=== PATIENT | male | born 1950 | race Two or more races ===

== ENCOUNTER 2020-01-24 13:11 | Emergency (ER) | payer MEDICARE, MEDICAID, SELFPAY ==
[2020-01-24 14:15] VITALS: BP 178/86; PULSE 58; RESP 16; TEMP 37.1; O2SAT 100; BMI 24.4
--- NOTE | 2020-01-24 15:21 | ED.GENADULT ---
HPI - General Adult General Chief complaint: General Medical Stated complaint: congestion Time Seen by Provider: 01/24/20 15:15 Source: patient Mode of arrival: ambulatory Limitations: no limitations History of Present Illness HPI narrative: 69 y/o male presenting with sinus congestion for the last 2 days. He denies all other symptoms and is requesting COVID-19 testing. He states his nasal discharge is thin and watery. He has a mild headache. He has been taking medications for it but does not recall what they are. He denies sick contacts. Denies hx seasonal allergies. MD complaint: sinus pain Onset (ago): day(s) (2) Location: head Radiation: non-radiation Severity: mild Quality: aching Pain Consistency: constant Relieving factors: none Exacerbating factors: movement Associated symptoms: denies other symptoms Treatments prior to arrival: none Related Data Home Medications Medication Instructions Recorded Confirmed artificial tears(hypromellose) 0.3 1 drp OPHTHALMIC (EYE) Q4H PRN 12/17/19 % eye gel atorvastatin 10 mg tablet 10 mg PO DAILY 12/17/19 duloxetine 30 mg capsule,delayed 30 mg PO DAILY 12/17/19 release flecainide 50 mg tablet 50 mg PO BID tab 12/17/19 Previous Rx's Medication Instructions Recorded metoprolol succinate 25 mg 25 mg PO DAILY 90 Days #90 tab 12/17/19 tablet,extended release 24 hr omeprazole 20 mg capsule,delayed 20 mg PO DAILY #30 cap 12/17/19 release tizanidine 4 mg tablet 4 mg PO BID PRN #60 tab 12/18/19 tamsulosin 0.4 mg capsule 0.4 mg PO BEDTIME #30 cap 12/25/19 lorazepam 0.5 mg tablet 0.5 mg PO DAILY PRN #30 tab 01/14/20 rivaroxaban 20 mg tablet 20 mg PO DAILY #90 cap 01/15/20 fluticasone propionate 1 spray INTRANASAL BID #9.9 ml 01/24/20 Allergies Allergy/AdvReac Type Severity Reaction Status Date / Time almond [ALMOND] Allergy Unknown SWELLING Unverified 11/13/19 15:32 flecainide Allergy Unknown Verified 08/20/17 00:00 Review of Systems Review of Systems: Constitutional: No Fever, No Chills ENT/Mouth: No sore throat, + Rhinorrhea Eyes: No Eye Pain, No Swelling, No Redness Cardiovascular: No Chest Pain, No SOB Respiratory: No Cough, No Sputum, No Wheezing, No dyspnea Gastrointestinal: No Nausea, No Vomiting, No Diarrhea, No abdominal Pain Genitourinary: No Dysuria, No Urinary Frequency, No Hematuria Musculoskeletal: No joint pain, No Myalgias Skin: No Skin Lesions, No rash Neuro: No Weakness, No Dizziness, + Headache Heme/Lymph: No Lymphadenopathy [facility] Past Medical History Attestation statement: The following information was validated with the patient. Medical History Alcohol abuse Anxiety and depression Atrial fibrillation Blind right eye BPH (benign prostatic hyperplasia) Degenerative disc disease, cervical GERD (gastroesophageal reflux disease) Hypercholesterolemia Hypertension Left renal stone Lesion of bladder Pulmonary nodule Sensorineural hearing loss Thoracic spondylosis Tubular adenoma of colon Surgical History (Updated 12/16/19 @ 13:35 by Yvonne Carter MD) History of inguinal hernia repair Hx of cataract surgery Family History Family History (Updated 12/17/19 @ 07:36 by Lily Melo [facility]) Father Medical history unknown Mother Medical history unknown Social History Social History Advance Directives: No Advance Directives Information Provided: No Physical Exam Vital Signs: Vital Signs: Last Vital Signs Temp 98.7 F 01/24/20 14:15 Pulse 58 01/24/20 14:15 Resp 16 01/24/20 14:15 BP 178/86 H 01/24/20 14:15 Pulse Ox 100 01/24/20 14:15 Body Mass Index 24.4 Appearance: Alert. Oriented X3. No acute distress. HEENT: normal inspection, nasal discharge clear, normal nasal turbinates, normal TM's bilaterally. CVS: Normal heart rate and rhythm. Pulses normal. Respiratory: No respiratory distress. Lung sounds clear bilaterally. Skin: Skin warm and dry. Normal skin color. Normal skin turgor. No rashes. Extremities: no LE edema. Neuro: Oriented X 3. Non-focal Course Course Course Narrative: 69 y/o male presenting with nasal congestion. He is concerned about COVID-19. Resp panel was sent. Low suspicion. Exam is unremarkable and vitals are stable. Stable for d/c, will call with results. Nasal steroids prescribed. Critical Care Time Critical Care Time Critical Care Time: No Discharge Plan Discharge Clinical Impression: Upper respiratory infection, viral Patient Disposition: Home, Self-Care Instructions: Upper Respiratory Infection (ED) Additional Instructions: You were tested for COVID-19, Influenza and RSV today. We will call you with the results this evening. Take over the counter cold/flu medications as needed. Use nasal saline spray and nasal decongestant medications. Use prescribed nasal spray to help with congestion. Follow up with your doctor next week. If you develop shortness of breath, chest pain, or difficulty breathing call 911 or come back to the ER for further evaluation. Prescriptions: New fluticasone propionate 50 mcg/actuation spray,suspension 1 spray intranasal BID Qty: 9.9 RF: 0 No Action tizanidine 4 mg tablet 4 mg PO BID PRN (Reason: muscle spasticity) Qty: 60 RF: 0 tamsulosin [Flomax] 0.4 mg capsule 0.4 mg PO BEDTIME Qty: 30 RF: 6 lorazepam 0.5 mg tablet 0.5 mg PO DAILY PRN (Reason: agitation) Qty: 30 RF: 0 rivaroxaban [Xarelto] 20 mg tablet 20 mg PO DAILY Qty: 90 RF: 1 Systane Gel 0.3 % gel 1 drp ophthalmic (eye) Q4H PRNRF: 0 atorvastatin 10 mg tablet 10 mg PO DAILY RF: 0 flecainide 50 mg tablet 50 mg PO BID RF: 0 duloxetine [Cymbalta] 30 mg capsule,delayed release(DR/EC) 30 mg PO DAILY RF: 0 metoprolol succinate 25 mg tablet extended release 24 hr 25 mg PO DAILY 90 Days Qty: 90 RF: 3 omeprazole 20 mg capsule,delayed release(DR/EC) 20 mg PO DAILY Qty: 30 RF: 2 Print Language: Kyrgyz
[2020-01-24 19:39] LABS: Influenza A PCR NEGATIVE (Negative); Influenza B PCR NEGATIVE (Negative); Resp Syncy Virus RNA Qual PCR NEGATIVE (Negative); SARS COV2 PCR INHOUSE NEGATIVE (Negative)
== END 2020-01-24 16:25 | disposition home or self-care (01) ==
PROVIDERS: Physician Assistant; Emergency Provider Internal Medicine; PCP Internal Medicine
DX: J06.9 Acute upper respiratory infection, unspecified (principal); R09.81 Nasal congestion; Z79.899 Other long term (current) drug therapy; Z20.828 Contact with and (suspected) exposure to other viral communicable diseases
CPT/HCPCS: 0241U; 99283

== ENCOUNTER 2020-03-04 09:55 | Outpatient (REF) | payer MEDICARE, MEDICAID, SELFPAY ==
--- NOTE | 2020-03-04 09:58 | US_ITS ---
EXAMINATION: US RETROPERITONEAL LIMITED (RENAL ONLY) CLINICAL INFORMATION: Cyst of kidney, acquired. COMPARISON: Renal ultrasound 07/25/2018. Ultrasound kidneys and bladder 06/18/2018. CT abdomen and pelvis 02/15/2015. X-ray abdomen KUB 09/10/2014. TECHNIQUE: Real-time imaging of the kidneys. FINDINGS: RIGHT KIDNEY: 10.8 x 5.3 x 5.8 cm (SAG x AP x TRV). The kidney is normal in size, contour, and echogenicity. Renal cortical thickness is normal. No calculi or focal parenchymal lesions. No hydronephrosis. LEFT KIDNEY: 11.0 x 5.5 x 4.7 cm (SAG x AP x TRV). The kidney is normal in size, contour, and echogenicity. Renal cortical thickness is normal. No renal calculi or hydronephrosis. There are peripelvic lower pole cysts measuring 0.9 x 1.3 x 0.8 cm and 1.0 x 0.6 x 0.7 cm. There are prominent pyramids visualized. US/US renal BI IMPRESSION: Unremarkable right kidney. At least 2 peripelvic lower pole left renal cysts. Prominent pyramids.
== END 2020-03-04 09:56 | disposition home or self-care (01) ==
LOC: HO.US 09:55
PROVIDERS: PCP Internal Medicine; Visit Provider Internal Medicine
DX: N28.1 Cyst of kidney, acquired (principal)
CPT/HCPCS: 76775

== ENCOUNTER → 2020-05-24 09:22 | Outpatient (BNVA) | payer MEDICARE, MEDICAID, SELFPAY | PROVIDERS: PCP Internal Medicine; Visit Provider Internal Medicine Cardiovascular Disease | DX: I48.0 Paroxysmal atrial fibrillation (principal); I10 Essential (primary) hypertension | CPT/HCPCS: 93005; 99212 ==

== ENCOUNTER 2020-06-10 08:06 | Outpatient (REF) | payer MEDICARE, MEDICAID, SELFPAY ==
--- NOTE | ~2020-06-10 | XR_ITS ---
EXAMINATION: XR LUMBOSACRAL SPINE CLINICAL INFORMATION: Low back pain COMPARISON: None TECHNIQUE: Three views of the lumbosacral spine. FINDINGS: Bone alignment is normal. No fracture or dislocation is seen. Disc spaces are normal. There is mild atherosclerotic disease. XR/XR lumbar spine 2-3V IMPRESSION: Unremarkable exam.
[2020-06-10 08:49] LABS: MANUAL DIFF FLAG NO
[2020-06-10 08:52] LABS: Basophils Absolute Auto 0.1 X10*3/uL (0.0-0.2); Basophils Percent Auto 0.9 % (0-2); Eosinophils Absolute Auto 0.3 X10*3/uL (0.0-0.4); Eosinophils Percent Auto 4.6 % (0-4); Hematocrit 39.7 % (42-52); Hemoglobin 12.8 g/dl (14.0-18.0); Imm Gran Abs Auto 0.01 X10*3/uL (0.00-0.03); Imm Gran Pct Auto 0.2 % (0.0-0.4); Lymphocytes Absolute Auto 1.9 X10*3/uL (1.2-4.9); Lymphocytes Percent Auto 34.6 % (20-40); Mean Corpuscular HGB Conc 32.2 g/dl (31.0-36.0); Mean Corpuscular Hemoglobin 30.3 pg (27.0-33.0); Mean Corpuscular Volume 93.9 fL (80-98); Mean Platelet Volume 10.8 fL (9.4-12.4); Monocytes Absolute Auto 0.4 X10*3/uL (0.1-1.2); Monocytes Percent Auto 7.2 % (2-11); Neutrophils Absolute Auto 2.9 X10*3/uL (2.0-8.3); Neutrophils Percent Auto 52.5 % (45-73); Platelet Count 201 X10*3/uL (160-400); Red Blood Count 4.23 X10*6/uL (4.60-5.80); Red Cell Distribution Width 13.4 % (11.0-16.0); White Blood Count 5.4 X10*3/uL (4.8-10.8)
[2020-06-10 09:16] LABS: Alanine Aminotransferase 13 U/L (0-40); Albumin Level 4.2 g/dL (3.5-5.0); Alkaline Phosphatase 61 U/L (39-117); Anion Gap 10 (12-20); Aspartate Amino Transferase 16 U/L (5-37); Blood Urea Nitrogen 11 mg/dL (9-16); Calcium 9.3 mg/dL (8.4-10.2); Carbon Dioxide 29 mmol/L (22-29); Chloride 107 mmol/L (96-108); Cholesterol 181 mg/dL; Estimated Glomerular Filt Rate > 60; Glucose Random 96 mg/dL (60-115); HDL Cholesterol 50 mg/dL; LDL Cholesterol Calculated 105 mg/dl; Potassium 4.2 mmol/L (3.3-5.1); Sodium 142 mmol/L (135-145); Total Protein 6.5 g/dL (6.5-8.0); Triglycerides 133 mg/dL
[2020-06-10 09:38] LABS: Prostate Specific Antigen Scr 1.64 ng/mL (<0.05-4.0); Thyroid Stimulating Hormone 0.78 uIU/mL (0.32-4.0)
[2020-06-10 09:56] LABS: Folate 18.6 ng/mL (> or = 4.0); Vitamin B12 380 pg/mL (200-900)
== END 2020-06-10 08:07 | disposition home or self-care (01) ==
LOC: HO.LAB 08:06
PROVIDERS: PCP Internal Medicine; Visit Provider Internal Medicine
DX: Z12.5 Encounter for screening for malignant neoplasm of prostate (principal); M54.5 Low back pain; E78.00 Pure hypercholesterolemia, unspecified; I48.0 Paroxysmal atrial fibrillation; I10 Essential (primary) hypertension; R35.0 Frequency of micturition; N40.1 Benign prostatic hyperplasia with lower urinary tract symptoms
CPT/HCPCS: 36415; 72100; 80053; 80061; 82607; 82746; 84153; 84443; 85025

== ENCOUNTER 2020-06-15 23:30 | Emergency (ER) | payer MEDICARE, MEDICAID, SELFPAY ==
--- NOTE | 2020-06-15 | ECG_ITS ---
Test Reason : CHEST PRESSURE Blood Pressure : / mmHG Vent. Rate : 059 BPM Atrial Rate : 059 BPM P-R Int : 172 ms QRS Dur : 100 ms QT Int : 418 ms P-R-T Axes : 047 061 061 degrees QTc Int : 413 ms Sinus bradycardia Otherwise normal ECG When compared to the previous EKG of No significant changes seen Referred By: Generic ED Physician Electronically Signed By:Efe Mcrae
--- NOTE | ~2020-06-15 | XR_ITS ---
EXAMINATION: XR CHEST CLINICAL INFORMATION: Pain COMPARISON: 10/21/2019 TECHNIQUE: Frontal view of the chest was obtained. FINDINGS: Cardiac leads overlie the chest. Hyperexpanded lungs. No consolidation, edema, or effusion. No pneumothorax. The cardiomediastinal silhouette is within normal limits. No acute osseous abnormality. XR/XR chest 1V IMPRESSION: No acute pulmonary finding.
--- NOTE | ~2020-06-15 | CT_ITS ---
EXAMINATION: CT HEAD WITHOUT CONTRAST CLINICAL INFORMATION: Dizziness on Xarelto. COMPARISON: 02/06/2019 TECHNIQUE: Contiguous axial imaging was performed from the skull base to vertex without intravenous contrast. This CT examination was performed using dose optimization techniques as appropriate, variously including the following: * Automated exposure control * Adjustment of mA and/or kV according to patient size (this includes techniques or standardized protocols for targeted exams where dose is matched to indication/reason for exam; i.e. extremities or head) Use of iterative reconstruction technique DLP: 774 mGy-cm. FINDINGS: There is no evidence of acute intracranial hemorrhage or territorial infarction. No abnormal mass effect or midline shift is seen. Ramirez to white matter differentiation is well preserved. No extra-axial fluid collections are identified. No hydrocephalus. Proportional prominence of the ventricles and sulcal spaces is consistent with mild volume loss. Patchy periventricular and deep white matter hypoattenuation is consistent with mild small vessel ischemic changes. The osseous structures and soft tissues are normal. The mastoid air cells and visualized portions of the paranasal sinuses are well aerated. CT/CT head/brain wo con IMPRESSION: No acute intracranial pathology.
[2020-06-15 23:46] VITALS: BP 116/58; PULSE 59; RESP 16; TEMP 36.9; O2SAT 98; BMI 25.0
--- NOTE | 2020-06-15 23:49 | ED_ITS ---
HPI - Chest Pain General Chief Complaint: General Medical Stated Complaint: CHEST PAIN Time Seen by Provider: 06/15/20 23:49 Source: patient, old records reviewed and manager implementation Mode of arrival: ambulatory Limitations: no limitations History of Present Illness HPI narrative: 69 yo male with afib on xarelto, anxiety and depression, HPL, BPH, lower back pain, HTN - here with very vague symptoms c/o brief episode of chest pressure after eating food but that resolved and he stated he's fine now this happened at 11am, then stated he felt dizzy and his L eye was blurry this has now resolved, he has a normal neuro exam, he is very vague and his story has changed 5 to 6 times. MD complaint: chest pain and other (blurry vision in eye) Pertinent past history: other Timing of current episode: now resolved Prior episodes: Yes Onset: during rest Pain location: left chest Pain radiation: none Severity: mild Quality: heaviness Relieving factors: nothing (was given nitro but it did nothing and he had no chest pain) Exacerbating factors: nothing Associated symptoms: other (blurry vision left eye) Treatment prior to arrival: nitroglycerin Related Data Home Medications Medication Instructions Recorded Confirmed artificial tears(hypromellose) 0.3 1 drp OPHTHALMIC (EYE) Q4H PRN 12/17/19 06/09/20 % eye gel Previous Rx's Medication Instructions Recorded tizanidine 4 mg tablet 4 mg PO BID PRN #60 tab 12/18/19 tamsulosin 0.4 mg capsule 0.4 mg PO BEDTIME #30 cap 12/25/19 fluticasone propionate 1 spray INTRANASAL BID #9.9 ml 01/24/20 atorvastatin 10 mg tablet 10 mg PO DAILY #90 tab 03/10/20 duloxetine 30 mg capsule,delayed 30 mg PO DAILY #90 cap 03/10/20 release metoprolol succinate 25 mg 25 mg PO DAILY 90 Days #90 tab 03/10/20 tablet,extended release 24 hr omeprazole 20 mg capsule,delayed 20 mg PO DAILY #90 cap 03/10/20 release rivaroxaban 20 mg tablet 20 mg PO DAILY #90 cap 03/10/20 lorazepam 0.5 mg tablet 0.5 mg PO DAILY 90 Days #90 tab 04/28/20 flecainide 50 mg tablet 50 mg PO BID #180 cap 06/07/20 Allergies Allergy/AdvReac Type Severity Reaction Status Date / Time almond [ALMOND] Allergy Unknown SWELLING Verified 04/23/20 12:45 Review of Systems Review of Systems: Constitutional : No Weight loss, No Fever, No Chills, No Fatigue, No Malaise ENT/Mouth : No sore throat, No Rhinorrhea Eyes: No Eye Pain, No Swelling, No Redness Cardiovascular : No Chest Pain, No SOB, No Dyspnea on Exertion, No Orthopnea, No Edema, No Palpitations Respiratory : No Cough, No Sputum, No Wheezing Gastrointestinal : No Nausea, No Vomiting, No Diarrhea, No Constipation, No abdominal Pain, No Hematochezia, No Melena Genitourinary : No Dysuria, No Urinary Frequency, No Hematuria, Musculoskeletal : No joint pain, No Myalgias, No Joint Swelling Skin : No Skin Lesions, No rash Neuro : No Weakness, No Numbness, pos Dizziness, No Headache Psych : No Anxiety/Panic, No Depression Heme/Lymph: No Bruising, No Bleeding,No Lymphadenopathy Endocrine : No Polyuria, No Polydipsia All other systems reviewed and are negative [facility] Past Medical History Attestation statement: The following information was validated with the patient. Medical History Alcohol abuse Anxiety and depression Blind right eye BPH (benign prostatic hyperplasia) Degenerative disc disease, cervical GERD (gastroesophageal reflux disease) Hypercholesterolemia Hypertension Left renal stone Lesion of bladder Lower back pain Paroxysmal atrial fibrillation Pulmonary nodule Renal cyst Sensorineural hearing loss Thoracic spondylosis Tubular adenoma of colon Surgical History History of inguinal hernia repair Hx of cataract surgery Family History Family History (Updated 04/23/20 @ 12:46 by Lily Melo Celeste) Father Medical history unknown Mother Medical history unknown Brother No problems noted. Son No problems noted. Son No problems noted. Social History Social History Alcohol intake: never Smoking Status: Never smoker Advance Directives: No Physical Exam Vital Signs: Vital Signs: Last Vital Signs Temp 98.4 F 06/15/20 23:46 Pulse 59 06/15/20 23:46 Resp 16 06/15/20 23:46 BP 116/58 L 06/15/20 23:46 Pulse Ox 98 06/15/20 23:46 Body Mass Index 25.0 Appearance: Alert. Oriented X3. No acute distress. Eyes: Pupils equal, round and reactive to light. no visual field deficits ENT: Pharynx normal. Neck: Normal inspection. Neck supple. CVS: Normal heart rate and rhythm. Pulses normal. Respiratory: No respiratory distress. Breath sounds normal. Abdomen: Soft and nontender. Skin: Skin warm and dry. Normal skin color. Normal skin turgor. Extremities: No lower extremity edema. No calf ttp Neuro: Oriented X 3. No motor deficit. No sensory deficit. NIH Stroke Scale Internal: Initial- Upon Arrival Level of Consciousness: Alert Level of Consciousness Questions: Answers both questions correctly Level of Consciousness Commands: Performs both tasks correctly Best Gaze: Normal Visual: No visual loss Facial Palsy: Normal Motor Arm (Right): No drift Motor Arm (Left): No drift Motor Leg (Right): No drift Motor Leg (Left): No drift Limb Ataxia: Absent Sensory: Normal Best Language: No aphasia Dysarthia: Normal Extinction and Inattention: No abnormality Score: 0 Course Course Course Narrative: no acute findings, patient wants to leave at this time, refuses repeat troponin, unsure what happened, instructed him to return if he it occurs again but patient states he feels fine now and wants to go home MDM - Chest Pain MDM Narrative Medical decision making narrative: 69 yo male with afib on xarelto, anxiety and depression, HPL, BPH, lower back pain, HTN - here with very vague symptoms c/o brief episode of chest pressure after eating food but that resolved and he stated he's fine now this happened at 11am, then stated he felt dizzy and his L eye was blurry this has now resolved, his story has changed 4 to 5 times but given his history though he has a negative NIH score will obtain CT scan due to AC therapy, troponin, not toxic now looks well. Lab Data Result diagrams: 06/16/20 00:31 06/16/20 00:31 Labs: Lab Results 06/16/20 06/16/20 06/16/20 Range/Units 00:31 00:31 00:31 WBC 6.8 (4.8-10.8) X10*3/uL RBC 3.99 L (4.60-5.80) X10*6/uL Hgb 11.9 L (14.0-18.0) g/dl Hct 36.9 L (42-52) % MCV 92.5 (80-98) fL MCH 29.8 (27.0-33.0) pg MCHC 32.2 (31.0-36.0) g/dl RDW 13.3 (11.0-16.0) % Plt Count 197 (160-400) X10*3/uL MPV 10.4 (9.4-12.4) fL Immature Gran % (Auto) 0.1 (0.0-0.4) % Neut % (Auto) 58.9 (45-73) % Lymph % (Auto) 29.1 (20-40) % [place] % (Auto) 7.3 (2-11) % Eos % (Auto) 3.9 (0-4) % Baso % (Auto) 0.7 (0-2) % Lymph # (Auto) 2.0 (1.2-4.9) X10*3/uL [place] # (Auto) 0.5 (0.1-1.2) X10*3/uL Eos # (Auto) 0.3 (0.0-0.4) X10*3/uL Baso # (Auto) 0.1 (0.0-0.2) X10*3/uL Abs Immat Gran (auto) 0.01 (0.00-0.03) X10*3/uL Absolute Neuts (auto) 4.0 (2.0-8.3) X10*3/uL Absolute Nucleated RBC 0.000 (0.0-0.012) X10*3/uL Nucleated RBC % (auto) 0.0 (0.0-0.2) /100WBC PT 25.1 H (10.8-13.0) SEC INR 2.1 H (0.9-1.1) APTT 48.1 H (24.1-38.0) SEC Sodium 140 (135-145) mmol/L Potassium 3.5 (3.3-5.1) mmol/L Chloride 108 (96-108) mmol/L Carbon Dioxide 22 (22-29) mmol/L Anion Gap 14 (12-20) BUN 12 (9-16) mg/dL Creatinine 0.84 (0.5-1.4) mg/dL Estim Creat Clear Calc 89.8 Estimated GFR > 60 Random Glucose 127 H (60-115) mg/dL Calcium 8.9 (8.4-10.2) mg/dL Magnesium (1.6-2.6) mg/dL Troponin I High Sens (<3.5-35.0) ng/L 06/16/20 06/16/20 Range/Units 00:31 00:31 WBC (4.8-10.8) X10*3/uL RBC (4.60-5.80) X10*6/uL Hgb (14.0-18.0) g/dl Hct (42-52) % MCV (80-98) fL MCH (27.0-33.0) pg MCHC (31.0-36.0) g/dl RDW (11.0-16.0) % Plt Count (160-400) X10*3/uL MPV (9.4-12.4) fL Immature Gran % (Auto) (0.0-0.4) % Neut % (Auto) (45-73) % Lymph % (Auto) (20-40) % [place] % (Auto) (2-11) % Eos % (Auto) (0-4) % Baso % (Auto) (0-2) % Lymph # (Auto) (1.2-4.9) X10*3/uL [place] # (Auto) (0.1-1.2) X10*3/uL Eos # (Auto) (0.0-0.4) X10*3/uL Baso # (Auto) (0.0-0.2) X10*3/uL Abs Immat Gran (auto) (0.00-0.03) X10*3/uL Absolute Neuts (auto) (2.0-8.3) X10*3/uL Absolute Nucleated RBC (0.0-0.012) X10*3/uL Nucleated RBC % (auto) (0.0-0.2) /100WBC PT (10.8-13.0) SEC INR (0.9-1.1) APTT (24.1-38.0) SEC Sodium (135-145) mmol/L Potassium (3.3-5.1) mmol/L Chloride (96-108) mmol/L Carbon Dioxide (22-29) mmol/L Anion Gap (12-20) BUN (9-16) mg/dL Creatinine (0.5-1.4) mg/dL Estim Creat Clear Calc Estimated GFR Random Glucose (60-115) mg/dL Calcium (8.4-10.2) mg/dL Magnesium 2.4 (1.6-2.6) mg/dL Troponin I High Sens < 3.5 (<3.5-35.0) ng/L ECG Data ECG #1: Attestation: I personally reviewed and interpreted this ECG as follows: ECG interpretation date: 06/16/20 ECG interpretation time: 00:02 Interpretation: Rate: 59 Rhythm: sinus bradycardia [place]: normal , LVH Normal P waves. Normal CESIA. Normal QRS complex. ST T wave : normal no MARIELA qTC: normal prior studies: no acute ischemia The study has been interpreted contemporaneously by me. . Discharge Plan Discharge Clinical Impression: Dizziness, Atypical chest pain Patient Disposition: Home, Self-Care Instructions: Dizziness (ED), Chest Pain (ED) Additional Instructions: return to ED for any worsening symptoms or concerns Prescriptions: No Action tizanidine 4 mg tablet 4 mg PO BID PRN (Reason: muscle spasticity) Qty: 60 RF: 0 tamsulosin [Flomax] 0.4 mg capsule 0.4 mg PO BEDTIME Qty: 30 RF: 6 lorazepam 0.5 mg tablet 0.5 mg PO DAILY 90 Days Qty: 90 RF: 0 flecainide 50 mg tablet 50 mg PO BID Qty: 180 RF: 2 fluticasone propionate 50 mcg/actuation spray,suspension 1 spray intranasal BID Qty: 9.9 RF: 0 Systane Gel 0.3 % gel 1 drp ophthalmic (eye) Q4H PRNRF: 0 atorvastatin 10 mg tablet 10 mg PO DAILY Qty: 90 RF: 1 duloxetine [Cymbalta] 30 mg capsule,delayed release(DR/EC) 30 mg PO DAILY Qty: 90 RF: 1 metoprolol succinate 25 mg tablet extended release 24 hr 25 mg PO DAILY 90 Days Qty: 90 RF: 3 Xarelto 20 mg tablet 20 mg PO DAILY Qty: 90 RF: 1 omeprazole 20 mg capsule,delayed release(DR/EC) 20 mg PO DAILY Qty: 90 RF: 1 Referrals: Po,Yvonne Gold MD [Primary Care Provider] - 2 days (if not better) Print Language: [place]ican
[2020-06-16 00:35] LABS: MANUAL DIFF FLAG NO
[2020-06-16 00:39] LABS: Basophils Absolute Auto 0.1 X10*3/uL (0.0-0.2); Basophils Percent Auto 0.7 % (0-2); Eosinophils Absolute Auto 0.3 X10*3/uL (0.0-0.4); Eosinophils Percent Auto 3.9 % (0-4); Hematocrit 36.9 % (42-52); Hemoglobin 11.9 g/dl (14.0-18.0); Imm Gran Abs Auto 0.01 X10*3/uL (0.00-0.03); Imm Gran Pct Auto 0.1 % (0.0-0.4); Lymphocytes Percent Auto 29.1 % (20-40); Mean Corpuscular HGB Conc 32.2 g/dl (31.0-36.0); Mean Corpuscular Hemoglobin 29.8 pg (27.0-33.0); Mean Corpuscular Volume 92.5 fL (80-98); Mean Platelet Volume 10.4 fL (9.4-12.4); Monocytes Absolute Auto 0.5 X10*3/uL (0.1-1.2); Monocytes Percent Auto 7.3 % (2-11); Neutrophils Percent Auto 58.9 % (45-73); Platelet Count 197 X10*3/uL (160-400); Red Blood Count 3.99 X10*6/uL (4.60-5.80); Red Cell Distribution Width 13.3 % (11.0-16.0); White Blood Count 6.8 X10*3/uL (4.8-10.8)
[2020-06-16 01:00] LABS: Anion Gap 14 (12-20); Blood Urea Nitrogen 12 mg/dL (9-16); Calcium 8.9 mg/dL (8.4-10.2); Carbon Dioxide 22 mmol/L (22-29); Chloride 108 mmol/L (96-108); Creatinine Clr Calc Pharmacy 89.8; Estimated Glomerular Filt Rate > 60; Glucose Random 127 mg/dL (60-115); INTERNATIONAL NORM RATIO 2.1 (0.9-1.1); Potassium 3.5 mmol/L (3.3-5.1); Prothrombin Time 25.1 SEC (10.8-13.0); Sodium 140 mmol/L (135-145)
[2020-06-16 01:03] LABS: Partial Thromboplastin Time 48.1 SEC (24.1-38.0)
[2020-06-16 01:08] LABS: Troponin-I High Sensitivity < 3.5 ng/L (<3.5-35.0)
[2020-06-16 01:10] LABS: Magnesium 2.4 mg/dL (1.6-2.6)
== END 2020-06-16 01:58 | disposition home or self-care (01) ==
PROVIDERS: Emergency Provider Emergency Medicine; PCP Internal Medicine
DX: R07.89 Other chest pain (principal); H53.8 Other visual disturbances; R42 Dizziness and giddiness; I48.91 Unspecified atrial fibrillation; Z79.01 Long term (current) use of anticoagulants; Z79.899 Other long term (current) drug therapy
CPT/HCPCS: 36415; 70450; 71045; 80048; 83735; 84484; 85025; 85610; 85730; 93005; 99283; 99284

== ENCOUNTER 2020-07-05 08:58 | Inpatient (IN) | payer MEDICARE, MEDICAID, SELFPAY ==
[2020-07-05] VITALS (7 sets, daily range): BP systolic 127–162; BP diastolic 65–83; PULSE 55–61; RESP 14–18; TEMP 36.2–36.7; O2SAT 97–99; BMI 25.7; BMI 24.9
--- NOTE | ~2020-07-05 | MR_ITS ---
MRI OF THE BRAIN WITHOUT IV CONTRAST INDICATION: Left eye visual loss. COMPARISON: CT head performed earlier the same day. TECHNIQUE: Multiplanar multisequence MR imaging of the brain was obtained without IV contrast. FINDINGS: There are T2 signal changes within the supratentorial white matter, likely mild chronic microangiopathy. There are a few punctate acute infarcts within the left frontal lobe. Previous left occipital lobe finding on CT is artifactual. There is no hydrocephalus, extra-axial surface collection, or herniation. The major flow voids at the skull base are preserved. There is no intracranial hemorrhage on the gradient recalled echo acquisition. The midline structures are normal. The cerebellar tonsils are normally positioned. The cerebellum and brainstem are normal. The craniocervical junction is normal. Osseous marrow signal intensity is homogenous. The visualized soft tissues are unremarkable. MR/MR head/brain wo con IMPRESSION: - There are a few small punctate acute infarcts within the left frontal lobe. No mass effect and no hemorrhagic transformation. - There are T2 signal changes within the supratentorial white matter, likely mild chronic microangiopathy. - Previous left occipital lobe finding on CT was artifactual. There is a small chronic cortical/subcortical infarct within the left occipital lobe.
--- NOTE | ~2020-07-05 | CT_ITS ---
EXAMINATION: CT ANGIOGRAM BRAIN, HEAD CLINICAL INFORMATION: Left eye central loss of vision. COMPARISON: Head CT 06/16/2020. TECHNIQUE: Test bolus sequences followed by intravenous administration 100 mL of Omnipaque 350 intravenous contrast. Helical imaging was performed in the axial plane from the skull base to the vertex. Delayed postcontrast imaging of the head was also performed. The data was processed at the ultrasound technologist sonographer workstation for generation of MIP sequences. Three-dimensional volume rendered reformatted images were also generated at an offline 3-D workstation. This CT examination was performed using dose optimization techniques as appropriate, variously including the following: *Automated exposure control *Adjustment of mA and/or kV according to patient size (this includes techniques or standardized protocols for targeted exams where dose is matched to indication/reason for exam; i.e. extremities or head) *Use of iterative reconstruction technique FINDINGS: There is correia white matter differentiation loss versus artifact in the left occipital lobe that can be more definitively assessed with an MRI of the brain to exclude an acute infarct. There is no intracranial hemorrhage, hydrocephalus, extra-axial surface collection, midline shift, or other herniation pattern. The basilar cisterns are preserved. No significant soft tissue abnormality. No acute osseous abnormality. The paranasal sinuses and the mastoid air cells are well aerated. The anterior and posterior intracranial arterial circulations are normal in caliber. No significant arterial stenoses in no acute arterial occlusions intracranially. No aneurysms and no high flow vascular malformations. CT/CT angio head IMPRESSION: - There is correia white matter differentiation loss versus artifact in the left occipital lobe that can be more definitively assessed with an MRI of the brain to exclude an acute infarct. - Unremarkable CTA of the head.
--- NOTE | 2020-07-05 09:01 | ED.GENADULT ---
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 complaint: L eye central loss of vision Onset (ago): day(s) (Sunday) Location: head Radiation: non-radiation Severity: moderate Relieving factors: none Exacerbating factors: none Associated symptoms: other (denies, central blue loss of vision since Sunday no trauma, hx of lens in that eye, patient is already blind in R eye) Treatments prior to arrival: none Related Data Home Medications Medication Instructions Recorded Confirmed ascorbic acid (vitamin C) [Vitamin 500 mg PO DAILY 07/05/20 07/05/20 C] multivitamin 1 tab PO DAILY 07/05/20 07/05/20 tamsulosin [Flomax] 0.4 mg PO DAILY 07/05/20 07/05/20 Previous Rx's Medication Instructions Recorded tizanidine 4 mg tablet 4 mg PO BID PRN #60 tab 12/18/19 fluticasone propionate 1 spray INTRANASAL BID #9.9 ml 01/24/20 atorvastatin 10 mg tablet 10 mg PO DAILY #90 tab 03/10/20 duloxetine 30 mg capsule,delayed 30 mg PO DAILY #90 cap 03/10/20 release metoprolol succinate 25 mg 25 mg PO DAILY 90 Days #90 tab 03/10/20 tablet,extended release 24 hr omeprazole 20 mg capsule,delayed 20 mg PO DAILY #90 cap 03/10/20 release rivaroxaban 20 mg tablet 20 mg PO DAILY #90 cap 03/10/20 lorazepam 0.5 mg tablet 0.5 mg PO DAILY 90 Days #90 tab 04/28/20 flecainide 50 mg tablet 50 mg PO BID #180 cap 06/07/20 Allergies Allergy/AdvReac Type Severity Reaction Status Date / Time almond [ALMOND] Allergy Unknown SWELLING Verified 04/23/20 12:45 Review of Systems Review of Systems: Constitutional : No Weight loss, No Fever, No Chills, No Fatigue, No Malaise ENT/Mouth : No sore throat, No Rhinorrhea Eyes: No Eye Pain, No Swelling, No Redness, pos vision loss Cardiovascular : No Chest Pain, No SOB, No Dyspnea on Exertion, No Orthopnea, No Edema, No Palpitations Respiratory : No Cough, No Sputum, No Wheezing Gastrointestinal : No Nausea, No Vomiting, No Diarrhea, No Constipation, No abdominal Pain, No Hematochezia, No Melena Genitourinary : No Dysuria, No Urinary Frequency, No Hematuria, Musculoskeletal : No joint pain, No Myalgias, No Joint Swelling Skin : No Skin Lesions, No rash Neuro : No Weakness, No Numbness, No Dizziness, No Headache Psych : No Anxiety/Panic, No Depression Heme/Lymph: No Bruising, No Bleeding,No Lymphadenopathy Endocrine : No Polyuria, No Polydipsia All other systems reviewed and are negative [facility] Past Medical History Attestation statement: The following information was validated with the patient. Medical History Alcohol abuse Anxiety and depression Blind right eye BPH (benign prostatic hyperplasia) Degenerative disc disease, cervical GERD (gastroesophageal reflux disease) Hypercholesterolemia Hypertension Left renal stone Lesion of bladder Lower back pain Paroxysmal atrial fibrillation Pulmonary nodule Renal cyst Sensorineural hearing loss Thoracic spondylosis Tubular adenoma of colon Surgical History History of inguinal hernia repair Hx of cataract surgery Family History Family History (Updated 04/23/20 @ 12:46 by Lily Melo [facility]) Father Medical history unknown Mother Medical history unknown Brother No problems noted. Son No problems noted. Son No problems noted. Social History Social History Alcohol intake: never Smoking Status: Never smoker Use of substances other than those prescribed or required for medical reasons: No Advance Directives: Yes Advance Directives Information Provided: Yes Advance Directives on File: No Physical Exam Vital Signs: Vital Signs: Last Vital Signs Temp 98.0 F 07/05/20 09:03 Pulse 58 07/05/20 15:14 Resp 14 07/05/20 15:14 BP 162/82 H 07/05/20 15:14 Pulse Ox 99 07/05/20 15:14 Body Mass Index 25.7 Appearance: Alert. Oriented X3. No acute distress. Eyes: R pupil opacified, L pupil ERRL 3mm, pressures 9/12mmgh on recheck - can see my light and can see my fingers, initially stated he could see the numbers on the remote but that it would disappear and look different ENT: Pharynx normal. Neck: Normal inspection. Neck supple. CVS: Normal heart rate and rhythm. Pulses normal. Respiratory: No respiratory distress. Breath sounds normal. Abdomen: Soft and nontender. Skin: Skin warm and dry. Normal skin color. Normal skin turgor. Extremities: No lower extremity edema. No calf ttp Neuro: Oriented X 3. No motor deficit. No sensory deficit. Course Course Course Narrative: MRI ordered to r/o stroke given CTA report MRI positive already on xarelto aspirin held for bleeding risks, will admit for further workup call to neurology 303pm - add ESR to evaluate vasculitis, if positive start on IV steroids, admit for further workup on recheck the patient notes maybe he has a little pressure behind his eyes - pending ESR will add steroids if elevated pending call back from ophthamology at this time 345pm Procedures Procedure Narrative Procedure Narrative: US of L eye 925am - no vitreous hemorrhage, lens appear normal, retina appears normal Medical Decision Making [facility] Narrative Medical decision making narrative: 69 yo male with hx of R eye blindness, L eye lens implant, lower back pain, PAF on xarelto - at this time will need labs, eye pressures, CTA for possible clot, US to evaluate for vitreous hemorrhage/retinal detachment, possible lens issue, since Sunday will need close ophtho follow up Lab Data Result diagrams: 07/05/20 09:42 07/05/20 09:42 Labs: Lab Results 07/05/20 07/05/20 07/05/20 Range/Units 09:42 09:42 15:10 WBC 5.2 (4.8-10.8) X10*3/uL RBC 4.01 L (4.60-5.80) X10*6/uL Hgb 12.2 L (14.0-18.0) g/dl Hct 37.4 L (42-52) % MCV 93.3 (80-98) fL MCH 30.4 (27.0-33.0) pg MCHC 32.6 (31.0-36.0) g/dl RDW 13.0 (11.0-16.0) % Plt Count 178 (160-400) X10*3/uL MPV 10.5 (9.4-12.4) fL Immature Gran % (Auto) 0.2 (0.0-0.4) % Neut % (Auto) 58.5 (45-73) % Lymph % (Auto) 28.0 (20-40) % [place] % (Auto) 6.9 (2-11) % Eos % (Auto) 5.6 H (0-4) % Baso % (Auto) 0.8 (0-2) % Lymph # (Auto) 1.5 (1.2-4.9) X10*3/uL [place] # (Auto) 0.4 (0.1-1.2) X10*3/uL Eos # (Auto) 0.3 (0.0-0.4) X10*3/uL Baso # (Auto) 0.0 (0.0-0.2) X10*3/uL Abs Immat Gran (auto) 0.01 (0.00-0.03) X10*3/uL Absolute Neuts (auto) 3.1 (2.0-8.3) X10*3/uL Absolute Nucleated RBC 0.000 (0.0-0.012) X10*3/uL Nucleated RBC % (auto) 0.0 (0.0-0.2) /100WBC PT (10.8-13.0) SEC INR (0.9-1.1) APTT (24.1-38.0) SEC Sodium 141 (135-145) mmol/L Potassium 4.0 (3.3-5.1) mmol/L Chloride 108 (96-108) mmol/L Carbon Dioxide 27 (22-29) mmol/L Anion Gap 10 L (12-20) BUN 14 (9-16) mg/dL Creatinine 0.79 (0.5-1.4) mg/dL Estim Creat Clear Calc 95.4 Estimated GFR > 60 Random Glucose 101 (60-115) mg/dL Calcium 9.1 (8.4-10.2) mg/dL COVID-19 (TYRONE) Negative (Negative) COVID-19 Clin Com See Note 07/05/20 Range/Units 15:10 WBC (4.8-10.8) X10*3/uL RBC (4.60-5.80) X10*6/uL Hgb (14.0-18.0) g/dl Hct (42-52) % MCV (80-98) fL MCH (27.0-33.0) pg MCHC (31.0-36.0) g/dl RDW (11.0-16.0) % Plt Count (160-400) X10*3/uL MPV (9.4-12.4) fL Immature Gran % (Auto) (0.0-0.4) % Neut % (Auto) (45-73) % Lymph % (Auto) (20-40) % [place] % (Auto) (2-11) % Eos % (Auto) (0-4) % Baso % (Auto) (0-2) % Lymph # (Auto) (1.2-4.9) X10*3/uL [place] # (Auto) (0.1-1.2) X10*3/uL Eos # (Auto) (0.0-0.4) X10*3/uL Baso # (Auto) (0.0-0.2) X10*3/uL Abs Immat Gran (auto) (0.00-0.03) X10*3/uL Absolute Neuts (auto) (2.0-8.3) X10*3/uL Absolute Nucleated RBC (0.0-0.012) X10*3/uL Nucleated RBC % (auto) (0.0-0.2) /100WBC PT 15.0 H D (10.8-13.0) SEC INR 1.3 H (0.9-1.1) APTT 40.0 H (24.1-38.0) SEC Sodium (135-145) mmol/L Potassium (3.3-5.1) mmol/L Chloride (96-108) mmol/L Carbon Dioxide (22-29) mmol/L Anion Gap (12-20) BUN (9-16) mg/dL Creatinine (0.5-1.4) mg/dL Estim Creat Clear Calc Estimated GFR Random Glucose (60-115) mg/dL Calcium (8.4-10.2) mg/dL COVID-19 (TYRONE) (Negative) COVID-19 Clin Com ECG Data Attestation: I personally reviewed and interpreted this ECG as follows: Interpretation: Rate: 50 Rhythm: sinus bradycardia [place]: normal , LVH Normal P waves. Normal CESIA. Normal QRS complex. ST T wave : normal no MARIELA, nonspecific qTC: normal prior studies: no acute ischemia The study has been interpreted contemporaneously by me. . Discharge Plan Discharge Clinical Impression: Loss of vision, Acute CVA (cerebrovascular accident) Patient Disposition: Admitted As Inpatient
[2020-07-05] MEDS: Tetracaine HCl/PF 0.5% Oph Sol 4 ML DROPS 3 DROP EYE-LEFT (09:15)
[2020-07-05 09:45] LABS: MANUAL DIFF FLAG NO
[2020-07-05 09:50] LABS: Basophils Percent Auto 0.8 % (0-2); Eosinophils Absolute Auto 0.3 X10*3/uL (0.0-0.4); Eosinophils Percent Auto 5.6 % (0-4); Hematocrit 37.4 % (42-52); Hemoglobin 12.2 g/dl (14.0-18.0); Imm Gran Abs Auto 0.01 X10*3/uL (0.00-0.03); Imm Gran Pct Auto 0.2 % (0.0-0.4); Lymphocytes Absolute Auto 1.5 X10*3/uL (1.2-4.9); Mean Corpuscular HGB Conc 32.6 g/dl (31.0-36.0); Mean Corpuscular Hemoglobin 30.4 pg (27.0-33.0); Mean Corpuscular Volume 93.3 fL (80-98); Mean Platelet Volume 10.5 fL (9.4-12.4); Monocytes Absolute Auto 0.4 X10*3/uL (0.1-1.2); Monocytes Percent Auto 6.9 % (2-11); Neutrophils Absolute Auto 3.1 X10*3/uL (2.0-8.3); Neutrophils Percent Auto 58.5 % (45-73); Platelet Count 178 X10*3/uL (160-400); Red Blood Count 4.01 X10*6/uL (4.60-5.80); White Blood Count 5.2 X10*3/uL (4.8-10.8)
[2020-07-05 10:19] LABS: Anion Gap 10 (12-20); Blood Urea Nitrogen 14 mg/dL (9-16); Calcium 9.1 mg/dL (8.4-10.2); Carbon Dioxide 27 mmol/L (22-29); Chloride 108 mmol/L (96-108); Creatinine Clr Calc Pharmacy 95.4; Estimated Glomerular Filt Rate > 60; Glucose Random 101 mg/dL (60-115); Sodium 141 mmol/L (135-145)
[2020-07-05] MEDS: iohexoL 350 MG/ML 100 ML INFUS..BTL IV (11:29)
--- NOTE | 2020-07-05 11:58 | PC.NURSE ---
mri form completed
--- NOTE | 2020-07-05 14:45 | ECG_ITS ---
Test Reason : POSSIBLE STROKE Blood Pressure : / mmHG Vent. Rate : 050 BPM Atrial Rate : 050 BPM P-R Int : 148 ms QRS Dur : 108 ms QT Int : 430 ms P-R-T Axes : -14 066 065 degrees QTc Int : 392 ms Sinus bradycardia Minimal voltage criteria for LVH, may be normal variant Borderline ECG When compared with ECG of 15-JUN-2020 23:42, No significant change was found Referred By: Amanda Bowman Electronically Signed By:Efe Mcrae
[2020-07-05 15:30] LABS: INTERNATIONAL NORM RATIO 1.3 (0.9-1.1)
[2020-07-05 15:40] LABS: COVID-19 Test Negative (Negative)
[2020-07-05 16:14] LABS: Erythrocyte Sedimentation Rate 5 MM/HR (0-15)
[2020-07-05 16:47] LABS: C Reactive Protein 0.15 mg/dL (< or = 0.50)
[2020-07-05] MEDS: Flecainide Acetate 50 MG TABLET PO (22:00)
[2020-07-05] MEDS: 0.9 % Sodium Chloride Flush 3 ML SYRINGE IVFLUSH (22:01)
[2020-07-05] MEDS: LORazepam 0.5 MG TABLET PO (23:27)
[2020-07-05] MEDS: Rivaroxaban 20 MG TABLET PO (23:27)
--- NOTE | 2020-07-05 23:43 | PC.NURSE ---
Patient let this RN know that he did not take his xarelto today. aware and ordered a dose for irvin.
--- NOTE | 2020-07-05 23:46 | PC.NURSE ---
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 Pt also notes that at home he takes ativan if he feels this way. Hospitalist notified and ordered a one time dose for tonight. Ativan administered and this RN will reassess.
[2020-07-06] VITALS (7 sets, daily range): BP systolic 109–139; BP diastolic 61–79; PULSE 54–62; RESP 16–20; TEMP 36.4–36.7; O2SAT 97–98
[2020-07-06 04:52] LABS: MANUAL DIFF FLAG NO
[2020-07-06 04:57] LABS: Basophils Percent Auto 0.6 % (0-2); Eosinophils Absolute Auto 0.3 X10*3/uL (0.0-0.4); Eosinophils Percent Auto 5.1 % (0-4); Hematocrit 37.3 % (42-52); Hemoglobin 12.1 g/dl (14.0-18.0); Imm Gran Abs Auto 0.01 X10*3/uL (0.00-0.03); Imm Gran Pct Auto 0.2 % (0.0-0.4); Lymphocytes Absolute Auto 2.1 X10*3/uL (1.2-4.9); Lymphocytes Percent Auto 32.7 % (20-40); Mean Corpuscular HGB Conc 32.4 g/dl (31.0-36.0); Mean Corpuscular Volume 92.6 fL (80-98); Mean Platelet Volume 10.9 fL (9.4-12.4); Monocytes Absolute Auto 0.4 X10*3/uL (0.1-1.2); Monocytes Percent Auto 6.4 % (2-11); Neutrophils Absolute Auto 3.6 X10*3/uL (2.0-8.3); Platelet Count 185 X10*3/uL (160-400); Red Blood Count 4.03 X10*6/uL (4.60-5.80); White Blood Count 6.5 X10*3/uL (4.8-10.8)
[2020-07-06 05:26] LABS: Anion Gap 12 (12-20); Blood Urea Nitrogen 12 mg/dL (9-16); Calcium 9.2 mg/dL (8.4-10.2); Carbon Dioxide 27 mmol/L (22-29); Chloride 108 mmol/L (96-108); Cholesterol 159 mg/dL; Creatinine Clr Calc Pharmacy 96.7; Estimated Glomerular Filt Rate > 60; Glucose Random 94 mg/dL (60-115); HDL Cholesterol 46 mg/dL; LDL Cholesterol Calculated 99 mg/dl; Potassium 4.2 mmol/L (3.3-5.1); Sodium 143 mmol/L (135-145); Triglycerides 72 mg/dL
[2020-07-06] MEDS: Omeprazole 20 MG CAPSULE.DR PO (05:54)
[2020-07-06] MEDS: DULoxetine HCl 30 MG CAPSULE.DR PO (08:55)
[2020-07-06] MEDS: Flecainide Acetate 50 MG TABLET PO (08:55)
[2020-07-06] MEDS: Metoprolol Succinate ER 25 MG TAB.ER.24H PO (08:55)
[2020-07-06] MEDS: Multivitamin TABLET 1 TAB PO (08:55)
[2020-07-06] MEDS: Ascorbic Acid 500 MG TABLET PO (08:56)
[2020-07-06] MEDS: LORazepam 0.5 MG TABLET PO (08:56)
[2020-07-06] MEDS: Atorvastatin Calcium 10 MG TABLET PO (08:56)
[2020-07-06] MEDS: Fluticasone Propionate Nasal 16 GM SPRAY 1 SPRAY NOSTRIL-B (08:58)
[2020-07-06] MEDS: 0.9 % Sodium Chloride Flush 3 ML SYRINGE IVFLUSH (09:22)
--- NOTE | 2020-07-06 11:30 | MHC.CM.PN ---
with manager gyn met with pt who reports he had no services prior which to admission n pt lives with his and will be self arranging transportation home which may be later today
--- NOTE | 2020-07-06 11:47 | HP_ITS ---
DATE OF SERVICE: 07/05/2020 PRIMARY CARE PROVIDER: Yvonne Carter MD CHIEF COMPLAINT: Visual changes. HISTORY OF PRESENT ILLNESS: A 69-year-old [place]an-speaking man presenting to the ER with complaints of worsening vision loss that he reports started approximately 2 weeks ago. He describes it as a blue hue that comes and goes very briefly in the left eye. He is blind in the right eye and has been for more than 40 years from an accident. He reported that he presented to the emergency department on 06/15 and at that time had reported some left eye blurriness that had resolved. The patient reports some pressure just between his eyebrows. He reports that sometimes his vision gets better, sometimes it gets worse, sometimes it goes black but does come back. MRI was ordered, which did show a few small punctate acute infarcts within the left frontal lobe with no mass effect and no hemorrhagic transformation. He also appears that he has had a left occipital lobe, small chronic cortical infarct. ESR was also obtained to rule out vasculitis and this was within normal limits at 5. All of his other labs were within acceptable limits. COVID-19 was negative, vital signs were stable. Blood pressure with highest reading of 162/82. The patient is able to verbalize. Denies any slurred speech, weakness to upper or lower extremities, chest pain, shortness of breath, nausea, vomiting, diarrhea. Apparently, the manager of case was contacted in the ER and he was unable to follow up with the patient today, but would attempt to see the patient tomorrow. Therefore, call to Ophthalmology should be made for tomorrow for followup. The patient was given tetracaine eye drops. He will be admitted for further management and treatment of visual disturbance and small stroke. PAST MEDICAL HISTORY: 1. Right eye blindness. 2. Paroxysmal atrial fibrillation. 3. Lower back pain. 4. History of renal cyst. 5. Thoracic spondylosis. 6. Tubular adenoma. 7. Anxiety. 8. Depression. 9. Hyperlipidemia. 10. BPH. 11. GERD. 12. Hypertension. LABORATORY DATA: Coronavirus negative. Hemoglobin 12.2, hematocrit 37.4, platelets 178. Sodium is 141, potassium is 4.4, chloride is 108, BUN is 14, creatinine is 0.79. REVIEW OF SYSTEMS: CONSTITUTIONAL: Denies recent fever, chills, decrease in appetite. RESPIRATORY: Denies any shortness of breath, cough, or sputum production. CARDIOVASCULAR: Denies any chest pain, orthopnea, PND, or edema. GASTROINTESTINAL: Denies any dysphagia, abdominal pain, nausea, vomiting, or diarrhea. GENITOURINARY: Denies any dysuria, frequency, hematuria. MUSCULOSKELETAL: Denies any joint pain or swelling. NEUROPSYCH: Denies any seizures. See HPI. PHYSICAL EXAMINATION: CONSTITUTIONAL: The patient is resting in bed, appearing in no acute distress. VITAL SIGNS: 98.0, 58, 14, 162/82, 99% on room air. SKIN: Intact without rash or open sores. HEENT: Head is normocephalic, atraumatic. Eyes, pupils are PERRLA. Sclerae anicteric. Mouth and Throat: Mucous membranes are intact and moist. NECK: Supple. No lymphadenopathy. No JVD noted. CHEST: Clear to auscultation without wheezes, rhonchi, or rales. HEART: Regular rate and rhythm. Clear S1, S2. No murmurs, rubs, or gallops. ABDOMEN: Positive bowel sounds. Soft, nontender. No hepatomegaly or splenomegaly noted. NEURO: The patient is alert and oriented x3. Cranial nerves II through XII grossly intact without focal deficits. ALLERGIES: ALMONDS. MEDICATIONS: 1. Ascorbic acid 500 mg p.o. daily. 2. Atorvastatin calcium 10 mg p.o. daily. 3. Duloxetine 30 mg p.o. daily. 4. Flecainide 50 mg p.o. b.i.d. 5. Fluticasone propionate 1 spray intranasally b.i.d. 6. Lorazepam 0.5 mg p.o. daily. 7. Metoprolol succinate 25 mg p.o. daily. 8. Multivitamin 1 tablet p.o. daily. 9. Omeprazole 20 mg p.o. daily. 10. Rivaroxaban 20 mg p.o. daily. 11. Tamsulosin 0.4 mg p.o. daily. 12. Tizanidine 4 mg p.o. b.i.d. ASSESSMENT AND PLAN: A 69-year-old [place]an-speaking male who is being admitted with acute frontal stroke and left eye visual changes that have been ongoing over the last several weeks. Does not seem to be related to stroke as the location of the stroke does not correspond to the type of stroke to the patient's symptoms. This may be more of an ophthalmologic issue, and Dr. Esteves was contacted in the ER and would need to be contacted again tomorrow to see if he will come and see the patient. 1. Stroke. Looks like frontal lobe stroke likely not causing symptoms. a. -Neurology consultation. b. -Echocardiogram, MRI, and carotid Doppler were already obtained. c. -Aspirin, statin. d. -PT/OT consult. 2. Left eye visual changes. Unknown etiology at this time. We will need ophthalmology consultation. It is not likely related to stroke. ESR is 5. Does not appear to be vasculitis. a. -Ophthalmology consultation at this point. b. -Follow symptoms. 3. Paroxysmal atrial fibrillation. No exacerbation. a. -Continue metoprolol, rivaroxaban, flecainide. 4. Anxiety. a. -Continue lorazepam. 5. Gastroesophageal reflux disease. a. -continue proton pump inhibitor. 6. Benign prostatic hypertrophy. a. -Continue tamsulosin. 7. Normocytic anemia. No signs of bleeding. a. -Monitor CBC. 8. Deep vein thrombosis prophylaxis with Xarelto. a. Discussed with Dr. Turk. 9. Full code. MARIA DOLORES Mo MD JR/GILSON / [id number]
--- NOTE | 2020-07-06 11:59 | PM.NEUROCN ---
History of Present Illness Data of Consult Service Date: 07/06/20 Primary Care Provider: Yvonne Carter MD 69 years old man with underlying history of atrial fibrillation on Xarelto, blind right eye, who developed problem with his left eye vision couple of weeks ago, which improved after few days. Yesterday it came back and he came to emergency room. In emergency room he reported that he could not see well in the center of his visual field. There was no other associated symptom including no headache dizziness nausea vomiting speech or language difficulty or numbness or weakness. FORMERLY [facility], [facility] Past Medical History Medical History Alcohol abuse Anxiety and depression Blind right eye BPH (benign prostatic hyperplasia) Degenerative disc disease, cervical GERD (gastroesophageal reflux disease) Hypercholesterolemia Hypertension Left renal stone Lesion of bladder Lower back pain Paroxysmal atrial fibrillation Pulmonary nodule Renal cyst Sensorineural hearing loss Thoracic spondylosis Tubular adenoma of colon Family History Family History (Updated 04/23/20 @ 12:46 by Lily Melo [facility]) Father Medical history unknown Mother Medical history unknown Brother No problems noted. Son No problems noted. Son No problems noted. Surgical History Surgical History History of inguinal hernia repair Hx of cataract surgery Social History Social History Household Members: Significant Other Household Members Other:: Housing: Apartment Do you presently have visiting nurse or other home services: No Alcohol intake: never Smoking Status: Never smoker Use of substances other than those prescribed or required for medical reasons: No Currently Displaying Signs/Symptoms of Drug Intoxication Withdrawal: No Have you been hit, kicked, punched, or otherwise hurt by someone within the past year? If so, by whom?: No Do you feel safe in your current relationship?: Yes Is there a partner from a previous relationship who is making you feel unsafe now?: No Are you made to feel afraid or neglected: No Advance Directives: Yes Advance Directives Information Provided: Yes Advance Directives on File: No (not on file) Advance Directives Date on File: 07/05/20 Do you have thoughts of harming others: None Do you have a plan to hurt others: No Plan Recently lost weight without trying: Unsure Nutrition Risks: On aspiration precautions service: No Meds Allergies Allergy/AdvReac Type Severity Reaction Status Date / Time almond [ALMOND] Allergy Unknown SWELLING Verified 04/23/20 12:45 Active Medications: Current Medications Generic Name Dose Route Start Last Admin Trade Name Freq PRN Reason Stop Dose Admin Acetaminophen 650 mg 07/05/20 17:59 Acetaminophen 325 Mg Tablet PO Q6H PRN Pain, Mild (Pain Scale 1-3) Ascorbic Acid 500 mg 07/06/20 09:00 07/06/20 08:56 Ascorbic Acid 500 Mg Tablet PO 500 mg DAILY JOSEFA Administration Atorvastatin Calcium 10 mg 07/06/20 09:00 07/06/20 08:56 Atorvastatin Calcium 10 Mg Tablet PO 10 mg DAILY JOSEFA Administration Duloxetine HCl 30 mg 07/06/20 09:00 07/06/20 08:55 Duloxetine Hcl 30 Mg Capsule. PO 30 mg DAILY JOSEFA Administration Flecainide Acetate 50 mg 07/05/20 21:00 07/06/20 08:55 Flecainide Acetate 50 Mg Tablet PO 50 mg BID JOSEFA Administration Fluticasone Propionate 1 spray 07/05/20 21:00 07/06/20 08:58 Fluticasone Propionate Nasal 16 Gm [place] NOSTRIL-B 1 spray BID JOSEFA Administration Lorazepam 0.5 mg 07/05/20 23:15 07/06/20 08:56 Lorazepam 0.5 Mg Tablet PO 0.5 mg DAILY JOSEFA Administration Metoprolol Succinate 25 mg 07/06/20 09:00 07/06/20 08:55 Metoprolol Succinate Er 25 Mg Tab.Er.24h PO 25 mg DAILY JOSEFA Administration Protocol Multivitamins/Vitamin C 1 tab 07/06/20 09:00 07/06/20 08:55 Multivitamin Tablet PO 1 tab DAILY JOSEFA Administration Omeprazole 20 mg 07/06/20 06:30 07/06/20 05:54 Omeprazole 20 Mg Capsule. PO 20 mg DAILY@0630 JOSEFA Administration Ondansetron HCl 4 mg 07/05/20 17:59 Ondansetron Hcl 4 Mg/2 Ml Vial IVPUSH Q8H PRN Nausea and Vomiting Pharmacy Consult 1 each 07/05/20 14:44 Consult Rx Perform Med Rec MISCELLANE ONCE PRN Consult order Rivaroxaban 20 mg 07/05/20 23:15 07/05/20 23:27 Rivaroxaban 20 Mg Tablet PO 20 mg DAILY@1700 [facility] Administration Sodium Chloride 3 ml 07/06/20 00:00 07/06/20 09:22 0.9 % Sodium Chloride Flush 3 Ml Syringe IVFLUSH 3 ml QSHIFT [facility] Administration Tamsulosin HCl 0.4 mg 07/06/20 17:30 Tamsulosin Hcl 0.4 Mg Capsule PO DAILY@1730 [facility] Tizanidine HCl 4 mg 07/05/20 17:59 Tizanidine Hcl 4 Mg Tablet PO BID PRN muscle spasticity Home Medications Medication Instructions Recorded Confirmed Last Taken Type ascorbic acid (vitamin C) [Vitamin 500 mg PO DAILY 07/05/20 07/05/20 07/05/20 History C] multivitamin 1 tab PO DAILY 07/05/20 07/05/20 07/05/20 History tamsulosin [Flomax] 0.4 mg PO DAILY 07/05/20 07/05/20 07/05/20 History Physical Exam Vital Signs: Vital Signs: Last Vital Signs Temp 98.0 F 07/06/20 05:57 Pulse 62 07/06/20 08:55 Resp 20 07/06/20 08:00 BP 135/64 07/06/20 08:55 Pulse Ox 98 07/06/20 08:00 Body Mass Index 24.9 He was alert and awake with normal spontaneity of speech fluency comprehension and affect. Her right cornea was opaque. Left eye vision was limited but he was able to count fingers. Face was symmetrical. There was no obvious focal weakness. Speech was normal. Results Labs CBC & Chem 7: 07/06/20 03:59 07/06/20 03:59 Labs: Short CBC 07/06/20 Range/Units 03:59 WBC 6.5 (4.8-10.8) X10*3/uL Hgb 12.1 L (14.0-18.0) g/dl Hct 37.3 L (42-52) % Plt Count 185 (160-400) X10*3/uL BMP 07/06/20 03:59 Sodium 143 Potassium 4.2 Chloride 108 Carbon Dioxide 27 BUN 12 Creatinine 0.78 Calcium 9.2 Assessment and Plan (1) Loss of vision: Problem details: This is probably from ophthalmological cause. There was no indication of vasculitis. I would recommend an outpatient ophthalmology evaluation for further evaluation and management. Status: Acute (2) Acute CVA (cerebrovascular accident): Problem details: Few punctate acute ischemic lesions and few similar chronic ischemic lesion but none of them were significant enough to explain his symptoms including the 1 and occipital lobe. This was all incidental and suggested that his anticoagulation was not appropriate. Maybe she would be switched to a different anticoagulant as are also has not worked for him. Also with this kind of anticoagulation, if patient does the could be at risk. He should be educated about not missing a dose. Status: Acute
--- NOTE | 2020-07-06 15:03 | MHC.STROKE ---
[id number] I MET WITH THE PATIENT AND HIS TODAY, SHE WANTED TO INTERPRET AND DECLINED THE USE OF THE CHIP MIXER. WE REVIEWED HIS DIAGNOSIS, CURRENT MEDICATIONS, LABS, MRI RESULTS, AND THE STROKE EDUCATION BOOKLET. HE DID MENTION THAT HE MIGHT HAVE MISSED A FEW DOSES OF THE XARELTO, THE HOSPITALIST AND I DISCUSSED THIS AND I NOTIFIED DR GIRON. HE SAID IN THAT CASE TO CONTINUE CURRENT TREATMENT. I EMPHASIZED HOW IMPORTANT IT IS TO TAKE THIS MEDICATION EVERY NIGHT AT THE SAME TIME, DO NOT MISS ANY DOSES. I GAVE HIM A SEPARATE PILL BOX LABELED XARELTO. WE ALSO DISCUSSED HIS ATORVASTATIN 10MG AND HIS LDL OF 99, THE GOAL IS CLOSER TO 70 WHEN STROKE RISK FACTORS ARE IDENTIFIED. THE HAS BEEN INSTRUCTED AND THEY WILL THINK ABOUT THIS AND DISCUSS WITH THEIR PCP. THEY WOULD ALSO LIKE AN APPOINTMENT WITH DR. BIGGS. I RELAYED THIS INFORMATION TO THE HOSPITALIST AND SHE WILL CONTACT CASE MANAGEMENT AND FOLLOW UP ON THIS.
--- NOTE | 2020-07-06 15:56 | PM.DS ---
DS: Providers Provider Date of Service: 07/06/20 Date of admission: 07/05/20 17:59 Date of discharge: 07/06/20 Primary care physician: Yvonne Carter MD Admitting clinician: Vivi Stinson Attending physician on admission: Emeterio Turk Consults: 07/05/20 17:59 Consult to Neurology Routine Consulting Provider: [facility] Reason for consultation: stroke Attending physician on discharge: Emeterio Turk Discharging clinician: Vivi Stinson DS: Diagnosis Discharge Diagnosis (1) Acute CVA (cerebrovascular accident): Status: Acute (2) Loss of vision: Status: Acute Problem details: This is probably from ophthalmological cause. There was no indication of vasculitis. I would recommend an outpatient ophthalmology evaluation for further evaluation and management. DS: Medications Discharge Medications Home Medications: Home Medications Medication Instructions Recorded Confirmed ascorbic acid (vitamin C) [Vitamin 500 mg PO DAILY 07/05/20 07/05/20 C] multivitamin 1 tab PO DAILY 07/05/20 07/05/20 tamsulosin [Flomax] 0.4 mg PO DAILY 07/05/20 07/05/20 Previous Rx's Medication Instructions Recorded tizanidine 4 mg tablet 4 mg PO BID PRN #60 tab 12/18/19 fluticasone propionate 1 spray INTRANASAL BID #9.9 ml 01/24/20 atorvastatin 10 mg tablet 10 mg PO DAILY #90 tab 03/10/20 duloxetine 30 mg capsule,delayed 30 mg PO DAILY #90 cap 03/10/20 release metoprolol succinate 25 mg 25 mg PO DAILY 90 Days #90 tab 03/10/20 tablet,extended release 24 hr omeprazole 20 mg capsule,delayed 20 mg PO DAILY #90 cap 03/10/20 release rivaroxaban 20 mg tablet 20 mg PO DAILY #90 cap 03/10/20 lorazepam 0.5 mg tablet 0.5 mg PO DAILY 90 Days #90 tab 04/28/20 flecainide 50 mg tablet 50 mg PO BID #180 cap 06/07/20 DS: Summary Hospital Course Hospital Course: 69-year-old Polish-speaking man presenting to the ER with complaints of worsening vision loss that he reports started approximately 2 weeks ago. He describes it as a blue hue that comes and goes very briefly in the left eye. He is blind in the right eye and has been for more than 40 years from an accident. He reported that he presented to the emergency department on 06/15 and at that time had reported some left eye blurriness that had resolved. The patient reports some pressure just between his eyebrows. He reports that sometimes his vision gets better, sometimes it gets worse, sometimes it goes black but does come back. MRI was ordered, which did show a few small punctate acute infarcts within the left frontal lobe with no mass effect and no hemorrhagic transformation. He also appears that he has had a left occipital lobe, small chronic cortical infarct. ESR was also obtained to rule out vasculitis and this was within normal limits at 5. All of his other labs were within acceptable limits. COVID-19 was negative, vital signs were stable. Blood pressure with highest reading of 162/82. The patient is able to verbalize. Denies any slurred speech, weakness to upper or lower extremities, chest pain, shortness of breath, nausea, vomiting, diarrhea. Apparently, the house calls nurse was contacted in the ER and he was unable to follow up with the patient today, but would attempt to see the patient tomorrow. Therefore, call to Ophthalmology should be made for tomorrow for followup. The patient was given tetracaine eye drops. He will be admitted for further management and treatment of visual disturbance and small stroke. Stroke. Patient came in with visual difficulties over the last 2 weeks. In the ER MRI showed few small punctate acute infarcts within the left frontal lobe with no mass effect or hemorrhagic transformation. He has a history of small chronic cortical infarctions as well. head CT a was negative, did not show any arterial occlusions. Patient did report that he had missed some of his Xarelto doses. He had no other neuro deficits. He was seen and examined by Neurology and ok to continue his xarelto. Visual deficits. Patient reports that he has been having visual problems in last 2 weeks. He is blind in his right eye from an accident proximally 40 years ago. He came in with a frontal stroke however symptoms of his eye deficits do not explain this. He is to follow-up with house calls nurse as an outpatient he was given the name and telephone number so he can schedule an appointment. Attending: Dr. Turk Time Spent with Patient Time attestation: Total time spent providing and/or coordinating discharge services: Discharge coordination time: Greater than 30 minutes Physical Exam Vital Signs: Vital Signs: Last Vital Signs Temp 97.8 F 07/06/20 15:45 Pulse 59 07/06/20 15:45 Resp 18 07/06/20 15:45 BP 130/69 07/06/20 15:45 Pulse Ox 98 07/06/20 15:45 Body Mass Index 24.9 Appearing in no acute distress head is normocephalic atraumatic Left eye blindness, right eye with some blurriness and blue spots mouth throat mucous membranes are intact and moist neck is supple no lymphadenopathy, no JVD noted lung sounds are clear to auscultation heart regular rate rhythm, clear S1, S2 positive bowel sounds, abdomen is soft, nontender neuro patient is alert x3, no focal deficits DS: Data Data Completed and Pending Labs on day of discharge: Laboratory Results - last 24 hr 07/05/20 07/05/20 07/06/20 09:42 09:42 03:59 WBC 6.5 RBC 4.03 L Hgb 12.1 L Hct 37.3 L MCV 92.6 MCH 30.0 MCHC 32.4 RDW 13.0 Plt Count 185 MPV 10.9 Immature Gran % (Auto) 0.2 Neut % (Auto) 55.0 Lymph % (Auto) 32.7 [place] % (Auto) 6.4 Eos % (Auto) 5.1 H Baso % (Auto) 0.6 Lymph # (Auto) 2.1 [place] # (Auto) 0.4 Eos # (Auto) 0.3 Baso # (Auto) 0.0 Abs Immat Gran (auto) 0.01 Absolute Neuts (auto) 3.6 Absolute Nucleated RBC 0.000 Nucleated RBC % (auto) 0.0 ESR 5 Sodium Potassium Chloride Carbon Dioxide Anion Gap BUN Creatinine Estim Creat Clear Calc Estimated GFR Random Glucose Calcium C-Reactive Protein 0.15 Triglycerides Cholesterol LDL Cholesterol, Calc HDL Cholesterol 07/06/20 03:59 WBC RBC Hgb Hct MCV MCH MCHC RDW Plt Count MPV Immature Gran % (Auto) Neut % (Auto) Lymph % (Auto) [place] % (Auto) Eos % (Auto) Baso % (Auto) Lymph # (Auto) [place] # (Auto) Eos # (Auto) Baso # (Auto) Abs Immat Gran (auto) Absolute Neuts (auto) Absolute Nucleated RBC Nucleated RBC % (auto) ESR Sodium 143 Potassium 4.2 Chloride 108 Carbon Dioxide 27 Anion Gap 12 BUN 12 Creatinine 0.78 Estim Creat Clear Calc 96.7 Estimated GFR > 60 Random Glucose 94 Calcium 9.2 C-Reactive Protein Triglycerides 72 Cholesterol 159 LDL Cholesterol, Calc 99 HDL Cholesterol 46 Discharge Plan Discharge Anticipated Discharge Date/Time: 07/06/20 15:44 Patient Disposition: Home, Self-Care Discharge Diagnosis: Stroke Visual defect Referrals: Po,Yvonne Gold MD [Primary Care Provider] - 1 Week Discharge Medications: Continued tizanidine 4 mg tablet 4 mg PO BID PRN (Reason: muscle spasticity) Qty: 60 RF: 0 lorazepam 0.5 mg tablet 0.5 mg PO DAILY 90 Days Qty: 90 RF: 0 flecainide 50 mg tablet 50 mg PO BID Qty: 180 RF: 2 fluticasone propionate 50 mcg/actuation spray,suspension 1 spray intranasal BID Qty: 9.9 RF: 0 multivitamin Tablet 1 tab PO DAILY RF: 0 ascorbic acid (vitamin C) [Vitamin C] 500 mg Tablet 500 mg PO DAILY RF: 0 tamsulosin [Flomax] 0.4 mg capsule 0.4 mg PO DAILY RF: 0 atorvastatin 10 mg tablet 10 mg PO DAILY Qty: 90 RF: 1 duloxetine [Cymbalta] 30 mg capsule,delayed release(DR/EC) 30 mg PO DAILY Qty: 90 RF: 1 metoprolol succinate 25 mg tablet extended release 24 hr 25 mg PO DAILY 90 Days Qty: 90 RF: 3 Xarelto 20 mg tablet 20 mg PO DAILY Qty: 90 RF: 1 omeprazole 20 mg capsule,delayed release(DR/EC) 20 mg PO DAILY Qty: 90 RF: 1 Discharge Orders: Discharge Order (Routine); Ordered 07/06/20 Ordered By: Vivi Stinson Diet: advance to usual diet Activity on Discharge: As tolerated Stand Alone Forms: Patient Portal Discharge page Care Plan Goals: Resolution of visual deficits Health Concerns: Stroke Visual deficits Plan of Treatment: Follow up with the ophthomologist Dr. Patrice Esteves at [phone] to further evaluate the problems your having with your left eye. Follow up with your primary care provider Assessment: See discharge summary Discharge Date/Time: 07/06/20 17:22
--- NOTE | 2020-07-06 17:59 | CA_ITS ---
Transthoracic Echocardiogram Patient (Last, First, Middle): Janusz Hartman A Gender: Male Date of : 1950 Age: 69 Procedure Date: 07/06/2020 Procedure Type: Transthoracic Echocardiogram [place] [facility] [place]: 182.88 cm Weight: 83.01 kg BSA: 2.05 m2 Heart Rate: bpm BP: 118 / 60 mmHg Tools Programmer: Referring MD: Vivi Stinson NP Symptoms: stroke Study Quality: Good ECG Rhythm: Sinus Conclusions: - Normal left ventricular size and systolic function. - Normal right ventricular cavity size and systolic function - The left atrium is moderately dilated. There is no evidence of interatrial shunt by color Doppler. - There is mild dilatation of the ascending aorta. Findings Left Ventricle Normal left ventricular size and systolic function. There is moderately increased left ventricular wall thickness. The visually estimated ejection fraction is between 60-65%. There is no evidence of regional wall motion abnormalities. Diastolic function is indeterminate on the basis of available data. Spectral Doppler is indicative of an impaired relaxation filling pattern. E/E prime ratio is <8, consistent with normal filling pressures. Right Ventricle Normal right ventricular cavity size and systolic function. Atria The left atrium is moderately dilated. There is no evidence of interatrial shunt by color Doppler. Aortic Valve There is a normal trileaflet aortic valve. There is no aortic valve stenosis. There is trace (trivial) aortic valve regurgitation. Mitral Valve Normal mitral valve structure and function. There is trace mitral valve regurgitation. There is no mitral valve stenosis. Pulmonic Valve Normal pulmonic valve structure and function. There is trace pulmonic valve regurgitation. Tricuspid Valve Normal tricuspid valve structure and function. There is trace tricuspid valve regurgitation. Normal right atrial pressure. There is no evidence of pulmonary hypertension. Great Vessels There is mild dilatation of the ascending aorta. The visualized portions of the pulmonary artery and branches are normal. Venous The inferior vena cava is normal in size and collapses greater than 50% with inspiration. Pericardium/Pleural There is no evidence of pericardial effusion. Prior Study Comparison Changes noted compared to prior study dated: 05/15/2019. Mild dilation of ascending aorta noted. Measurements 2D Linear Measurements IVSd: 1.35 0.6-0.9/0.6-1.0 cm LVIDd: 4.29 3.9-5.3/4.2-5.9 cm LVIDd Index: 2.09 2.4-3.2/2.2-3.1 cm/m2 LVIDs: 2.79 2.0-3.6 cm LVPWd: 1.38 0.7-1.1 cm Ao Root: 3.80 2.1-3.5 cm LA Diam: 4.40 2.7-3.8/3.0-4.0 cm LAIDs Index: 2.15 1.5-2.3 cm/m2 LV Mass: 277.67 67-162/88-224 g LV Mass Index: 135.45 43-95/49-115 g/m2 LVOT Diam: 2.00 3.0+(-)1.3 cm Mitral Valve MV Pk E: 0.48 MV PK A: 0.53 MV Decel Time: 243.00 E/A: 0.90 E'Lateral: 8.22 E'Medial: 6.19 E/E' Med: 7.70 E/E' Lat: 5.80 PHT: 71.00 MVA PHT: 3.10 Decel [place]: 1.96 Aortic Valve AoV Pk [place]: 1.38 AoV Mn [place]: 0.91 AoV VTI: 0.32 AoV Pk Grad: 8.00 Aov Mn Grad: 4.00 ELZBIETA Cont.VTI: 2.15 LVOT LVOT Pk [place]: 0.95 LVOT Mn [place]: 0.65 LVOT VTI: 0.22 LVOT Pk Grad: 4.00 LVOT Mn Grad: 2.00 LVOT Diam: 2.00 LVOT Area: 3.14 Diastolic Function MV Pk E: 0.48 MV Pk A: 0.53 E/A: 0.90 E'Medial: 6.19 E/E' Med: 7.70 E' Laterial: 8.22 E/E' Lat: 5.80 Tricuspid Valve TR Pk [place]: 2.08 TR Pk Grad: 17.00 RA Press: 3.00 RVSP: 20.00 Great Vessels Aorta Ao Root-2D: 3.80 2.0-3.7 cm Ao Asc: 3.80 2.1-3.4 cm Pulmonary Valve PV Pk [place]: 0.97 Peak PV Grad: 4.00 Updated in Other Vendor System with Status of Final Efe Mcrae MD electronically signed on 07/06/2020 12:30:15 PM with status of Final
== END 2020-07-06 17:22 | disposition home or self-care (01) | DRG 66 ==
LOC: HO.ED 14:46 → HO.EDOVER 18:18 → HO.IMC 19:40
PROVIDERS: Admitting Provider Nurse Practitioner Acute Care; Emergency Provider Emergency Medicine; PCP Internal Medicine; Visit Provider Nurse Practitioner Acute Care
DX: I63.89 Other cerebral infarction (principal); H54.7 Unspecified visual loss; I48.0 Paroxysmal atrial fibrillation; F32.9 Major depressive disorder, single episode, unspecified; F41.9 Anxiety disorder, unspecified; Z91.14 Patient's other noncompliance with medication regimen; Z20.822 Contact with and (suspected) exposure to COVID-19; Z79.01 Long term (current) use of anticoagulants; Z79.51 Long term (current) use of inhaled steroids; Z79.899 Other long term (current) drug therapy
CPT/HCPCS: 36415; 70496; 70551; 80048; 80061; 85025; 85610; 85652; 85730; 86140; 87635; 93005; 93306; 97161; 97167; 99285; Q9967

== ENCOUNTER 2020-07-08 10:16 | Emergency (ER) | payer MEDICARE, MEDICAID, SELFPAY ==
--- NOTE | ~2020-07-08 | CT_ITS ---
EXAMINATION: CT HEAD WITHOUT CONTRAST CLINICAL INFORMATION: Headache on Xarelto with recent frontal infarct COMPARISON: July 05, 2020 TECHNIQUE: Contiguous axial imaging was performed from the skull base to vertex without intravenous administration of contrast. This CT examination was performed using dose optimization techniques as appropriate, variously including the following: *Automated exposure control *Adjustment of mA and/or kV according to patient size (this includes techniques or standardized protocols for targeted exams where dose is matched to indication/reason for exam; i.e. extremities or head) *Use of iterative reconstruction technique DLP: 752 mGy-cm FINDINGS: There is no evidence of acute intracranial hemorrhage or territorial infarction. No abnormal mass effect or midline shift is seen. Ramirez to white matter differentiation is well preserved. No extra-axial fluid collections are identified. The ventricles are normal in size. There is no abnormal attenuation within the brain parenchyma. The recently noted small frontal lacunar infarcts on MRI are not evident on CT. The osseous structures and soft tissues are normal. The mastoid air cells and visualized portions of the paranasal sinuses are well aerated. CT/CT head/brain wo con IMPRESSION: No acute intracranial pathology. Small frontal lacunar infarcts seen on MRI are not identified on this study.
--- NOTE | ~2020-07-08 | XR_ITS ---
EXAMINATION: XR CHEST CLINICAL INFORMATION: Chest pain COMPARISON: Chest radiographs 06/16/2020, 10/21/2019 TECHNIQUE: Upright AP view of the chest is performed. FINDINGS: The lungs are clear. There is no pneumothorax, pleural reaction, infiltrate, or effusion. The heart is normal in size. The hilar and mediastinal contours and visualized bony structures are unremarkable. XR/XR chest 1V IMPRESSION: Unremarkable examination.
--- NOTE | 2020-07-08 10:19 | ECG_ITS ---
Test Reason : CHEST PAIN Blood Pressure : / mmHG Vent. Rate : 060 BPM Atrial Rate : 060 BPM P-R Int : 170 ms QRS Dur : 118 ms QT Int : 422 ms P-R-T Axes : 042 066 071 degrees QTc Int : 422 ms Normal sinus rhythm Minimal criteria for Left ventricular hypertrophy Borderline ECG When compared with ECG of 05-JUL-2020 14:55, No significant change was found Referred By: Amanda Bowman Electronically Signed By:LAYTON NAQVI MD
--- NOTE | 2020-07-08 10:20 | ED.CHESTPAIN ---
HPI - Chest Pain General Chief Complaint: Chest Pain Stated Complaint: chest pain, multiple complaints Time Seen by Provider: 07/08/20 10:18 Source: patient, family and old records reviewed Mode of arrival: ambulatory Limitations: no limitations History of Present Illness HPI narrative: 69 yo male hx of afib on xarelto, HLD, HTN, anxiety, CVA, BPH here with pressure in eyes - has appointment in a week or so with retinal specialist for ?venous occlusion in the eye, c/o headaches, unable to sleep, palpitations, just admitted for eye issues and incidental frontal stroke on Sunday MD complaint: other (headaches, insomnia, palpitations) Onset (ago): day(s) (last night before bed) Timing of current episode: constant Onset: during rest Pain radiation: none Severity: mild Relieving factors: nothing Exacerbating factors: nothing Context: recent illness Associated symptoms: palpitations Treatment prior to arrival: none Related Data Home Medications Medication Instructions Recorded Confirmed ascorbic acid (vitamin C) [Vitamin 500 mg PO DAILY 07/05/20 07/05/20 C] multivitamin 1 tab PO DAILY 07/05/20 07/05/20 tamsulosin [Flomax] 0.4 mg PO DAILY 07/05/20 07/05/20 Previous Rx's Medication Instructions Recorded tizanidine 4 mg tablet 4 mg PO BID PRN #60 tab 12/18/19 fluticasone propionate 1 spray INTRANASAL BID #9.9 ml 01/24/20 atorvastatin 10 mg tablet 10 mg PO DAILY #90 tab 03/10/20 duloxetine 30 mg capsule,delayed 30 mg PO DAILY #90 cap 03/10/20 release metoprolol succinate 25 mg 25 mg PO DAILY 90 Days #90 tab 03/10/20 tablet,extended release 24 hr omeprazole 20 mg capsule,delayed 20 mg PO DAILY #90 cap 03/10/20 release rivaroxaban 20 mg tablet 20 mg PO DAILY #90 cap 03/10/20 lorazepam 0.5 mg tablet 0.5 mg PO DAILY 90 Days #90 tab 04/28/20 flecainide 50 mg tablet 50 mg PO BID #180 cap 06/07/20 Allergies Allergy/AdvReac Type Severity Reaction Status Date / Time almond [ALMOND] Allergy Unknown SWELLING Verified 04/23/20 12:45 Review of Systems Review of Systems: Constitutional : No Fever, No Chills ENT/Mouth : No sore throat, No Rhinorrhea, No Swallowing Difficulty Eyes: No Eye Pain, No Swelling, No Redness Cardiovascular : No Chest Pain, no SOB, No Orthopnea, no Edema, pos palpitations Respiratory : No Cough, No Sputum, No Wheezing, no dyspnea Gastrointestinal : No Nausea, No Vomiting, No Diarrhea, No abdominal Pain, No Hematochezia, No Melena Genitourinary : No Dysuria, No Urinary Frequency, No Hematuria Musculoskeletal : No joint pain, No Myalgias Skin : No Skin Lesions, No rash Neuro : No Weakness, No Numbness, No Dizziness, pos Headache Psych : pos Anxiety/Panic, No Depression Heme/Lymph: No Bruising, No Lymphadenopathy Endocrine : No Polyuria, No Polydipsia All other systems reviewed and are negative [facility] Past Medical History Attestation statement: The following information was validated with the patient. Medical History Alcohol abuse Anxiety and depression Blind right eye BPH (benign prostatic hyperplasia) Degenerative disc disease, cervical GERD (gastroesophageal reflux disease) Hypercholesterolemia Hypertension Left renal stone Lesion of bladder Lower back pain Paroxysmal atrial fibrillation Pulmonary nodule Renal cyst Sensorineural hearing loss Thoracic spondylosis Tubular adenoma of colon Surgical History History of inguinal hernia repair Hx of cataract surgery Family History Family History (Updated 04/23/20 @ 12:46 by Lily Melo [facility]) Father Medical history unknown Mother Medical history unknown Brother No problems noted. Son No problems noted. Son No problems noted. Social History Social History Household Members: Significant Other Household Members Other:: Housing: Apartment Do you presently have visiting nurse or other home services: No Alcohol intake: never Smoking Status: Never smoker Advance Directives: No Advance Directives Information Provided: No Advance Directives Date on File: 07/05/20 service: No Physical Exam Vital Signs: Vital Signs: Last Vital Signs Temp 98.2 F 07/08/20 10:27 Pulse 60 07/08/20 10:27 Resp 18 07/08/20 10:27 BP 147/77 H 07/08/20 10:27 Pulse Ox 100 07/08/20 10:27 Body Mass Index 24.5 Appearance: Alert. Oriented X3. No acute distress. Flat affect Eyes: L eye PERRL, R eye opacified ENT: Pharynx normal. Neck: Normal inspection. Neck supple. CVS: Normal heart rate and rhythm. Pulses normal. Respiratory: No respiratory distress. Breath sounds normal. Abdomen: Soft and nontender. Skin: Skin warm and dry. Normal skin color. Normal skin turgor. Extremities: No lower extremity edema. No calf ttp Neuro: Oriented X 3. No motor deficit. No sensory deficit. Course Course Course Narrative: CT head negative, EKG and troponin wnl - stable for DC no acute findings MDM - Chest Pain MDM Narrative Medical decision making narrative: 69 yo male hx of afib on xarelto, HLD, HTN, anxiety, CVA, BPH here with vague complaints of headache, insomnia, anxiety, palpitations since last night - at this time symptoms are very vague appears at his baseline from recent visit, has outside retinal follow up at this time labs, EKG< PO tylenol/ativan for symptoms, CT head for hemorhagic conversion if negative stable for DC Lab Data Result diagrams: 07/08/20 10:49 07/08/20 10:49 Labs: Lab Results 07/08/20 07/08/20 07/08/20 Range/Units 10:49 10:49 10:49 WBC 4.8 (4.8-10.8) X10*3/uL RBC 4.11 L (4.60-5.80) X10*6/uL Hgb 12.3 L (14.0-18.0) g/dl Hct 38.0 L (42-52) % MCV 92.5 (80-98) fL MCH 29.9 (27.0-33.0) pg MCHC 32.4 (31.0-36.0) g/dl RDW 12.9 (11.0-16.0) % Plt Count 180 (160-400) X10*3/uL MPV 10.2 (9.4-12.4) fL Immature Gran % (Auto) 0.2 (0.0-0.4) % Neut % (Auto) 64.4 (45-73) % Lymph % (Auto) 25.4 (20-40) % [place] % (Auto) 6.9 (2-11) % Eos % (Auto) 2.3 (0-4) % Baso % (Auto) 0.8 (0-2) % Lymph # (Auto) 1.2 (1.2-4.9) X10*3/uL [place] # (Auto) 0.3 (0.1-1.2) X10*3/uL Eos # (Auto) 0.1 (0.0-0.4) X10*3/uL Baso # (Auto) 0.0 (0.0-0.2) X10*3/uL Abs Immat Gran (auto) 0.01 (0.00-0.03) X10*3/uL Absolute Neuts (auto) 3.1 (2.0-8.3) X10*3/uL Absolute Nucleated RBC 0.000 (0.0-0.012) X10*3/uL Nucleated RBC % (auto) 0.0 (0.0-0.2) /100WBC PT 16.5 H (10.8-13.0) SEC INR 1.4 H (0.9-1.1) APTT 42.7 H (24.1-38.0) SEC Sodium 139 (135-145) mmol/L Potassium 3.6 (3.3-5.1) mmol/L Chloride 107 (96-108) mmol/L Carbon Dioxide 26 (22-29) mmol/L Anion Gap 10 L (12-20) BUN 12 (9-16) mg/dL Creatinine 0.78 (0.5-1.4) mg/dL Estim Creat Clear Calc 96.7 Estimated GFR > 60 Random Glucose 119 H (60-115) mg/dL Calcium 9.0 (8.4-10.2) mg/dL Magnesium (1.6-2.6) mg/dL Total Bilirubin (0.0-1.0) mg/dL Direct Bilirubin (0.0-0.5) mg/dL AST (5-37) U/L ALT (0-40) U/L Alkaline Phosphatase (39-117) U/L Total Protein (6.5-8.0) g/dL Albumin (3.5-5.0) g/dL Lipase (8-78) U/L 07/08/20 Range/Units 10:49 WBC (4.8-10.8) X10*3/uL RBC (4.60-5.80) X10*6/uL Hgb (14.0-18.0) g/dl Hct (42-52) % MCV (80-98) fL MCH (27.0-33.0) pg MCHC (31.0-36.0) g/dl RDW (11.0-16.0) % Plt Count (160-400) X10*3/uL MPV (9.4-12.4) fL Immature Gran % (Auto) (0.0-0.4) % Neut % (Auto) (45-73) % Lymph % (Auto) (20-40) % [place] % (Auto) (2-11) % Eos % (Auto) (0-4) % Baso % (Auto) (0-2) % Lymph # (Auto) (1.2-4.9) X10*3/uL [place] # (Auto) (0.1-1.2) X10*3/uL Eos # (Auto) (0.0-0.4) X10*3/uL Baso # (Auto) (0.0-0.2) X10*3/uL Abs Immat Gran (auto) (0.00-0.03) X10*3/uL Absolute Neuts (auto) (2.0-8.3) X10*3/uL Absolute Nucleated RBC (0.0-0.012) X10*3/uL Nucleated RBC % (auto) (0.0-0.2) /100WBC PT (10.8-13.0) SEC INR (0.9-1.1) APTT (24.1-38.0) SEC Sodium (135-145) mmol/L Potassium (3.3-5.1) mmol/L Chloride (96-108) mmol/L Carbon Dioxide (22-29) mmol/L Anion Gap (12-20) BUN (9-16) mg/dL Creatinine (0.5-1.4) mg/dL Estim Creat Clear Calc Estimated GFR Random Glucose (60-115) mg/dL Calcium (8.4-10.2) mg/dL Magnesium 2.3 (1.6-2.6) mg/dL Total Bilirubin 1.0 (0.0-1.0) mg/dL Direct Bilirubin 0.4 (0.0-0.5) mg/dL AST 12 (5-37) U/L ALT 11 (0-40) U/L Alkaline Phosphatase 59 (39-117) U/L Total Protein 6.1 L (6.5-8.0) g/dL Albumin 4.0 (3.5-5.0) g/dL Lipase 20 (8-78) U/L ECG Data ECG #1: Attestation: I personally reviewed and interpreted this ECG as follows: ECG interpretation date: 07/08/20 ECG interpretation time: 10:29 Interpretation: Rate: 60 Rhythm: NSR [place]: normal Normal P waves. Normal CESIA. nonspecific IVCD ST T wave : nonspecific, no MARIELA, qTC: normal prior studies: no acute ischemia The study has been interpreted contemporaneously by me. . Discharge Plan Discharge Clinical Impression: Atypical chest pain, Palpitations, Acute tension headache Patient Disposition: Home, Self-Care Instructions: Acute Headache (ED), Heart Palpitations (ED) Additional Instructions: return to ED for any worsening symptoms or concerns for headache can take 500mg tylenol every 6 hours as needed for pain Prescriptions: No Action tizanidine 4 mg tablet 4 mg PO BID PRN (Reason: muscle spasticity) Qty: 60 RF: 0 lorazepam 0.5 mg tablet 0.5 mg PO DAILY 90 Days Qty: 90 RF: 0 flecainide 50 mg tablet 50 mg PO BID Qty: 180 RF: 2 fluticasone propionate 50 mcg/actuation spray,suspension 1 spray intranasal BID Qty: 9.9 RF: 0 multivitamin Tablet 1 tab PO DAILY RF: 0 ascorbic acid (vitamin C) [Vitamin C] 500 mg Tablet 500 mg PO DAILY RF: 0 tamsulosin [Flomax] 0.4 mg capsule 0.4 mg PO DAILY RF: 0 atorvastatin 10 mg tablet 10 mg PO DAILY Qty: 90 RF: 1 duloxetine [Cymbalta] 30 mg capsule,delayed release(DR/EC) 30 mg PO DAILY Qty: 90 RF: 1 metoprolol succinate 25 mg tablet extended release 24 hr 25 mg PO DAILY 90 Days Qty: 90 RF: 3 Xarelto 20 mg tablet 20 mg PO DAILY Qty: 90 RF: 1 omeprazole 20 mg capsule,delayed release(DR/EC) 20 mg PO DAILY Qty: 90 RF: 1 Referrals: Po,Yvonne Gold MD [Primary Care Provider] - 2 days (if not better)
[2020-07-08 10:27] VITALS: BP 147/77; PULSE 60; RESP 18; TEMP 36.8; O2SAT 100; BMI 24.5
[2020-07-08] MEDS: LORazepam 0.5 MG TABLET PO (10:42)
[2020-07-08] MEDS: Acetaminophen 325 MG TABLET 650 MG PO (10:42)
[2020-07-08 11:02] LABS: MANUAL DIFF FLAG NO
[2020-07-08 11:05] LABS: Basophils Percent Auto 0.8 % (0-2); Eosinophils Absolute Auto 0.1 X10*3/uL (0.0-0.4); Eosinophils Percent Auto 2.3 % (0-4); Hemoglobin 12.3 g/dl (14.0-18.0); Imm Gran Abs Auto 0.01 X10*3/uL (0.00-0.03); Imm Gran Pct Auto 0.2 % (0.0-0.4); Lymphocytes Absolute Auto 1.2 X10*3/uL (1.2-4.9); Lymphocytes Percent Auto 25.4 % (20-40); Mean Corpuscular HGB Conc 32.4 g/dl (31.0-36.0); Mean Corpuscular Hemoglobin 29.9 pg (27.0-33.0); Mean Corpuscular Volume 92.5 fL (80-98); Mean Platelet Volume 10.2 fL (9.4-12.4); Monocytes Absolute Auto 0.3 X10*3/uL (0.1-1.2); Monocytes Percent Auto 6.9 % (2-11); Neutrophils Absolute Auto 3.1 X10*3/uL (2.0-8.3); Neutrophils Percent Auto 64.4 % (45-73); Platelet Count 180 X10*3/uL (160-400); Red Blood Count 4.11 X10*6/uL (4.60-5.80); Red Cell Distribution Width 12.9 % (11.0-16.0); White Blood Count 4.8 X10*3/uL (4.8-10.8)
[2020-07-08 11:13] LABS: INTERNATIONAL NORM RATIO 1.4 (0.9-1.1); Prothrombin Time 16.5 SEC (10.8-13.0)
[2020-07-08 11:16] LABS: Partial Thromboplastin Time 42.7 SEC (24.1-38.0)
[2020-07-08 11:28] LABS: Anion Gap 10 (12-20); Blood Urea Nitrogen 12 mg/dL (9-16); Carbon Dioxide 26 mmol/L (22-29); Chloride 107 mmol/L (96-108); Creatinine Clr Calc Pharmacy 96.7; Estimated Glomerular Filt Rate > 60; Glucose Random 119 mg/dL (60-115); Potassium 3.6 mmol/L (3.3-5.1); Sodium 139 mmol/L (135-145)
[2020-07-08 11:31] LABS: Alanine Aminotransferase 11 U/L (0-40); Alkaline Phosphatase 59 U/L (39-117); Aspartate Amino Transferase 12 U/L (5-37); Bilirubin Direct 0.4 mg/dL (0.0-0.5); Lipase 20 U/L (8-78); Magnesium 2.3 mg/dL (1.6-2.6); Total Protein 6.1 g/dL (6.5-8.0)
[2020-07-08 11:48] LABS: Troponin-I High Sensitivity < 3.5 ng/L (<3.5-35.0)
== END 2020-07-08 12:13 | disposition home or self-care (01) ==
PROVIDERS: Emergency Provider Emergency Medicine; PCP Internal Medicine
DX: R07.89 Other chest pain (principal); R00.2 Palpitations; G44.209 Tension-type headache, unspecified, not intractable; I10 Essential (primary) hypertension; E78.5 Hyperlipidemia, unspecified; I48.0 Paroxysmal atrial fibrillation; Z86.73 Personal history of transient ischemic attack (TIA), and cerebral infarction without residual deficits
CPT/HCPCS: 36415; 70450; 71045; 80048; 80076; 83690; 83735; 84484; 85025; 85610; 85730; 93005; 99283; 99284

== ENCOUNTER 2020-07-19 09:58 | Outpatient (REF) | payer MEDICARE, MEDICAID, SELFPAY ==
--- NOTE | ~2020-07-19 | US_ITS ---
EXAMINATION: US EXTRACRANIAL CAROTID DUPLEX, BILATERAL CLINICAL INFORMATION: CVA. COMPARISON: None TECHNIQUE: Real-time ultrasound and Doppler techniques (integrating B-mode 2-D vascular images, Doppler spectral analysis and color-flow Doppler imaging) were utilized to interrogate the extracranial carotid arteries, the vertebral arteries and proximal subclavian arteries bilaterally. The degree of stenosis is determined by criteria similar to NASCET. FINDINGS: Right Side: 1. There is soft atherosclerotic plaque seen in the bifurcation/proximal ICA region. 2. The common carotid artery PSV proximally is 99.2 cm/s and distally 95 cm/s. 3. The proximal internal carotid artery velocities are 109 cm/s systolic and 29 cm/s diastolic. 4. The proximal external carotid artery PSV is 115 cm/s. 5. The vertebral artery shows 49.1 flow. 6. The subclavian artery waveforms are normal. Left Side: 1. There is hard shadowing atherosclerotic plaque seen in the bifurcation/proximal ICA region. 2. The common carotid artery PSV proximally is 111 cm/s and distally 107 cm/s. 3. The proximal internal carotid artery velocities are 97.2 cm/s systolic and 28.2 cm/s diastolic. 4. The proximal external carotid artery PSV is 108 cm/s. 5. The vertebral artery shows antegrade flow. 6. The subclavian artery waveforms are normal. US/US carotid duplex BI IMPRESSION: 1. RIGHT: No hemodynamically significant stenosis visualized. 0-49% range narrowing. 2. LEFT: No hemodynamically significant stenosis seen. 0-49% range stenosis. 3. There is no change in the category severity of disease when compared to the previous study dated
== END 2020-07-19 09:59 | disposition home or self-care (01) ==
LOC: HO.US 09:58
PROVIDERS: Visit Provider Internal Medicine
DX: I63.9 Cerebral infarction, unspecified (principal)
CPT/HCPCS: 93880

== ENCOUNTER 2020-07-19 13:46 | Emergency (ER) | payer MEDICARE, MEDICAID, SELFPAY ==
--- NOTE | ~2020-07-19 | MR_ITS ---
EXAMINATION: MR BRAIN WITHOUT CONTRAST CLINICAL INFORMATION: Rule out stroke. Left leg numbness. Recent stroke. COMPARISON: Brain MRI July 05, 2020. Head CT July 19, 2020. TECHNIQUE: Multiplanar, multisequence imaging of the brain was performed without intravenous contrast. FINDINGS: There is no acute infarction. The previously seen small acute infarcts within the left frontal lobe are no longer well seen. There is no hemorrhage, mass, or extra-axial fluid collection. Mild scattered foci of T2/FLAIR hyperintensity are seen which may partly reflect chronic border zone type ischemic changes and sequela of chronic microangiopathy. The ventricles are normal in size without hydrocephalus. The major arterial flow voids are preserved at the skull base. There is a right lens replacement. The extraspinal soft tissues are within normal limits. MR/MR head/brain wo con IMPRESSION: No acute infarct, mass lesion, intracranial hemorrhage, or evidence of hydrocephalus. Previously seen punctate acute infarcts are no longer well defined. 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
--- NOTE | ~2020-07-19 | CT_ITS ---
EXAMINATION: CT HEAD WITHOUT CONTRAST CLINICAL INFORMATION: Left leg numbness and tingling COMPARISON: Previous head CT exam most recent 07/08/2020 and brain MRI 07/05/2020 TECHNIQUE: Contiguous axial imaging was performed from the skull base to vertex without intravenous administration of contrast. This CT examination was performed using dose optimization techniques as appropriate, variously including the following: *Automated exposure control *Adjustment of mA and/or kV according to patient size (this includes techniques or standardized protocols for targeted exams where dose is matched to indication/reason for exam; i.e. extremities or head) *Use of iterative reconstruction technique DLP: 78 mGy-cm FINDINGS: There is no evidence of acute intracranial hemorrhage or territorial infarction. No abnormal mass effect or midline shift is seen. Ramirez to white matter differentiation is well preserved. No extra-axial fluid collections are identified. The ventricles are normal in size. There is no abnormal attenuation within the brain parenchyma. The osseous structures and soft tissues are normal. The mastoid air cells and visualized portions of the paranasal sinuses are well aerated. CT/CT head/brain wo con IMPRESSION: Unremarkable exam.
--- NOTE | ~2020-07-19 | XR_ITS ---
EXAMINATION: XR CHEST CLINICAL INFORMATION: Chest pressure COMPARISON: Chest 07/08/2020 TECHNIQUE: Frontal view of the chest was obtained. FINDINGS: No significant abnormality is noted involving the heart, lungs, mediastinum, bony thorax or soft tissues. XR/XR chest 1V IMPRESSION: Unremarkable chest examination.
--- NOTE | 2020-07-19 07:44 | ECG_ITS ---
Test Reason : NUMBNESS Blood Pressure : / mmHG Vent. Rate : 063 BPM Atrial Rate : 063 BPM P-R Int : 172 ms QRS Dur : 108 ms QT Int : 394 ms P-R-T Axes : 037 056 061 degrees QTc Int : 403 ms Normal sinus rhythm Minimal voltage criteria for LVH, may be normal variant Borderline ECG When compared with ECG of 08-JUL-2020 10:26, No significant change was found Referred By: Bebeto Landeros Electronically Signed By:GIL RAMIREZ
[2020-07-19 14:03] VITALS: BP 178/78; PULSE 61; RESP 20; O2SAT 97; BMI 25.9
[2020-07-19 14:11] LABS: Glucose, Whole Blood 97 mg/dL (60-115)
--- NOTE | 2020-07-19 14:23 | ED.CHESTPAIN ---
HPI - Chest Pain General Chief Complaint: Chest Pain Stated Complaint: CHEST PAIN NUMBNESS Time Seen by Provider: 07/19/20 13:59 Source: patient Mode of arrival: ambulatory Limitations: no limitations History of Present Illness HPI narrative: Patient presents to the ED for chest pressure and left leg numbness/tingling. Patient states symptoms started 30 minutes ago. Patient denies any Any URI symptoms. Patient denies any swelling of lower extremities. Patient states no headache, dizziness, slurred speech, facial droop, or paralysis of extremities. 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 Patient denies any calf pain shortness of breath, chest pain on inspiration, coughing up blood, fever, or chills. MD complaint: chest pain Related Data Home Medications Medication Instructions Recorded Confirmed ascorbic acid (vitamin C) [Vitamin 500 mg PO DAILY 07/05/20 07/15/20 C] multivitamin 1 tab PO DAILY 07/05/20 07/15/20 tamsulosin [Flomax] 0.4 mg PO DAILY 07/05/20 07/15/20 Previous Rx's Medication Instructions Recorded tizanidine 4 mg tablet 4 mg PO BID PRN #60 tab 12/18/19 fluticasone propionate 1 spray INTRANASAL BID #9.9 ml 01/24/20 duloxetine 30 mg capsule,delayed 30 mg PO DAILY #90 cap 03/10/20 release metoprolol succinate 25 mg 25 mg PO DAILY 90 Days #90 tab 03/10/20 tablet,extended release 24 hr omeprazole 20 mg capsule,delayed 20 mg PO DAILY #90 cap 03/10/20 release rivaroxaban 20 mg tablet 20 mg PO DAILY #90 cap 03/10/20 lorazepam 0.5 mg tablet 0.5 mg PO DAILY 90 Days #90 tab 04/28/20 flecainide 50 mg tablet 50 mg PO BID #180 cap 06/07/20 atorvastatin 20 mg tablet 20 mg PO DAILY 90 Days #90 tab 07/15/20 Allergies Allergy/AdvReac Type Severity Reaction Status Date / Time almond [ALMOND] Allergy Unknown SWELLING Verified 04/23/20 12:45 Review of Systems Review of Systems: Yes all other systems are reviewed and are negative Constitutional: Constitutional: Reports as per HPI and Reports no additional constitutional complaints Eyes: Eyes: Reports as per HPI and Reports no additional eye complaints ENT: Reports system reviewed and no additional complaints, except as documented and Reports as per HPI Cardiovascular: Cardiovascular: Reports as per HPI, Reports no additional cardiovascular complaints and Reports chest pain (Pressure) Respiratory: Respiratory: Reports as per HPI and Reports no additional respiratory complaints Gastrointestinal: Gastrointestinal: Reports as per HPI and Reports no additional gastrointestinal complaints Genitourinary: Genitourinary: Reports no additional male genitourinary complaints and Reports as per HPI Musculoskeletal: Musculoskeletal: Reports no additional musculoskeletal complaints, Reports as per HPI, Reports numbness (Left leg) and Reports tingling (Left leg) Neurologic: Reports system reviewed and no additional complaints, except as documented, Reports as per HPI, Reports numbness (Left leg) and Reports tingling (Left leg) Psychiatric: Psychiatric: Reports no additional psychiatric complaints and Reports as per HPI [facility] Past Medical History Medical History Alcohol abuse Anxiety and depression Blind right eye BPH (benign prostatic hyperplasia) Degenerative disc disease, cervical GERD (gastroesophageal reflux disease) Hypercholesterolemia Hypertension Left renal stone Lesion of bladder Lower back pain Paroxysmal atrial fibrillation Pulmonary nodule Renal cyst Sensorineural hearing loss Thoracic spondylosis Tubular adenoma of colon Surgical History History of inguinal hernia repair Hx of cataract surgery Family History Family History (Updated 04/23/20 @ 12:46 by Lily Melo [facility]) Father Medical history unknown Mother Medical history unknown Brother No problems noted. Son No problems noted. Son No problems noted. Social History Social History Household Members: Significant Other Household Members Other:: Housing: Apartment Do you presently have visiting nurse or other home services: No Alcohol intake: unknown Smoking Status: Never smoker Use of substances other than those prescribed or required for medical reasons: Unknown Advance Directives: No Advance Directives Information Provided: Yes Advance Directives Date on File: 07/05/20 service: No Physical Exam Vital Signs: Vital Signs: Last Vital Signs Temp 98.1 F 07/19/20 20:00 Pulse 50 07/19/20 20:00 Resp 11 L 07/19/20 20:00 BP 140/70 H 07/19/20 20:00 Pulse Ox 99 07/19/20 20:00 Body Mass Index 25.9 Const: General: cooperative, healthy appearing, comfortable, no acute distress, well developed, alert, awake and Physically active Orientation/consciousness: patient oriented x3 HENMT: Head: Yes normal to inspection, Yes No palpable skull fracture present, Yes normocephalic and Yes atraumatic Eyes: General: appearance normal, both eyes and all related structures Neck: Neck: Yes normal visual inspection, Yes full ROM, Yes no lymphadenopathy, Yes no meningeal signs, Yes trachea midline, Yes supple and No tender Chest: Chest palpation & inspection: normal inspection of the chest and normal palpation of entire chest wall Resp: Effort & Inspection: normal respiratory effort and able to speak in complete sentences Auscultation: clear to auscultation bilaterally Cardio: Jugular venous distension: no JVD Heart sounds: S1 normal heart sound present and S2 normal heart sound present GI: Inspection: Yes normal to inspection and No abdominal wall ecchymosis Palpation (GI): Soft to palpation, not firm, nontender, no guarding and not rigid : General: No CVA tenderness and Yes no CVA tenderness Back/Spine/Pelvis: Back: no CVA tenderness, No CVA tenderness and No back tenderness Skin: General skin exam: no rashes or lesions noted and elasticity normal Neuro: Other: Negative slurred speech. Negative facial droop. Negative pronator drift. [id number] and rapid hand movement intact. All extremities are equal strength and 5+.. ALlL extremities sensation is intact. Negative for any neuro deficits General: patient oriented x3, no meningeal signs and CN's II-XI intact bilaterally Cranial nerves: Yes CN's II-XII intact bilaterally Extrem: Other: Negative for swelling, redness, calf pain, deformity of right lower extremity. Psych: Appearance: grossly normal, well kempt and not disheveled NIH Stroke Scale Level of Consciousness: Alert Level of Consciousness Questions: Answers both questions correctly Level of Consciousness Commands: Performs both tasks correctly Best Gaze: Normal Visual: No visual loss Facial Palsy: Normal Motor Arm (Right): No drift Motor Arm (Left): No drift Motor Leg (Right): No drift Motor Leg (Left): No drift Limb Ataxia: Absent Sensory: Normal Best Language: No aphasia Dysarthia: Normal Extinction and Inattention: No abnormality Score: 0 Course Course Course Narrative: Patient discussed with Dr. Hidalgo and he states no indication to call CT stroke. Recommends ordering head CT and do MRI stat. He states History physical exam unlikely indicate stroke. Will do labs ordered also. Chest x-ray will be ordered. COVID swab will be ordered. Reevaluation(s) Reevaluation #1: Stroke nurse Leila heller evaluated patient MRI. She is agreeable that most likely nothing to do for patient and also patient is on blood thinner Xarelto an MRI is appropriate. NIH score 0. Awaiting for official read from MRI. Head CT negative for stroke. The meantime cardiac evaluation being done. Reevaluation #2: Patient is sleeping comfortably in bed. Chest x-ray negative for pneumonia. Pain MRI negative for any stroke. Will re-evaluate patient's chest pain Reevaluation #3: Went to bed and patient sleeping comfortably. Patient states presently is asymptomatic. Chest pain resolved on its own without any medical intervention. Patient would like to go home. Second troponin came back negative. EKG normal negative STEMI. COVID saw came back negative. Evaluation of neuro exam states no neuro deficit. All extremities equal strength 5+. Two troponins negative. Not suspecting PE. Patient does not have any PE symptoms MDM - Chest Pain MDM Narrative Medical decision making narrative: Atypical chest pain, paresthesia Lab Data Result diagrams: 07/19/20 14:25 07/19/20 14:25 Labs: Lab Results 07/19/20 07/19/20 07/19/20 Range/Units 14:08 14:25 14:25 WBC 5.5 (4.8-10.8) X10*3/uL RBC 4.29 L (4.60-5.80) X10*6/uL Hgb 13.2 L (14.0-18.0) g/dl Hct 39.9 L (42-52) % MCV 93.0 (80-98) fL MCH 30.8 (27.0-33.0) pg MCHC 33.1 (31.0-36.0) g/dl RDW 13.1 (11.0-16.0) % Plt Count 201 (160-400) X10*3/uL MPV 10.5 (9.4-12.4) fL Immature Gran % (Auto) 0.2 (0.0-0.4) % Neut % (Auto) 51.6 (45-73) % Lymph % (Auto) 35.6 (20-40) % [place] % (Auto) 7.9 (2-11) % Eos % (Auto) 3.8 (0-4) % Baso % (Auto) 0.9 (0-2) % Lymph # (Auto) 2.0 (1.2-4.9) X10*3/uL [place] # (Auto) 0.4 (0.1-1.2) X10*3/uL Eos # (Auto) 0.2 (0.0-0.4) X10*3/uL Baso # (Auto) 0.1 (0.0-0.2) X10*3/uL Abs Immat Gran (auto) 0.01 (0.00-0.03) X10*3/uL Absolute Neuts (auto) 2.8 (2.0-8.3) X10*3/uL Absolute Nucleated RBC 0.000 (0.0-0.012) X10*3/uL Nucleated RBC % (auto) 0.0 (0.0-0.2) /100WBC PT 14.4 H (10.8-13.0) SEC INR 1.2 H (0.9-1.1) APTT 39.0 H (24.1-38.0) SEC Sodium (135-145) mmol/L Potassium (3.3-5.1) mmol/L Chloride (96-108) mmol/L Carbon Dioxide (22-29) mmol/L Anion Gap (12-20) BUN (9-16) mg/dL Creatinine (0.5-1.4) mg/dL Estim Creat Clear Calc Estimated GFR POC Glucose 97 (60-115) mg/dL Random Glucose (60-115) mg/dL Calcium (8.4-10.2) mg/dL Magnesium (1.6-2.6) mg/dL Total Bilirubin (0.0-1.0) mg/dL AST (5-37) U/L ALT (0-40) U/L Alkaline Phosphatase (39-117) U/L Total Creatine Kinase (38-174) U/L Troponin I High Sens (<3.5-35.0) ng/L B-Natriuretic Peptide (<100) pg/mL Total Protein (6.5-8.0) g/dL Albumin (3.5-5.0) g/dL COVID-19 (TYRONE) (Negative) COVID-19 Clin Com 07/19/20 07/19/20 07/19/20 Range/Units 14:25 14:25 14:36 WBC (4.8-10.8) X10*3/uL RBC (4.60-5.80) X10*6/uL Hgb (14.0-18.0) g/dl Hct (42-52) % MCV (80-98) fL MCH (27.0-33.0) pg MCHC (31.0-36.0) g/dl RDW (11.0-16.0) % Plt Count (160-400) X10*3/uL MPV (9.4-12.4) fL Immature Gran % (Auto) (0.0-0.4) % Neut % (Auto) (45-73) % Lymph % (Auto) (20-40) % [place] % (Auto) (2-11) % Eos % (Auto) (0-4) % Baso % (Auto) (0-2) % Lymph # (Auto) (1.2-4.9) X10*3/uL [place] # (Auto) (0.1-1.2) X10*3/uL Eos # (Auto) (0.0-0.4) X10*3/uL Baso # (Auto) (0.0-0.2) X10*3/uL Abs Immat Gran (auto) (0.00-0.03) X10*3/uL Absolute Neuts (auto) (2.0-8.3) X10*3/uL Absolute Nucleated RBC (0.0-0.012) X10*3/uL Nucleated RBC % (auto) (0.0-0.2) /100WBC PT (10.8-13.0) SEC INR (0.9-1.1) APTT (24.1-38.0) SEC Sodium 139 (135-145) mmol/L Potassium 4.1 (3.3-5.1) mmol/L Chloride 106 (96-108) mmol/L Carbon Dioxide 26 (22-29) mmol/L Anion Gap 11 L (12-20) BUN 12 (9-16) mg/dL Creatinine 0.90 (0.5-1.4) mg/dL Estim Creat Clear Calc 86.3 Estimated GFR > 60 POC Glucose (60-115) mg/dL Random Glucose 101 (60-115) mg/dL Calcium 9.9 D (8.4-10.2) mg/dL Magnesium 2.4 (1.6-2.6) mg/dL Total Bilirubin 1.0 (0.0-1.0) mg/dL AST 13 (5-37) U/L ALT 12 (0-40) U/L Alkaline Phosphatase 67 (39-117) U/L Total Creatine Kinase 56 (38-174) U/L Troponin I High Sens < 3.5 (<3.5-35.0) ng/L B-Natriuretic Peptide 36 (<100) pg/mL Total Protein 6.7 (6.5-8.0) g/dL Albumin 4.3 (3.5-5.0) g/dL COVID-19 (TYRONE) Negative (Negative) COVID-19 Clin Com See Note 07/19/20 Range/Units 17:49 WBC (4.8-10.8) X10*3/uL RBC (4.60-5.80) X10*6/uL Hgb (14.0-18.0) g/dl Hct (42-52) % MCV (80-98) fL MCH (27.0-33.0) pg MCHC (31.0-36.0) g/dl RDW (11.0-16.0) % Plt Count (160-400) X10*3/uL MPV (9.4-12.4) fL Immature Gran % (Auto) (0.0-0.4) % Neut % (Auto) (45-73) % Lymph % (Auto) (20-40) % [place] % (Auto) (2-11) % Eos % (Auto) (0-4) % Baso % (Auto) (0-2) % Lymph # (Auto) (1.2-4.9) X10*3/uL [place] # (Auto) (0.1-1.2) X10*3/uL Eos # (Auto) (0.0-0.4) X10*3/uL Baso # (Auto) (0.0-0.2) X10*3/uL Abs Immat Gran (auto) (0.00-0.03) X10*3/uL Absolute Neuts (auto) (2.0-8.3) X10*3/uL Absolute Nucleated RBC (0.0-0.012) X10*3/uL Nucleated RBC % (auto) (0.0-0.2) /100WBC PT (10.8-13.0) SEC INR (0.9-1.1) APTT (24.1-38.0) SEC Sodium (135-145) mmol/L Potassium (3.3-5.1) mmol/L Chloride (96-108) mmol/L Carbon Dioxide (22-29) mmol/L Anion Gap (12-20) BUN (9-16) mg/dL Creatinine (0.5-1.4) mg/dL Estim Creat Clear Calc Estimated GFR POC Glucose (60-115) mg/dL Random Glucose (60-115) mg/dL Calcium (8.4-10.2) mg/dL Magnesium (1.6-2.6) mg/dL Total Bilirubin (0.0-1.0) mg/dL AST (5-37) U/L ALT (0-40) U/L Alkaline Phosphatase (39-117) U/L Total Creatine Kinase (38-174) U/L Troponin I High Sens < 3.5 (<3.5-35.0) ng/L B-Natriuretic Peptide (<100) pg/mL Total Protein (6.5-8.0) g/dL Albumin (3.5-5.0) g/dL COVID-19 (TYRONE) (Negative) COVID-19 Clin Com ECG Data ECG #1: Interpretation: Normal sinus rhythm. Ventricular rate 63. AL interval 172. QRS 108. QTC 403 Negative STEMI Discharge Plan Discharge Clinical Impression: Atypical chest pain, Paresthesia Patient Disposition: Home, Self-Care Instructions: Chest Pain (ED), Paresthesia (ED) Additional Instructions: Regrese al servicio de urgencias si tiene dolor en el pecho, dificultad para respirar, dolor abdominal, hinchaz?n de las extremidades inferiores, tos con maida, dificultad para hablar, p?rdida de la visi?n en el ronald preston, par?lisis de las extremidades inferiores, dolor en la pantorrilla, dolor en el pecho al inspirar o cualquier otro problema. otros s?ntomas preocupantes. Prescriptions: No Action tizanidine 4 mg tablet 4 mg PO BID PRN (Reason: muscle spasticity) Qty: 60 RF: 0 lorazepam 0.5 mg tablet 0.5 mg PO DAILY 90 Days Qty: 90 RF: 0 flecainide 50 mg tablet 50 mg PO BID Qty: 180 RF: 2 fluticasone propionate 50 mcg/actuation spray,suspension 1 spray intranasal BID Qty: 9.9 RF: 0 multivitamin Tablet 1 tab PO DAILY RF: 0 ascorbic acid (vitamin C) [Vitamin C] 500 mg Tablet 500 mg PO DAILY RF: 0 tamsulosin [Flomax] 0.4 mg capsule 0.4 mg PO DAILY RF: 0 duloxetine [Cymbalta] 30 mg capsule,delayed release(DR/EC) 30 mg PO DAILY Qty: 90 RF: 1 metoprolol succinate 25 mg tablet extended release 24 hr 25 mg PO DAILY 90 Days Qty: 90 RF: 3 Xarelto 20 mg tablet 20 mg PO DAILY Qty: 90 RF: 1 omeprazole 20 mg capsule,delayed release(DR/EC) 20 mg PO DAILY Qty: 90 RF: 1 atorvastatin 20 mg tablet 20 mg PO DAILY 90 Days Qty: 90 RF: 1 Referrals: Po,Yvonne Gold MD [Primary Care Provider] - 2 days (Atypical chest pain. Paresthesia. EKG negative for STEMI. Troponins negative. Head CT normal. Chest x-ray normal. COVID swab negative. MRI negative for stroke.) Interventions: ED Discharge Assessment Last Done: 07/19/20 20:26 Discharge Date/Time: 07/19/20 20:35
[2020-07-19 14:29] LABS: MANUAL DIFF FLAG NO
[2020-07-19 14:34] LABS: Basophils Absolute Auto 0.1 X10*3/uL (0.0-0.2); Basophils Percent Auto 0.9 % (0-2); Eosinophils Absolute Auto 0.2 X10*3/uL (0.0-0.4); Eosinophils Percent Auto 3.8 % (0-4); Hematocrit 39.9 % (42-52); Hemoglobin 13.2 g/dl (14.0-18.0); Imm Gran Abs Auto 0.01 X10*3/uL (0.00-0.03); Imm Gran Pct Auto 0.2 % (0.0-0.4); Lymphocytes Percent Auto 35.6 % (20-40); Mean Corpuscular HGB Conc 33.1 g/dl (31.0-36.0); Mean Corpuscular Hemoglobin 30.8 pg (27.0-33.0); Mean Platelet Volume 10.5 fL (9.4-12.4); Monocytes Absolute Auto 0.4 X10*3/uL (0.1-1.2); Monocytes Percent Auto 7.9 % (2-11); Neutrophils Absolute Auto 2.8 X10*3/uL (2.0-8.3); Neutrophils Percent Auto 51.6 % (45-73); Platelet Count 201 X10*3/uL (160-400); Red Blood Count 4.29 X10*6/uL (4.60-5.80); Red Cell Distribution Width 13.1 % (11.0-16.0); White Blood Count 5.5 X10*3/uL (4.8-10.8)
[2020-07-19 14:37] VITALS: BP 172/80; PULSE 63; RESP 17; TEMP 37; O2SAT 96
[2020-07-19 14:37] LABS: INTERNATIONAL NORM RATIO 1.2 (0.9-1.1); Prothrombin Time 14.4 SEC (10.8-13.0)
[2020-07-19 15:01] LABS: Alanine Aminotransferase 12 U/L (0-40); Albumin Level 4.3 g/dL (3.5-5.0); Alkaline Phosphatase 67 U/L (39-117); Anion Gap 11 (12-20); Aspartate Amino Transferase 13 U/L (5-37); Blood Urea Nitrogen 12 mg/dL (9-16); Calcium 9.9 mg/dL (8.4-10.2); Carbon Dioxide 26 mmol/L (22-29); Chloride 106 mmol/L (96-108); Creatinine Clr Calc Pharmacy 86.3; Estimated Glomerular Filt Rate > 60; Glucose Random 101 mg/dL (60-115); Potassium 4.1 mmol/L (3.3-5.1); Sodium 139 mmol/L (135-145); Total Protein 6.7 g/dL (6.5-8.0)
[2020-07-19 15:07] LABS: Troponin-I High Sensitivity < 3.5 ng/L (<3.5-35.0)
[2020-07-19 15:39] LABS: COVID-19 Test Negative (Negative)
[2020-07-19 18:28] LABS: Magnesium 2.4 mg/dL (1.6-2.6)
[2020-07-19 18:31] LABS: Troponin-I High Sensitivity < 3.5 ng/L (<3.5-35.0)
[2020-07-19 18:35] LABS: B Type Natriuretic Peptide 36 pg/mL (<100)
[2020-07-19 19:02] VITALS: PULSE 50
[2020-07-19 19:04] VITALS: BP 140/70; PULSE 50; RESP 11; TEMP 36.7; O2SAT 99
[2020-07-19 20:00] VITALS: BP 140/70; PULSE 50; RESP 11; TEMP 36.7; O2SAT 99
== END 2020-07-19 20:35 | disposition home or self-care (01) ==
PROVIDERS: Physician Assistant; Emergency Provider Emergency Medicine; PCP Internal Medicine
DX: R07.89 Other chest pain (principal); R20.2 Paresthesia of skin; Z20.822 Contact with and (suspected) exposure to COVID-19; I10 Essential (primary) hypertension; E78.00 Pure hypercholesterolemia, unspecified; I48.0 Paroxysmal atrial fibrillation; F10.10 Alcohol abuse, uncomplicated
CPT/HCPCS: 36415; 70450; 70551; 71045; 80053; 82550; 82947; 83735; 83880; 84484; 85025; 85610; 85730; 87635; 93005; 99284; 99285

== ENCOUNTER → 2020-07-22 10:56 | Outpatient (REF) | payer MEDICARE, MEDICAID, SELFPAY ==
--- NOTE | 2020-07-22 11:00 | ECG_ITS ---
Hook-up date: 2020-07-22 11:13:00 Duration: 25:05:00 Test Indications: PAF Medications: 35473 QRS complexes 27 Ventricular ectopics which represent <1 % of total QRS comp. 22 Supraventricular ectopics which represent <1 % of total QRS comp. * Paced QRS complexs which represent % of total QRS comp. VENTRICULAR ECTOPY 27 Isolated 0 Bigeminal Cycles 0 Couplets 0 Runs 0 Beats in Runs * Beats LONGEST at * BPM at :: -- * Beats FASTEST at * BPM at :: -- SUPRAVENTRICULAR ECTOPY 16 Isolated 3 Couplets 0 Runs 0 Beats in Runs * Beats LONGEST at * BPM at :: -- * Beats FASTEST at * BPM at :: -- HEART RATES 43 MIN at 05:27:58 2020-07-23 62 AVG 88 MAX at 11:29:55 2020-07-22 LONGEST RR 1.4640 secs at 05:32:03 2020-07-23 S-T LEVELS Channel 1 - 128 mm at 11:13:00 2020-07-22 - 128 mm at 11:13:00 2020-07-22 Channel 2 - 128 mm at 11:13:00 2020-07-22 - 128 mm at 11:13:00 2020-07-22 Channel 3 - 128 mm at 03:03:21 -- - 128 mm at 03:03:21 Underlying rhythm is sinus; Average ventricular rate 62/min; range 43-88/min; Rare PACs and PVCs; No evidenc eof atrial fibrillation; Palpitations in patient diary associated with sinus rhythm. Referred By: Wilfred Aleman Overread By: GIL RAMIREZ
== END ==
LOC: HO.CARD 10:56
PROVIDERS: Visit Provider Internal Medicine Cardiovascular Disease
DX: I63.9 Cerebral infarction, unspecified (principal); I48.0 Paroxysmal atrial fibrillation; H34.232 Retinal artery branch occlusion, left eye
CPT/HCPCS: 93225; 93226

== ENCOUNTER 2020-08-17 13:12 | Emergency (ER) | payer MEDICARE, MEDICAID, SELFPAY ==
--- NOTE | 2020-08-17 07:16 | ECG_ITS ---
Test Reason : CHEST PAIN Blood Pressure : / mmHG Vent. Rate : 069 BPM Atrial Rate : 069 BPM P-R Int : 168 ms QRS Dur : 102 ms QT Int : 386 ms P-R-T Axes : 054 056 069 degrees QTc Int : 413 ms Normal sinus rhythm Nonspecific T wae changes Borderline ECG When compared with ECG of 19-JUL-2020 14:00, T wave inversion now evident in Anterior leads Referred By: Norman Tao Electronically Signed By:Efe Mcrae
[2020-08-17 13:23] VITALS: BP 191/82; PULSE 65; RESP 18; TEMP 37.1; O2SAT 99; BMI 24.4
== END 2020-08-17 14:59 | disposition left against medical advice (07) ==
PROVIDERS: Emergency Provider Emergency Medicine; PCP Internal Medicine
DX: R07.9 Chest pain, unspecified (principal)
CPT/HCPCS: 93005; 99282; 99283

== ENCOUNTER → 2020-09-21 08:19 | Outpatient (BNVA) | payer MEDICARE, MEDICAID, SELFPAY | PROVIDERS: PCP Internal Medicine; Referring Provider Internal Medicine; Visit Provider Internal Medicine Cardiovascular Disease | DX: R00.2 Palpitations (principal); I48.0 Paroxysmal atrial fibrillation; I10 Essential (primary) hypertension | CPT/HCPCS: 93005; 99212 ==

== ENCOUNTER → 2020-09-29 11:12 | Outpatient (REF) | payer MEDICARE, MEDICAID, SELFPAY ==
--- NOTE | 2020-09-29 11:15 | HM_ITS ---
Total monitoring time 2 days and 20 hours. Underlying rhythm is sinus. Minimum heart rate 41/Min. Maximum 85/Min. Average 59/Min. No atrial fibrillation or flutter. No AV block. No pauses. No episodes of VT. One supraventricular episode. 6 beats. Total PAC burden 0.02%. Total PVC burden 0.06%. No patient events. MTDD
== END ==
LOC: HO.CARD 11:12
PROVIDERS: Visit Provider Internal Medicine Cardiovascular Disease
DX: R00.2 Palpitations (principal)
CPT/HCPCS: 93242

== ENCOUNTER 2020-10-05 23:08 | Emergency (ER) | payer MEDICARE, MEDICAID, SELFPAY ==
--- NOTE | ~2020-10-05 | XR_ITS ---
EXAMINATION: XR CHEST CLINICAL INFORMATION: Chest pain COMPARISON: 07/19/2020 TECHNIQUE: 2 views of the chest were obtained. FINDINGS: Cardiac leads overlie the chest. Radiopaque foreign body is seen over the periphery of the right lower hemithorax. The lungs are well expanded. There is no focal consolidation, edema, or effusion. No pneumothorax. The cardiomediastinal silhouette is within normal limits. No acute osseous abnormality. XR/XR chest 2V IMPRESSION: Clear lungs.
--- NOTE | 2020-10-05 23:13 | ECG_ITS ---
Test Reason : CP Blood Pressure : / mmHG Vent. Rate : 060 BPM Atrial Rate : 060 BPM P-R Int : 160 ms QRS Dur : 104 ms QT Int : 408 ms P-R-T Axes : 004 057 057 degrees QTc Int : 408 ms Normal sinus rhythm Normal ECG When compared with ECG of 17-AUG-2020 13:20, No significant change was found Referred By: Jia Smith Electronically Signed By:LAYTON NAQVI MD
[2020-10-05 23:15] VITALS: BP 158/75; PULSE 60; RESP 18; TEMP 36.8; O2SAT 99; BMI 24.5
--- NOTE | 2020-10-05 23:40 | ED.CHESTPAIN ---
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 Episodes occur at rest. No associated nausea, vomiting, diaphoresis, shortness of breath or cough. Patient has to been taking all his medications as prescribed. He has not missed any doses of his medication. Related Data Home Medications Medication Instructions Recorded Confirmed ascorbic acid (vitamin C) 500 mg 500 mg PO DAILY 07/05/20 09/21/20 tablet (Vitamin C) multivitamin 1 tab PO DAILY 07/05/20 09/21/20 tamsulosin 0.4 mg capsule (Flomax) 0.4 mg PO DAILY 07/05/20 09/21/20 Previous Rx's Medication Instructions Recorded tizanidine 4 mg tablet 4 mg PO BID PRN #60 tab 12/18/19 fluticasone propionate 50 1 spray INTRANASAL BID #9.9 ml 01/24/20 mcg/actuation nasal spray,suspension duloxetine 30 mg capsule,delayed 30 mg PO DAILY #90 cap 03/10/20 release (Cymbalta) metoprolol succinate 25 mg 25 mg PO DAILY 90 Days #90 tab 03/10/20 tablet,extended release 24 hr rivaroxaban 20 mg tablet (Xarelto) 20 mg PO DAILY #90 cap 03/10/20 flecainide 50 mg tablet 50 mg PO BID #180 cap 06/07/20 atorvastatin 20 mg tablet 20 mg PO DAILY 90 Days #90 tab 07/15/20 lorazepam 0.5 mg tablet 0.5 mg PO DAILY 90 Days #90 tab 08/05/20 omeprazole 20 mg capsule,delayed 20 mg PO DAILY #90 cap 09/17/20 release Allergies Allergy/AdvReac Type Severity Reaction Status Date / Time almond [ALMOND] Allergy Unknown SWELLING Verified 10/05/20 23:21 Review of Systems Review of Systems: Yes all other systems are reviewed and are negative Constitutional: Constitutional: Reports no additional constitutional complaints, Denies body ache(s), Denies chills, Denies fever(s), Denies headache(s) and Denies weakness Eyes: Eyes: Reports no additional eye complaints and Denies change in vision ENT: Reports system reviewed and no additional complaints, except as documented, Denies dizziness, Denies headache(s), Denies nasal congestion, Denies nasal discharge and Denies neck pain Cardiovascular: Cardiovascular: Reports no additional cardiovascular complaints, Reports chest pain, Reports rapid heart rate, Denies leg edema and Denies dyspnea Respiratory: Respiratory: Reports no additional respiratory complaints, Denies cough and Denies dyspnea Gastrointestinal: Gastrointestinal: Reports no additional gastrointestinal complaints, Denies abdominal pain, Denies diarrhea, Denies nausea and Denies vomiting Genitourinary: Genitourinary: Denies urinary incontinence Musculoskeletal: Musculoskeletal: Reports no additional musculoskeletal complaints, Denies back pain, Denies arthralgias, Denies joint swelling, Denies neck pain, Denies numbness and Denies tingling Integumentary/Breasts: Skin/Breast: Reports system reviewed and no additional complaints, except as docu and Denies rash Neurologic: Reports system reviewed and no additional complaints, except as documented, Denies Abnormal speech present, Denies dizziness, Denies headache(s), Denies numbness, Denies tingling and Denies weakness [facility] Past Medical History Attestation statement: The following information was validated with the patient. Source: old records reviewed and nursing notes reviewed Medical History Alcohol abuse Anxiety and depression Blind right eye BPH (benign prostatic hyperplasia) Degenerative disc disease, cervical GERD (gastroesophageal reflux disease) Hypercholesterolemia Hypertension Left renal stone Lesion of bladder Lower back pain Paroxysmal atrial fibrillation Pulmonary nodule Renal cyst Sensorineural hearing loss Thoracic spondylosis Tubular adenoma of colon Surgical History History of inguinal hernia repair Hx of cataract surgery Family History Family History Father Medical history unknown Mother Medical history unknown Brother No problems noted. Son No problems noted. Son No problems noted. Social History Social History Household Members: Significant Other Household Members Other:: Housing: Apartment Do you presently have visiting nurse or other home services: No Alcohol intake: unknown Patient Tobacco Use Status: Former Tobacco user Second Hand Smoke Exposure: No Advance Directives: No Advance Directives Information Provided: No Advance Directives Date on File: 07/05/20 service: No Physical Exam Vital Signs: Vital Signs: Last Vital Signs Temp 98.3 F 10/05/20 23:15 Pulse 60 10/05/20 23:15 Resp 18 10/05/20 23:15 BP 158/75 H 10/05/20 23:15 Pulse Ox 99 10/05/20 23:15 Body Mass Index 24.5 Const: General: cooperative, healthy appearing, comfortable and no acute distress Orientation/consciousness: patient oriented x3 Limitations: no limitations HENMT: Head: Yes normal to inspection Ears: hearing grossly normal bilaterally General nose exam: Normal external nose present Face and sinus: Yes normal facial exam Mouth: Normal oral and palatal mucosa present Throat: Yes posterior oropharynx normal Eyes: General: appearance normal, both eyes and all related structures Pupils: Equal, round and reactive pupils present Neck: Neck: Yes normal visual inspection Chest: Chest palpation & inspection: normal inspection of the chest Resp: Effort & Inspection: normal respiratory effort Auscultation: clear to auscultation bilaterally Cardio: Rate: regular rate Rhythm: regular rhythm Peripheral pulses: Peripheral pulses 2+ throughout GI: Inspection: Yes normal to inspection Palpation (GI): Soft to palpation and nontender Auscultation: normal bowel sounds Back/Spine/Pelvis: Thoracic/Lumbar Spine: thoracic and lumbar spine normal to inspection Skin: General skin exam: no rashes or lesions noted Neuro: General: patient oriented x3, no focal motor deficits and normal sensation to monofilament Cranial nerves: Yes Equal, round and reactive pupils present Cognition (Neuro): normal cognition Speech: No Abnormal speech present Gait exam (Neuro): Normal gait present Motor exam (neuro): 5/5 motor strength present throughout Extrem: General: Yes normal to inspection, Yes no pedal edema and Yes no calf tenderness Course Course Course Narrative: 69-year-old male here with complaints of intermittent chest pressure with associated palpitations since 10:00. Hemodynamically stable. Atypical for ACS. However due to age will check EKG, chest x-ray and labs 0040-EKG SHOWS NO ISCHEMIC CHANGES. PATIENT IS IN A NORMAL SINUS RHYTHM WITH A RATE OF 60. TROPONIN IS NEGATIVE. ACS LESS LIKELY WITH SYMPTOMS GREATER THAN 12 HOURS WITH A NEGATIVE TROPONIN EKG. ALL OTHER LABS ARE UNREMARKABLE. CHEST X-RAY SHOWS NO ACUTE FINDING. ATYPICAL FOR ACS WILL HAVE PATIENT FOLLOW-UP WITH HIS PROJECT MANAGER/DESIGN MANAGER REVIEWED WORRISOME SIGNS AND SYMPTOMS OF WHEN TO RETURN TO THE EMERGENCY DEPARTMENT. COMFORTABLE DISCHARGE HOME. MDM - Chest Pain Medical Records Data Attestation: I reviewed the patient's medical records. Lab Data Attestation: I reviewed the patient's lab results. Result diagrams: 10/05/20 23:43 10/05/20 23:43 Labs: Lab Results 10/05/20 10/05/20 10/05/20 Range/Units 23:43 23:43 23:43 WBC 6.0 (4.8-10.8) X10*3/uL RBC 3.90 L (4.60-5.80) X10*6/uL Hgb 11.9 L (14.0-18.0) g/dl Hct 35.9 L (42-52) % MCV 92.1 (80-98) fL MCH 30.5 (27.0-33.0) pg MCHC 33.1 (31.0-36.0) g/dl RDW 13.2 (11.0-16.0) % Plt Count 166 (160-400) X10*3/uL MPV 10.4 (9.4-12.4) fL Immature Gran % (Auto) 0.2 (0.0-0.4) % Neut % (Auto) 50.7 (45-73) % Lymph % (Auto) 38.0 (20-40) % [place] % (Auto) 7.3 (2-11) % Eos % (Auto) 3.0 (0-4) % Baso % (Auto) 0.8 (0-2) % Lymph # (Auto) 2.3 (1.2-4.9) X10*3/uL [place] # (Auto) 0.4 (0.1-1.2) X10*3/uL Eos # (Auto) 0.2 (0.0-0.4) X10*3/uL Baso # (Auto) 0.1 (0.0-0.2) X10*3/uL Abs Immat Gran (auto) 0.01 (0.00-0.03) X10*3/uL Absolute Neuts (auto) 3.1 (2.0-8.3) X10*3/uL Absolute Nucleated RBC 0.000 (0.0-0.012) X10*3/uL Nucleated RBC % (auto) 0.0 (0.0-0.2) /100WBC PT 19.0 H (9.9-13.0) SEC INR 1.7 H (0.9-1.1) Sodium 142 (135-145) mmol/L Potassium 4.0 (3.3-5.1) mmol/L Chloride 108 (96-108) mmol/L Carbon Dioxide 26 (22-29) mmol/L Anion Gap 12 (12-20) BUN 12 (9-16) mg/dL Creatinine 0.90 (0.5-1.4) mg/dL Estim Creat Clear Calc 83.8 Estimated GFR > 60 Random Glucose 102 (60-115) mg/dL Calcium 9.4 (8.4-10.2) mg/dL Magnesium 2.3 (1.6-2.6) mg/dL Total Bilirubin 1.1 H (0.0-1.0) mg/dL Direct Bilirubin 0.4 (0.0-0.5) mg/dL AST 18 (5-37) U/L ALT 11 (0-40) U/L Alkaline Phosphatase 57 (39-117) U/L Troponin I High Sens (<3.5-35.0) ng/L Total Protein 6.5 (6.5-8.0) g/dL Albumin 4.1 (3.5-5.0) g/dL 10/05/20 Range/Units 23:43 WBC (4.8-10.8) X10*3/uL RBC (4.60-5.80) X10*6/uL Hgb (14.0-18.0) g/dl Hct (42-52) % MCV (80-98) fL MCH (27.0-33.0) pg MCHC (31.0-36.0) g/dl RDW (11.0-16.0) % Plt Count (160-400) X10*3/uL MPV (9.4-12.4) fL Immature Gran % (Auto) (0.0-0.4) % Neut % (Auto) (45-73) % Lymph % (Auto) (20-40) % [place] % (Auto) (2-11) % Eos % (Auto) (0-4) % Baso % (Auto) (0-2) % Lymph # (Auto) (1.2-4.9) X10*3/uL [place] # (Auto) (0.1-1.2) X10*3/uL Eos # (Auto) (0.0-0.4) X10*3/uL Baso # (Auto) (0.0-0.2) X10*3/uL Abs Immat Gran (auto) (0.00-0.03) X10*3/uL Absolute Neuts (auto) (2.0-8.3) X10*3/uL Absolute Nucleated RBC (0.0-0.012) X10*3/uL Nucleated RBC % (auto) (0.0-0.2) /100WBC PT (9.9-13.0) SEC INR (0.9-1.1) Sodium (135-145) mmol/L Potassium (3.3-5.1) mmol/L Chloride (96-108) mmol/L Carbon Dioxide (22-29) mmol/L Anion Gap (12-20) BUN (9-16) mg/dL Creatinine (0.5-1.4) mg/dL Estim Creat Clear Calc Estimated GFR Random Glucose (60-115) mg/dL Calcium (8.4-10.2) mg/dL Magnesium (1.6-2.6) mg/dL Total Bilirubin (0.0-1.0) mg/dL Direct Bilirubin (0.0-0.5) mg/dL AST (5-37) U/L ALT (0-40) U/L Alkaline Phosphatase (39-117) U/L Troponin I High Sens < 3.5 (<3.5-35.0) ng/L Total Protein (6.5-8.0) g/dL Albumin (3.5-5.0) g/dL Imaging Data Chest x-ray: Attestation: I personally reviewed and interpreted this imaging study as follows: Radiologist's impression: EXAMINATION: XR CHEST CLINICAL INFORMATION: Chest pain COMPARISON: 07/19/2020 TECHNIQUE: 2 views of the chest were obtained. FINDINGS: Cardiac leads overlie the chest. Radiopaque foreign body is seen over the periphery of the right lower hemithorax. The lungs are well expanded. There is no focal consolidation, edema, or effusion. No pneumothorax. The cardiomediastinal silhouette is within normal limits. No acute osseous abnormality. XR/XR chest 2V IMPRESSION: Clear lungs. ECG Data ECG #1: Attestation: I personally reviewed and interpreted this ECG as follows: ECG interpretation date: 10/05/20 ECG interpretation time: 23:17 Prior ECG tracings: available for review Interpretation: Normal sinus rhythm with a rate of 60, normal MO, normal QRS, normal QT Discharge Plan Discharge Clinical Impression: Atypical chest pain Patient Disposition: Home, Self-Care Instructions: Chest Wall Pain (ED) Additional Instructions: YOUR LAB WORK, EKG AND CHEST X-RAY ALL LOOK NORMAL. YOU SHOULD FOLLOW-UP WITH YOUR OUTPATIENT PROJECT MANAGER/DESIGN MANAGER. Prescriptions: No Action tizanidine 4 mg tablet 4 mg PO BID PRN (Reason: muscle spasticity) Qty: 60 RF: 0 flecainide 50 mg tablet 50 mg PO BID Qty: 180 RF: 2 lorazepam 0.5 mg tablet 0.5 mg PO DAILY 90 Days Qty: 90 RF: 0 omeprazole 20 mg capsule,delayed release(DR/EC) 20 mg PO DAILY Qty: 90 RF: 2 fluticasone propionate 50 mcg/actuation spray,suspension 1 spray intranasal BID Qty: 9.9 RF: 0 multivitamin Tablet 1 tab PO DAILY RF: 0 ascorbic acid (vitamin C) [Vitamin C] 500 mg Tablet 500 mg PO DAILY RF: 0 tamsulosin [Flomax] 0.4 mg capsule 0.4 mg PO DAILY RF: 0 duloxetine [Cymbalta] 30 mg capsule,delayed release(DR/EC) 30 mg PO DAILY Qty: 90 RF: 1 metoprolol succinate 25 mg tablet extended release 24 hr 25 mg PO DAILY 90 Days Qty: 90 RF: 3 Xarelto 20 mg tablet 20 mg PO DAILY Qty: 90 RF: 1 atorvastatin 20 mg tablet 20 mg PO DAILY 90 Days Qty: 90 RF: 1 Referrals: Physician,Unknown [Primary Care Provider] - 2 days Print Language: Mohawk
[2020-10-05 23:49] LABS: MANUAL DIFF FLAG NO
[2020-10-05 23:50] LABS: Basophils Absolute Auto 0.1 X10*3/uL (0.0-0.2); Basophils Percent Auto 0.8 % (0-2); Eosinophils Absolute Auto 0.2 X10*3/uL (0.0-0.4); Hematocrit 35.9 % (42-52); Hemoglobin 11.9 g/dl (14.0-18.0); Imm Gran Abs Auto 0.01 X10*3/uL (0.00-0.03); Imm Gran Pct Auto 0.2 % (0.0-0.4); Lymphocytes Absolute Auto 2.3 X10*3/uL (1.2-4.9); Mean Corpuscular HGB Conc 33.1 g/dl (31.0-36.0); Mean Corpuscular Hemoglobin 30.5 pg (27.0-33.0); Mean Corpuscular Volume 92.1 fL (80-98); Mean Platelet Volume 10.4 fL (9.4-12.4); Monocytes Absolute Auto 0.4 X10*3/uL (0.1-1.2); Monocytes Percent Auto 7.3 % (2-11); Neutrophils Absolute Auto 3.1 X10*3/uL (2.0-8.3); Neutrophils Percent Auto 50.7 % (45-73); Platelet Count 166 X10*3/uL (160-400); Red Cell Distribution Width 13.2 % (11.0-16.0)
[2020-10-06 00:10] LABS: INTERNATIONAL NORM RATIO 1.7 (0.9-1.1)
[2020-10-06 00:23] LABS: Alanine Aminotransferase 11 U/L (0-40); Albumin Level 4.1 g/dL (3.5-5.0); Alkaline Phosphatase 57 U/L (39-117); Anion Gap 12 (12-20); Aspartate Amino Transferase 18 U/L (5-37); Bilirubin Direct 0.4 mg/dL (0.0-0.5); Bilirubin Total 1.1 mg/dL (0.0-1.0); Blood Urea Nitrogen 12 mg/dL (9-16); Calcium 9.4 mg/dL (8.4-10.2); Carbon Dioxide 26 mmol/L (22-29); Chloride 108 mmol/L (96-108); Creatinine Clr Calc Pharmacy 83.8; Estimated Glomerular Filt Rate > 60; Glucose Random 102 mg/dL (60-115); Magnesium 2.3 mg/dL (1.6-2.6); Sodium 142 mmol/L (135-145); Total Protein 6.5 g/dL (6.5-8.0)
[2020-10-06 00:26] LABS: Troponin-I High Sensitivity < 3.5 ng/L (<3.5-35.0)
== END 2020-10-06 01:05 | disposition home or self-care (01) ==
PROVIDERS: Nurse Practitioner Family; Emergency Provider Internal Medicine
DX: R07.89 Other chest pain (principal); I48.0 Paroxysmal atrial fibrillation; I10 Essential (primary) hypertension; Z79.01 Long term (current) use of anticoagulants; Z79.899 Other long term (current) drug therapy
CPT/HCPCS: 36415; 71046; 80048; 80076; 83735; 84484; 85025; 85610; 93005; 99283

== ENCOUNTER 2020-10-08 07:20 | Outpatient (REF) | payer MEDICARE, MEDICAID, SELFPAY ==
--- NOTE | ~2020-10-08 | XR_ITS ---
EXAMINATION: XR CERVICAL SPINE CLINICAL INFORMATION: Cervicalgia. COMPARISON: Cervical spine radiographs dated 07/14/2019. TECHNIQUE: AP, lateral, open-mouth, and bilateral oblique views of the cervical spine. FINDINGS: Normal vertebral body alignment. The cervical lordosis is maintained. No acute fracture or subluxation. No loss of vertebral body height. Loss of intervertebral disc height with anterior endplate osteophytes at C4-C7. Mild multilevel bilateral neural foraminal stenosis at these levels. No lytic or blastic osseous lesion. Normal atlantoaxial alignment. Unremarkable prevertebral soft tissues. XR/XR cervical spine min 6V IMPRESSION: Degenerative disease at C4-C7 with bilateral neural foraminal stenosis, similar when compared to the prior examination.
[2020-10-08 09:22] LABS: Alanine Aminotransferase 13 U/L (0-40); Albumin Level 4.1 g/dL (3.5-5.0); Alkaline Phosphatase 54 U/L (39-117); Anion Gap 11 (12-20); Aspartate Amino Transferase 15 U/L (5-37); Bilirubin Total 0.8 mg/dL (0.0-1.0); Blood Urea Nitrogen 8 mg/dL (9-16); Calcium 9.3 mg/dL (8.4-10.2); Carbon Dioxide 28 mmol/L (22-29); Chloride 109 mmol/L (96-108); Cholesterol 154 mg/dL; Estimated Glomerular Filt Rate > 60; Glucose Random 92 mg/dL (60-115); HDL Cholesterol 46 mg/dL; LDL Cholesterol Calculated 88 mg/dl; Potassium 4.2 mmol/L (3.3-5.1); Sodium 144 mmol/L (135-145); Total Protein 6.2 g/dL (6.5-8.0); Triglycerides 101 mg/dL
[2020-10-08 09:23] LABS: PSA,Total (Free>4and<10) 1.45 ng/mL (0.00-4.00)
== END 2020-10-08 07:21 | disposition home or self-care (01) ==
LOC: HO.LAB 07:20
PROVIDERS: Absent Provider Urology; PCP Internal Medicine; Visit Provider Internal Medicine
DX: N40.1 Benign prostatic hyperplasia with lower urinary tract symptoms (principal); E78.00 Pure hypercholesterolemia, unspecified; R35.0 Frequency of micturition; M54.2 Cervicalgia; Z12.5 Encounter for screening for malignant neoplasm of prostate
CPT/HCPCS: 36415; 72052; 80053; 80061; 84153

== ENCOUNTER 2020-10-22 10:41 | Emergency (ER) | payer MEDICARE, MEDICAID, SELFPAY ==
--- NOTE | ~2020-10-22 | CT_ITS ---
EXAMINATION: CT HEAD WITHOUT CONTRAST CLINICAL INFORMATION: Left-sided weakness COMPARISON: July 19, 2020 and June 16, 2020. TECHNIQUE: Contiguous axial imaging was performed from the skull base to vertex without intravenous administration of contrast. This CT examination was performed using dose optimization techniques as appropriate, variously including the following: *Automated exposure control *Adjustment of mA and/or kV according to patient size (this includes techniques or standardized protocols for targeted exams where dose is matched to indication/reason for exam; i.e. extremities or head) *Use of iterative reconstruction technique DLP: 729 mGy-cm FINDINGS: There is no evidence of acute intracranial hemorrhage or territorial infarction. No abnormal mass effect or midline shift is seen. Ramirez to white matter differentiation is well preserved. No extra-axial fluid collections are identified. The ventricles are normal in size. There is no abnormal attenuation within the brain parenchyma. The osseous structures and soft tissues are normal. The mastoid air cells and visualized portions of the paranasal sinuses are well aerated. Vertebral and carotid artery calcifications present. CT/CT head/brain wo con IMPRESSION: No acute intracranial pathology.
--- NOTE | ~2020-10-22 | XR_ITS ---
EXAMINATION: XR CHEST CLINICAL INFORMATION: Chest pain COMPARISON: Previous chest x-ray most recent October 05, 2020 and chest CTA May 2017 TECHNIQUE: Frontal view of the chest was obtained. FINDINGS: The cardiac and mediastinal contours are normal. The lungs are clear. There is no pleural effusion or pneumothorax. There is a small radiopaque density that projects over the right lateral chest that is unchanged. When compared with previous chest CTA May 2017 and the chest wall. There are degenerative changes of the spine. XR/XR chest 1V IMPRESSION: No evidence for acute disease in chest.
--- NOTE | 2020-10-22 08:10 | ECG_ITS ---
Test Reason : CP Blood Pressure : / mmHG Vent. Rate : 067 BPM Atrial Rate : 067 BPM P-R Int : 168 ms QRS Dur : 110 ms QT Int : 400 ms P-R-T Axes : 061 063 067 degrees QTc Int : 422 ms Normal sinus rhythm Minimal voltage criteria for LVH, may be normal variant Borderline ECG When compared with ECG of 05-OCT-2020 23:17, No significant change was found Referred By: Rowena Kim Electronically Signed By:DEANNE BAILEY
[2020-10-22 10:46] VITALS: BP 172/90; PULSE 65; RESP 16; TEMP 37.1; BMI 25.6
[2020-10-22 11:04] LABS: MANUAL DIFF FLAG NO
[2020-10-22 11:11] LABS: Basophils Percent Auto 0.6 % (0-2); Eosinophils Absolute Auto 0.2 X10*3/uL (0.0-0.4); Eosinophils Percent Auto 4.1 % (0-4); Hematocrit 39.4 % (42-52); Hemoglobin 12.9 g/dl (14.0-18.0); INTERNATIONAL NORM RATIO 1.4 (0.9-1.1); Imm Gran Abs Auto 0.01 X10*3/uL (0.00-0.03); Imm Gran Pct Auto 0.2 % (0.0-0.4); Lymphocytes Absolute Auto 1.4 X10*3/uL (1.2-4.9); Lymphocytes Percent Auto 29.6 % (20-40); Mean Corpuscular HGB Conc 32.7 g/dl (31.0-36.0); Mean Corpuscular Hemoglobin 30.3 pg (27.0-33.0); Mean Corpuscular Volume 92.5 fL (80-98); Mean Platelet Volume 10.1 fL (9.4-12.4); Monocytes Absolute Auto 0.4 X10*3/uL (0.1-1.2); Monocytes Percent Auto 8.5 % (2-11); Neutrophils Absolute Auto 2.7 X10*3/uL (2.0-8.3); Platelet Count 186 X10*3/uL (160-400); Red Blood Count 4.26 X10*6/uL (4.60-5.80); Red Cell Distribution Width 13.2 % (11.0-16.0); White Blood Count 4.7 X10*3/uL (4.8-10.8)
--- NOTE | 2020-10-22 11:13 | ED.CHESTPAIN ---
HPI - Chest Pain General Chief Complaint: Chest Pain Stated Complaint: chest pain Time Seen by Provider: 10/22/20 10:52 Source: patient Mode of arrival: ambulatory History of Present Illness HPI narrative: 69-yo male with Afib on xarelto-controlled on Flecainide and Metoprolol, anxiety and depression, HPL, BPH, lower back pain, HTN, presenting to the ED complaining of intermittent substernal chest pressure and palpitations with associated SOB, left arm and leg weakness/numbness. Also reports generalized fatigue/weakness. Denies fever, chills, cough, fall, headache, LE edema MD complaint: chest discomfort Related Data Home Medications Medication Instructions Recorded Confirmed ascorbic acid (vitamin C) 500 mg 500 mg PO DAILY 07/05/20 09/21/20 tablet (Vitamin C) multivitamin 1 tab PO DAILY 07/05/20 09/21/20 tamsulosin 0.4 mg capsule (Flomax) 0.4 mg PO DAILY 07/05/20 09/21/20 Previous Rx's Medication Instructions Recorded tizanidine 4 mg tablet 4 mg PO BID PRN #60 tab 12/18/19 fluticasone propionate 50 1 spray INTRANASAL BID #9.9 ml 01/24/20 mcg/actuation nasal spray,suspension duloxetine 30 mg capsule,delayed 30 mg PO DAILY #90 cap 03/10/20 release (Cymbalta) metoprolol succinate 25 mg 25 mg PO DAILY 90 Days #90 tab 03/10/20 tablet,extended release 24 hr flecainide 50 mg tablet 50 mg PO BID #180 cap 06/07/20 atorvastatin 20 mg tablet 20 mg PO DAILY 90 Days #90 tab 07/15/20 lorazepam 0.5 mg tablet 0.5 mg PO DAILY 90 Days #90 tab 08/05/20 omeprazole 20 mg capsule,delayed 20 mg PO DAILY #90 cap 09/17/20 release rivaroxaban 20 mg tablet (Xarelto) 20 mg PO DAILY #90 cap 10/13/20 tamsulosin 0.4 mg capsule 0.4 mg PO DAILY 30 Days #30 cap 10/13/20 Allergies Allergy/AdvReac Type Severity Reaction Status Date / Time almond [ALMOND] Allergy Unknown SWELLING Verified 10/05/20 23:21 Review of Systems Review of Systems: Constitutional: No Fever, No Chills, No Fatigue, No Malaise ENT/Mouth: No Ear Pain, No Nasal Congestion, No Sinus Pain, No sore throat Eyes: No Eye Pain, No Vision Changes Cardiovascular: + Chest Pain, + SOB, No Dyspnea on Exertion, No Orthopnea, No Edema, + Palpitations Respiratory: No Cough, No Sputum, No Dyspnea Gastrointestinal: No Nausea, No Vomiting, No Diarrhea, No Constipation, No Abdominal pain Genitourinary: No Dysuria, No Urinary Frequency, No Flank Pain Musculoskeletal: No joint pain, No Myalgias Skin: No Skin Lesions, No rash Neuro: + Weakness, + Numbness, + Paresthesias, No Loss of Consciousness, No Dizziness, No Headache Yes all other systems are reviewed and are negative Neurologic: Denies Abnormal speech present [facility] Past Medical History Attestation statement: The following information was validated with the patient. Medical History Alcohol abuse Anxiety and depression Blind right eye BPH (benign prostatic hyperplasia) Degenerative disc disease, cervical GERD (gastroesophageal reflux disease) Hypercholesterolemia Hypertension Left renal stone Lesion of bladder Lower back pain Paroxysmal atrial fibrillation Pulmonary nodule Renal cyst Sensorineural hearing loss Thoracic spondylosis Tubular adenoma of colon Surgical History History of inguinal hernia repair Hx of cataract surgery Family History Family History Father Medical history unknown Mother Medical history unknown Brother No problems noted. Son No problems noted. Son No problems noted. Social History Social History Household Members: Significant Other Household Members Other:: Housing: Apartment Do you presently have visiting nurse or other home services: No Alcohol intake: unknown Patient Tobacco Use Status: Former Tobacco user Second Hand Smoke Exposure: No Use of substances other than those prescribed or required for medical reasons: No Advance Directives: No Advance Directives Information Provided: Yes Advance Directives Date on File: 07/05/20 service: No Physical Exam Vital Signs: Vital Signs: Last Vital Signs Temp 98.7 F 10/22/20 10:46 Pulse 52 10/22/20 13:38 Resp 16 10/22/20 13:38 BP 143/68 H 10/22/20 13:38 Pulse Ox 100 10/22/20 13:38 Body Mass Index 25.6 Const: General: cooperative, healthy appearing and no acute distress Limitations: no limitations HENMT: Head: Yes normal to inspection Ears: hearing grossly normal bilaterally General nose exam: Normal external nose present Face and sinus: Yes normal facial exam Eyes: General: appearance normal, both eyes and all related structures EOM: EOMs intact bilaterally Neck: Neck: Yes normal visual inspection and Yes no meningeal signs Resp: Effort & Inspection: normal respiratory effort Auscultation: clear to auscultation bilaterally, no crackles and no wheezes Cardio: Rate: regular rate Heart sounds: S1 normal heart sound present and S2 normal heart sound present GI: Inspection: Yes normal to inspection Palpation (GI): Soft to palpation, nontender, no guarding and not rigid Skin: Rashes: no rashes Wounds: no wounds Neuro: General: gait normal, tone normal, moves all extremities, no meningeal signs, no focal motor deficits and CN's II-XI intact bilaterally Cranial nerves: Yes CN's II-XII intact bilaterally Cognition (Neuro): normal cognition Speech: No Abnormal speech present Gait exam (Neuro): Normal gait present Motor exam (neuro): 5/5 motor strength present throughout, Pronator motor function not present and no tremor noted Coordination: [id number] test normal Romberg Test: Negative Extrem: General: Yes normal to inspection and Yes no pedal edema Course Course Course Narrative: -1155--no leukocytosis, H&H at patient's baseline, labs otherwise unremarkable, troponin negative -COVID-19 negative -1300-- XR chest 1V IMPRESSION: No evidence for acute disease in chest. CT head/brain wo con IMPRESSION: No acute intracranial pathology. --orthostatic vital signs negative. Results discussed with patient and at bedside with delivery motorcycle driver including worrisome signs and symptoms and strict return precautions. Patient verbalized understanding feel safe for discharge home. Patient is to follow-up with PCP MDM - Chest Pain MDM Narrative Medical decision making narrative: 69-yo male with Afib on xarelto-controlled on Flecainide and Metoprolol, anxiety and depression, HPL, BPH, lower back pain, HTN, presenting to the ED complaining of intermittent substernal chest pressure and palpitations with associated SOB, left arm and leg weakness/numbness. On exam VSS, in ED, physical exam as above. No focal neuro deficits appreciated. Strength intact throughout. Concern for atypical ACS vs ?Subacute CVA vs metabolic or infectious etiology Plan: EKG, labs, UA, CXR, head CT, orthostatic vital signs, reassess Medical Records Data Attestation: I reviewed the patient's medical records. Lab Data Attestation: I reviewed the patient's lab results. Result diagrams: 10/22/20 11:00 10/22/20 11:00 Labs: Lab Results 10/22/20 10/22/20 10/22/20 Range/Units 11:00 11:00 11:00 WBC 4.7 L (4.8-10.8) X10*3/uL RBC 4.26 L (4.60-5.80) X10*6/uL Hgb 12.9 L (14.0-18.0) g/dl Hct 39.4 L (42-52) % MCV 92.5 (80-98) fL MCH 30.3 (27.0-33.0) pg MCHC 32.7 (31.0-36.0) g/dl RDW 13.2 (11.0-16.0) % Plt Count 186 (160-400) X10*3/uL MPV 10.1 (9.4-12.4) fL Immature Gran % (Auto) 0.2 (0.0-0.4) % Neut % (Auto) 57.0 (45-73) % Lymph % (Auto) 29.6 (20-40) % Stark % (Auto) 8.5 (2-11) % Eos % (Auto) 4.1 H (0-4) % Baso % (Auto) 0.6 (0-2) % Lymph # (Auto) 1.4 (1.2-4.9) X10*3/uL Stark # (Auto) 0.4 (0.1-1.2) X10*3/uL Eos # (Auto) 0.2 (0.0-0.4) X10*3/uL Baso # (Auto) 0.0 (0.0-0.2) X10*3/uL Abs Immat Gran (auto) 0.01 (0.00-0.03) X10*3/uL Absolute Neuts (auto) 2.7 (2.0-8.3) X10*3/uL Absolute Nucleated RBC 0.000 (0.0-0.012) X10*3/uL Nucleated RBC % (auto) 0.0 (0.0-0.2) /100WBC PT 16.0 H (9.9-13.0) SEC INR 1.4 H (0.9-1.1) APTT 40.8 H (24.1-38.0) SEC Sodium 142 (135-145) mmol/L Potassium 3.9 (3.3-5.1) mmol/L Chloride 109 H (96-108) mmol/L Carbon Dioxide 26 (22-29) mmol/L Anion Gap 11 L (12-20) BUN 8 L (9-16) mg/dL Creatinine 0.86 (0.5-1.4) mg/dL Estim Creat Clear Calc 87.7 Estimated GFR > 60 Random Glucose 101 (60-115) mg/dL Calcium 9.5 (8.4-10.2) mg/dL Magnesium 2.5 (1.6-2.6) mg/dL Total Bilirubin 1.1 H (0.0-1.0) mg/dL Direct Bilirubin 0.4 (0.0-0.5) mg/dL AST 16 (5-37) U/L ALT 14 (0-40) U/L Alkaline Phosphatase 60 (39-117) U/L Troponin I High Sens (<3.5-35.0) ng/L Total Protein 6.8 (6.5-8.0) g/dL Albumin 4.4 (3.5-5.0) g/dL Lipase 26 (8-78) U/L Urine Color Urine Appearance Urine pH (5.0-8.0) Ur Specific [place] (1.005-1.025) Urine Protein (NEG-TRACE) MG/DL Urine Glucose (UA) (NEG) MG/DL Urine Ketones (NEG) MG/DL Urine Blood (NEG) Urine Nitrite (NEG) Ur Leukocyte Esterase (NEG) COVID-19 (TYRONE) (Negative) COVID-19 Clin Com 10/22/20 10/22/20 10/22/20 Range/Units 11:00 11:00 11:55 WBC (4.8-10.8) X10*3/uL RBC (4.60-5.80) X10*6/uL Hgb (14.0-18.0) g/dl Hct (42-52) % MCV (80-98) fL MCH (27.0-33.0) pg MCHC (31.0-36.0) g/dl RDW (11.0-16.0) % Plt Count (160-400) X10*3/uL MPV (9.4-12.4) fL Immature Gran % (Auto) (0.0-0.4) % Neut % (Auto) (45-73) % Lymph % (Auto) (20-40) % Stark % (Auto) (2-11) % Eos % (Auto) (0-4) % Baso % (Auto) (0-2) % Lymph # (Auto) (1.2-4.9) X10*3/uL Stark # (Auto) (0.1-1.2) X10*3/uL Eos # (Auto) (0.0-0.4) X10*3/uL Baso # (Auto) (0.0-0.2) X10*3/uL Abs Immat Gran (auto) (0.00-0.03) X10*3/uL Absolute Neuts (auto) (2.0-8.3) X10*3/uL Absolute Nucleated RBC (0.0-0.012) X10*3/uL Nucleated RBC % (auto) (0.0-0.2) /100WBC PT (9.9-13.0) SEC INR (0.9-1.1) APTT (24.1-38.0) SEC Sodium (135-145) mmol/L Potassium (3.3-5.1) mmol/L Chloride (96-108) mmol/L Carbon Dioxide (22-29) mmol/L Anion Gap (12-20) BUN (9-16) mg/dL Creatinine (0.5-1.4) mg/dL Estim Creat Clear Calc Estimated GFR Random Glucose (60-115) mg/dL Calcium (8.4-10.2) mg/dL Magnesium (1.6-2.6) mg/dL Total Bilirubin (0.0-1.0) mg/dL Direct Bilirubin (0.0-0.5) mg/dL AST (5-37) U/L ALT (0-40) U/L Alkaline Phosphatase (39-117) U/L Troponin I High Sens < 3.5 (<3.5-35.0) ng/L Total Protein (6.5-8.0) g/dL Albumin (3.5-5.0) g/dL Lipase (8-78) U/L Urine Color STRAW Urine Appearance CLEAR Urine pH 7.0 (5.0-8.0) Ur Specific [place] <= 1.005 (1.005-1.025) Urine Protein NEG (NEG-TRACE) MG/DL Urine Glucose (UA) NEG (NEG) MG/DL Urine Ketones NEG (NEG) MG/DL Urine Blood NEG (NEG) Urine Nitrite NEG (NEG) Ur Leukocyte Esterase NEG (NEG) COVID-19 (TYRONE) Negative (Negative) COVID-19 Clin Com See Note ECG Data ECG #1: Attestation: I personally reviewed and interpreted this ECG as follows: ECG interpretation date: 10/22/20 ECG interpretation time: 10:48 Prior ECG tracings: available for review Interpretation: EKG normal sinus rhythm with a rate of 67. QTC 422, nonischemic/no STEMI Discharge Plan Discharge Clinical Impression: Atypical chest pain, Palpitations Patient Disposition: Home, Self-Care Instructions: Chest Pain (ED) Additional Instructions: Your blood work was reassuring today in the ED. Her chest x-ray and head CT were unremarkable. He tested negative for COVID-19. It is important for you to follow-up with her primary care doctor. Continue all home prescribed medications. If her symptoms persist or worsen, become unbearable, you have constant worsening chest pain or shortness of breath please return to the ED Brock an?lisis de maida fue reconfortante hoy en el servicio de urgencias. Brock radiograf?a de t?rax y la tomograf?a computarizada de la noel jacklyn normales. Chato negativo para COVID-19. Es importante que realice un seguimiento con brock m?dico de atenci?n primaria. Contin?e con todos los medicamentos recetados en casa. Si bryan s?ntomas persisten o empeoran, se vuelven insoportables, tiene un dolor en el pecho que empeora constantemente o le falta el aire, por favor regrese al servicio de urgencias. Prescriptions: No Action tizanidine 4 mg tablet 4 mg PO BID PRN (Reason: muscle spasticity) Qty: 60 RF: 0 flecainide 50 mg tablet 50 mg PO BID Qty: 180 RF: 2 lorazepam 0.5 mg tablet 0.5 mg PO DAILY 90 Days Qty: 90 RF: 0 omeprazole 20 mg capsule,delayed release(DR/EC) 20 mg PO DAILY Qty: 90 RF: 2 tamsulosin 0.4 mg capsule 0.4 mg PO DAILY 30 Days Qty: 30 RF: 0 Xarelto 20 mg tablet 20 mg PO DAILY Qty: 90 RF: 2 fluticasone propionate 50 mcg/actuation spray,suspension 1 spray intranasal BID Qty: 9.9 RF: 0 multivitamin Tablet 1 tab PO DAILY RF: 0 ascorbic acid (vitamin C) [Vitamin C] 500 mg Tablet 500 mg PO DAILY RF: 0 tamsulosin [Flomax] 0.4 mg capsule 0.4 mg PO DAILY RF: 0 duloxetine [Cymbalta] 30 mg capsule,delayed release(DR/EC) 30 mg PO DAILY Qty: 90 RF: 1 metoprolol succinate 25 mg tablet extended release 24 hr 25 mg PO DAILY 90 Days Qty: 90 RF: 3 atorvastatin 20 mg tablet 20 mg PO DAILY 90 Days Qty: 90 RF: 1 Referrals: Po,Yvonne Gold MD [Primary Care Provider] - 2 days Interventions: ED Discharge Assessment Last Done: 10/22/20 13:39 Discharge Date/Time: 10/22/20 13:40 Print Language: Surinamese
[2020-10-22 11:14] LABS: Partial Thromboplastin Time 40.8 SEC (24.1-38.0)
[2020-10-22 11:26] VITALS: BP 132/67; PULSE 54
[2020-10-22 11:27] VITALS: BP 144/76; PULSE 54
[2020-10-22 11:27] LABS: COVID-19 Test Negative (Negative); IDNOW Serial# 9DD0AD1C
[2020-10-22 11:29] VITALS: BP 143/88; PULSE 62
[2020-10-22 11:34] LABS: Alanine Aminotransferase 14 U/L (0-40); Albumin Level 4.4 g/dL (3.5-5.0); Alkaline Phosphatase 60 U/L (39-117); Anion Gap 11 (12-20); Aspartate Amino Transferase 16 U/L (5-37); Bilirubin Direct 0.4 mg/dL (0.0-0.5); Bilirubin Total 1.1 mg/dL (0.0-1.0); Blood Urea Nitrogen 8 mg/dL (9-16); Calcium 9.5 mg/dL (8.4-10.2); Carbon Dioxide 26 mmol/L (22-29); Chloride 109 mmol/L (96-108); Creatinine Clr Calc Pharmacy 87.7; Estimated Glomerular Filt Rate > 60; Glucose Random 101 mg/dL (60-115); Lipase 26 U/L (8-78); Magnesium 2.5 mg/dL (1.6-2.6); Potassium 3.9 mmol/L (3.3-5.1); Sodium 142 mmol/L (135-145); Total Protein 6.8 g/dL (6.5-8.0)
[2020-10-22 11:40] LABS: Troponin-I High Sensitivity < 3.5 ng/L (<3.5-35.0)
[2020-10-22 12:18] LABS: Appearance Urine CLEAR; Color Urine STRAW; Glucose Urine UA NEG (NEG); Leukocyte Esterase Urine NEG (NEG); Nitrite Urine NEG (NEG); Specific Gravity - Urine <= 1.005 (1.005-1.025); Urine Blood NEG (NEG); Urine Ketones NEG (NEG); Urine Protein NEG (NEG-TRACE)
[2020-10-22 13:38] VITALS: BP 143/68; PULSE 52; RESP 16; O2SAT 100
== END 2020-10-22 13:40 | disposition home or self-care (01) ==
PROVIDERS: Physician Assistant; Emergency Provider Emergency Medicine; PCP Internal Medicine
DX: R07.89 Other chest pain (principal); R00.2 Palpitations; Z20.822 Contact with and (suspected) exposure to COVID-19; R06.02 Shortness of breath; R53.1 Weakness; R20.2 Paresthesia of skin; I10 Essential (primary) hypertension; I48.0 Paroxysmal atrial fibrillation; F10.10 Alcohol abuse, uncomplicated; Z79.01 Long term (current) use of anticoagulants; Z79.899 Other long term (current) drug therapy
CPT/HCPCS: 36415; 70450; 71045; 80048; 80076; 81003; 83690; 83735; 84484; 85025; 85610; 85730; 87635; 93005; 99284

== ENCOUNTER → 2020-10-29 09:47 | Outpatient (BNVA) | payer MEDICARE, MEDICAID, SELFPAY | PROVIDERS: PCP Internal Medicine; Visit Provider Urology | CPT/HCPCS: Q3014 ==

== ENCOUNTER 2020-11-04 10:28 | Outpatient (REF) | payer MEDICARE, MEDICAID, SELFPAY ==
--- NOTE | ~2020-11-04 | US_ITS ---
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 COMPARISON: Comparison is made to a previous study dated 07/19/2020 which demonstrated bilateral 0-49% internal carotid artery stenoses. TECHNIQUE: Real-time ultrasound and Doppler techniques (integrating B-mode 2-D vascular images, Doppler spectral analysis and color-flow Doppler imaging) were utilized to interrogate the extracranial carotid arteries, the vertebral arteries and proximal subclavian arteries bilaterally. The degree of stenosis is determined by criteria similar to NASCET. FINDINGS: Right Side: 1. There is minimal atherosclerotic plaque seen in the bifurcation/proximal ICA region. 2. The common carotid artery PSV proximally is 75 cm/s and distally 82 cm/s. 3. The proximal internal carotid artery velocities are 79 cm/s systolic and 22 cm/s diastolic. 4. The proximal external carotid artery PSV is 92 cm/s. 5. The vertebral artery shows antegrade flow. 6. The subclavian artery waveforms are normal. Left Side: 1. There is minimal atherosclerotic plaque seen in the bifurcation/proximal ICA region. 2. The common carotid artery PSV proximally is 95 cm/s and distally 82 cm/s. 3. The proximal internal carotid artery velocities are 98 cm/s systolic and 99 cm/s diastolic. 4. The proximal external carotid artery PSV is 80 cm/s. 5. The vertebral artery shows antegrade flow. 6. The subclavian artery waveforms are normal. US/US carotid duplex BI IMPRESSION: 1. RIGHT: Minimal, non-hemodynamically significant stenosis of the proximal right internal carotid artery corresponding to a 0-49% stenosis by velocity criteria. 2. LEFT: Minimal, non-hemodynamically significant stenosis of the proximal left internal carotid artery corresponding to a 0-49% stenosis by velocity criteria. 3. There is no change in the category severity of disease when compared to the previous study dated 07/19/2020.
== END 2020-11-04 10:29 | disposition home or self-care (01) ==
LOC: HO.US 10:28
PROVIDERS: PCP Internal Medicine; Visit Provider Internal Medicine
DX: H34.232 Retinal artery branch occlusion, left eye (principal)
CPT/HCPCS: 93880

== ENCOUNTER → 2020-11-25 09:28 | Outpatient (BNVA) | payer MEDICARE, MEDICAID, SELFPAY | PROVIDERS: PCP Internal Medicine; Visit Provider Internal Medicine Cardiovascular Disease | DX: I48.0 Paroxysmal atrial fibrillation (principal); I10 Essential (primary) hypertension | CPT/HCPCS: 99212 ==

== ENCOUNTER 2020-12-27 22:24 | Observation (INO) | payer MEDICARE, MEDICAID, SELFPAY ==
--- NOTE | ~2020-12-27 | XR_ITS ---
EXAMINATION: XR CHEST CLINICAL INFORMATION: Chest pain COMPARISON: 10/22/2020 TECHNIQUE: AP portable upright view of the chest FINDINGS: Lungs are clear. No consolidation, pneumothorax, or pleural effusion. Again seen is a radiodensity overlying the right lateral chest wall inferiorly, unchanged from prior studies and of doubtful clinical significance. Cardiac and mediastinal contours are normal. Pulmonary vasculature is unremarkable. Osseous structures are unremarkable. XR/XR chest 1V IMPRESSION: No acute cardiopulmonary findings
--- NOTE | ~2020-12-27 | CT_ITS ---
EXAMINATION: CT HEAD WITHOUT CONTRAST CLINICAL INFORMATION: Headache, blood thinners, near syncope. COMPARISON: 10/22/2020 TECHNIQUE: Contiguous axial imaging was performed from the skull base to vertex without intravenous administration of contrast. This CT examination was performed using dose optimization techniques as appropriate, variously including the following: *Automated exposure control *Adjustment of mA and/or kV according to patient size (this includes techniques or standardized protocols for targeted exams where dose is matched to indication/reason for exam; i.e. extremities or head) *Use of iterative reconstruction technique DLP: 731 mGy-cm FINDINGS: There is no evidence of acute intracranial hemorrhage or territorial infarction. No abnormal mass effect or midline shift is seen. Ramirez to white matter differentiation is well preserved. No extra-axial fluid collections are identified. The ventricles are normal in size. Dystrophic calcifications within the basal ganglia. No additional abnormal attenuation within the brain parenchyma. The osseous structures and soft tissues are normal. Calcific atherosclerosis is present within the cavernous segments of the internal carotid arteries. Right pseudophakia. The mastoid air cells and visualized portions of the paranasal sinuses are well aerated. CT/CT head/brain wo con IMPRESSION: No acute intracranial pathology.
[2020-12-27 22:33] VITALS: BP 133/69; PULSE 56; RESP 15; TEMP 37.1; O2SAT 98; BMI 26.6
--- NOTE | 2020-12-27 22:38 | ECG_ITS ---
Test Reason : CHEST CURRY Blood Pressure : / mmHG Vent. Rate : 058 BPM Atrial Rate : 058 BPM P-R Int : 158 ms QRS Dur : 104 ms QT Int : 404 ms P-R-T Axes : -03 042 061 degrees QTc Int : 396 ms Sinus bradycardia Possible Left ventricular hypertrophy Borderline ECG When compared with ECG of 22-OCT-2020 10:48, No significant change was found Referred By: Felicita Ruiz Electronically Signed By:EBONI MOODY MD
--- NOTE | 2020-12-27 22:45 | PC.NURSE ---
PT AMBULATES TO ROOM WITH C/O CHEST PAIN AND NAUSEA. PT ARRIVES ALERT, RESPIRATIONS EASY, N/L. SKIN W/D. WILL CONTINUE TO MONITOR PT.
--- NOTE | 2020-12-27 23:42 | ED_ITS ---
HPI - Chest Pain General Chief Complaint: Chest Pain Stated Complaint: chest pain Time Seen by Provider: 12/27/20 23:09 Source: patient Mode of arrival: EMS History of Present Illness HPI narrative: 70-year-old male with history of CVA, paroxysmal atrial fibrillation presents via EMS for sharp chest pains to the left chest that occurred when patient went to lie down and was associated with dizziness, nausea, feeling like he had to have a bowel movement, sweating and patient states that he saw the outline of someone but denies vision loss. Patient states that he became concerned and set up and walked over to the couch and sat down. Patient states that the chest pain is symptoms lasted approximately 15 minutes. He states that his chest pain resolved by the time that EMS arrived and that currently he has ?a little bit of a headache frontal and pain in the neck. Patient received aspirin enroute. Related Data Home Medications Medication Instructions Recorded Confirmed ascorbic acid (vitamin C) 500 mg 500 mg PO DAILY 07/05/20 11/25/20 tablet (Vitamin C) multivitamin 1 tab PO DAILY 07/05/20 11/25/20 Previous Rx's Medication Instructions Recorded duloxetine 30 mg capsule,delayed 30 mg PO DAILY #90 cap 03/10/20 release (Cymbalta) metoprolol succinate 25 mg 25 mg PO DAILY 90 Days #90 tab 03/10/20 tablet,extended release 24 hr flecainide 50 mg tablet 50 mg PO BID #180 cap 06/07/20 omeprazole 20 mg capsule,delayed 20 mg PO DAILY #90 cap 09/17/20 release rivaroxaban 20 mg tablet (Xarelto) 20 mg PO DAILY #90 cap 10/13/20 atorvastatin 40 mg tablet 40 mg PO DAILY 90 Days #90 tab 10/25/20 lorazepam 0.5 mg tablet 0.5 mg PO DAILY 90 Days #90 tab 11/10/20 tamsulosin 0.4 mg capsule 0.4 mg PO DAILY 90 Days #90 cap 11/12/20 Allergies Allergy/AdvReac Type Severity Reaction Status Date / Time almond [ALMOND] Allergy Unknown SWELLING Verified 10/29/20 09:48 Review of Systems Review of Systems: Pertinent positives and negatives as stated in HPI 10 point review of systems is otherwise negative. [facility] Past Medical History Source: nursing notes reviewed Medical History Alcohol abuse Anxiety and depression Blind right eye BPH (benign prostatic hyperplasia) Degenerative disc disease, cervical GERD (gastroesophageal reflux disease) Hypercholesterolemia Hypertension Left renal stone Lesion of bladder Lower back pain Paroxysmal atrial fibrillation Pulmonary nodule Renal cyst Sensorineural hearing loss Thoracic spondylosis Tubular adenoma of colon Surgical History History of inguinal hernia repair Hx of cataract surgery Family History Family History Father Medical history unknown Mother Medical history unknown Brother No problems noted. Son No problems noted. Son No problems noted. Social History Social History Household Members: Significant Other Household Members Other:: Housing: Apartment Do you presently have visiting nurse or other home services: No Alcohol intake: never Patient Tobacco Use Status: Former Tobacco user Years Smoked: 2015 quit Second Hand Smoke Exposure: No Advance Directives: Yes Advance Directives on File: Yes Advance Directives Date on File: 07/05/20 service: No Current occupational status: disabled Physical Exam Vital Signs: Vital Signs: Last Vital Signs Temp 98.7 F 12/27/20 22:33 Pulse 56 12/27/20 22:33 Resp 15 12/27/20 22:33 BP 133/69 12/27/20 22:33 Pulse Ox 98 12/27/20 22:33 Body Mass Index 26.6 VITAL SIGNS: Reviewed. GENERAL: Well developed, well nourished, in no acute distress. HEAD: Normocephalic/atraumatic, EYES: PERRLA, EOMI intact without pain, no nystagmus/pallor/icterus noted EARS: Ext canals without abnormality, TMs non-bulging and non-erythematous NOSE: Nares patent bilateral OROPHARYNX: no oral lesions noted, posterior pharynx clear and non-erythematous without noted tonsillar enlargement/erythema/exudates NECK: Supple, no adenopathy LUNGS: Normal breath sounds. No adventitious sounds or accessory muscle use. SpO2<98> CARDIOVASCULAR: Regular rate and rhythm without noted murmurs, no JVD or lower extremity edema. ABDOMEN: Soft, non-tender, non-distended with bowel sounds. SKIN: Inspection of the skin reveals no rashes NEUROLOGIC: Alert and oriented x 4. Strength and sensation to light touch were grossly intact x 4, no facial asymmetry, no pronator drift, cranial nerves 2-12 grossly intact Course Course Course Narrative: 70-year-old male with history and clinical presentation suggestive of near-syncope with chest pain, patient is nonfocal and feelings of dizziness were strictly associated with the chest pain and near syncopal symptoms. So, will evaluate further and and patient will likely need admission for a near syncopal episode while lying down. Will obtain CT scan given that patient is experiencing headache and is on blood thinners. On review of all investigations there is no evidence to suggest infection and patient's noted anemia appears to be chronic and stable, serial troponins are undetectable without acute EKG changes. CT scan was negative for acute intracranial pathology, but concern remains regarding a near syncopal episode while patient was lying down. I discussed this case with the inpatient hospitalist who accepts admission for observation and further evaluation by Cardiology. MDM - Chest Pain Lab Data Result diagrams: 12/28/20 00:23 12/28/20 00:23 Labs: Lab Results 12/28/20 12/28/20 12/28/20 Range/Units 00:23 00:23 00:23 WBC 6.1 (4.8-10.8) X10*3/uL RBC 3.82 L (4.60-5.80) X10*6/uL Hgb 11.9 L (14.0-18.0) g/dl Hct 35.5 L (42.0-52.0) % MCV 92.9 (80.0-98.0) fL MCH 31.2 (27.0-33.0) pg MCHC 33.5 (31.0-36.0) g/dl RDW 13.2 (11.0-16.0) % Plt Count 177 (160-400) X10*3/uL MPV 10.2 (9.4-12.4) fL Immature Gran % (Auto) 0.0 (0.0-0.4) % Neut % (Auto) 50.6 (45-73) % Lymph % (Auto) 37.1 (20-40) % [place] % (Auto) 7.1 (2-11) % Eos % (Auto) 4.4 H (0-4) % Baso % (Auto) 0.8 (0-2) % Lymph # (Auto) 2.3 (1.2-4.9) X10*3/uL [place] # (Auto) 0.4 (0.1-1.2) X10*3/uL Eos # (Auto) 0.3 (0.0-0.4) X10*3/uL Baso # (Auto) 0.1 (0.0-0.2) X10*3/uL Abs Immat Gran (auto) 0.00 (0.00-0.03) X10*3/uL Absolute Neuts (auto) 3.07 (2.0-8.3) x10*3/uL Absolute Nucleated RBC 0.000 (0.0-0.012) X10*3/uL Nucleated RBC % (auto) 0.0 (0.0-0.2) /100WBC PT 27.5 H (9.9-13.0) SEC INR 2.4 H (0.9-1.1) Sodium 143 (135-145) mmol/L Potassium 4.0 (3.3-5.1) mmol/L Chloride 110 H (96-108) mmol/L Carbon Dioxide 28 (22-29) mmol/L Anion Gap 9 L (12-20) BUN 11 (9-16) mg/dL Creatinine 0.96 (0.5-1.4) mg/dL Estim Creat Clear Calc 61.3 Estimated GFR > 60 Random Glucose 120 H (60-115) mg/dL Calcium 9.2 (8.4-10.2) mg/dL Total Bilirubin 0.7 (0.0-1.0) mg/dL AST 15 (5-37) U/L ALT 14 (0-40) U/L Alkaline Phosphatase 69 (39-117) U/L Troponin I High Sens (<3.5-35.0) ng/L Total Protein 5.9 L (6.5-8.0) g/dL Albumin 3.9 (3.5-5.0) g/dL Lipase 33 (8-78) U/L 12/28/20 12/28/20 Range/Units 00:23 02:38 WBC (4.8-10.8) X10*3/uL RBC (4.60-5.80) X10*6/uL Hgb (14.0-18.0) g/dl Hct (42.0-52.0) % MCV (80.0-98.0) fL MCH (27.0-33.0) pg MCHC (31.0-36.0) g/dl RDW (11.0-16.0) % Plt Count (160-400) X10*3/uL MPV (9.4-12.4) fL Immature Gran % (Auto) (0.0-0.4) % Neut % (Auto) (45-73) % Lymph % (Auto) (20-40) % [place] % (Auto) (2-11) % Eos % (Auto) (0-4) % Baso % (Auto) (0-2) % Lymph # (Auto) (1.2-4.9) X10*3/uL [place] # (Auto) (0.1-1.2) X10*3/uL Eos # (Auto) (0.0-0.4) X10*3/uL Baso # (Auto) (0.0-0.2) X10*3/uL Abs Immat Gran (auto) (0.00-0.03) X10*3/uL Absolute Neuts (auto) (2.0-8.3) x10*3/uL Absolute Nucleated RBC (0.0-0.012) X10*3/uL Nucleated RBC % (auto) (0.0-0.2) /100WBC PT (9.9-13.0) SEC INR (0.9-1.1) Sodium (135-145) mmol/L Potassium (3.3-5.1) mmol/L Chloride (96-108) mmol/L Carbon Dioxide (22-29) mmol/L Anion Gap (12-20) BUN (9-16) mg/dL Creatinine (0.5-1.4) mg/dL Estim Creat Clear Calc Estimated GFR Random Glucose (60-115) mg/dL Calcium (8.4-10.2) mg/dL Total Bilirubin (0.0-1.0) mg/dL AST (5-37) U/L ALT (0-40) U/L Alkaline Phosphatase (39-117) U/L Troponin I High Sens < 3.5 < 3.5 (<3.5-35.0) ng/L Total Protein (6.5-8.0) g/dL Albumin (3.5-5.0) g/dL Lipase (8-78) U/L Discharge Plan Discharge Clinical Impression: Near syncope Patient Disposition: Admitted As Inpatient Prescriptions: No Action flecainide 50 mg tablet 50 mg PO BID Qty: 180 RF: 2 omeprazole 20 mg capsule,delayed release(DR/EC) 20 mg PO DAILY Qty: 90 RF: 2 Xarelto 20 mg tablet 20 mg PO DAILY Qty: 90 RF: 2 lorazepam 0.5 mg tablet 0.5 mg PO DAILY 90 Days Qty: 90 RF: 1 tamsulosin 0.4 mg capsule 0.4 mg PO DAILY 90 Days Qty: 90 RF: 3 multivitamin Tablet 1 tab PO DAILY RF: 0 ascorbic acid (vitamin C) [Vitamin C] 500 mg Tablet 500 mg PO DAILY RF: 0 atorvastatin 40 mg tablet 40 mg PO DAILY 90 Days Qty: 90 RF: 1 duloxetine [Cymbalta] 30 mg capsule,delayed release(DR/EC) 30 mg PO DAILY Qty: 90 RF: 1 metoprolol succinate 25 mg tablet extended release 24 hr 25 mg PO DAILY 90 Days Qty: 90 RF: 3
[2020-12-28] VITALS (9 sets, daily range): BP systolic 101–136; BP diastolic 62–71; PULSE 50–62; RESP 12–17; TEMP 36.6–37.3; O2SAT 97–98
--- NOTE | 2020-12-28 | CA_ITS ---
Acquisition Time: 2020-12-28 10:18:04 Total Exercise Time: 00:06:39 Test Indications: BRADYCARDIA Medications: Protocol: SUYAPA Max HR: 129 BPM 86% of Pred: 149 BPM Max BP: 142/080 mmHG Max Work Load: 7.9 METS Exercise stress test with exercise 6 min 39 sec of Suyapa protocol, achieving 86% MPHR, with request to stop due to shorntess of breath. No chest pains or lightheadedness, with isolated PVCs in recovery, with normotensive response to exercise, with J point depression, upsloping ST segments at peak exercise: not meeting criteria for ischemia, with nonspecific ST abn V4-V6 in recovery. At baseline his EKG shows SB, LVH. EKGs are equivocal for ischemia. Could be repolarization abnormality. Throughout test he did have normal chronotropic response to exercise and recovery. EKG tracings and report reviewed with Dr Aleman Referred By: Wilfred Aleman Overread By: HINA ARANGO
--- NOTE | 2020-12-28 00:10 | ECG_ITS ---
Test Reason : Chest pain Blood Pressure : / mmHG Vent. Rate : 051 BPM Atrial Rate : 051 BPM P-R Int : 168 ms QRS Dur : 102 ms QT Int : 430 ms P-R-T Axes : 000 044 058 degrees QTc Int : 396 ms Sinus bradycardia Possible Left ventricular hypertrophy Borderline ECG When compared with ECG of 27-DEC-2020 22:37, No significant changes seen Referred By: Felicita Ruiz Electronically Signed By:EBONI MOODY MD
[2020-12-28 00:27] LABS: MANUAL DIFF FLAG NO
[2020-12-28 00:29] LABS: Basophils Absolute Auto 0.1 X10*3/uL (0.0-0.2); Basophils Percent Auto 0.8 % (0-2); Eosinophils Absolute Auto 0.3 X10*3/uL (0.0-0.4); Eosinophils Percent Auto 4.4 % (0-4); Hematocrit 35.5 % (42.0-52.0); Hemoglobin 11.9 g/dl (14.0-18.0); Lymphocytes Absolute Auto 2.3 X10*3/uL (1.2-4.9); Lymphocytes Percent Auto 37.1 % (20-40); Mean Corpuscular HGB Conc 33.5 g/dl (31.0-36.0); Mean Corpuscular Hemoglobin 31.2 pg (27.0-33.0); Mean Corpuscular Volume 92.9 fL (80.0-98.0); Mean Platelet Volume 10.2 fL (9.4-12.4); Monocytes Absolute Auto 0.4 X10*3/uL (0.1-1.2); Monocytes Percent Auto 7.1 % (2-11); Neutrophils Absolute Auto 3.07 x10*3/uL (2.0-8.3); Neutrophils Percent Auto 50.6 % (45-73); Platelet Count 177 X10*3/uL (160-400); Red Blood Count 3.82 X10*6/uL (4.60-5.80); Red Cell Distribution Width 13.2 % (11.0-16.0); White Blood Count 6.1 X10*3/uL (4.8-10.8)
[2020-12-28 00:43] LABS: INTERNATIONAL NORM RATIO 2.4 (0.9-1.1); Prothrombin Time 27.5 SEC (9.9-13.0)
[2020-12-28 00:48] LABS: Troponin-I High Sensitivity < 3.5 ng/L (<3.5-35.0)
[2020-12-28 01:07] LABS: Alanine Aminotransferase 14 U/L (0-40); Albumin Level 3.9 g/dL (3.5-5.0); Alkaline Phosphatase 69 U/L (39-117); Anion Gap 9 (12-20); Aspartate Amino Transferase 15 U/L (5-37); Bilirubin Total 0.7 mg/dL (0.0-1.0); Blood Urea Nitrogen 11 mg/dL (9-16); Calcium 9.2 mg/dL (8.4-10.2); Carbon Dioxide 28 mmol/L (22-29); Chloride 110 mmol/L (96-108); Creatinine Clr Calc Pharmacy 61.3; Estimated Glomerular Filt Rate > 60; Glucose Random 120 mg/dL (60-115); Lipase 33 U/L (8-78); Sodium 143 mmol/L (135-145); Total Protein 5.9 g/dL (6.5-8.0)
[2020-12-28] MEDS: Acetaminophen 325 MG TABLET 975 MG PO (02:25)
[2020-12-28 03:04] LABS: Troponin-I High Sensitivity < 3.5 ng/L (<3.5-35.0)
--- NOTE | 2020-12-28 05:23 | PM.IMHP ---
History of Present Illness Date of Service: 12/28/20 Chief Complaint: pre-syncope this is a 70w hx of CVA, PAF, HLD, HTN presents to the hospital with complaints of left-sided chest pain as well as presyncopal symptoms. Patient reports that he was trying to down when all the sudden he started having heavy, squeezing left-sided chest pain a out of 10, nonradiating, associated with palpitations, dizziness, feeling like his about to faint, diaphoresis, lasting about 10-15 minutes and resolving spontaneously. At this time patient is pain-free. Patient denies having any abdominal pain, did experience nausea, no exacerbating or relieving factors. He reports no diarrhea constipation, no urinary symptoms and no lower extremity edema. He reports that he also had headache but no change in vision pain. Patient found to have temp of 98.7?, heart rate of 56 at the time when I some his heart rate was 42, respiratory rate of 15, blood pressure 133/69 satting 98% on room air Labs are significant for less than 3.5, head CT shows no intracranial pathology. Orthostatic vitals negative. Patient will be admitted for evaluation of presyncope and bradycardia Review of Systems Review of Systems: Yes all other systems are reviewed and are negative [facility] Medical History Alcohol abuse Anxiety and depression Blind right eye BPH (benign prostatic hyperplasia) Degenerative disc disease, cervical GERD (gastroesophageal reflux disease) Hypercholesterolemia Hypertension Left renal stone Lesion of bladder Lower back pain Paroxysmal atrial fibrillation Pulmonary nodule Renal cyst Sensorineural hearing loss Thoracic spondylosis Tubular adenoma of colon Family History Father Medical history unknown Mother Medical history unknown Brother No problems noted. Son No problems noted. Son No problems noted. Pertinent family history: Non pertinent Surgical History History of inguinal hernia repair Hx of cataract surgery Social History Household Members: Significant Other Household Members Other:: Housing: Apartment Do you presently have visiting nurse or other home services: No Alcohol intake: never Patient Tobacco Use Status: Former Tobacco user Years Smoked: 2014 quit Second Hand Smoke Exposure: No Advance Directives: Yes Advance Directives on File: Yes Advance Directives Date on File: 07/05/20 service: No Current occupational status: disabled Meds Allergies Allergy/AdvReac Type Severity Reaction Status Date / Time almond [ALMOND] Allergy Unknown SWELLING Verified 10/29/20 09:48 Physical Exam Vital Signs and Narrative: Vital Signs: Last Vital Signs Temp 98.7 F 12/27/20 22:33 Pulse 53 12/28/20 03:39 Resp 15 12/27/20 22:33 BP 101/67 12/28/20 03:39 Pulse Ox 98 12/27/20 22:33 Body Mass Index 26.6 Const: General: cooperative and no acute distress Orientation/consciousness: patient oriented x3 Eyes: General: appearance normal, both eyes and all related structures Pupils: Equal, round and reactive pupils present Resp: Effort & Inspection: normal respiratory effort Auscultation: clear to auscultation bilaterally Cardio: Rate: regular rate Rhythm: regular rhythm GI: Palpation (GI): Soft to palpation Auscultation: normal bowel sounds Skin: General skin exam: no rashes or lesions noted Neuro: General: patient oriented x3 Cranial nerves: Yes Equal, round and reactive pupils present Cognition (Neuro): normal cognition Extrem: General: Yes normal to inspection and Yes no pedal edema Results Labs CBC and Chem 7: 12/28/20 00:23 12/28/20 00:23 Labs: Laboratory Results - last 24 hr 12/28/20 12/28/20 12/28/20 00:23 00:23 00:23 MCV 92.9 MCH 31.2 MCHC 33.5 RDW 13.2 Plt Count 177 MPV 10.2 Immature Gran % (Auto) 0.0 Neut % (Auto) 50.6 Lymph % (Auto) 37.1 [place] % (Auto) 7.1 Eos % (Auto) 4.4 H Baso % (Auto) 0.8 Lymph # (Auto) 2.3 [place] # (Auto) 0.4 Eos # (Auto) 0.3 Baso # (Auto) 0.1 Abs Immat Gran (auto) 0.00 Absolute Neuts (auto) 3.07 Absolute Nucleated RBC 0.000 Nucleated RBC % (auto) 0.0 PT 27.5 H INR 2.4 H Anion Gap 9 L Estim Creat Clear Calc 61.3 Estimated GFR > 60 Random Glucose 120 H Calcium 9.2 Total Bilirubin 0.7 AST 15 ALT 14 Alkaline Phosphatase 69 Troponin I High Sens Total Protein 5.9 L Albumin 3.9 Lipase 33 12/28/20 12/28/20 00:23 02:38 MCV MCH MCHC RDW Plt Count MPV Immature Gran % (Auto) Neut % (Auto) Lymph % (Auto) [place] % (Auto) Eos % (Auto) Baso % (Auto) Lymph # (Auto) [place] # (Auto) Eos # (Auto) Baso # (Auto) Abs Immat Gran (auto) Absolute Neuts (auto) Absolute Nucleated RBC Nucleated RBC % (auto) PT INR Anion Gap Estim Creat Clear Calc Estimated GFR Random Glucose Calcium Total Bilirubin AST ALT Alkaline Phosphatase Troponin I High Sens < 3.5 < 3.5 Total Protein Albumin Lipase ECG Interpretation: EKG shows sinus bradycardia with no EKG changes suggestive of ACS Imaging Radiologist's Impressions: Impressions Chest X-Ray 12/27/20 23:16 IMPRESSION: No acute cardiopulmonary findings Head CT 12/28/20 00:59 IMPRESSION: No acute intracranial pathology. Assessment and Plan (1) Near syncope: Status: Acute (2) Chest pain: Status: Acute (3) Bradycardia: Status: Acute This is a 70-year-old male paroxysmal AFib, CVA, hypertension, among others who presents to the hospital with complaints of chest pain and presyncopal symptoms # pre syncopal episode - possibly secondary to symptomatic bradycardia versus AFib versus vasovagal - patient heart rate in the 40s - no EKG changes or troponin leak suggestive of ACS - will hold metoprolol, admit to telemetry, consult Cardiology # chest pain - troponin negative, no EKG changes suggestive of ACS - patient seen by nanosystems engineer on the , has had extensive workup including cardiac catheterization due to recurrent left-sided chest pain that have all been negative - cardiology consulted # bradycardia - patient on flecainide as well as metoprolol - will hold metoprolol - cardiology consult and # hypertension - stable - hold metoprolol # BPH - continue tamsulosin # paroxysmal AFib - hold metoprolol - not clear if he is on any anticoagulants at this time- will await for pharmacy to evaluate his home meds # hyperlipidemia - continue statin DVT prophylaxis: Lovenox Quality Stroke Does the patient have a stroke diagnosis?: No VTE Prior VTE?: No VTE Risk Level:: Medical - moderate - high VTE Device Contraindication: Treatment Not Indicated VTE Drug Contraindication: N/A - Med Ordered
--- NOTE | 2020-12-28 05:44 | PC.NURSE ---
HOSPITALIST IN ROOM FOR ADMISSION ORDERS. VS OBTAINED - WNL. PT WAKES TO VOICE, RESPIRATIONS EASY, N/L. SKIN W/D. WILL CONTINUE TO MONITOR PT.
--- NOTE | 2020-12-28 06:25 | PC.NURSE ---
PT DENIES COMPLAINTS/PAIN. PT AWAITING FOR ROOM ASSIGNMENT. PT ALERT AND [place] SPEAKING, KNOWS [place]. RESPIRATIONS EASY, N/L. SKIN W/D. WILL CONTINUE TO MONITOR PT.
--- NOTE | 2020-12-28 06:54 | PC.NURSE ---
REPORT TO FRANCISCO NGUYEN
--- NOTE | 2020-12-28 08:40 | PC.NURSE ---
Assumed care of patient. Pt is sleeping at this time and does not appear to be in any distress. pt is on the patient monitor and waiting for a bed assignment.
[2020-12-28] MEDS: Omeprazole 20 MG CAPSULE.DR PO (09:40)
[2020-12-28] MEDS: LORazepam 0.5 MG TABLET PO (09:40)
[2020-12-28] MEDS: Tamsulosin HCL 0.4 MG CAPSULE PO (09:40)
[2020-12-28] MEDS: Atorvastatin Calcium 40 MG TABLET PO (09:40)
--- NOTE | 2020-12-28 10:14 | P.CONCA_ITS ---
History of Present Illness History of Present Illness Date of Service: 12/28/20 Requesting physician: Jose Zhou Chief complaint: Pre-Syncope , chest pain Narrative: I was requested to see Janusz in cardiology consultation today for chest pain and near syncope. He is a 70-year-old with male well known to me with prior history of hypertension, paroxysmal atrial fibrillation, symptomatic maintain rhythm on flecainide and metoprolol therapy and on long-term anti coagulation with Xarelto. Prior history of multiple hospitalization with chest pain syndrome and has undergone cardiac catheterization which had shown normal coronaries in the past. He has had no obvious recurrent atrial fibrillation in the past. His chest pain syndrome in the past has been probably related to symptomatic atrial fibrillation, however he has had recurrent chest pain despite being sinus rhythm in as well. Question coronary vasospasm. He has prior history of cocaine use as well. This time he said he woke up in the facsimile operator hours with retrosternal precordial chest discomfort which he describes as sharp discomfort followed by tightness across his chest that lasted for 5-10 minutes. He had 3 similar episodes. This was associated with diaphoresis, and disequilibrium/dizziness. He had no loss of consciousness. There is no associated nausea vomiting. He did feel warm all over. He present to the emergency room. In the emergency room initially was noted to have sinus bradycardia at 42 beats per minute but this gradually improved. Currently symptom-free. His 2 troponins are less than 3.5. EKG does not show any acute myocardial ischemia. Review of Systems Constitutional: Constitutional: Reports no additional constitutional complaints Eyes: Eyes: Reports no additional eye complaints ENT: Reports system reviewed and no additional complaints, except as documented Cardiovascular: Cardiovascular: Reports chest pain at rest, Denies syncope, Denies irregular heart rhythm, Denies leg edema, Reports lightheadedness, Denies palpitations and Denies dyspnea Respiratory: Respiratory: Reports no additional respiratory complaints and Denies dyspnea Gastrointestinal: Gastrointestinal: Reports no additional gastrointestinal complaints Genitourinary: Genitourinary: Reports no additional male genitourinary complaints Musculoskeletal: Musculoskeletal: Reports no additional musculoskeletal complaints Integumentary/Breasts: Skin/Breast: Reports system reviewed and no additional complaints, except as docu Neurologic: Reports system reviewed and no additional complaints, except as documented and Denies syncope Psychiatric: Psychiatric: Reports no additional psychiatric complaints Endocrine: Endocrine: Reports no additional endocrine complaints and Denies palpitations Hematologic/Lymphatic: Hematologic/Lymphatic: Reports no additional hematologic/lymphatic complaints Allergic/Immunologic: Allergic/Immunologic: Reports no additional allergic/immunologic complaints [facility] [place] Past Medical History Medical History Alcohol abuse Anxiety and depression Blind right eye BPH (benign prostatic hyperplasia) Degenerative disc disease, cervical GERD (gastroesophageal reflux disease) Hypercholesterolemia Hypertension Left renal stone Lesion of bladder Lower back pain Paroxysmal atrial fibrillation Pulmonary nodule Renal cyst Sensorineural hearing loss Thoracic spondylosis Tubular adenoma of colon Family History Family History Father Medical history unknown Mother Medical history unknown Brother No problems noted. Son No problems noted. Son No problems noted. Surgical History Surgical History History of inguinal hernia repair Hx of cataract surgery Social History Social History Household Members: Significant Other Household Members Other:: Housing: Apartment Do you presently have visiting nurse or other home services: No Alcohol intake: never Patient Tobacco Use Status: Former Tobacco user Years Smoked: 2015 quit Second Hand Smoke Exposure: No Use of substances other than those prescribed or required for medical reasons: No Advance Directives: Yes Advance Directives on File: Yes Advance Directives Date on File: 07/05/20 service: No Current occupational status: disabled Meds Allergies Allergy/AdvReac Type Severity Reaction Status Date / Time almond [ALMOND] Allergy Unknown SWELLING Verified 10/29/20 09:48 Active Medications: Current Medications Acetaminophen (Acetaminophen 325 Mg Tablet) 650 mg PO Q6H PRN PRN Reason: Pain, Mild (Pain Scale 1-3) Atorvastatin Calcium (Atorvastatin Calcium 40 Mg Tablet) 40 mg PO DAILY JOSEFA Last Admin: 12/28/20 09:40 Dose: 40 mg Documented by: Docusate Sodium (Docusate Sodium 100 Mg Capsule) 100 mg PO DAILY PRN PRN Reason: Constipation Flecainide Acetate (Flecainide Acetate 50 Mg Tablet) 50 mg PO BID JOSEFA Lorazepam (Lorazepam 0.5 Mg Tablet) 0.5 mg PO DAILY JOSEFA Last Admin: 12/28/20 09:40 Dose: 0.5 mg Documented by: Omeprazole (Omeprazole 20 Mg Capsule.) 20 mg PO DAILY [facility] [place] Last Admin: 12/28/20 09:40 Dose: 20 mg Documented by: Ondansetron HCl (Ondansetron Hcl 4 Mg/2 Ml Vial) 4 mg IVPUSH Q8H PRN PRN Reason: Nausea and Vomiting Rivaroxaban (Rivaroxaban 20 Mg Tablet) 20 mg PO DAILY [facility] [place] Sodium Chloride (0.9 % Sodium Chloride Flush 3 Ml Syringe) 3 ml IVFLUSH QSHIFT [facility] [place] Last Admin: 12/28/20 09:15 Dose: Not Given Documented by: Tamsulosin HCl (Tamsulosin Hcl 0.4 Mg Capsule) 0.4 mg PO DAILY [facility] [place] Last Admin: 12/28/20 09:40 Dose: 0.4 mg Documented by: Home Medications Medication Instructions Recorded Confirmed Last Taken Type rivaroxaban 20 mg tablet (Xarelto) 1 tab PO DAILY 12/28/20 12/28/20 Unknown History Physical Exam Vital Signs: Vital Signs: Last Vital Signs Temp 97.9 F 12/28/20 09:13 Pulse 50 12/28/20 09:13 Resp 12 12/28/20 09:13 BP 136/67 12/28/20 09:13 Pulse Ox 98 12/28/20 09:13 Body Mass Index 26.6 Const: General: cooperative, comfortable, no acute distress, well developed, alert and awake Nutritional Appearance: average body habitus Orientation/consciousness: patient oriented x3 Limitations: no limitations HENMT: Head: Yes normocephalic and Yes atraumatic Neck: Neck: Yes trachea midline, Yes supple and Yes no JVD Resp: Effort & Inspection: normal respiratory effort Auscultation: clear to auscultation bilaterally Cardio: Jugular venous distension: no JVD Palpation: normal PMI Rate: regular rate Rhythm: regular rhythm Heart sounds: S1 normal heart sound present, S2 normal heart sound present, no click, no gallops, no murmurs and no rubs GI: Auscultation: normal bowel sounds Skin: General skin exam: no rashes or lesions noted Neuro: General: patient oriented x3 and no focal motor deficits Extrem: General: Yes no clubbing, cyanosis or edema Psych: Appearance: grossly normal Results Labs and Meds Result diagrams: 12/28/20 00:23 12/28/20 00:23 Lab results: Laboratory Results - last 24 hr 12/28/20 12/28/20 12/28/20 00:23 00:23 00:23 WBC 6.1 RBC 3.82 L Hgb 11.9 L Hct 35.5 L MCV 92.9 MCH 31.2 MCHC 33.5 RDW 13.2 Plt Count 177 MPV 10.2 Immature Gran % (Auto) 0.0 Neut % (Auto) 50.6 Lymph % (Auto) 37.1 Gregg % (Auto) 7.1 Eos % (Auto) 4.4 H Baso % (Auto) 0.8 Lymph # (Auto) 2.3 Gregg # (Auto) 0.4 Eos # (Auto) 0.3 Baso # (Auto) 0.1 Abs Immat Gran (auto) 0.00 Absolute Neuts (auto) 3.07 Absolute Nucleated RBC 0.000 Nucleated RBC % (auto) 0.0 PT 27.5 H INR 2.4 H Sodium 143 Potassium 4.0 Chloride 110 H Carbon Dioxide 28 Anion Gap 9 L BUN 11 Creatinine 0.96 Estim Creat Clear Calc 61.3 Estimated GFR > 60 Random Glucose 120 H Calcium 9.2 Total Bilirubin 0.7 AST 15 ALT 14 Alkaline Phosphatase 69 Troponin I High Sens Total Protein 5.9 L Albumin 3.9 Lipase 33 12/28/20 12/28/20 00:23 02:38 WBC RBC Hgb Hct MCV MCH MCHC RDW Plt Count MPV Immature Gran % (Auto) Neut % (Auto) Lymph % (Auto) Gregg % (Auto) Eos % (Auto) Baso % (Auto) Lymph # (Auto) Gregg # (Auto) Eos # (Auto) Baso # (Auto) Abs Immat Gran (auto) Absolute Neuts (auto) Absolute Nucleated RBC Nucleated RBC % (auto) PT INR Sodium Potassium Chloride Carbon Dioxide Anion Gap BUN Creatinine Estim Creat Clear Calc Estimated GFR Random Glucose Calcium Total Bilirubin AST ALT Alkaline Phosphatase Troponin I High Sens < 3.5 < 3.5 Total Protein Albumin Lipase EKG shows sinus bradycardia without any acute ST wave changes Imaging Radiologist's impression: Impressions Chest X-Ray 12/27/20 23:16 IMPRESSION: No acute cardiopulmonary findings Head CT 12/28/20 00:59 IMPRESSION: No acute intracranial pathology. Assessment and Plan (1) Chest pain: Status: Acute Sudden-onset chest discomfort elderly man with negative troponins x2 are negative EKG. He has had multiple hospitalization and presentation similar to this. He has prior cardiac catheterization which has shown normal coronary arteries. Question coronary vasospasm versus musculoskeletal discomfort. Unclear. Will obtain a stress test to assess for myocardial ischemia although less likely. If this is negative can be discharged home. (2) Near syncope: Status: Acute Symptoms of near syncope which appears to be vasovagal, precipitated by acute chest pain. Etiology of chest pain is not entirely clear. Noted to have sinus bradycardia on presentation. This has improved now. His symptoms have improved. Will obtain a stress test to assess for chronotropic competence. If this is negative patient can be discharged home with outpatient Holter monitor will be requested. Reduce metoprolol to 12.5 mg daily.. (3) Paroxysmal atrial fibrillation: Status: Acute Prior history of paroxysmal atrial fibrillation which has remained suppressed and has done well with rhythm control approach. Will continue rhythm control approach at this point time and has tolerated flecainide therapy well. Does need concomitant metoprolol therapy, however will reduce metoprolol to 12.5 mg daily. Continue full oral anticoagulation Xarelto. If stress test is negative can be discharged home and will set up for outpatient Holter and follow-up. Thank you for allowing us to partake in his care Procedures Date of Service Date of Service: 12/28/20
--- NOTE | 2020-12-28 10:14 | PC.NURSE ---
Pt left with cardiology for a stress test. Pt not medicated with one of his morning medications because pharmacy needs to bring it and pt is now off the floor.
--- NOTE | 2020-12-28 11:50 | PC.NURSE ---
patient was having cardiac stress test, pt was unable to get meds that were ordered at that time, pharmacy called for missing medication, will administer all meds when it arrives.
--- NOTE | 2020-12-28 12:00 | PC.NURSE ---
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
[2020-12-28] MEDS: Flecainide Acetate 50 MG TABLET PO (12:18)
[2020-12-28] MEDS: Rivaroxaban 20 MG TABLET PO (12:18)
[2020-12-28 12:57] LABS: COVID-19 Test Negative (Negative); IDNOW Serial# 08D9AD1C
--- NOTE | 2020-12-28 13:59 | PC.NURSE ---
patient a&ox3, watching tv, teletypesetter monitor sinus Adrian, currently no c/o pain/discomfort, lunch tray given-pt continues to eat, will continue to monitor.
--- NOTE | 2020-12-28 14:07 | PM.DS ---
DS: Providers Provider Date of Service: 12/28/20 Date of admission: 12/28/20 05:23 Primary care physician: Unknown Physician Consults: 12/28/20 09:10 Consult to Cardiology Routine Consulting Provider: Wilfred Aleman Reason for consultation: pre-syncope,bradycardia Has provider been notified: No DS: Diagnosis Discharge Diagnosis (1) Chest pain: Status: Acute (2) Near syncope: Status: Acute (3) Paroxysmal atrial fibrillation: Status: Acute DS: Summary Hospital Course Hospital Course: 70-year-old with male with prior history of hypertension, paroxysmal atrial fibrillation, symptomatic maintain rhythm on flecainide and metoprolol therapy and on long-term anticoagulation with Xarelto.? Prior history of multiple hospitalization with chest pain syndrome and has undergone cardiac catheterization which had shown normal coronaries in the past. No obvious recurrent atrial fibrillation in the past.?States he said he woke up in the early childhood coordinator hours with retrosternal precordial chest discomfort which he describes as sharp discomfort followed by tightness across his chest that lasted for 5-10 minutes.? He had 3 similar episodes.? This was associated with diaphoresis, and disequilibrium/dizziness.? He had no loss of consciousness.? There is no associated nausea vomiting.? He did feel warm all over.? He present to the emergency room.? In the emergency room initially was noted to have sinus bradycardia at 42 beats per minute but this gradually improved.? Currently symptom-free.? His 2 troponins are less than 3.5.? EKG does not show any acute myocardial ischemia. Hospital course Seen in consult by Cardiology took patient to the stress lab. ETT by cardiology essentially unremarkable for new acute changes. Discussed with Dr. Aleman. Patient may be discharged home and he will follow-up in the office. Time Spent with Patient Time attestation: Total time spent providing and/or coordinating discharge services: Discharge coordination time: Greater than 30 minutes Quality: Stroke Does the patient have a stroke diagnosis?: No Physical Exam Vital Signs: Vital Signs: Last Vital Signs Temp 99.1 F 12/28/20 11:58 Pulse 60 12/28/20 12:18 Resp 17 12/28/20 11:58 BP 134/71 12/28/20 12:18 Pulse Ox 98 12/28/20 11:58 Body Mass Index 26.6 Const: Other: No acute issues Resp: Other: Clear to auscultation bilaterally. No rales rhonchi or wheezes Cardio: Other: No S4; positive S1-S2; no S3 murmurs rubs gallops GI: Other: Soft nontender nondistended with normoactive bowel sounds. No appreciable paddle splenomegaly Neuro: Other: Cranial nerves 2-12 grossly intact as tested. Motor is 5 of 5 all extremities sensation intact. Cognition appropriate Extrem: Other: No edema bilaterally DS: Data Data Completed and Pending Labs on day of discharge: Laboratory Results - last 24 hr 12/28/20 12/28/20 12/28/20 00:23 00:23 00:23 WBC 6.1 RBC 3.82 L Hgb 11.9 L Hct 35.5 L MCV 92.9 MCH 31.2 MCHC 33.5 RDW 13.2 Plt Count 177 MPV 10.2 Immature Gran % (Auto) 0.0 Neut % (Auto) 50.6 Lymph % (Auto) 37.1 Roosevelt % (Auto) 7.1 Eos % (Auto) 4.4 H Baso % (Auto) 0.8 Lymph # (Auto) 2.3 Roosevelt # (Auto) 0.4 Eos # (Auto) 0.3 Baso # (Auto) 0.1 Abs Immat Gran (auto) 0.00 Absolute Neuts (auto) 3.07 Absolute Nucleated RBC 0.000 Nucleated RBC % (auto) 0.0 PT 27.5 H INR 2.4 H Sodium 143 Potassium 4.0 Chloride 110 H Carbon Dioxide 28 Anion Gap 9 L BUN 11 Creatinine 0.96 Estim Creat Clear Calc 61.3 Estimated GFR > 60 Random Glucose 120 H Calcium 9.2 Total Bilirubin 0.7 AST 15 ALT 14 Alkaline Phosphatase 69 Troponin I High Sens Total Protein 5.9 L Albumin 3.9 Lipase 33 COVID-19 ([facility]) COVID-19 Clin Com 12/28/20 12/28/20 12/28/20 00:23 02:38 12:36 WBC RBC Hgb Hct MCV MCH MCHC RDW Plt Count MPV Immature Gran % (Auto) Neut % (Auto) Lymph % (Auto) Roosevelt % (Auto) Eos % (Auto) Baso % (Auto) Lymph # (Auto) Roosevelt # (Auto) Eos # (Auto) Baso # (Auto) Abs Immat Gran (auto) Absolute Neuts (auto) Absolute Nucleated RBC Nucleated RBC % (auto) PT INR Sodium Potassium Chloride Carbon Dioxide Anion Gap BUN Creatinine Estim Creat Clear Calc Estimated GFR Random Glucose Calcium Total Bilirubin AST ALT Alkaline Phosphatase Troponin I High Sens < 3.5 < 3.5 Total Protein Albumin Lipase COVID-19 ([facility]) Negative COVID-19 Clin Com See Note Discharge Plan Discharge Patient Disposition: Home Health Service Referrals: Physician,Unknown J [Primary Care Provider] - 1 Week Discharge Medications: Continued flecainide 50 mg tablet 50 mg PO BID Qty: 180 RF: 2 omeprazole 20 mg capsule,delayed release(DR/EC) 20 mg PO DAILY Qty: 90 RF: 2 lorazepam 0.5 mg tablet 0.5 mg PO DAILY 90 Days Qty: 90 RF: 1 tamsulosin 0.4 mg capsule 0.4 mg PO DAILY 90 Days Qty: 90 RF: 3 Xarelto 20 mg tablet 1 tab PO DAILY RF: 0 atorvastatin 40 mg tablet 40 mg PO DAILY 90 Days Qty: 90 RF: 1 metoprolol succinate 25 mg tablet extended release 24 hr 25 mg PO DAILY 90 Days Qty: 90 RF: 3 Discharge Orders: Discharge Order (Routine); Ordered 12/28/20 Ordered By: Patrice Hardy Diet: advance to usual diet Activity on Discharge: As tolerated Stand Alone Forms: Patient Portal Discharge page Care Plan Goals: Follow-up with cardiology Health Concerns: Med compliance Plan of Treatment: No changes and planned therapy Assessment: Improved
== END 2020-12-28 14:51 | disposition home health service (06) ==
LOC: HO.ED 12-28 03:32 → HO.EDOVER 12-28 06:18
PROVIDERS: Admitting Provider Internal Medicine; Emergency Provider Student in an Organized Health Care Education/Training Program; PCP Internal Medicine; Visit Provider Hospitalist
DX: R55 Syncope and collapse (principal); R07.9 Chest pain, unspecified; R00.1 Bradycardia, unspecified; I48.0 Paroxysmal atrial fibrillation; I10 Essential (primary) hypertension; E11.9 Type 2 diabetes mellitus without complications; E78.5 Hyperlipidemia, unspecified; E78.00 Pure hypercholesterolemia, unspecified; F41.8 Other specified anxiety disorders; Z87.891 Personal history of nicotine dependence; Z98.890 Other specified postprocedural states; Z91.018 Allergy to other foods; Z20.822 Contact with and (suspected) exposure to COVID-19; Z79.02 Long term (current) use of antithrombotics/antiplatelets; Z79.899 Other long term (current) drug therapy
CPT/HCPCS: 36415; 70450; 71045; 80053; 83690; 84484; 85025; 85610; 87635; 93005; 93017; 96372; 96374; 99219; 99285

== ENCOUNTER → 2021-01-03 10:41 | Outpatient (BNVA) | payer MEDICARE, MEDICAID, SELFPAY | PROVIDERS: Referring Provider Internal Medicine; Visit Provider Surgery | DX: Z86.010 Personal history of colon polyps (principal) | CPT/HCPCS: 99202 ==

== ENCOUNTER 2021-01-08 02:04 | Emergency (ER) | payer MEDICARE, MEDICAID, SELFPAY ==
--- NOTE | ~2021-01-08 | XR_ITS ---
EXAMINATION: XR CHEST CLINICAL INFORMATION: Cough COMPARISON: 12/27/2020 TECHNIQUE: Frontal view of the chest was obtained. FINDINGS: The lungs are well expanded. There is no focal consolidation, edema, or effusion. No pneumothorax. The cardiomediastinal silhouette is within normal limits. No acute osseous abnormality. XR/XR chest 1V IMPRESSION: Clear lungs.
[2021-01-08 02:14] VITALS: BP 141/74; PULSE 82; RESP 18; TEMP 37.3; O2SAT 97; BMI 25.6
--- NOTE | 2021-01-08 02:16 | ECG_ITS ---
Test Reason : Epigastric pain Blood Pressure : / mmHG Vent. Rate : 074 BPM Atrial Rate : 074 BPM P-R Int : 164 ms QRS Dur : 106 ms QT Int : 372 ms P-R-T Axes : 034 054 057 degrees QTc Int : 412 ms Normal sinus rhythm Nonspecific ST abnormality Intra-ventricular conduction delay Possible Left ventricular hypertrophy Abnormal ECG When compared with ECG of 28-DEC-2020 00:16, Heart rate has increased Referred By: Felicita Ruiz Electronically Signed By:EBONI MOODY MD
[2021-01-08 02:53] LABS: MANUAL DIFF FLAG NO
[2021-01-08 02:54] LABS: Basophils Percent Auto 0.5 % (0-2); Eosinophils Absolute Auto 0.1 X10*3/uL (0.0-0.4); Eosinophils Percent Auto 0.8 % (0-4); Hemoglobin 12.4 g/dl (14.0-18.0); Imm Gran Abs Auto 0.02 X10*3/uL (0.00-0.03); Imm Gran Pct Auto 0.3 % (0.0-0.4); Lymphocytes Absolute Auto 0.6 X10*3/uL (1.2-4.9); Mean Corpuscular HGB Conc 33.5 g/dl (31.0-36.0); Mean Corpuscular Hemoglobin 30.8 pg (27.0-33.0); Mean Platelet Volume 10.2 fL (9.4-12.4); Monocytes Absolute Auto 0.8 X10*3/uL (0.1-1.2); Monocytes Percent Auto 12.5 % (2-11); Neutrophils Absolute Auto 4.7 x10*3/uL (2.0-8.3); Neutrophils Percent Auto 75.9 % (45-73); Platelet Count 171 X10*3/uL (160-400); Red Blood Count 4.02 X10*6/uL (4.60-5.80); Red Cell Distribution Width 13.2 % (11.0-16.0); White Blood Count 6.2 X10*3/uL (4.8-10.8)
[2021-01-08 02:59] LABS: INTERNATIONAL NORM RATIO 2.7 (0.9-1.1); Prothrombin Time 30.9 SEC (9.9-13.0)
[2021-01-08 03:09] LABS: COVID-19 Test Negative (Negative); IDNOW Serial# 9DD0AD1C
[2021-01-08 03:10] LABS: Alanine Aminotransferase 15 U/L (0-40); Alkaline Phosphatase 60 U/L (39-117); Anion Gap 10 (12-20); Aspartate Amino Transferase 17 U/L (5-37); Blood Urea Nitrogen 11 mg/dL (9-16); Calcium 9.1 mg/dL (8.4-10.2); Carbon Dioxide 27 mmol/L (22-29); Chloride 108 mmol/L (96-108); Creatinine Clr Calc Pharmacy 85.4; Estimated Glomerular Filt Rate > 60; Glucose Random 111 mg/dL (60-115); Potassium 3.8 mmol/L (3.3-5.1); Sodium 141 mmol/L (135-145); Total Protein 6.2 g/dL (6.5-8.0)
--- NOTE | 2021-01-08 03:31 | ED.ABDPAIN ---
HPI - Abdominal Pain General Chief Complaint: Abdominal Pain Stated Complaint: Fever/Weakness Time Seen by Provider: 01/08/21 02:35 Source: patient and historical interpreter Mode of arrival: ambulatory History of Present Illness HPI narrative: This is a 70-year-old male who arrives with presentation of subjective fevers, weakness as well as lower abdominal discomfort with difficulty urinating that includes scrotal discomfort. Otherwise, he denies any shortness of breath, chest pain/palpitations, back pain but describes some mild nausea. Related Data Home Medications Medication Instructions Recorded Confirmed rivaroxaban 20 mg tablet (Xarelto) 1 tab PO DAILY 12/28/20 01/03/21 Previous Rx's Medication Instructions Recorded metoprolol succinate 25 mg 25 mg PO DAILY 90 Days #90 tab 03/10/20 tablet,extended release 24 hr flecainide 50 mg tablet 50 mg PO BID #180 cap 06/07/20 omeprazole 20 mg capsule,delayed 20 mg PO DAILY #90 cap 09/17/20 release atorvastatin 40 mg tablet 40 mg PO DAILY 90 Days #90 tab 10/25/20 lorazepam 0.5 mg tablet 0.5 mg PO DAILY 90 Days #90 tab 11/10/20 tamsulosin 0.4 mg capsule 0.4 mg PO DAILY 90 Days #90 cap 11/12/20 sodium,potassium,mag sulfates 17.5 See Rx Instructions PO .COMPLEX 01/03/21 gram-3.13 gram-1.6 gram oral soln #354 ml (Suprep Bowel Prep Kit) amoxicillin 875 mg-potassium 1 tab PO Q12H 10 Days #20 tab 01/08/21 clavulanate 125 mg tablet (Augmentin) Allergies Allergy/AdvReac Type Severity Reaction Status Date / Time almond [ALMOND] Allergy Unknown SWELLING Verified 01/08/21 02:18 Review of Systems Review of Systems Pertinent positives and negatives as stated in HPI 10 point review of systems is otherwise negative. Physical Exam Vital Signs: Vital Signs: Last Vital Signs Temp 99.2 F 01/08/21 02:14 Pulse 82 01/08/21 02:14 Resp 18 01/08/21 02:14 BP 141/74 H 01/08/21 02:14 Pulse Ox 97 01/08/21 02:14 Body Mass Index 25.6 VITAL SIGNS: Reviewed. GENERAL: Well developed, well nourished, in no acute distress. HEAD: Normocephalic/atraumatic EYES: PERRLA, EOMI OROPHARYNX: no oral lesions noted, posterior pharynx clear NECK: Supple, no adenopathy LUNGS: Normal breath sounds. No adventitious sounds or accessory muscle use. SpO2<97> CARDIOVASCULAR: Regular rate and rhythm without noted murmurs, no JVD or lower extremity edema. ABDOMEN: Soft, non-tender, non-distended with bowel sounds. NEUROLOGIC: Alert and oriented x 4. Course Course Course Narrative: 70-year-old male with history and clinical presentation suggestive UTI, renal colic, and less likely pyelonephritis. Review of all investigations there are no acute findings other than a positive urinalysis and taken together with patient's discomfort on urination as well as involvement of scrotal discomfort patient will be empirically treated for epididymitis. MDM - Abdominal Pain Lab Data Result diagrams: 01/08/21 02:48 01/08/21 02:48 Labs: Lab Results 01/08/21 01/08/21 01/08/21 Range/Units 02:48 02:48 02:48 WBC 6.2 (4.8-10.8) X10*3/uL RBC 4.02 L (4.60-5.80) X10*6/uL Hgb 12.4 L (14.0-18.0) g/dl Hct 37.0 L (42.0-52.0) % MCV 92.0 (80.0-98.0) fL MCH 30.8 (27.0-33.0) pg MCHC 33.5 (31.0-36.0) g/dl RDW 13.2 (11.0-16.0) % Plt Count 171 (160-400) X10*3/uL MPV 10.2 (9.4-12.4) fL Immature Gran % (Auto) 0.3 (0.0-0.4) % Neut % (Auto) 75.9 H (45-73) % Lymph % (Auto) 10.0 L (20-40) % [place] % (Auto) 12.5 H (2-11) % Eos % (Auto) 0.8 (0-4) % Baso % (Auto) 0.5 (0-2) % Lymph # (Auto) 0.6 L (1.2-4.9) X10*3/uL [place] # (Auto) 0.8 (0.1-1.2) X10*3/uL Eos # (Auto) 0.1 (0.0-0.4) X10*3/uL Baso # (Auto) 0.0 (0.0-0.2) X10*3/uL Abs Immat Gran (auto) 0.02 (0.00-0.03) X10*3/uL Absolute Neuts (auto) 4.7 (2.0-8.3) x10*3/uL Absolute Nucleated RBC 0.000 (0.0-0.012) X10*3/uL Nucleated RBC % (auto) 0.0 (0.0-0.2) /100WBC PT 30.9 H (9.9-13.0) SEC INR 2.7 H (0.9-1.1) Sodium (135-145) mmol/L Potassium (3.3-5.1) mmol/L Chloride (96-108) mmol/L Carbon Dioxide (22-29) mmol/L Anion Gap (12-20) BUN (9-16) mg/dL Creatinine (0.5-1.4) mg/dL Estim Creat Clear Calc Estimated GFR Random Glucose (60-115) mg/dL Calcium (8.4-10.2) mg/dL Total Bilirubin (0.0-1.0) mg/dL AST (5-37) U/L ALT (0-40) U/L Alkaline Phosphatase (39-117) U/L Troponin I High Sens (<3.5-35.0) ng/L Total Protein (6.5-8.0) g/dL Albumin (3.5-5.0) g/dL Urine Color Urine Appearance Urine pH (5.0-8.0) Ur Specific [place] (1.005-1.025) Urine Protein (NEG-TRACE) MG/DL Urine Glucose (UA) (NEG) MG/DL Urine Ketones (NEG) MG/DL Urine Blood (NEG) Urine Nitrite (NEG) Ur Leukocyte Esterase (NEG) Urine RBC (0) /HPF Urine WBC (0-4) /HPF Ur Squamous Epith Cells /LPF Urine Bacteria /LPF Urine Mucus /LPF COVID-19 (TYRONE) Negative (Negative) COVID-19 Clin Com See Note 01/08/21 01/08/21 01/08/21 Range/Units 02:48 02:48 04:02 WBC (4.8-10.8) X10*3/uL RBC (4.60-5.80) X10*6/uL Hgb (14.0-18.0) g/dl Hct (42.0-52.0) % MCV (80.0-98.0) fL MCH (27.0-33.0) pg MCHC (31.0-36.0) g/dl RDW (11.0-16.0) % Plt Count (160-400) X10*3/uL MPV (9.4-12.4) fL Immature Gran % (Auto) (0.0-0.4) % Neut % (Auto) (45-73) % Lymph % (Auto) (20-40) % [place] % (Auto) (2-11) % Eos % (Auto) (0-4) % Baso % (Auto) (0-2) % Lymph # (Auto) (1.2-4.9) X10*3/uL [place] # (Auto) (0.1-1.2) X10*3/uL Eos # (Auto) (0.0-0.4) X10*3/uL Baso # (Auto) (0.0-0.2) X10*3/uL Abs Immat Gran (auto) (0.00-0.03) X10*3/uL Absolute Neuts (auto) (2.0-8.3) x10*3/uL Absolute Nucleated RBC (0.0-0.012) X10*3/uL Nucleated RBC % (auto) (0.0-0.2) /100WBC PT (9.9-13.0) SEC INR (0.9-1.1) Sodium 141 (135-145) mmol/L Potassium 3.8 (3.3-5.1) mmol/L Chloride 108 (96-108) mmol/L Carbon Dioxide 27 (22-29) mmol/L Anion Gap 10 L (12-20) BUN 11 (9-16) mg/dL Creatinine 0.87 (0.5-1.4) mg/dL Estim Creat Clear Calc 85.4 Estimated GFR > 60 Random Glucose 111 (60-115) mg/dL Calcium 9.1 (8.4-10.2) mg/dL Total Bilirubin 1.0 (0.0-1.0) mg/dL AST 17 (5-37) U/L ALT 15 (0-40) U/L Alkaline Phosphatase 60 (39-117) U/L Troponin I High Sens < 3.5 (<3.5-35.0) ng/L Total Protein 6.2 L (6.5-8.0) g/dL Albumin 4.0 (3.5-5.0) g/dL Urine Color YELLOW Urine Appearance HAZY Urine pH 7.0 (5.0-8.0) Ur Specific [place] 1.015 (1.005-1.025) Urine Protein NEG (NEG-TRACE) MG/DL Urine Glucose (UA) NEG (NEG) MG/DL Urine Ketones 15 (NEG) MG/DL Urine Blood 2+ H (NEG) Urine Nitrite NEG (NEG) Ur Leukocyte Esterase 1+ H (NEG) Urine RBC 1-4 (0) /HPF Urine WBC 15-29 H (0-4) /HPF Ur Squamous Epith Cells TRACE /LPF Urine Bacteria 1+ /LPF Urine Mucus 1+ /LPF COVID-19 (TYRONE) (Negative) COVID-19 Clin Com ECG Data Attestation: I personally reviewed and interpreted this ECG as follows: Prior ECG tracings: available for review (12/28/2020 no acute changes on comparison) Interpretation: Normal sinus rhythm, HR -74, no STEMI, HI/QTC are within normal limits. Discharge Plan Discharge Clinical Impression: Epididymitis, Acute UTI Patient Disposition: Home, Self-Care Instructions: Epididymitis (ED), Urinary Tract Infection in Men (ED) Additional Instructions: 1. Reanude todos los medicamentos caseros seg?n lo prescrito. 2. Complete todo el ciclo de antibi?ticos que le hayan recetado. 3. Recomiende hacer un seguimiento con brock proveedor de atenci?n primaria el lunes por la ma?david. Regrese a la derek de emergencias por un empeoramiento jessica de los s?ntomas. Prescriptions: New amoxicillin-pot clavulanate [Augmentin] 875-125 mg tablet 1 tab PO Q12H 10 Days Qty: 20 RF: 0 No Action flecainide 50 mg tablet 50 mg PO BID Qty: 180 RF: 2 omeprazole 20 mg capsule,delayed release(DR/EC) 20 mg PO DAILY Qty: 90 RF: 2 lorazepam 0.5 mg tablet 0.5 mg PO DAILY 90 Days Qty: 90 RF: 1 tamsulosin 0.4 mg capsule 0.4 mg PO DAILY 90 Days Qty: 90 RF: 3 Xarelto 20 mg tablet 1 tab PO DAILY RF: 0 atorvastatin 40 mg tablet 40 mg PO DAILY 90 Days Qty: 90 RF: 1 metoprolol succinate 25 mg tablet extended release 24 hr 25 mg PO DAILY 90 Days Qty: 90 RF: 3 Suprep Bowel Prep Kit 17.5-3.13-1.6 gram recon soln See Rx Instructions PO .COMPLEX Qty: 354 RF: 0 Referrals: Po,Yvonne Gold MD [Primary Care Provider] - 2 days (Patient treated for epididymitis.) Print Language: [facility] Past Medical History Source: nursing notes reviewed Medical History Alcohol abuse Anxiety and depression Blind right eye BPH (benign prostatic hyperplasia) Degenerative disc disease, cervical GERD (gastroesophageal reflux disease) History of adenomatous polyp of colon Hypercholesterolemia Hypertension Left renal stone Lesion of bladder Lower back pain Paroxysmal atrial fibrillation Pulmonary nodule Renal cyst Sensorineural hearing loss Thoracic spondylosis Tubular adenoma of colon Surgical History History of inguinal hernia repair Hx of cataract surgery Family History Family History Father Medical history unknown Mother Medical history unknown Brother No problems noted. Son No problems noted. Son No problems noted. Social History Social History Household Members: Significant Other Household Members Other:: Housing: Apartment Do you presently have visiting nurse or other home services: No Alcohol intake: never Patient Tobacco Use Status: Former Tobacco user Years Smoked: 2015 quit Second Hand Smoke Exposure: No Advance Directives: Yes Advance Directives on File: Yes Advance Directives Date on File: 07/05/20 service: No Current occupational status: disabled
[2021-01-08 04:07] LABS: Appearance Urine HAZY; Color Urine YELLOW; Glucose Urine UA NEG (NEG); Leukocyte Esterase Urine 1+ (NEG); Nitrite Urine NEG (NEG); Specific Gravity - Urine 1.015 (1.005-1.025); UACC Culture Trigger YES; Urine Blood 2+ (NEG); Urine Ketones 15 MG/DL (NEG); Urine Protein NEG (NEG-TRACE)
[2021-01-08 04:13] LABS: Bacteria Urine 1+ /LPF; Mucus Urine 1+ /LPF; Squamous Epithelial Cell Urine TRACE /LPF
[2021-01-08 04:26] LABS: Troponin-I High Sensitivity < 3.5 ng/L (<3.5-35.0)
[2021-01-08] MEDS: Amoxicillin/Potassium Clav 875 MG TABLET PO (04:48)
== END 2021-01-08 04:55 | disposition home or self-care (01) ==
PROVIDERS: Emergency Provider Student in an Organized Health Care Education/Training Program; PCP Internal Medicine
DX: N39.0 Urinary tract infection, site not specified (principal); N45.1 Epididymitis; R50.9 Fever, unspecified; R10.30 Lower abdominal pain, unspecified; Z20.822 Contact with and (suspected) exposure to COVID-19; Z79.899 Other long term (current) drug therapy; Z87.891 Personal history of nicotine dependence
CPT/HCPCS: 36415; 51798; 71045; 80053; 81001; 84484; 85025; 85610; 87086; 87635; 93005; 99284

== ENCOUNTER → 2021-01-18 10:35 | Outpatient (REF) | payer MEDICARE, MEDICAID, SELFPAY ==
--- NOTE | 2021-01-18 10:38 | CA_ITS ---
Acquisition Time: 2021-01-18 10:42:59 Total Exercise Time: 00:07:31 Test Indications: cp, abn ett, syncope Medications: see chart Protocol: SUYAPA Max HR: 126 BPM 84% of Pred: 149 BPM Max BP: 162/060 mmHG Max Work Load: 9.3 METS Exercise stress test with exercise 7 min 31 sec of Suyapa protocol, achieving 84% MPHR and request to stop due to fatigue, with mild sob, no chest discomfort, with isolated PAC near peak exercise, rare PVC, with normotensive response to exercise, with artifact at peak exercise, with J point depression inferiorly, V3-V6 with brisk upsloping ST segments, not meeting criteria for ischemia at 42 sec of recovery. Echo images obtained by tech at rest and immediately post peak exercise. Definity contrast used. Heart rate noted to correct quickly in recovery. Test reviewed with Dr Aleman Referred By: Wilfred Aleman Overread By: HINA ARANGO
== END ==
LOC: HO.CARD 10:35
PROVIDERS: Visit Provider Internal Medicine Cardiovascular Disease
DX: R07.9 Chest pain, unspecified (principal); I48.0 Paroxysmal atrial fibrillation
CPT/HCPCS: 93350; Q9957

== ENCOUNTER → 2021-01-25 12:16 | Outpatient (BNVA) | payer MEDICARE, MEDICAID, SELFPAY | PROVIDERS: PCP Internal Medicine; Referring Provider Internal Medicine; Visit Provider Internal Medicine Cardiovascular Disease | DX: R94.39 Abnormal result of other cardiovascular function study (principal) | CPT/HCPCS: 99212 ==

== ENCOUNTER 2021-01-29 08:01 | Outpatient (REF) | payer MEDICARE, MEDICAID, SELFPAY ==
[2021-01-29 08:12] LABS: MANUAL DIFF FLAG NO
[2021-01-29 09:39] LABS: Basophils Absolute Auto 0.1 X10*3/uL (0.0-0.2); Basophils Percent Auto 0.8 % (0-2); Eosinophils Absolute Auto 0.2 X10*3/uL (0.0-0.4); Eosinophils Percent Auto 3.1 % (0-4); Hematocrit 38.5 % (42.0-52.0); Hemoglobin 12.2 g/dl (14.0-18.0); Imm Gran Abs Auto 0.01 X10*3/uL (0.00-0.03); Imm Gran Pct Auto 0.2 % (0.0-0.4); Lymphocytes Absolute Auto 1.9 X10*3/uL (1.2-4.9); Lymphocytes Percent Auto 28.7 % (20-40); Mean Corpuscular HGB Conc 31.7 g/dl (31.0-36.0); Mean Corpuscular Hemoglobin 29.9 pg (27.0-33.0); Mean Corpuscular Volume 94.4 fL (80.0-98.0); Mean Platelet Volume 10.9 fL (9.4-12.4); Monocytes Absolute Auto 0.5 X10*3/uL (0.1-1.2); Neutrophils Absolute Auto 3.8 x10*3/uL (2.0-8.3); Neutrophils Percent Auto 59.2 % (45-73); Platelet Count 272 X10*3/uL (160-400); Red Blood Count 4.08 X10*6/uL (4.60-5.80); Red Cell Distribution Width 13.5 % (11.0-16.0); White Blood Count 6.5 X10*3/uL (4.8-10.8)
[2021-01-29 09:51] LABS: Alanine Aminotransferase 12 U/L (0-40); Alkaline Phosphatase 61 U/L (39-117); Anion Gap 10 (12-20); Aspartate Amino Transferase 16 U/L (5-37); Bilirubin Total 1.1 mg/dL (0.0-1.0); Blood Urea Nitrogen 8 mg/dL (9-16); Calcium 9.4 mg/dL (8.4-10.2); Carbon Dioxide 29 mmol/L (22-29); Chloride 108 mmol/L (96-108); Cholesterol 152 mg/dL; Estimated Glomerular Filt Rate > 60; Glucose Random 86 mg/dL (60-115); HDL Cholesterol 49 mg/dL; LDL Cholesterol Calculated 80 mg/dl; Potassium 4.6 mmol/L (3.3-5.1); Sodium 142 mmol/L (135-145); Total Protein 6.3 g/dL (6.5-8.0); Triglycerides 115 mg/dL
[2021-01-29 10:17] LABS: Free T4 (Free Thyroxine) 0.98 ng/dL (0.71-1.85); Thyroid Stimulating Hormone 1.12 uIU/mL (0.32-4.0)
== END 2021-01-29 08:02 | disposition home or self-care (01) ==
LOC: HO.LAB 08:01
PROVIDERS: PCP Internal Medicine; Visit Provider Internal Medicine
DX: E78.00 Pure hypercholesterolemia, unspecified (principal); Z86.73 Personal history of transient ischemic attack (TIA), and cerebral infarction without residual deficits
CPT/HCPCS: 36415; 80053; 80061; 84439; 84443; 85025

== ENCOUNTER 2021-01-31 03:58 | Emergency (ER) | payer MEDICARE, MEDICAID, SELFPAY ==
[2021-01-31 04:09] VITALS: BP 134/64; PULSE 61; RESP 16; TEMP 36.8; O2SAT 96; BMI 29.7
--- NOTE | 2021-01-31 04:18 | ED_ITS ---
HPI - Chest Pain General Chief Complaint: Chest Pain Stated Complaint: cp Time Seen by Provider: 01/31/21 04:07 Source: patient and EMS Mode of arrival: EMS Limitations: no limitations History of Present Illness HPI narrative: Patient comes to the emergency room complaining of substernal chest pain. Patient states that the pain started approximately 20 hours ago and it has been intermittent. Patient states that he has chronic left sided chest pain and shoulder pain. Patient denies shortness of breath. Patient was given per EMS nitroglycerin sublingual and full-dose aspirin. Per previous records, patient was seen by Dr. Aleman 6 days ago. Patient was evaluated for atypical chest pain that occur mostly at night. Seems that the recent stress echocardiogram showed possible inferobasal ischemia since the p atient has a pending CT cardiac coronary angiogram Related Data Home Medications Medication Instructions Recorded Confirmed rivaroxaban 20 mg tablet (Xarelto) 1 tab PO DAILY 12/28/20 01/25/21 Previous Rx's Medication Instructions Recorded metoprolol succinate 25 mg 25 mg PO DAILY 90 Days #90 tab 03/10/20 tablet,extended release 24 hr flecainide 50 mg tablet 50 mg PO BID #180 cap 06/07/20 omeprazole 20 mg capsule,delayed 20 mg PO DAILY #90 cap 09/17/20 release atorvastatin 40 mg tablet 40 mg PO DAILY 90 Days #90 tab 10/25/20 lorazepam 0.5 mg tablet 0.5 mg PO DAILY 90 Days #90 tab 11/10/20 tamsulosin 0.4 mg capsule 0.4 mg PO DAILY 90 Days #90 cap 11/12/20 sodium,potassium,mag sulfates 17.5 See Rx Instructions PO .COMPLEX 01/03/21 gram-3.13 gram-1.6 gram oral soln #354 ml (Suprep Bowel Prep Kit) Allergies Allergy/AdvReac Type Severity Reaction Status Date / Time almond [ALMOND] Allergy Unknown SWELLING Verified 01/28/21 12:08 Review of Systems Review of Systems: Constitutional : No Weight loss, No Fever, No Chills, No Night Sweats, No Fatigue, No Malaise ENT/Mouth : No Hearing loss, No Ear Pain, No Nasal Congestion, No Sinus Pain, No Hoarseness, No sore throat, No Rhinorrhea, No Swallowing Difficulty Eyes: No Eye Pain, No Swelling, No Redness, No Foreign Body, No Discharge, No Vision Changes Cardiovascular : Complaining of chronic chest pain the left side and acute chest pain substernal for last 20 hours. No SOB, No Dyspnea on Exertion, No Orthopnea, No Edema, No Palpitations Respiratory : No Cough, No Sputum, No Wheezing, No Smoke Exposure, No Dyspnea Gastrointestinal : No Nausea, No Vomiting, No Diarrhea, No Constipation, No abdominal Pain, No Hematochezia, No Melena Genitourinary : no irregular bleeding, No Dysuria, No Urinary Frequency, No Hematuria, No Urinary Incontinence, No Urgency, No Flank Pain, No Urinary Flow Changes, No Hesitancy Musculoskeletal : No joint pain, No Myalgias, No Joint Swelling Skin : No Skin Lesions, No rash Neuro : No Weakness, No Numbness, No Paresthesias, No Loss of Consciousness, No Dizziness, No Headache Psych : No Anxiety/Panic, No Depression, No SI/HI/AH/VH, No Social Issues, Heme/Lymph: No Bruising, No Bleeding,No Lymphadenopathy Endocrine : No Polyuria, No Polydipsia, No Temperature Intolerance [facility] Past Medical History Medical History Alcohol abuse Anxiety and depression Blind right eye BPH (benign prostatic hyperplasia) Degenerative disc disease, cervical GERD (gastroesophageal reflux disease) History of adenomatous polyp of colon Hypercholesterolemia Hypertension Left renal stone Lesion of bladder Lower back pain Paroxysmal atrial fibrillation Pulmonary nodule Renal cyst Sensorineural hearing loss Thoracic spondylosis Tubular adenoma of colon Surgical History History of inguinal hernia repair Hx of cataract surgery Family History Family History Father Medical history unknown Mother Medical history unknown Brother No problems noted. Son No problems noted. Son No problems noted. Social History Social History Household Members: Significant Other Household Members Other:: Housing: Apartment Do you presently have visiting nurse or other home services: No Alcohol intake: never Patient Tobacco Use Status: Former Tobacco user Years Smoked: 2014 quit Second Hand Smoke Exposure: No Advance Directives: No Advance Directives Information Provided: Yes Advance Directives Date on File: 07/05/20 service: No Current occupational status: disabled Physical Exam Vital Signs: Vital Signs: Last Vital Signs Temp 98.3 F 01/31/21 04:09 Pulse 61 01/31/21 04:09 Resp 16 01/31/21 04:09 BP 134/64 01/31/21 04:09 Pulse Ox 96 01/31/21 04:09 BMI result Body Mass Index 29.7 Const: Other: Appearance: Alert. Oriented X3. No acute distress. Well- appearing Eyes: Pupils equal, round and reactive to light. ENT: Pharynx normal. Neck: Normal inspection. Neck supple. No lymph nodes noted. No crepitus CVS: Normal heart rate and rhythm. Pulses normal. Normal S1 and S2, repr oducible chest pain on palpation in the sternal area Respiratory: No respiratory distress. Breath sounds normal. No Wheezing. No rales Abdomen: Soft and nontender. No rigidity. No distention. Skin: Skin warm and dry. Normal skin color. Normal skin turgor. Extremities: No lower extremity edema.No Lacerations. No Rash Neuro: Oriented X 3. No motor deficit. No sensory deficit. Moving all exte rmities. No slurred speech. Course Course Course Narrative: Patient is sleeping comfortably in bed. Patient has been having shoulder pain chronically for weeks, substernal chest pain for over 20 hours. Patient's troponin negative, no EKG changes. Patient is records show the patient has history of atypical chest pain especially at night. Patient is being followed by Cardiology. Patient states that he has a CT Cardiac coronary angiogram schedule in [facility]. Patient is well-appearing, patient will be discharged home MDM - Chest Pain Lab Data Result diagrams: 01/31/21 04:31 01/31/21 04:31 Labs: Lab Results 01/31/21 01/31/21 01/31/21 Range/Units 04:26 04:31 04:31 WBC 5.9 (4.8-10.8) X10*3/uL RBC 3.88 L (4.60-5.80) X10*6/uL Hgb 11.7 L (14.0-18.0) g/dl Hct 36.8 L (42.0-52.0) % MCV 94.8 (80.0-98.0) fL MCH 30.2 (27.0-33.0) pg MCHC 31.8 (31.0-36.0) g/dl RDW 13.6 (11.0-16.0) % Plt Count 246 (160-400) X10*3/uL MPV 10.1 (9.4-12.4) fL Immature Gran % (Auto) 0.2 (0.0-0.4) % Neut % (Auto) 52.3 (45-73) % Lymph % (Auto) 34.1 (20-40) % [place] % (Auto) 8.4 (2-11) % Eos % (Auto) 4.2 H (0-4) % Baso % (Auto) 0.8 (0-2) % Lymph # (Auto) 2.0 (1.2-4.9) X10*3/uL [place] # (Auto) 0.5 (0.1-1.2) X10*3/uL Eos # (Auto) 0.3 (0.0-0.4) X10*3/uL Baso # (Auto) 0.1 (0.0-0.2) X10*3/uL Abs Immat Gran (auto) 0.01 (0.00-0.03) X10*3/uL Absolute Neuts (auto) 3.1 (2.0-8.3) x10*3/uL Absolute Nucleated RBC 0.000 (0.0-0.012) X10*3/uL Nucleated RBC % (auto) 0.0 (0.0-0.2) /100WBC Sodium 142 (135-145) mmol/L Potassium 3.8 (3.3-5.1) mmol/L Chloride 109 H (96-108) mmol/L Carbon Dioxide 28 (22-29) mmol/L Anion Gap 9 L (12-20) BUN 12 (9-16) mg/dL Creatinine 0.81 (0.5-1.4) mg/dL Estim Creat Clear Calc 87.6 Estimated GFR > 60 Random Glucose 104 (60-115) mg/dL Calcium 9.4 (8.4-10.2) mg/dL Total Bilirubin 0.8 (0.0-1.0) mg/dL Direct Bilirubin 0.3 (0.0-0.5) mg/dL AST 14 (5-37) U/L ALT 11 (0-40) U/L Alkaline Phosphatase 61 (39-117) U/L Troponin I High Sens (<3.5-35.0) ng/L B-Natriuretic Peptide (<100) pg/mL Total Protein 5.9 L (6.5-8.0) g/dL Albumin 3.7 (3.5-5.0) g/dL Lipase 29 (8-78) U/L Ethyl Alcohol mg/dL COVID-19 (TYRONE) Negative (Negative) COVID-19 Clin Com See Note 01/31/21 01/31/21 01/31/21 Range/Units 04:31 04:31 04:31 WBC (4.8-10.8) X10*3/uL RBC (4.60-5.80) X10*6/uL Hgb (14.0-18.0) g/dl Hct (42.0-52.0) % MCV (80.0-98.0) fL MCH (27.0-33.0) pg MCHC (31.0-36.0) g/dl RDW (11.0-16.0) % Plt Count (160-400) X10*3/uL MPV (9.4-12.4) fL Immature Gran % (Auto) (0.0-0.4) % Neut % (Auto) (45-73) % Lymph % (Auto) (20-40) % [place] % (Auto) (2-11) % Eos % (Auto) (0-4) % Baso % (Auto) (0-2) % Lymph # (Auto) (1.2-4.9) X10*3/uL [place] # (Auto) (0.1-1.2) X10*3/uL Eos # (Auto) (0.0-0.4) X10*3/uL Baso # (Auto) (0.0-0.2) X10*3/uL Abs Immat Gran (auto) (0.00-0.03) X10*3/uL Absolute Neuts (auto) (2.0-8.3) x10*3/uL Absolute Nucleated RBC (0.0-0.012) X10*3/uL Nucleated RBC % (auto) (0.0-0.2) /100WBC Sodium (135-145) mmol/L Potassium (3.3-5.1) mmol/L Chloride (96-108) mmol/L Carbon Dioxide (22-29) mmol/L Anion Gap (12-20) BUN (9-16) mg/dL Creatinine (0.5-1.4) mg/dL Estim Creat Clear Calc Estimated GFR Random Glucose (60-115) mg/dL Calcium (8.4-10.2) mg/dL Total Bilirubin (0.0-1.0) mg/dL Direct Bilirubin (0.0-0.5) mg/dL AST (5-37) U/L ALT (0-40) U/L Alkaline Phosphatase (39-117) U/L Troponin I High Sens < 3.5 (<3.5-35.0) ng/L B-Natriuretic Peptide 39 (<100) pg/mL Total Protein (6.5-8.0) g/dL Albumin (3.5-5.0) g/dL Lipase (8-78) U/L Ethyl Alcohol < 10 mg/dL COVID-19 (TYRONE) (Negative) COVID-19 Clin Com ECG Data ECG #1: Attestation: I personally reviewed and interpreted this ECG as follows: (Since bradycardia, heart rate 58, nonspecific ST changes in V3 to V6, no reciprocal changes, QTC 398) Discharge Plan Discharge Clinical Impression: Atypical chest pain Patient Disposition: Home, Self-Care Instructions: Chest Pain (ED) Additional Instructions: Please follow-up with your primary care physician tomorrow and with your child and youth program assistant If you have any worsening or new symptoms, please return to the emergency room or call 911 Prescriptions: No Action flecainide 50 mg tablet 50 mg PO BID Qty: 180 RF: 2 omeprazole 20 mg capsule,delayed release(DR/EC) 20 mg PO DAILY Qty: 90 RF: 2 lorazepam 0.5 mg tablet 0.5 mg PO DAILY 90 Days Qty: 90 RF: 1 tamsulosin 0.4 mg capsule 0.4 mg PO DAILY 90 Days Qty: 90 RF: 3 Xarelto 20 mg tablet 1 tab PO DAILY RF: 0 atorvastatin 40 mg tablet 40 mg PO DAILY 90 Days Qty: 90 RF: 1 metoprolol succinate 25 mg tablet extended release 24 hr 25 mg PO DAILY 90 Days Qty: 90 RF: 3 Suprep Bowel Prep Kit 17.5-3.13-1.6 gram recon soln See Rx Instructions PO .COMPLEX Qty: 354 RF: 0
[2021-01-31 04:37] LABS: MANUAL DIFF FLAG NO
[2021-01-31 04:38] LABS: Basophils Absolute Auto 0.1 X10*3/uL (0.0-0.2); Basophils Percent Auto 0.8 % (0-2); Eosinophils Absolute Auto 0.3 X10*3/uL (0.0-0.4); Eosinophils Percent Auto 4.2 % (0-4); Hematocrit 36.8 % (42.0-52.0); Hemoglobin 11.7 g/dl (14.0-18.0); Imm Gran Abs Auto 0.01 X10*3/uL (0.00-0.03); Imm Gran Pct Auto 0.2 % (0.0-0.4); Lymphocytes Percent Auto 34.1 % (20-40); Mean Corpuscular HGB Conc 31.8 g/dl (31.0-36.0); Mean Corpuscular Hemoglobin 30.2 pg (27.0-33.0); Mean Corpuscular Volume 94.8 fL (80.0-98.0); Mean Platelet Volume 10.1 fL (9.4-12.4); Monocytes Absolute Auto 0.5 X10*3/uL (0.1-1.2); Monocytes Percent Auto 8.4 % (2-11); Neutrophils Absolute Auto 3.1 x10*3/uL (2.0-8.3); Neutrophils Percent Auto 52.3 % (45-73); Platelet Count 246 X10*3/uL (160-400); Red Blood Count 3.88 X10*6/uL (4.60-5.80); Red Cell Distribution Width 13.6 % (11.0-16.0); White Blood Count 5.9 X10*3/uL (4.8-10.8)
[2021-01-31 04:52] LABS: Ethanol < 10 mg/dL
[2021-01-31 05:00] LABS: Alanine Aminotransferase 11 U/L (0-40); Albumin Level 3.7 g/dL (3.5-5.0); Alkaline Phosphatase 61 U/L (39-117); Anion Gap 9 (12-20); Aspartate Amino Transferase 14 U/L (5-37); Bilirubin Direct 0.3 mg/dL (0.0-0.5); Bilirubin Total 0.8 mg/dL (0.0-1.0); Blood Urea Nitrogen 12 mg/dL (9-16); Calcium 9.4 mg/dL (8.4-10.2); Carbon Dioxide 28 mmol/L (22-29); Chloride 109 mmol/L (96-108); Creatinine Clr Calc Pharmacy 87.6; Estimated Glomerular Filt Rate > 60; Glucose Random 104 mg/dL (60-115); Lipase 29 U/L (8-78); Potassium 3.8 mmol/L (3.3-5.1); Sodium 142 mmol/L (135-145); Total Protein 5.9 g/dL (6.5-8.0)
[2021-01-31 05:00] LABS: COVID-19 Test Negative (Negative); IDNOW Serial# 9DD0AD1C
[2021-01-31 05:01] LABS: B Type Natriuretic Peptide 39 pg/mL (<100); Troponin-I High Sensitivity < 3.5 ng/L (<3.5-35.0)
--- NOTE | 2021-01-31 08:58 | ECG_ITS ---
Test Reason : CHEST PAIN Blood Pressure : / mmHG Vent. Rate : 058 BPM Atrial Rate : 058 BPM P-R Int : 166 ms QRS Dur : 100 ms QT Int : 406 ms P-R-T Axes : 042 035 033 degrees QTc Int : 398 ms Sinus bradycardia Otherwise normal ECG When compared with ECG of 08-JAN-2021 02:41, No significant change was found Referred By: Giana Cervantes Electronically Signed By:Efe Mcrae
== END 2021-01-31 07:16 | disposition home or self-care (01) ==
PROVIDERS: Emergency Provider Emergency Medicine
DX: R07.89 Other chest pain (principal); Z20.822 Contact with and (suspected) exposure to COVID-19; I10 Essential (primary) hypertension; E78.5 Hyperlipidemia, unspecified; I48.0 Paroxysmal atrial fibrillation; Z79.02 Long term (current) use of antithrombotics/antiplatelets; Z79.01 Long term (current) use of anticoagulants; Z87.891 Personal history of nicotine dependence; Z86.73 Personal history of transient ischemic attack (TIA), and cerebral infarction without residual deficits
CPT/HCPCS: 36415; 80048; 80076; 82077; 83690; 83880; 84484; 85025; 87635; 93005; 99283

== ENCOUNTER → 2021-02-16 08:52 | Outpatient (BNVA) | payer MEDICARE, MEDICAID, SELFPAY | PROVIDERS: Visit Provider Surgery ==

== ENCOUNTER 2021-04-15 15:14 | Emergency (ER) | payer MEDICARE, MEDICAID, SELFPAY ==
[2021-04-15 15:20] VITALS: BP 152/62; PULSE 64; RESP 16; TEMP 36.7; O2SAT 99; BMI 24.7
== END 2021-04-15 19:55 | disposition left against medical advice (07) ==
PROVIDERS: Emergency Provider Emergency Medicine
DX: R10.9 Unspecified abdominal pain (principal); R30.0 Dysuria
CPT/HCPCS: 99282; 99283

== ENCOUNTER → 2021-04-26 08:46 | Outpatient (BNVA) | payer MEDICARE, MEDICAID, SELFPAY | PROVIDERS: PCP Internal Medicine; Referring Provider Internal Medicine; Visit Provider Internal Medicine Cardiovascular Disease | DX: I25.10 Atherosclerotic heart disease of native coronary artery without angina pectoris (principal); I48.0 Paroxysmal atrial fibrillation; R00.1 Bradycardia, unspecified; Z79.01 Long term (current) use of anticoagulants | CPT/HCPCS: 93005; 99212 ==

== ENCOUNTER 2021-05-04 08:06 | Outpatient (REF) | payer MEDICARE, MEDICAID, SELFPAY ==
[2021-05-04 08:20] LABS: MANUAL DIFF FLAG NO
[2021-05-04 09:03] LABS: Basophils Absolute Auto 0.1 X10*3/uL (0.0-0.2); Basophils Percent Auto 0.9 % (0-2); Eosinophils Absolute Auto 0.3 X10*3/uL (0.0-0.4); Eosinophils Percent Auto 4.9 % (0-4); Hematocrit 40.4 % (42.0-52.0); Hemoglobin 12.7 g/dl (14.0-18.0); Imm Gran Abs Auto 0.01 X10*3/uL (0.00-0.03); Imm Gran Pct Auto 0.2 % (0.0-0.4); Immature Retic Fraction 11.2 % (2.3-13.4); Lymphocytes Absolute Auto 1.9 X10*3/uL (1.2-4.9); Lymphocytes Percent Auto 36.4 % (20-40); Mean Corpuscular HGB Conc 31.4 g/dl (31.0-36.0); Mean Corpuscular Hemoglobin 29.8 pg (27.0-33.0); Mean Corpuscular Volume 94.8 fL (80.0-98.0); Mean Platelet Volume 10.9 fL (9.4-12.4); Monocytes Absolute Auto 0.4 X10*3/uL (0.1-1.2); Monocytes Percent Auto 7.6 % (2-11); Neutrophils Absolute Auto 2.6 x10*3/uL (2.0-8.3); Platelet Count 193 X10*3/uL (160-400); Red Blood Count 4.26 X10*6/uL (4.60-5.80); Red Cell Distribution Width 13.1 % (11.0-16.0); Retic HGB Equivalent 33.4 pg (30.0-35.0); Reticulocyte Percent 1.3 % (0.5-1.8); Reticulocytes Absolute 0.054 X10*6/uL (0.026-0.095); White Blood Count 5.3 X10*3/uL (4.8-10.8)
[2021-05-04 09:28] LABS: Alanine Aminotransferase 14 U/L (0-40); Alkaline Phosphatase 60 U/L (39-117); Anion Gap 9 (12-20); Aspartate Amino Transferase 16 U/L (5-37); Bilirubin Total 0.8 mg/dL (0.0-1.0); Blood Urea Nitrogen 11 mg/dL (9-16); Calcium 9.6 mg/dL (8.4-10.2); Carbon Dioxide 29 mmol/L (22-29); Chloride 108 mmol/L (96-108); Cholesterol 171 mg/dL; Estimated Glomerular Filt Rate > 60; Glucose Random 93 mg/dL (60-115); HDL Cholesterol 53 mg/dL; Iron 82 mcg/dL (45-160); LDL Cholesterol Calculated 90 mg/dl; Percent Iron Saturation 21 % (15-50); Potassium 4.4 mmol/L (3.3-5.1); Sodium 142 mmol/L (135-145); Total Iron Binding Capacity 385 mcg/dL (228-428); Total Protein 6.4 g/dL (6.5-8.0); Triglycerides 140 mg/dL; Unsaturated Iron Binding 303 ug/dL
[2021-05-04 09:51] LABS: Ferritin 13 ng/mL (20-250)
[2021-05-04 10:01] LABS: Folate 19.6 ng/mL (> or = 4.0); Vitamin B12 415 pg/mL (200-900)
== END 2021-05-04 08:07 | disposition home or self-care (01) ==
LOC: HO.LAB 08:06
PROVIDERS: PCP Internal Medicine; Visit Provider Internal Medicine Cardiovascular Disease
DX: I25.10 Atherosclerotic heart disease of native coronary artery without angina pectoris (principal); E78.00 Pure hypercholesterolemia, unspecified
CPT/HCPCS: 36415; 80053; 80061; 82607; 82728; 82746; 83540; 85025; 85045

== ENCOUNTER 2021-05-06 17:59 | Emergency (ER) | payer MEDICARE, MEDICAID, SELFPAY ==
--- NOTE | 2021-05-06 | ECG_ITS ---
Test Reason : CHEST PRESSURE Blood Pressure : / mmHG Vent. Rate : 048 BPM Atrial Rate : 048 BPM P-R Int : 186 ms QRS Dur : 100 ms QT Int : 412 ms P-R-T Axes : 033 056 064 degrees QTc Int : 368 ms Sinus bradycardia Otherwise normal ECG When compared with ECG of 31-JAN-2021 04:12, No significant change was found Referred By: Generic ED Physician Electronically Signed By:LAYTON NAQVI MD
[2021-05-06 18:04] VITALS: BP 130/75; PULSE 53; RESP 18; TEMP 36.9; O2SAT 98; BMI 27.1
[2021-05-06 18:48] LABS: Alanine Aminotransferase 15 U/L (0-40); Albumin Level 4.3 g/dL (3.5-5.0); Alkaline Phosphatase 64 U/L (39-117); Anion Gap 9 (12-20); Aspartate Amino Transferase 17 U/L (5-37); Bilirubin Total 0.9 mg/dL (0.0-1.0); Blood Urea Nitrogen 13 mg/dL (9-16); Calcium 9.7 mg/dL (8.4-10.2); Carbon Dioxide 31 mmol/L (22-29); Chloride 105 mmol/L (96-108); Creatinine Clr Calc Pharmacy 84.5; Estimated Glomerular Filt Rate > 60; Glucose Random 94 mg/dL (60-115); Potassium 4.4 mmol/L (3.3-5.1); Sodium 141 mmol/L (135-145); Total Protein 6.8 g/dL (6.5-8.0)
[2021-05-06 18:51] LABS: Troponin-I High Sensitivity < 3.5 ng/L (<3.5-35.0)
== END 2021-05-06 19:55 | disposition left against medical advice (07) ==
PROVIDERS: Emergency Provider Emergency Medicine; PCP Internal Medicine
DX: R51.9 Headache, unspecified (principal); H93.19 Tinnitus, unspecified ear; M54.2 Cervicalgia; I10 Essential (primary) hypertension; E78.5 Hyperlipidemia, unspecified; I48.0 Paroxysmal atrial fibrillation; Z86.73 Personal history of transient ischemic attack (TIA), and cerebral infarction without residual deficits
CPT/HCPCS: 36415; 80053; 84484; 93005; 99283

== ENCOUNTER 2021-08-05 14:56 | Emergency (ER) | payer MEDICARE, MEDICAID, SELFPAY ==
--- NOTE | 2021-08-05 | ECG_ITS ---
Test Reason : palpitation Blood Pressure : / mmHG Vent. Rate : 064 BPM Atrial Rate : 064 BPM P-R Int : 172 ms QRS Dur : 104 ms QT Int : 406 ms P-R-T Axes : 048 059 064 degrees QTc Int : 418 ms Normal sinus rhythm Normal ECG When compared with ECG of 06-MAY-2021 18:17, QT has lengthened Referred By: Generic ED Physician Electronically Signed By:GIL RAMIREZ
--- NOTE | ~2021-08-05 | CT_ITS ---
EXAM: Noncontrast CT scan of the head and cervical spine. INDICATION: Intermittent dizziness and neck pain for 3 months COMPARISON: Head CT 12/28/2020 TECHNIQUE: Axial slices were obtained from skull base to vertex and displayed. This was followed by helical, multislice, multidetector axial images from the occiput to the upper thorax. Coronal and sagittal reformats of the cervical spine in addition to coronal reformats of the head were obtained at the technologist workstation. DLP: 1184 mGy-cm FINDINGS: HEAD: There is no evidence of acute intracranial hemorrhage or territorial infarction. No abnormal mass effect or midline shift is appreciated. Ramirez-white differentiation is well preserved. No extra-axial fluid collections. The ventricular system and cortical sulci are prominent, consistent with age-appropriate volume loss. There are areas of low density in the periventricular and subcortical white matter, most consistent with sequelae of microvascular ischemic change. Bilateral basal ganglia calcifications noted. The osseous structures and soft tissues are normal. There is mild to moderate calcifications of the cavernous internal carotid arteries. The visualized paranasal sinuses and mastoid air cells are well aerated. Mucous retention cysts of the right maxillary sinus. SPINE: The cervical spine is visualized in its entirety. There is straightening of the normal cervical lordosis. There is also minimal anterolisthesis of C4 on C5. Normal C1/C2 articulation. Cervical vertebral body heights are maintained. Disc spaces demonstrate mild narrowing at C5/C6 and C6/C7. Small osteophytes are noted within the mid and lower cervical spine. Mild diffuse facet hypertrophy bilaterally. Nodular biapical scarring with some mild cystic changes, more prominent within the right lung apex. CT/CT cervical spine wo con IMPRESSION: 1. No acute intracranial pathology. 2. No fractures or dislocations of the cervical spine. 3. Nodular biapical scarring with some mild cystic changes are noted, more prominent within the right lung apex. Dedicated nonemergent chest CT may be warranted to exclude underlying pulmonary nodules. This CT examination was performed using dose optimization techniques as appropriate, variously including the following: *Automated exposure control *Adjustment of mA and/or kV according to patient size (this includes techniques or standardized protocols for targeted exams where dose is matched to indication/reason for exam; i.e. extremities or head) *Use of iterative reconstruction technique
[2021-08-05 15:08] VITALS: BP 127/66; PULSE 63; RESP 16; TEMP 36.8; O2SAT 98; BMI 24.4
[2021-08-05 15:50] LABS: Appearance Urine CLEAR; Color Urine STRAW; Glucose Urine UA NEG (NEG); Leukocyte Esterase Urine NEG (NEG); Nitrite Urine NEG (NEG); Specific Gravity - Urine <= 1.005 (1.005-1.025); Urine Blood NEG (NEG); Urine Ketones NEG (NEG); Urine Protein NEG (NEG-TRACE)
[2021-08-05 18:03] LABS: MANUAL DIFF FLAG NO
[2021-08-05 18:06] LABS: Basophils Percent Auto 0.6 % (0-2); Eosinophils Absolute Auto 0.2 X10*3/uL (0.0-0.4); Eosinophils Percent Auto 3.4 % (0-4); Hematocrit 39.8 % (42.0-52.0); Hemoglobin 12.7 g/dl (14.0-18.0); Imm Gran Abs Auto 0.02 X10*3/uL (0.00-0.03); Imm Gran Pct Auto 0.3 % (0.0-0.4); Lymphocytes Absolute Auto 2.2 X10*3/uL (1.2-4.9); Lymphocytes Percent Auto 34.5 % (20-40); Mean Corpuscular HGB Conc 31.9 g/dl (31.0-36.0); Mean Corpuscular Volume 93.9 fL (80.0-98.0); Mean Platelet Volume 10.8 fL (9.4-12.4); Monocytes Absolute Auto 0.4 X10*3/uL (0.1-1.2); Monocytes Percent Auto 6.9 % (2-11); Neutrophils Absolute Auto 3.5 x10*3/uL (2.0-8.3); Neutrophils Percent Auto 54.3 % (45-73); Platelet Count 191 X10*3/uL (160-400); Red Blood Count 4.24 X10*6/uL (4.60-5.80); Red Cell Distribution Width 13.2 % (11.0-16.0); White Blood Count 6.4 X10*3/uL (4.8-10.8)
[2021-08-05 18:20] LABS: Alanine Aminotransferase 14 U/L (0-40); Albumin Level 4.3 g/dL (3.5-5.0); Alkaline Phosphatase 67 U/L (39-117); Anion Gap 10 (12-20); Aspartate Amino Transferase 16 U/L (5-37); Bilirubin Direct 0.4 mg/dL (0.0-0.5); Blood Urea Nitrogen 10 mg/dL (9-16); Calcium 9.3 mg/dL (8.4-10.2); Carbon Dioxide 28 mmol/L (22-29); Chloride 109 mmol/L (96-108); Creatinine Clr Calc Pharmacy 79.9; Estimated Glomerular Filt Rate > 60; Glucose Random 98 mg/dL (60-115); Lipase 26 U/L (8-78); Potassium 4.6 mmol/L (3.3-5.1); Sodium 142 mmol/L (135-145); Total Protein 6.7 g/dL (6.5-8.0)
[2021-08-05 18:27] LABS: Troponin-I High Sensitivity < 3.5 ng/L (<3.5-35.0)
[2021-08-05 19:46] VITALS: BP 151/72; PULSE 50; RESP 16; O2SAT 97
[2021-08-05] MEDS: Cyclobenzaprine HCl 10 MG TABLET PO (20:49)
[2021-08-05] MEDS: Acetaminophen 325 MG TABLET 975 MG PO (20:50)
--- NOTE | 2021-08-05 20:59 | ED_ITS ---
HPI - Neck Pain/Injury General Chief Complaint: General Medical Stated Complaint: NECK PAIN PALPATIONS NAUSEA Time Seen by Provider: 08/05/21 19:50 Source: patient Mode of arrival: ambulatory Limitations: language barrier (Citizen Of [place]-speaking) History of Present Illness HPI Narrative: 69-yo male with CVA on Xarelto, Afib on xarelto-controlled on Flecainide and Metoprolol, anxiety and depression, HPL, BPH, lower back pain, HTN, presenting to the ED with complaints of 3-4 months of posterior neck pain especially when he wakes up. He also reports he has been feeling some intermittent dizziness and palpitation for the same amount of time. ?He also is concerned that he is urinating more often and he feels like his urine smells. He denies any recent falls or head injury, dizziness at this time, lightheadedness, change in vision, jaw pain, chest pain or shortness of breath, paresthesias, dyspnea on exertion, orthopnea, palpitations at this time, nausea/vomiting/diarrhea constipation, black or bloody stools, hematuria, abnormal penile discharge, abnormal rashes to the penile area, rashes, lower extremity edema or calf tenderness, recent travel or sick contacts, thoughts of STDs, IV drug use or any other symptoms complaints concerns or injuries at this time. MD complaint: neck pain Onset (ago): month(s) Place: home Severity: mild and intermittent (Usually worse when he wakes up in the mornings) Quality: aching, spasming and throbbing Duration: intermittent Relieving factors: none Exacerbating factors: movement of neck Context: unknown Associated symptoms: other (See above) Treatments prior to arrival: none Related Data Previous Rx's Medication Instructions Recorded tamsulosin 0.4 mg capsule 0.4 mg PO DAILY 90 days #90 caps 11/12/20 metoprolol succinate 25 mg 25 mg PO DAILY #90 tabs 02/07/21 tablet,extended release 24 hr flecainide 50 mg tablet 50 mg PO BID #180 caps 03/11/21 atorvastatin 40 mg tablet 40 mg PO DAILY 90 days #90 tabs 04/25/21 ezetimibe 10 mg tablet (Zetia) 10 mg PO DAILY 90 days #90 tabs 05/06/21 cyclobenzaprine 5 mg tablet 5 mg PO BEDTIME PRN muscle spasm 05/13/21 #30 tabs omeprazole 20 mg capsule,delayed 20 mg PO DAILY #90 caps 05/30/21 release lorazepam 0.5 mg tablet 0.5 mg PO DAILY 90 days #90 tabs 07/01/21 rivaroxaban 20 mg tablet (Xarelto) 20 mg PO DAILY #90 tabs 07/18/21 acetaminophen 500 mg tablet 1,000 mg PO Q6H PRN pain #14 tabs 08/05/21 (Tylenol Extra Strength) cyclobenzaprine 10 mg tablet 10 mg PO Q8H PRN Muscle spasm #14 08/05/21 tabs meclizine 25 mg tablet 50 mg PO DAILY PRN dizziness #20 08/05/21 tabs Allergies Allergy/AdvReac Type Severity Reaction Status Date / Time almond [ALMOND] Allergy Unknown SWELLING Verified 05/13/21 10:16 Review of Systems Review of Systems: Constitutional : No trauma, No Weight loss, No Fever, No Chills, ENT/Mouth : No Hearing loss, No Ear Pain, No Nasal Congestion, No Sinus Pain, No Hoarseness, No sore throat, No Rhinorrhea, No Swallowing Difficulty Cardiovascular : + intermittent palpitations, No Chest Pain, No SOB Respiratory : No Cough, No Dyspnea Gastrointestinal : No Nausea, No Vomiting, No Diarrhea, No abdominal Pain, No Hematochezia, No Melena Genitourinary : No Dysuria, No Urinary Frequency, No Hematuria, No Urinary or Bowel Incontinence/retention Musculoskeletal : + Neck pain, No Back pain, No joint stiffness, No joint swelling Skin : No Skin Lesions, No rash or signs of infection Neuro : + intermittent dizziness, nO Tingling to b/l arms/legs, No Weakness, No radiation, No Numbness, No headache, no loss of bowel or bladder incontinence, no saddle anesthesia Denies history of IV drug usage. Yes all other systems are reviewed and are negative [facility] Past Medical History Attestation statement: The following information was validated with the patient. Source: old records reviewed, obtained from family and nursing notes reviewed Medical History Alcohol abuse Anxiety and depression Blind right eye BPH (benign prostatic hyperplasia) CAD (coronary artery disease) Degenerative disc disease, cervical GERD (gastroesophageal reflux disease) History of adenomatous polyp of colon Hypercholesterolemia Hypertension Left renal stone Lesion of bladder Lower back pain Paroxysmal atrial fibrillation Pulmonary nodule Renal cyst Sensorineural hearing loss Thoracic spondylosis Tubular adenoma of colon Surgical History History of inguinal hernia repair Hx of cataract surgery Family History Family History Father Medical history unknown Mother Medical history unknown Brother No problems noted. Son No problems noted. Son No problems noted. Social History Social History Household Members: Significant Other Household Members Other:: Housing: Apartment Do you presently have visiting nurse or other home services: No Alcohol intake: never Patient Tobacco Use Status: Former Tobacco user Years Smoked: 2014 quit e-Cigarette/Vaping Use: Never Used Second Hand Smoke Exposure: No Advance Directives: No Advance Directives Date on File: 07/05/20 service: No Current occupational status: disabled Physical Exam Vital Signs: Vital Signs: Last Vital Signs Temp 98.2 F 08/05/21 15:08 Pulse 50 08/05/21 19:46 Resp 16 08/05/21 19:46 BP 151/72 H 08/05/21 19:46 Pulse Ox 97 08/05/21 19:46 O2 Del Method 08/05/21 19:46 BMI result Body Mass Index 24.4 vital signs have been reviewed as normal and appeared to be correct. Blood pressure normal. Heart rate normal. Respiration rate normal. Temperature normal. Oxygen saturation normal. Appearance: Alert. Oriented X3. No acute distress. Head: Normal external exam. Normocephalic. Atraumatic. No Smith signs noted. No raccoon eyes noted Eyes: PERRLA. EOMI. Conjunctiva and sclera normal. Eyelids normal. ENT: EAC normal. TM's Normal. No septal hematoma noted. No hemotympanum noted. Pharynx normal. Uvula midline. Moist mucous membranes. No lesions/ulcerations or masses noted on the tongue. Normal voice. No trismus noted. No drooling noted. No muffled voice noted. Neck: Normal inspection. Neck supple. FROM. No adenopathy. Thyroid Normal. Trachea midline. No meningeal signs. No neck mass noted. Tender to palpation of bilateral paracervical musculature and mid cervical tenderness. No step-offs or deformities noted. Patient neuro intact bilaterally and distally on all 4 extremities. Reflexes intact bilaterally and distally in all 4 extremities. No rashes/lesion/induration/fluctuance or signs of infection noted. No edema noted. No tracheal deviation noted. No crepitus is noted. No neck masses noted. No signs of trauma noted. CVS: Normal heart rate and rhythm. Heart sound normal. Pulses normal throughout. No murmurs/rales/gallops. Respiratory: No respiratory distress. Painless inspiration. Breath sounds normal. No wheezes/rales/rhonchi noted. Chest nontender. No crepitus is noted. No signs of trauma noted. No accessory muscle usage noted or decreased air movement noted. No signs of trauma. Abdomen: Soft and nontender. Bowel sounds normal in all 4 quadrants. No distention noted. No organomegaly noted. No visible injury noted. Back: No CVA tenderness. Full range of motion noted. Nontender. No signs of trauma. Patient neuro intact bilaterally and distally on all 4 extremities. Patient's reflexes intact bilaterally and distally on all 4 extremities. No rashes/lesion/induration/fluctuance or signs of infection noted. Skin: Skin warm and dry. Normal skin color. Normal skin turgor. No rashes/lesions/lacerations noted. Extremities: No lower extremity edema. No calf tenderness is noted. Extremities exhibit normal range of motion and nontender. Neuro: Oriented X 3. No motor deficit. No sensory deficit. Reflexes normal. Normal steady gait. No focal neuro deficits noted. CN's II-XII intact bilaterally? Vascular: + radial pulses/+ 2 distal pedal pulses/+2 dorsalis pedis b/l. Normal cap refill. No cyanosis noted to upper extremity nails and lower extremity toes nails. Course Course Course Narrative: 69-yo male with CVA on Xarelto, Afib on xarelto-controlled on Flecainide and Metoprolol, anxiety and depression, HPL, BPH, lower back pain, HTN, presenting to the ED with complaints of 3-4 months of posterior neck pain especially when he wakes up. He also reports he has been feeling some intermittent dizziness and palpitation for the same amount of time. ?He also is concerned that he is urinating more often and he feels like his urine smells. Labs reviewed patient with mild anemia similar compared to prior. Chloride 109. Anion gap 10. Otherwise all other labs are within normal limits. UA within normal limits no evidence of UTI. CT scan of cervical spine and brain revealed chronic changes no acute processes. Although incidental finding of nodular biapical scarring with some mild cystic changes are noted more on the right lung apex dedicated nonemergent chest CT is warranted to exclude underlying pulmonary nodules therefore I discussed this with the patient and he should have further evaluation treatment with his PCP. Pt c likely muscular pain, but could be herniated disc. Neuro exam shows no deficits. Not c/w vascular etiology, perivertebral / other soft tissue neck / airway infection, or spinal fx / process. Imaging not currently indicated. DC c meds and f/u patient understands agrees with this plan. MDM - Neck Pain/Injury Medical Records Attestation: I reviewed the patient's medical records. Lab Data Attestation: I reviewed the patient's lab results. Result diagrams: 08/05/21 17:50 08/05/21 17:50 Labs: Lab Results 08/05/21 08/05/21 08/05/21 Range/Units 15:40 17:50 17:50 WBC 6.4 (4.8-10.8) X10*3/uL RBC 4.24 L (4.60-5.80) X10*6/uL Hgb 12.7 L (14.0-18.0) g/dl Hct 39.8 L (42.0-52.0) % MCV 93.9 (80.0-98.0) fL MCH 30.0 (27.0-33.0) pg MCHC 31.9 (31.0-36.0) g/dl RDW 13.2 (11.0-16.0) % Plt Count 191 (160-400) X10*3/uL MPV 10.8 (9.4-12.4) fL Immature Gran % (Auto) 0.3 (0.0-0.4) % Neut % (Auto) 54.3 (45-73) % Lymph % (Auto) 34.5 (20-40) % [place] % (Auto) 6.9 (2-11) % Eos % (Auto) 3.4 (0-4) % Baso % (Auto) 0.6 (0-2) % Lymph # (Auto) 2.2 (1.2-4.9) X10*3/uL [place] # (Auto) 0.4 (0.1-1.2) X10*3/uL Eos # (Auto) 0.2 (0.0-0.4) X10*3/uL Baso # (Auto) 0.0 (0.0-0.2) X10*3/uL Abs Immat Gran (auto) 0.02 (0.00-0.03) X10*3/uL Absolute Neuts (auto) 3.5 (2.0-8.3) x10*3/uL Absolute Nucleated RBC 0.000 (0.0-0.012) X10*3/uL Nucleated RBC % (auto) 0.0 (0.0-0.2) /100WBC Sodium 142 (135-145) mmol/L Potassium 4.6 (3.3-5.1) mmol/L Chloride 109 H (96-108) mmol/L Carbon Dioxide 28 (22-29) mmol/L Anion Gap 10 L (12-20) BUN 10 (9-16) mg/dL Creatinine 0.93 (0.5-1.4) mg/dL Estim Creat Clear Calc 79.9 Estimated GFR > 60 Random Glucose 98 (60-115) mg/dL Calcium 9.3 (8.4-10.2) mg/dL Total Bilirubin 1.0 (0.0-1.0) mg/dL Direct Bilirubin 0.4 (0.0-0.5) mg/dL AST 16 (5-37) U/L ALT 14 (0-40) U/L Alkaline Phosphatase 67 (39-117) U/L Troponin I High Sens (<3.5-35.0) ng/L Total Protein 6.7 (6.5-8.0) g/dL Albumin 4.3 (3.5-5.0) g/dL Lipase 26 (8-78) U/L Urine Color STRAW Urine Appearance CLEAR Urine pH 6.0 (5.0-8.0) Ur Specific Girdler <= 1.005 (1.005-1.025) Urine Protein NEG (NEG-TRACE) MG/DL Urine Glucose (UA) NEG (NEG) MG/DL Urine Ketones NEG (NEG) MG/DL Urine Blood NEG (NEG) Urine Nitrite NEG (NEG) Ur Leukocyte Esterase NEG (NEG) 08/05/21 Range/Units 17:50 WBC (4.8-10.8) X10*3/uL RBC (4.60-5.80) X10*6/uL Hgb (14.0-18.0) g/dl Hct (42.0-52.0) % MCV (80.0-98.0) fL MCH (27.0-33.0) pg MCHC (31.0-36.0) g/dl RDW (11.0-16.0) % Plt Count (160-400) X10*3/uL MPV (9.4-12.4) fL Immature Gran % (Auto) (0.0-0.4) % Neut % (Auto) (45-73) % Lymph % (Auto) (20-40) % [place] % (Auto) (2-11) % Eos % (Auto) (0-4) % Baso % (Auto) (0-2) % Lymph # (Auto) (1.2-4.9) X10*3/uL [place] # (Auto) (0.1-1.2) X10*3/uL Eos # (Auto) (0.0-0.4) X10*3/uL Baso # (Auto) (0.0-0.2) X10*3/uL Abs Immat Gran (auto) (0.00-0.03) X10*3/uL Absolute Neuts (auto) (2.0-8.3) x10*3/uL Absolute Nucleated RBC (0.0-0.012) X10*3/uL Nucleated RBC % (auto) (0.0-0.2) /100WBC Sodium (135-145) mmol/L Potassium (3.3-5.1) mmol/L Chloride (96-108) mmol/L Carbon Dioxide (22-29) mmol/L Anion Gap (12-20) BUN (9-16) mg/dL Creatinine (0.5-1.4) mg/dL Estim Creat Clear Calc Estimated GFR Random Glucose (60-115) mg/dL Calcium (8.4-10.2) mg/dL Total Bilirubin (0.0-1.0) mg/dL Direct Bilirubin (0.0-0.5) mg/dL AST (5-37) U/L ALT (0-40) U/L Alkaline Phosphatase (39-117) U/L Troponin I High Sens < 3.5 (<3.5-35.0) ng/L Total Protein (6.5-8.0) g/dL Albumin (3.5-5.0) g/dL Lipase (8-78) U/L Urine Color Urine Appearance Urine pH (5.0-8.0) Ur Specific Girdler (1.005-1.025) Urine Protein (NEG-TRACE) MG/DL Urine Glucose (UA) (NEG) MG/DL Urine Ketones (NEG) MG/DL Urine Blood (NEG) Urine Nitrite (NEG) Ur Leukocyte Esterase (NEG) Imaging Data CT scan of brain/cervical spine without contrast: Attestation: I personally reviewed and interpreted this imaging study as follows: Radiologist's impression: FINDINGS: HEAD: There is no evidence of acute intracranial hemorrhage or territorial infarction.? No abnormal mass effect or midline shift is appreciated. Ramirez-white differentiation is well preserved.? No extra-axial fluid collections. The ventricular system and cortical sulci are prominent, consistent with age-appropriate volume loss.? There are areas of low density in the periventricular and subcortical white matter, most consistent with sequelae of microvascular ischemic change. Bilateral basal ganglia calcifications noted. The osseous structures and soft tissues are normal.? There is mild to moderate calcifications of the cavernous internal carotid arteries. The visualized paranasal sinuses and mastoid air cells are well aerated. Mucous retention cysts of the right maxillary sinus. SPINE: The cervical spine is visualized in its entirety. There is straightening of the normal cervical lordosis. There is also minimal anterolisthesis of C4 on C5. Normal C1/C2 articulation. Cervical vertebral body heights are maintained. Disc spaces demonstrate mild narrowing at C5/C6 and C6/C7. Small osteophytes are noted within the mid and lower cervical spine. Mild diffuse facet hypertrophy bilaterally. Nodular biapical scarring with some mild cystic changes, more prominent within the right lung apex. CT/CT head/brain wo con IMPRESSION: 1. No acute intracranial pathology. 2. No fractures or dislocations of the cervical spine. 3. Nodular biapical scarring with some mild cystic changes are noted, more prominent within the right lung apex. Dedicated nonemergent chest CT may be warranted to exclude underlying pulmonary nodules. ? ? This CT examination was performed using dose optimization techniques as appropriate, variously including the following: ? *Automated exposure control ? *Adjustment of mA and/or kV according to patient size (this includes techniques or standardized protocols for targeted exams where dose is matched to indication/reason for exam; i.e. extremities or head) ? *Use of iterative reconstruction technique ECG Data Attestation: I personally reviewed and interpreted this ECG as follows: ECG interpretation date: 08/05/21 ECG interpretation time: 14:55 Interpretation: Normal sinus rhythm ventricular rate of 64 with a normal OR interval normal QRS duration although QT has length in at 406 milliseconds otherwise no other acute processes noted. No acute ischemic changes are noted. Similar compared to prior EKG 08/05/2021. Critical Care Time Critical Care Time Critical Care Time: Yes Total Critical Care Time: 60 Attestation: I personally attest to this time spent taking care of the patient Discharge Plan Discharge Clinical Impression: Cervical muscle strain, Vertigo, Incidental pulmonary nodule Patient Disposition: Home, Self-Care Instructions: Cervical Strain (ED), Vertigo (ED), Pulmonary Nodules (ED) Additional Instructions: Se observa que tiene n?dulos pulmonares. Nayana un seguimiento con brock proveedor de atenci?n primaria para recibir un tratamiento de evaluaci?n adicional. Regrese si hay s?ntomas nuevos o que empeoran. Prescriptions: New cyclobenzaprine 10 mg tablet 10 mg PO Q8H PRN (Reason: Muscle spasm) Qty: 14 0RF acetaminophen [Tylenol Extra Strength] 500 mg tablet 1,000 mg PO Q6H PRN (Reason: pain) Qty: 14 0RF meclizine 25 mg tablet 50 mg PO DAILY PRN (Reason: dizziness) Qty: 20 0RF No Action tamsulosin 0.4 mg capsule 0.4 mg PO DAILY 90 Days Qty: 90 3RF metoprolol succinate 25 mg tablet extended release 24 hr 25 mg PO DAILY Qty: 90 3RF flecainide 50 mg tablet 50 mg PO BID Qty: 180 2RF atorvastatin 40 mg tablet 40 mg PO DAILY 90 Days Qty: 90 1RF ezetimibe [Zetia] 10 mg tablet 10 mg PO DAILY 90 Days Qty: 90 1RF omeprazole 20 mg capsule,delayed release(DR/EC) 20 mg PO DAILY Qty: 90 2RF lorazepam 0.5 mg tablet 0.5 mg PO DAILY 90 Days Qty: 90 1RF Xarelto 20 mg tablet 20 mg PO DAILY Qty: 90 3RF cyclobenzaprine 5 mg tablet 5 mg PO BEDTIME PRN (Reason: muscle spasm) Qty: 30 3RF Referrals: Po,Yvonne Gold MD [Primary Care Provider] - 2 days Print Language: Citizen [place]
[2021-08-05 21:45] VITALS: BP 142/71; PULSE 64; RESP 16; TEMP 36.5; O2SAT 99
== END 2021-08-05 21:46 | disposition home or self-care (01) ==
PROVIDERS: Emergency Provider Emergency Medicine; PCP Internal Medicine
DX: S16.1XXA Strain of muscle, fascia and tendon at neck level, initial encounter (principal); R42 Dizziness and giddiness; R91.1 Solitary pulmonary nodule; I48.0 Paroxysmal atrial fibrillation; I10 Essential (primary) hypertension; Z86.73 Personal history of transient ischemic attack (TIA), and cerebral infarction without residual deficits; Z79.01 Long term (current) use of anticoagulants; Z79.899 Other long term (current) drug therapy; X58.XXXA Exposure to other specified factors, initial encounter; Y93.9 Activity, unspecified; Y92.9 Unspecified place or not applicable; Y99.9 Unspecified external cause status
CPT/HCPCS: 36415; 70450; 72125; 80048; 80076; 81003; 83690; 84484; 85025; 93005; 99284

== ENCOUNTER 2021-08-30 08:14 | Outpatient (REF) | payer MEDICARE, MEDICAID, SELFPAY ==
[2021-08-30 08:24] LABS: MANUAL DIFF FLAG NO
[2021-08-30 09:17] LABS: Basophils Percent Auto 0.7 % (0-2); Eosinophils Absolute Auto 0.3 X10*3/uL (0.0-0.4); Hematocrit 39.3 % (42.0-52.0); Hemoglobin 12.8 g/dl (14.0-18.0); Imm Gran Abs Auto 0.01 X10*3/uL (0.00-0.03); Imm Gran Pct Auto 0.2 % (0.0-0.4); Lymphocytes Absolute Auto 1.7 X10*3/uL (1.2-4.9); Lymphocytes Percent Auto 29.9 % (20-40); Mean Corpuscular HGB Conc 32.6 g/dl (31.0-36.0); Mean Corpuscular Hemoglobin 30.3 pg (27.0-33.0); Mean Corpuscular Volume 93.1 fL (80.0-98.0); Mean Platelet Volume 11.1 fL (9.4-12.4); Monocytes Absolute Auto 0.4 X10*3/uL (0.1-1.2); Monocytes Percent Auto 7.1 % (2-11); Neutrophils Absolute Auto 3.3 x10*3/uL (2.0-8.3); Neutrophils Percent Auto 57.1 % (45-73); Platelet Count 191 X10*3/uL (160-400); Red Blood Count 4.22 X10*6/uL (4.60-5.80); Red Cell Distribution Width 13.2 % (11.0-16.0); White Blood Count 5.8 X10*3/uL (4.8-10.8)
[2021-08-30 09:40] LABS: Alanine Aminotransferase 12 U/L (0-40); Albumin Level 4.2 g/dL (3.5-5.0); Alkaline Phosphatase 59 U/L (39-117); Anion Gap 9 (12-20); Aspartate Amino Transferase 17 U/L (5-37); Bilirubin Total 1.2 mg/dL (0.0-1.0); Blood Urea Nitrogen 9 mg/dL (9-16); Calcium 9.4 mg/dL (8.4-10.2); Carbon Dioxide 29 mmol/L (22-29); Chloride 108 mmol/L (96-108); Cholesterol 119 mg/dL; Estimated Glomerular Filt Rate > 60; Glucose Random 95 mg/dL (60-115); HDL Cholesterol 52 mg/dL; LDL Cholesterol Calculated 50 mg/dl; Potassium 4.3 mmol/L (3.3-5.1); Sodium 142 mmol/L (135-145); Total Protein 6.4 g/dL (6.5-8.0); Triglycerides 85 mg/dL
== END 2021-08-30 08:15 | disposition home or self-care (01) ==
LOC: HO.LAB 08:14
PROVIDERS: Internal Medicine Cardiovascular Disease; PCP Internal Medicine; Visit Provider Internal Medicine
DX: E78.00 Pure hypercholesterolemia, unspecified (principal); R94.39 Abnormal result of other cardiovascular function study
CPT/HCPCS: 36415; 80048; 80053; 80061; 85025

== ENCOUNTER 2021-08-31 12:16 | Outpatient (REF) | payer MEDICARE, MEDICAID, SELFPAY ==
[2021-08-31 13:28] LABS: Appearance Urine CLEAR; Color Urine STRAW; Glucose Urine UA NEG (NEG); Leukocyte Esterase Urine NEG (NEG); Nitrite Urine NEG (NEG); Specific Gravity - Urine <= 1.005 (1.005-1.025); Urine Blood NEG (NEG); Urine Ketones NEG (NEG); Urine Protein NEG (NEG-TRACE)
[2021-08-31 14:02] LABS: RBC Urine 0 /HPF (0); WBC Urine 0 /HPF (0-4)
== END 2021-08-31 12:17 | disposition home or self-care (01) ==
LOC: HO.LAB 12:16
PROVIDERS: PCP Internal Medicine; Visit Provider Urology
DX: N40.1 Benign prostatic hyperplasia with lower urinary tract symptoms (principal); R35.0 Frequency of micturition
CPT/HCPCS: 81001; 87086

== ENCOUNTER 2021-09-01 07:10 | Outpatient (REF) | payer MEDICARE, MEDICAID, SELFPAY ==
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
== END 2021-09-01 07:11 | disposition home or self-care (01) ==
LOC: HO.CT 07:10
PROVIDERS: Visit Provider Internal Medicine
DX: R91.1 Solitary pulmonary nodule (principal)
CPT/HCPCS: 71250

== ENCOUNTER 2021-09-08 14:47 | Emergency (ER) | payer MEDICARE, MEDICAID, SELFPAY ==
--- NOTE | ~2021-09-08 | XR_ITS ---
EXAMINATION: XR CHEST CLINICAL INFORMATION: Chest pain COMPARISON: Chest x-ray 01/08/2021 TECHNIQUE: Frontal view of the chest was obtained. FINDINGS: Minimal streaky bibasilar subsegmental atelectasis. No airspace consolidation. No pleural effusion or pneumothorax. Normal cardiomediastinal silhouette. No evidence pulmonary edema. No acute osseous injury. Small 5 mm metallic foreign body overlies the right lower thorax, unchanged. XR/XR chest 1V IMPRESSION: 1. Minimal bibasilar subsegmental atelectasis. No acute pulmonary process identified.
--- NOTE | ~2021-09-08 | CT_ITS ---
EXAMINATION: CT ABDOMEN AND PELVIS WITHOUT CONTRAST CLINICAL INFORMATION: Question stone. COMPARISON: Renal ultrasound 03/04/2020 CT abdomen 02/15/2015 TECHNIQUE: Multidetector volumetric imaging was performed from the superior aspect of the liver through the pubic symphysis. Sagittal and coronal reformatted images were obtained on the technologist's workstation. This CT examination was performed using dose optimization techniques as appropriate, variously including the following: *Automated exposure control *Adjustment of mA and/or kV according to patient size (this includes techniques or standardized protocols for targeted exams where dose is matched to indication/reason for exam; i.e. extremities or head) *Use of iterative reconstruction technique DLP: 529 mGy-cm FINDINGS: LUNG BASES: Mild bibasilar dependent changes. LIVER, GALLBLADDER, AND BILIARY TREE: The liver is normal in size, shape, and attenuation. No focal hepatic lesion or biliary ductal dilatation is present. The gallbladder is unremarkable with no evidence of radiopaque gallstones, gallbladder wall thickening, or obvious pericholecystic inflammatory changes. PANCREAS: Unremarkable. SPLEEN: Unremarkable. ADRENAL GLANDS: Unremarkable. KIDNEYS AND URETERS: The kidneys are normal in size, shape, and attenuation. No hydronephrosis, hydroureter, or calculi seen. No perinephric stranding. BLADDER: Unremarkable. GASTROINTESTINAL TRACT: Small hiatal hernia. Stomach is nondistended. No dilated small bowel loops. Nonobstructive bowel gas pattern. No colonic wall thickening or pericolonic inflammatory changes. Moderate stool in the colon. The appendix contains air, without surrounding inflammatory changes. Redemonstrated is chronic haziness in the mesentery consistent with mesenteric panniculitis, and small mesenteric lymph nodes, overall stable from previous. No free fluid or free air. ABDOMINAL WALL: Small fat-containing umbilical hernia. Postsurgical changes from left inguinal repair. LYMPH NODES: No bulky adenopathy is identified in the abdomen or pelvis. VASCULAR: Atherosclerotic vascular calcification. No aortic aneurysmal dilatation. PELVIC VISCERA: Within normal limits. OSSEOUS STRUCTURES: No acute or suspicious osseous abnormality seen. CT/CT abdomen pelvis wo con IMPRESSION: 1. No radiodense renal or ureteral calculi identified. No hydronephrosis. 2. Chronic mesenteric panniculitis, with the appearance similar to the prior CT of 02/15/2015. 3. No CT evidence of acute intra-abdominal process is compared to prior CT of 02/15/2015.. Fleischner guidelines were followed.
--- NOTE | 2021-09-08 14:55 | ECG_ITS ---
Test Reason : CHEST PAIN Blood Pressure : / mmHG Vent. Rate : 055 BPM Atrial Rate : 055 BPM P-R Int : 182 ms QRS Dur : 112 ms QT Int : 418 ms P-R-T Axes : 041 041 058 degrees QTc Int : 399 ms Sinus bradycardia Otherwise normal ECG When compared with ECG of 05-AUG-2021 14:55, No significant change was found Referred By: Generic ED Physician Electronically Signed By:LAYTON NAQVI MD
[2021-09-08 14:58] VITALS: BP 139/75; PULSE 60; RESP 18; TEMP 36.8; O2SAT 97; BMI 26.2
[2021-09-08 15:12] LABS: MANUAL DIFF FLAG NO
[2021-09-08 15:15] LABS: Basophils Percent Auto 0.6 % (0-2); Eosinophils Absolute Auto 0.3 X10*3/uL (0.0-0.4); Eosinophils Percent Auto 5.3 % (0-4); Hematocrit 36.6 % (42.0-52.0); Imm Gran Abs Auto 0.01 X10*3/uL (0.00-0.03); Imm Gran Pct Auto 0.2 % (0.0-0.4); Lymphocytes Absolute Auto 1.8 X10*3/uL (1.2-4.9); Lymphocytes Percent Auto 34.3 % (20-40); Mean Corpuscular HGB Conc 32.8 g/dl (31.0-36.0); Mean Corpuscular Hemoglobin 29.8 pg (27.0-33.0); Mean Corpuscular Volume 90.8 fL (80.0-98.0); Monocytes Absolute Auto 0.3 X10*3/uL (0.1-1.2); Monocytes Percent Auto 6.5 % (2-11); Neutrophils Absolute Auto 2.7 x10*3/uL (2.0-8.3); Neutrophils Percent Auto 53.1 % (45-73); Platelet Count 171 X10*3/uL (160-400); Red Blood Count 4.03 X10*6/uL (4.60-5.80); Red Cell Distribution Width 13.2 % (11.0-16.0); White Blood Count 5.1 X10*3/uL (4.8-10.8)
[2021-09-08 15:27] VITALS: BP 121/65; PULSE 57; RESP 14; TEMP 36.9; O2SAT 97
[2021-09-08 15:28] LABS: Anion Gap 10 (12-20); Blood Urea Nitrogen 10 mg/dL (9-16); Calcium 8.6 mg/dL (8.4-10.2); Carbon Dioxide 26 mmol/L (22-29); Chloride 108 mmol/L (96-108); Creatinine Clr Calc Pharmacy 84.1; Estimated Glomerular Filt Rate > 60; Glucose Random 115 mg/dL (60-115); Potassium 3.8 mmol/L (3.3-5.1); Sodium 140 mmol/L (135-145)
[2021-09-08 15:34] LABS: Troponin-I High Sensitivity < 3.5 ng/L (<3.5-35.0)
--- NOTE | 2021-09-08 19:03 | ED.CHESTPAIN ---
HPI - Chest Pain General Chief Complaint: Chest Pain Stated Complaint: chest pain Time Seen by Provider: 09/08/21 15:35 Source: patient Mode of arrival: ambulatory Limitations: no limitations History of Present Illness HPI narrative: this is a 70 years old presented to the ED with multiple somatic complaints including back pain, chest pain, symptom been ongoing for weeks, denies any fever she has vomiting diarrhea. The pain in the back is radiated to both flank, the chest pain is not radiated, usually lasts a few minutes only per last H&P of the hospitalist patient has normal coronary by cath MD complaint: chest pain Onset (ago): week(s) (2) Timing of current episode: episodic Prior episodes: Yes Onset: during rest Pain location: substernal Pain radiation: none Quality: aching Relieving factors: nothing Exacerbating factors: nothing Risk Factors Thoracic aortic dissection risk factors: none Related Data Previous Rx's Medication Instructions Recorded tamsulosin 0.4 mg capsule 0.4 mg PO DAILY 90 days #90 caps 11/12/20 metoprolol succinate 25 mg 25 mg PO DAILY #90 tabs 02/07/21 tablet,extended release 24 hr flecainide 50 mg tablet 50 mg PO BID #180 caps 03/11/21 atorvastatin 40 mg tablet 40 mg PO DAILY 90 days #90 tabs 04/25/21 ezetimibe 10 mg tablet (Zetia) 10 mg PO DAILY 90 days #90 tabs 05/06/21 omeprazole 20 mg capsule,delayed 20 mg PO DAILY #90 caps 05/30/21 release lorazepam 0.5 mg tablet 0.5 mg PO DAILY 90 days #90 tabs 07/01/21 rivaroxaban 20 mg tablet (Xarelto) 20 mg PO DAILY #90 tabs 07/18/21 acetaminophen 500 mg tablet 1,000 mg PO Q6H PRN pain #14 tabs 08/05/21 (Tylenol Extra Strength) cyclobenzaprine 10 mg tablet 10 mg PO Q8H PRN Muscle spasm #14 08/05/21 tabs meclizine 25 mg tablet 50 mg PO DAILY PRN dizziness #20 08/05/21 tabs BATH BENCH WITH BACK #1 ea 08/31/21 HANDHELD SHOWER HEAD #1 ea 08/31/21 LOCKING RAISED TOILET SEAT with #1 ea 08/31/21 ARMS blood pressure monitor (Blood #1 ea 08/31/21 Pressure Kit) Allergies Allergy/AdvReac Type Severity Reaction Status Date / Time almond [ALMOND] Allergy Unknown SWELLING Verified 08/24/21 08:43 Review of Systems Review of Systems: Yes all other systems are reviewed and are negative ENT: Reports system reviewed and no additional complaints, except as documented Cardiovascular: Cardiovascular: Reports chest pain and Reports chest pain at rest Respiratory: Respiratory: Reports no additional respiratory complaints Endocrine: Endocrine: Reports no additional endocrine complaints [facility] Past Medical History Medical History Alcohol abuse Anxiety and depression Blind right eye BPH (benign prostatic hyperplasia) CAD (coronary artery disease) Degenerative disc disease, cervical GERD (gastroesophageal reflux disease) History of adenomatous polyp of colon Hypercholesterolemia Hypertension Left renal stone Lesion of bladder Lower back pain Paroxysmal atrial fibrillation Pulmonary nodule Renal cyst Sensorineural hearing loss Thoracic spondylosis Tubular adenoma of colon Surgical History History of inguinal hernia repair Hx of cataract surgery Family History Family History Father Medical history unknown Mother Medical history unknown Brother No problems noted. Son No problems noted. Son No problems noted. Social History Social History Household Members: Significant Other Household Members Other:: Housing: Apartment Do you presently have visiting nurse or other home services: No Alcohol intake: never Patient Tobacco Use Status: Former Tobacco user Years Smoked: 2014 quit e-Cigarette/Vaping Use: Never Used Second Hand Smoke Exposure: No Advance Directives: No Advance Directives Information Provided: Yes Advance Directives Date on File: 07/05/20 service: No Current occupational status: disabled Cognitive needs: No Hearing needs: No Vision needs: Yes Physical Exam Vital Signs: Vital Signs: Last Vital Signs Temp 97.6 F 09/08/21 22:19 Pulse 53 09/08/21 22:19 Resp 16 09/08/21 22:19 BP 108/58 L 09/08/21 22:19 Pulse Ox 95 09/08/21 22:19 O2 Del Method 09/08/21 22:19 BMI result Body Mass Index 26.2 Const: Other: he looks well he is not toxic-appearing General: cooperative Nutritional Appearance: average body habitus Orientation/consciousness: patient oriented x3 Limitations: no limitations HEENT: Head: Yes normal to inspection Face and sinus: Yes normal facial exam Mouth: Normal oral and palatal mucosa present Throat: Yes posterior oropharynx normal Neck: Neck: Yes normal visual inspection Chest: Chest palpation & inspection: normal inspection of the chest Resp: Effort & Inspection: normal respiratory effort Auscultation: clear to auscultation bilaterally Cardio: Jugular venous distension: no JVD Rate: regular rate Rhythm: regular rhythm GI: Inspection: Yes normal to inspection Palpation (GI): Soft to palpation, not firm, nontender and no guarding : General: Yes no CVA tenderness Back/Spine/Pelvis: Back: no CVA tenderness Thoracic/Lumbar Spine: thoracic and lumbar spine normal to inspection Skin: General skin exam: no rashes or lesions noted and elasticity normal Lesions: no lesions Rashes: no rashes Neuro: General: patient oriented x3 Cranial nerves: Yes CN's II-XII intact bilaterally Extrem: General: Yes normal to inspection and Yes full ROM Right upper extremity: normal to inspection Course Reevaluation(s) Reevaluation #1: delta troponins negative, CT scan of the abdomen and pelvis is negative for acute disease, he is eating and drinking, no chest pain at this time. I think we can safely discharge the patient home he can follow-up with primary care physician. Time: 21:37 [facility] - Chest Pain Lab Data Result diagrams: 09/08/21 15:07 09/08/21 15:07 Labs: Lab Results 09/08/21 09/08/21 09/08/21 Range/Units 15:07 15:07 15:07 WBC 5.1 (4.8-10.8) X10*3/uL RBC 4.03 L (4.60-5.80) X10*6/uL Hgb 12.0 L (14.0-18.0) g/dl Hct 36.6 L (42.0-52.0) % MCV 90.8 (80.0-98.0) fL MCH 29.8 (27.0-33.0) pg MCHC 32.8 (31.0-36.0) g/dl RDW 13.2 (11.0-16.0) % Plt Count 171 (160-400) X10*3/uL MPV 10.0 (9.4-12.4) fL Immature Gran % (Auto) 0.2 (0.0-0.4) % Neut % (Auto) 53.1 (45-73) % Lymph % (Auto) 34.3 (20-40) % [place] % (Auto) 6.5 (2-11) % Eos % (Auto) 5.3 H (0-4) % Baso % (Auto) 0.6 (0-2) % Lymph # (Auto) 1.8 (1.2-4.9) X10*3/uL [place] # (Auto) 0.3 (0.1-1.2) X10*3/uL Eos # (Auto) 0.3 (0.0-0.4) X10*3/uL Baso # (Auto) 0.0 (0.0-0.2) X10*3/uL Abs Immat Gran (auto) 0.01 (0.00-0.03) X10*3/uL Absolute Neuts (auto) 2.7 (2.0-8.3) x10*3/uL Absolute Nucleated RBC 0.000 (0.0-0.012) X10*3/uL Nucleated RBC % (auto) 0.0 (0.0-0.2) /100WBC Sodium 140 (135-145) mmol/L Potassium 3.8 (3.3-5.1) mmol/L Chloride 108 (96-108) mmol/L Carbon Dioxide 26 (22-29) mmol/L Anion Gap 10 L (12-20) BUN 10 (9-16) mg/dL Creatinine 0.91 (0.5-1.4) mg/dL Estim Creat Clear Calc 84.1 Estimated GFR > 60 Random Glucose 115 (60-115) mg/dL Calcium 8.6 D (8.4-10.2) mg/dL Troponin I High Sens < 3.5 (<3.5-35.0) ng/L 09/08/21 Range/Units 20:15 WBC (4.8-10.8) X10*3/uL RBC (4.60-5.80) X10*6/uL Hgb (14.0-18.0) g/dl Hct (42.0-52.0) % MCV (80.0-98.0) fL MCH (27.0-33.0) pg MCHC (31.0-36.0) g/dl RDW (11.0-16.0) % Plt Count (160-400) X10*3/uL MPV (9.4-12.4) fL Immature Gran % (Auto) (0.0-0.4) % Neut % (Auto) (45-73) % Lymph % (Auto) (20-40) % [place] % (Auto) (2-11) % Eos % (Auto) (0-4) % Baso % (Auto) (0-2) % Lymph # (Auto) (1.2-4.9) X10*3/uL [place] # (Auto) (0.1-1.2) X10*3/uL Eos # (Auto) (0.0-0.4) X10*3/uL Baso # (Auto) (0.0-0.2) X10*3/uL Abs Immat Gran (auto) (0.00-0.03) X10*3/uL Absolute Neuts (auto) (2.0-8.3) x10*3/uL Absolute Nucleated RBC (0.0-0.012) X10*3/uL Nucleated RBC % (auto) (0.0-0.2) /100WBC Sodium (135-145) mmol/L Potassium (3.3-5.1) mmol/L Chloride (96-108) mmol/L Carbon Dioxide (22-29) mmol/L Anion Gap (12-20) BUN (9-16) mg/dL Creatinine (0.5-1.4) mg/dL Estim Creat Clear Calc Estimated GFR Random Glucose (60-115) mg/dL Calcium (8.4-10.2) mg/dL Troponin I High Sens 4.4 (<3.5-35.0) ng/L Imaging Data CT scan - abdomen: Radiologist's impression: [address] [address] [address] Scan Report Signed Patient: Janusz Hartman MR#: [id number] : 1950 Acct:[id number] Age/Sex: 70 / M ADM Date: 09/08/21 Loc: HO.ED Attending Dr: Ordering Physician: Irvin Paez MD Date of Service: 09/08/21 Procedure(s): CT abdomen pelvis wo con Accession Number(s): [id number] cc: Irvin Paez MD~ EXAMINATION: CT ABDOMEN AND PELVIS WITHOUT CONTRAST? CLINICAL INFORMATION: Question stone.? COMPARISON: Renal ultrasound 03/04/2020 CT abdomen 02/15/2015? TECHNIQUE: Multidetector volumetric imaging was performed from the superior aspect of the liver through the pubic symphysis. Sagittal and coronal reformatted images were obtained on the technologist's workstation.? This CT examination was performed using dose optimization techniques as appropriate, variously including the following: *Automated exposure control *Adjustment of mA and/or kV according to patient size (this includes techniques or standardized protocols for targeted exams where dose is matched to indication/reason for exam; i.e. extremities or head) *Use of iterative reconstruction technique DLP: 529 mGy-cm FINDINGS: LUNG BASES: Mild bibasilar dependent changes.? LIVER, GALLBLADDER, AND BILIARY TREE: The liver is normal in size, shape, and attenuation. No focal hepatic lesion or biliary ductal dilatation is present. The gallbladder is unremarkable with no evidence of radiopaque gallstones, gallbladder wall thickening, or obvious pericholecystic inflammatory changes.? PANCREAS: Unremarkable.? SPLEEN: Unremarkable.? ADRENAL GLANDS: Unremarkable.? KIDNEYS AND URETERS: The kidneys are normal in size, shape, and attenuation. No hydronephrosis, hydroureter, or calculi seen. No perinephric stranding. ? BLADDER: Unremarkable.? GASTROINTESTINAL TRACT: Small hiatal hernia. Stomach is nondistended. No dilated small bowel loops. Nonobstructive bowel gas pattern. No colonic wall thickening or pericolonic inflammatory changes. Moderate stool in the colon. The appendix contains air, without surrounding inflammatory changes. Redemonstrated is chronic haziness in the mesentery consistent with mesenteric panniculitis, and small mesenteric lymph nodes, overall stable from previous. No free fluid or free air.? ABDOMINAL WALL: Small fat-containing umbilical hernia. Postsurgical changes from left inguinal repair.? LYMPH NODES: No bulky adenopathy is identified in the abdomen or pelvis. VASCULAR: Atherosclerotic vascular calcification. No aortic aneurysmal dilatation. PELVIC VISCERA: Within normal limits.? OSSEOUS STRUCTURES: No acute or suspicious osseous abnormality seen.? CT/CT abdomen pelvis wo con IMPRESSION: ? 1. No radiodense renal or ureteral calculi identified. No hydronephrosis. ? 2. Chronic mesenteric panniculitis, with the appearance similar to the prior CT of 02/15/2015. ? 3. No CT evidence of acute intra-abdominal process is compared to prior CT of 02/15/2015.. ? ? Fleischner guidelines were followed. ECG Data ECG #1: Pacemaker model: electrocardiogram shows a normal sinus rhythm rate [address]-T changes Discharge Plan Discharge Clinical Impression: Chest pain, Back pain Patient Disposition: Home, Self-Care Instructions: Chest Pain (DC), Back Pain (ED) Additional Instructions: follow-up with your primary care physician, return to emergency room if you worse any concern Prescriptions: No Action tamsulosin 0.4 mg capsule 0.4 mg PO DAILY 90 Days Qty: 90 3RF metoprolol succinate 25 mg tablet extended release 24 hr 25 mg PO DAILY Qty: 90 3RF flecainide 50 mg tablet 50 mg PO BID Qty: 180 2RF atorvastatin 40 mg tablet 40 mg PO DAILY 90 Days Qty: 90 1RF ezetimibe [Zetia] 10 mg tablet 10 mg PO DAILY 90 Days Qty: 90 1RF omeprazole 20 mg capsule,delayed release(DR/EC) 20 mg PO DAILY Qty: 90 2RF lorazepam 0.5 mg tablet 0.5 mg PO DAILY 90 Days Qty: 90 1RF Xarelto 20 mg tablet 20 mg PO DAILY Qty: 90 3RF (DME) BATH BENCH WITH BACK See Rx Instructions .Route .MEDSUPPLY Qty: 1 0RF Rx Instructions: As directed (DME) HANDHELD SHOWER HEAD See Rx Instructions .Route .MEDSUPPLY Qty: 1 0RF Rx Instructions: As directed (DME) LOCKING RAISED TOILET SEAT with ARMS See Rx Instructions .Route .MEDSUPPLY Qty: 1 0RF Rx Instructions: As directed (DME) blood pressure monitor [Blood Pressure Kit] Kit See Rx Instructions .ROUTE .MEDSUPPLY Qty: 1 0RF Rx Instructions: As directed cyclobenzaprine 10 mg tablet 10 mg PO Q8H PRN (Reason: Muscle spasm) Qty: 14 0RF acetaminophen [Tylenol Extra Strength] 500 mg tablet 1,000 mg PO Q6H PRN (Reason: pain) Qty: 14 0RF meclizine 25 mg tablet 50 mg PO DAILY PRN (Reason: dizziness) Qty: 20 0RF Interventions: ED Discharge Assessment Last Done: 09/08/21 22:29 Discharge Date/Time: 09/08/21 22:30
[2021-09-08 20:47] LABS: Troponin-I High Sensitivity 4.4 ng/L (<3.5-35.0)
--- NOTE | 2021-09-08 20:59 | PC.NURSE ---
assumed care of pt at 1900
[2021-09-08 22:19] VITALS: BP 108/58; PULSE 53; RESP 16; TEMP 36.4; O2SAT 95
== END 2021-09-08 22:30 | disposition home or self-care (01) ==
PROVIDERS: Emergency Provider Emergency Medicine; PCP Internal Medicine
DX: R07.89 Other chest pain (principal); M54.50 Low back pain, unspecified; Z79.899 Other long term (current) drug therapy
CPT/HCPCS: 36415; 71045; 74176; 80048; 84484; 85025; 93005; 99284

== ENCOUNTER 2021-09-30 07:46 | Outpatient (REF) | payer OTHER, SELFPAY ==
[2021-09-30 09:20] LABS: Prostate Specific Antigen 1.52 ng/mL (<0.05-4.0)
== END 2021-09-30 07:47 | disposition home or self-care (01) ==
LOC: HO.LAB 07:46
PROVIDERS: Urology; PCP Internal Medicine; Visit Provider Internal Medicine Cardiovascular Disease
DX: N40.1 Benign prostatic hyperplasia with lower urinary tract symptoms (principal); N13.8 Other obstructive and reflux uropathy; R35.0 Frequency of micturition; Z12.5 Encounter for screening for malignant neoplasm of prostate
CPT/HCPCS: 36415; 84153

== ENCOUNTER 2021-10-06 05:10 | Emergency (ER) | payer OTHER, SELFPAY ==
--- NOTE | ~2021-10-06 | CT_ITS ---
CT ANGIOGRAM NECK WITH CONTRAST CT ANGIOGRAM BRAIN WITH CONTRAST CLINICAL INFORMATION: Left-sided weakness. Dizziness. COMPARISON: Head CT 10/06/2021. TECHNIQUE: Test bolus sequences followed by intravenous administration 70 mL of Omnipaque 350. Helical imaging was performed in the axial plane from the thoracic inlet to the skull vertex. Delayed postcontrast imaging of the head was also performed. The data was processed at the agricultural research technologist workstation for generation of MIP sequences. Angled MIPs and volume rendered reformatted images were also generated at an offline 3D workstation under concurrent supervision. Stenoses are assessed in accordance with NASCET criteria unless otherwise indicated. This CT examination was performed using dose optimization techniques as appropriate, variously including the following: *Automated exposure control *Adjustment of mA and/or kV according to patient size (this includes techniques or standardized protocols for targeted exams where dose is matched to indication/reason for exam; i.e. extremities or head) *Use of iterative reconstruction technique FINDINGS: BRAIN: There is mild chronic microangiopathy. [There is no intracranial hemorrhage, hydrocephalus, extra-axial surface collection, midline shift, or other herniation pattern. Ramirez to white matter differentiation is diffusely maintained without evidence of an evolved acute territorial infarct. The basilar cisterns are preserved. No significant soft tissue abnormality. No acute osseous abnormality. The paranasal sinuses and the mastoid air cells are well aerated.] CERVICAL SOFT TISSUES AND LUNG APICES: Imaged upper lungs are clear. No significant soft tissue findings within the neck. There is multilevel cervical spondylosis. NECK CTA: [There is a classic 3 vessel configuration of the aortic arch. Atherosclerotic disease results in mild luminal narrowing of the proximal right subclavian artery. The vertebral arteries are codominant. No significant ostial stenosis is visualized on either side. Both vertebral arteries are widely patent throughout their extracranial cervical course. Both common carotid arteries are normal in course and caliber.] Atherosclerotic calcification results in less than 50% stenoses of the proximal internal carotid arteries bilaterally. BRAIN CTA: [There is normal opacification of major intracranial arteries. No focal flow-limiting stenosis nor discrete proximal large artery occlusion. There is nodular prominence of the origin of an azygos anterior cerebral artery off of the A1 JAS segments bilaterally which can be followed with a diagnostic cerebral angiogram to exclude an aneurysm in this location. Timing of the contrast bolus allows assessment of the major dural venous sinuses, which all opacify normally] CT/CT angio head neck IMPRESSION: - There are no acute intracranial findings. Mild chronic microangiopathy. - No significant arterial stenoses and no acute arterial occlusions within the head or neck. - There is nodular prominence of the origin of an azygos anterior cerebral artery off of the A1 JAS segments bilaterally which can be followed with a diagnostic cerebral angiogram to exclude an aneurysm in this location.
--- NOTE | ~2021-10-06 | CT_ITS ---
EXAMINATION: CT HEAD WITHOUT CONTRAST CLINICAL INFORMATION: Dizziness. COMPARISON: Most recent CT head dated 08/05/2021. TECHNIQUE: Contiguous axial imaging was performed from the skull base to vertex without intravenous administration of contrast. This CT examination was performed using dose optimization techniques as appropriate, variously including the following: *Automated exposure control *Adjustment of mA and/or kV according to patient size (this includes techniques or standardized protocols for targeted exams where dose is matched to indication/reason for exam; i.e. extremities or head) *Use of iterative reconstruction technique DLP: 729 mGy-cm FINDINGS: There is no evidence of acute intracranial hemorrhage or territorial infarction. No abnormal mass effect or midline shift is seen. Ramirez to white matter differentiation is well preserved. No extra-axial fluid collections are identified. The ventricles are normal in size. There is no abnormal attenuation within the brain parenchyma. The osseous structures and soft tissues are normal. The mastoid air cells and visualized portions of the paranasal sinuses are well aerated. CT/CT head/brain wo con IMPRESSION: No acute intracranial hemorrhage or mass effect.
--- NOTE | 2021-10-06 05:35 | ECG_ITS ---
Test Reason : DIZZY Blood Pressure : / mmHG Vent. Rate : 055 BPM Atrial Rate : 055 BPM P-R Int : 174 ms QRS Dur : 100 ms QT Int : 416 ms P-R-T Axes : 019 063 062 degrees QTc Int : 397 ms Sinus bradycardia Otherwise normal ECG When compared with ECG of 08-SEP-2021 15:25, No significant change was found Referred By: Generic ED Physician Electronically Signed By:GIL RAMIREZ
[2021-10-06 05:38] VITALS: BP 140/82; PULSE 59; RESP 18; TEMP 36.8; O2SAT 95; BMI 24.7
[2021-10-06 05:44] LABS: MANUAL DIFF FLAG NO
[2021-10-06 05:45] LABS: Basophils Absolute Auto 0.1 X10*3/uL (0.0-0.2); Eosinophils Absolute Auto 0.3 X10*3/uL (0.0-0.4); Eosinophils Percent Auto 4.9 % (0-4); Hematocrit 37.3 % (42.0-52.0); Hemoglobin 12.5 g/dl (14.0-18.0); Lymphocytes Absolute Auto 2.3 X10*3/uL (1.2-4.9); Lymphocytes Percent Auto 40.1 % (20-40); Mean Corpuscular HGB Conc 33.5 g/dl (31.0-36.0); Mean Corpuscular Hemoglobin 30.3 pg (27.0-33.0); Mean Corpuscular Volume 90.3 fL (80.0-98.0); Mean Platelet Volume 10.3 fL (9.4-12.4); Monocytes Absolute Auto 0.4 X10*3/uL (0.1-1.2); Monocytes Percent Auto 7.1 % (2-11); Neutrophils Absolute Auto 2.7 x10*3/uL (2.0-8.3); Neutrophils Percent Auto 46.9 % (45-73); Platelet Count 180 X10*3/uL (160-400); Red Blood Count 4.13 X10*6/uL (4.60-5.80); Red Cell Distribution Width 13.2 % (11.0-16.0); White Blood Count 5.8 X10*3/uL (4.8-10.8)
[2021-10-06 06:05] LABS: Troponin-I High Sensitivity < 3.5 ng/L (<3.5-35.0)
[2021-10-06 06:18] LABS: Alanine Aminotransferase 13 U/L (0-40); Albumin Level 4.1 g/dL (3.5-5.0); Alkaline Phosphatase 62 U/L (39-117); Anion Gap 13 (12-20); Aspartate Amino Transferase 15 U/L (5-37); Blood Urea Nitrogen 12 mg/dL (9-16); Calcium 9.1 mg/dL (8.4-10.2); Carbon Dioxide 24 mmol/L (22-29); Chloride 109 mmol/L (96-108); Creatinine Clr Calc Pharmacy 86.4; Estimated Glomerular Filt Rate > 60; Glucose Random 91 mg/dL (60-115); Potassium 3.8 mmol/L (3.3-5.1); Sodium 142 mmol/L (135-145); Total Protein 6.2 g/dL (6.5-8.0)
--- NOTE | 2021-10-06 06:55 | ED.GENADULT ---
HPI - General Adult General Chief complaint: Dizziness Stated complaint: pain inside the ear and eye, feel weak, dizzy Time Seen by Provider: 10/06/21 06:54 Source: patient and old records reviewed Mode of arrival: ambulatory Limitations: no limitations History of Present Illness HPI narrative: 70 yo male with hx of CAD, chronic neck pain, anxiety, CVA, PAF on xarelto, HTN, GERD, HLD, BPH comes in with c/o waking up at 5am today and feeling like his left side was weak and tingly this lasted 45 minutes. He also notes for weeks he has felt dizzy when he gets up. He has no symptoms now. He was seen for this recently MD complaint: weakness Onset (ago): hour(s) (5am today ) Location: left, upper extremity and lower extremity Radiation: non-radiation Severity: mild Quality: other (dull) Pain Consistency: now resolved Relieving factors: none Exacerbating factors: none Associated symptoms: other (chronic intermittent dizziness when he gets up too fast) Treatments prior to arrival: none Related Data Previous Rx's Medication Instructions Recorded tamsulosin 0.4 mg capsule 0.4 mg PO DAILY 90 days #90 caps 11/12/20 metoprolol succinate 25 mg 25 mg PO DAILY #90 tabs 02/07/21 tablet,extended release 24 hr flecainide 50 mg tablet 50 mg PO BID #180 caps 03/11/21 atorvastatin 40 mg tablet 40 mg PO DAILY 90 days #90 tabs 04/25/21 ezetimibe 10 mg tablet (Zetia) 10 mg PO DAILY 90 days #90 tabs 05/06/21 omeprazole 20 mg capsule,delayed 20 mg PO DAILY #90 caps 05/30/21 release lorazepam 0.5 mg tablet 0.5 mg PO DAILY 90 days #90 tabs 07/01/21 rivaroxaban 20 mg tablet (Xarelto) 20 mg PO DAILY #90 tabs 07/18/21 acetaminophen 500 mg tablet 1,000 mg PO Q6H PRN pain #14 tabs 08/05/21 (Tylenol Extra Strength) cyclobenzaprine 10 mg tablet 10 mg PO Q8H PRN Muscle spasm #14 08/05/21 tabs meclizine 25 mg tablet 50 mg PO DAILY PRN dizziness #20 08/05/21 tabs BATH BENCH WITH BACK #1 ea 08/31/21 HANDHELD SHOWER HEAD #1 ea 08/31/21 LOCKING RAISED TOILET SEAT with #1 ea 08/31/21 ARMS blood pressure monitor (Blood #1 ea 08/31/21 Pressure Kit) Allergies Allergy/AdvReac Type Severity Reaction Status Date / Time almond [ALMOND] Allergy Unknown SWELLING Verified 08/24/21 08:43 Review of Systems Review of Systems: Constitutional : No Weight loss, No Fever, No Chills, No Fatigue, No Malaise ENT/Mouth : No sore throat, No Rhinorrhea Eyes: No Eye Pain, No Swelling, No Redness Cardiovascular : No Chest Pain, No SOB, No Dyspnea on Exertion, No Orthopnea, No Edema, No Palpitations Respiratory : No Cough, No Sputum, No Wheezing Gastrointestinal : No Nausea, No Vomiting, No Diarrhea, No Constipation, No abdominal Pain, No Hematochezia, No Melena Genitourinary : No Dysuria, No Urinary Frequency, No Hematuria, Musculoskeletal : No joint pain, No Myalgias, No Joint Swelling Skin : No Skin Lesions, No rash Neuro : pos Weakness, No Numbness, pos Dizziness, No Headache Psych : No Anxiety/Panic, No Depression Heme/Lymph: No Bruising, No Bleeding,No Lymphadenopathy Endocrine : No Polyuria, No Polydipsia All other systems reviewed and are negative PMFSH Past Medical History Attestation statement: The following information was validated with the patient. Medical History Alcohol abuse Anxiety and depression Blind right eye BPH (benign prostatic hyperplasia) CAD (coronary artery disease) Degenerative disc disease, cervical GERD (gastroesophageal reflux disease) History of adenomatous polyp of colon Hypercholesterolemia Hypertension Left renal stone Lesion of bladder Lower back pain Paroxysmal atrial fibrillation Pulmonary nodule Renal cyst Sensorineural hearing loss Thoracic spondylosis Tubular adenoma of colon Surgical History History of inguinal hernia repair Hx of cataract surgery Family History Family History Father Medical history unknown Mother Medical history unknown Brother No problems noted. Son No problems noted. Son No problems noted. Social History Social History Household Members: Significant Other Household Members Other:: Housing: Apartment Do you presently have visiting nurse or other home services: No Alcohol intake: never Patient Tobacco Use Status: Former Tobacco user Years Smoked: 2015 quit e-Cigarette/Vaping Use: Never Used Second Hand Smoke Exposure: No Advance Directives: No Advance Directives Information Provided: No Advance Directives Date on File: 07/05/20 service: No Current occupational status: disabled Cognitive needs: No Hearing needs: No Vision needs: Yes Physical Exam ED Vital Signs: Vital Signs - 24 hr 10/06/21 05:38 10/06/21 08:53 10/06/21 09:28 Temperature 98.3 F 97.8 F Pulse Rate 59 49 L 53 Respiratory Rate 18 14 16 Blood Pressure 140/82 H 135/68 134/68 Pulse Oximetry 95 98 98 Oxygen Delivery Method Room Air Room Air Room Air BMI result Body Mass Index 24.7 Appearance: Alert. Oriented X3. No acute distress. Eyes: Pupils equal, round and reactive to light. R eye opacified ENT: Pharynx normal. Neck: Normal inspection. Neck supple. CVS: Normal heart rate and rhythm. Pulses normal. Respiratory: No respiratory distress. Breath sounds normal. Abdomen: Soft and nontender. Skin: Skin warm and dry. Normal skin color. Normal skin turgor. Extremities: No lower extremity edema. No calf ttp Neuro: Oriented X 3. No motor deficit. No sensory deficit. NIH Stroke Scale Internal: Initial- Upon Arrival Level of Consciousness: Alert Level of Consciousness Questions: Answers both questions correctly Level of Consciousness Commands: Performs both tasks correctly Best Gaze: Normal Visual: No visual loss Facial Palsy: Normal Motor Arm (Right): No drift Motor Arm (Left): No drift Motor Leg (Right): No drift Motor Leg (Left): No drift Limb Ataxia: Absent Sensory: Normal Best Language: No aphasia Dysarthia: Normal Extinction and Inattention: No abnormality Score: 0 Course Course Course Narrative: CT head negative given symptoms will obtain CTA no acute findings, symptoms resolved already on DOAC can be DC home with Neurology follow up for possible aneurysm Medical Decision Making MDM Narrative Medical decision making narrative: 70 yo male with hx of CAD, chronic neck pain, anxiety, CVA, PAF on xarelto, HTN, GERD, HLD, BPH comes in with resolved episode of feeling his L side was weak his NIH score is 0 and he is on a DOAC so not a candidate for tPa. He also states this has happened before. At this time will obtain labs, EKG, troponin x 1, CT head. Possible head CTA/neck. Dispo per results and findings. Could be TIA he is on DOAC already. Lab Data Result diagrams: 10/06/21 05:31 10/06/21 05:31 Labs: Lab Results 10/06/21 10/06/21 10/06/21 Range/Units 05:31 05:31 05:31 WBC 5.8 (4.8-10.8) X10*3/uL RBC 4.13 L (4.60-5.80) X10*6/uL Hgb 12.5 L (14.0-18.0) g/dl Hct 37.3 L (42.0-52.0) % MCV 90.3 (80.0-98.0) fL MCH 30.3 (27.0-33.0) pg MCHC 33.5 (31.0-36.0) g/dl RDW 13.2 (11.0-16.0) % Plt Count 180 (160-400) X10*3/uL MPV 10.3 (9.4-12.4) fL Immature Gran % (Auto) 0.0 (0.0-0.4) % Neut % (Auto) 46.9 (45-73) % Lymph % (Auto) 40.1 H (20-40) % Delta % (Auto) 7.1 (2-11) % Eos % (Auto) 4.9 H (0-4) % Baso % (Auto) 1.0 (0-2) % Lymph # (Auto) 2.3 (1.2-4.9) X10*3/uL Delta # (Auto) 0.4 (0.1-1.2) X10*3/uL Eos # (Auto) 0.3 (0.0-0.4) X10*3/uL Baso # (Auto) 0.1 (0.0-0.2) X10*3/uL Abs Immat Gran (auto) 0.00 (0.00-0.03) X10*3/uL Absolute Neuts (auto) 2.7 (2.0-8.3) x10*3/uL Absolute Nucleated RBC 0.000 (0.0-0.012) X10*3/uL Nucleated RBC % (auto) 0.0 (0.0-0.2) /100WBC Sodium 142 (135-145) mmol/L Potassium 3.8 (3.3-5.1) mmol/L Chloride 109 H (96-108) mmol/L Carbon Dioxide 24 (22-29) mmol/L Anion Gap 13 (12-20) BUN 12 (9-16) mg/dL Creatinine 0.86 (0.5-1.4) mg/dL Estim Creat Clear Calc 86.4 Estimated GFR > 60 Random Glucose 91 (60-115) mg/dL Calcium 9.1 (8.4-10.2) mg/dL Total Bilirubin 1.0 (0.0-1.0) mg/dL AST 15 (5-37) U/L ALT 13 (0-40) U/L Alkaline Phosphatase 62 (39-117) U/L Troponin I High Sens < 3.5 (<3.5-35.0) ng/L Total Protein 6.2 L (6.5-8.0) g/dL Albumin 4.1 (3.5-5.0) g/dL ECG Data Attestation: I personally reviewed and interpreted this ECG as follows: Interpretation: Rate: 55 Rhythm: sinus bradycardia [place]: normal Normal P waves. Normal CESIA. Normal QRS complex. ST T wave : normal no MARIELA qTC: normal prior studies: no acute ischemia no change from prior The study has been interpreted contemporaneously by me. . Discharge Plan Discharge Clinical Impression: Dizziness, Weakness Patient Disposition: Home, Self-Care Instructions: Weakness (ED), Dizziness (ED) Additional Instructions: return to ED for any worsening symptoms or concerns la tomograf?a computarizada fue normal, aparte de un posible aneurisma stan?o que debe seguirse, consulte a brock m?dico de atenci?n primaria y neur?logo Prescriptions: No Action tamsulosin 0.4 mg capsule 0.4 mg PO DAILY 90 Days Qty: 90 3RF metoprolol succinate 25 mg tablet extended release 24 hr 25 mg PO DAILY Qty: 90 3RF flecainide 50 mg tablet 50 mg PO BID Qty: 180 2RF atorvastatin 40 mg tablet 40 mg PO DAILY 90 Days Qty: 90 1RF ezetimibe [Zetia] 10 mg tablet 10 mg PO DAILY 90 Days Qty: 90 1RF omeprazole 20 mg capsule,delayed release(DR/EC) 20 mg PO DAILY Qty: 90 2RF lorazepam 0.5 mg tablet 0.5 mg PO DAILY 90 Days Qty: 90 1RF Xarelto 20 mg tablet 20 mg PO DAILY Qty: 90 3RF (DME) BATH BENCH WITH BACK See Rx Instructions .Route .MEDSUPPLY Qty: 1 0RF Rx Instructions: As directed (DME) HANDHELD SHOWER HEAD See Rx Instructions .Route .MEDSUPPLY Qty: 1 0RF Rx Instructions: As directed (DME) LOCKING RAISED TOILET SEAT with ARMS See Rx Instructions .Route .MEDSUPPLY Qty: 1 0RF Rx Instructions: As directed (DME) blood pressure monitor [Blood Pressure Kit] Kit See Rx Instructions .ROUTE .MEDSUPPLY Qty: 1 0RF Rx Instructions: As directed cyclobenzaprine 10 mg tablet 10 mg PO Q8H PRN (Reason: Muscle spasm) Qty: 14 0RF acetaminophen [Tylenol Extra Strength] 500 mg tablet 1,000 mg PO Q6H PRN (Reason: pain) Qty: 14 0RF meclizine 25 mg tablet 50 mg PO DAILY PRN (Reason: dizziness) Qty: 20 0RF Referrals: Raul,Yvonne Gold MD [Primary Care Provider] - 1 week
[2021-10-06] MEDS: iohexoL 350 MG/ML 100 ML INFUS..BTL 70 ML IV (08:45)
[2021-10-06 08:53] VITALS: BP 135/68; PULSE 49; RESP 14; TEMP 36.6; O2SAT 98
[2021-10-06 09:28] VITALS: BP 134/68; PULSE 53; RESP 16; O2SAT 98
== END 2021-10-06 10:18 | disposition home or self-care (01) ==
PROVIDERS: Emergency Provider Emergency Medicine; PCP Internal Medicine
DX: R42 Dizziness and giddiness (principal); R53.1 Weakness; I10 Essential (primary) hypertension; E78.5 Hyperlipidemia, unspecified; I48.0 Paroxysmal atrial fibrillation; E78.00 Pure hypercholesterolemia, unspecified; Z79.01 Long term (current) use of anticoagulants; Z79.02 Long term (current) use of antithrombotics/antiplatelets; Z79.899 Other long term (current) drug therapy; Z87.891 Personal history of nicotine dependence
CPT/HCPCS: 36415; 70450; 70496; 70498; 80053; 84484; 85025; 93005; 99284; Q9967

== ENCOUNTER 2021-10-26 02:33 | Emergency (ER) | payer OTHER, SELFPAY ==
--- NOTE | ~2021-10-26 | CT_ITS ---
EXAMINATION: CT HEAD WITHOUT CONTRAST CLINICAL INFORMATION: Headache. Left arm numbness. COMPARISON: 10/06/2021 TECHNIQUE: Contiguous axial imaging was performed from the skull base to vertex without intravenous administration of contrast. This CT examination was performed using dose optimization techniques as appropriate, variously including the following: *Automated exposure control *Adjustment of mA and/or kV according to patient size (this includes techniques or standardized protocols for targeted exams where dose is matched to indication/reason for exam; i.e. extremities or head) *Use of iterative reconstruction technique DLP: 780 mGy-cm FINDINGS: There is no evidence of acute intracranial hemorrhage or territorial infarction. No abnormal mass effect or midline shift is seen. Ramirez to white matter differentiation is well preserved. No extra-axial fluid collections are identified. Mild patchy subcortical and periventricular white matter low-attenuation changes redemonstrated, related to chronic white matter small vessel ischemic disease. Cavernous carotid calcifications. The ventricles are normal in size. The osseous structures and soft tissues are normal. The mastoid air cells and visualized portions of the paranasal sinuses are well-aerated. CT/CT head/brain wo IV con IMPRESSION: No acute intracranial pathology.
--- NOTE | ~2021-10-26 | XR_ITS ---
EXAMINATION: XR CHEST CLINICAL INFORMATION: Chest pain COMPARISON: 09/08/2021 TECHNIQUE: Frontal view of the chest was obtained. FINDINGS: Normal symmetric lung volumes. No parenchymal consolidation. No pleural effusion. No pneumothorax. Cardiomediastinal silhouette and pulmonary vascularity are within normal limits. Aorta is atherosclerotic. No acute osseous abnormalities. XR/XR chest 1V IMPRESSION: No acute findings.
[2021-10-26 02:42] VITALS: BP 148/74; PULSE 59; RESP 18; TEMP 36.7; O2SAT 97; BMI 23.8
--- NOTE | 2021-10-26 02:49 | ECG_ITS ---
Test Reason : cp Blood Pressure : / mmHG Vent. Rate : 054 BPM Atrial Rate : 054 BPM P-R Int : 168 ms QRS Dur : 102 ms QT Int : 412 ms P-R-T Axes : 001 053 060 degrees QTc Int : 390 ms Sinus bradycardia with occasional Premature ventricular complexes Otherwise normal ECG When compared with ECG of 06-OCT-2021 05:24, Premature ventricular complexes are now Present Referred By: Generic ED Physician Electronically Signed By:DEANNE BAILEY
[2021-10-26] MEDS: Ketorolac Tromethamine 15 MG/ML VIAL 30 MG IVPUSH (03:52)
[2021-10-26] MEDS: ondansetron HCL 4 MG/2 ML VIAL IVPUSH (03:52)
[2021-10-26 03:55] LABS: Basophils Absolute Auto 0.1 X10*3/uL (0.0-0.2); Basophils Percent Auto 1.1 % (0-2); Eosinophils Absolute Auto 0.3 X10*3/uL (0.0-0.4); Eosinophils Percent Auto 4.4 % (0-4); Hematocrit 36.5 % (42.0-52.0); Hemoglobin 12.1 g/dl (14.0-18.0); Imm Gran Abs Auto 0.01 X10*3/uL (0.00-0.03); Imm Gran Pct Auto 0.2 % (0.0-0.4); Lymphocytes Absolute Auto 2.1 X10*3/uL (1.2-4.9); MANUAL DIFF FLAG NO; Mean Corpuscular HGB Conc 33.2 g/dl (31.0-36.0); Mean Corpuscular Hemoglobin 30.2 pg (27.0-33.0); Mean Platelet Volume 10.3 fL (9.4-12.4); Monocytes Absolute Auto 0.5 X10*3/uL (0.1-1.2); Monocytes Percent Auto 7.8 % (2-11); Neutrophils Absolute Auto 3.2 x10*3/uL (2.0-8.3); Neutrophils Percent Auto 52.5 % (45-73); Platelet Count 169 X10*3/uL (160-400); Red Blood Count 4.01 X10*6/uL (4.60-5.80); Red Cell Distribution Width 13.2 % (11.0-16.0); White Blood Count 6.2 X10*3/uL (4.8-10.8)
[2021-10-26 04:01] LABS: INTERNATIONAL NORM RATIO 2.1 (0.9-1.1); Prothrombin Time 25.4 SEC (10.0-13.1)
[2021-10-26 04:04] LABS: Partial Thromboplastin Time 44.7 SEC (26.0-36.4)
[2021-10-26 04:15] VITALS: BP 134/63; PULSE 49; RESP 18; O2SAT 96
[2021-10-26 04:15] LABS: Troponin-I High Sensitivity < 3.5 ng/L (<3.5-35.0)
[2021-10-26 04:18] LABS: COVID-19 Test Negative (Negative)
[2021-10-26 04:24] LABS: Alanine Aminotransferase 13 U/L (0-40); Albumin Level 3.9 g/dL (3.5-5.0); Alkaline Phosphatase 67 U/L (39-117); Anion Gap 14 (12-20); Aspartate Amino Transferase 15 U/L (5-37); Bilirubin Total 0.8 mg/dL (0.0-1.0); Blood Urea Nitrogen 12 mg/dL (9-16); Calcium 8.9 mg/dL (8.4-10.2); Carbon Dioxide 25 mmol/L (22-29); Chloride 109 mmol/L (96-108); Estimated Glomerular Filt Rate > 60; Glucose Random 103 mg/dL (60-115); Lipase 68 U/L (8-78); Potassium 3.6 mmol/L (3.3-5.1); Sodium 144 mmol/L (135-145); Total Protein 6.1 g/dL (6.5-8.0)
--- NOTE | 2021-10-26 04:38 | ED.NECK ---
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 Patient states he has had similar symptoms for months he has been seen here in the emergency department several times for similar complaint. In reviewing the patient's record he was seen on 08/05/2021 with similar complaints, had a CT scan of the head and cervical spine which was unremarkable, he was diagnosed with cervical muscle strain and vertigo. During that visit he reported that his symptoms had started 3 or 4 months prior to that evaluation. Patient states that yesterday around 19:00 hours he developed a squeezing pressure-like pain in his head and neck. He also had numbness in his left arm and felt his heart beating irregularly and strongly. He states that he also felt off balance when he was walking. Patient states that the pain in his neck got progressively worse. He points to his trapezius muscles bilaterally when asked to localize the pain. The pain was 8/10 at its worst. Initially he did have some numbness in his left arm but this resolved. He denied weakness of his extremities. The patient also is complaining of pain on his left lower abdomen that he states he has had for years, he states that he had a hernia in this area and after the repair his pain is never improved. He denied fever, chills, rhinorrhea, sore throat, dysuria. He has noted some urinary frequency. States that he had 2 episodes of diarrhea yesterday. Related Data Previous Rx's Medication Instructions Recorded tamsulosin 0.4 mg capsule 0.4 mg PO DAILY 90 days #90 caps 11/12/20 metoprolol succinate 25 mg 25 mg PO DAILY #90 tabs 02/07/21 tablet,extended release 24 hr flecainide 50 mg tablet 50 mg PO BID #180 caps 03/11/21 ezetimibe 10 mg tablet (Zetia) 10 mg PO DAILY 90 days #90 tabs 05/06/21 omeprazole 20 mg capsule,delayed 20 mg PO DAILY #90 caps 05/30/21 release lorazepam 0.5 mg tablet 0.5 mg PO DAILY 90 days #90 tabs 07/01/21 rivaroxaban 20 mg tablet (Xarelto) 20 mg PO DAILY #90 tabs 07/18/21 acetaminophen 500 mg tablet 1,000 mg PO Q6H PRN pain #14 tabs 08/05/21 (Tylenol Extra Strength) meclizine 25 mg tablet 50 mg PO DAILY PRN dizziness #20 08/05/21 tabs BATH BENCH WITH BACK #1 ea 08/31/21 HANDHELD SHOWER HEAD #1 ea 08/31/21 LOCKING RAISED TOILET SEAT with #1 ea 08/31/21 ARMS blood pressure monitor (Blood #1 ea 08/31/21 Pressure Kit) atorvastatin 40 mg tablet 40 mg PO DAILY 90 days #90 tabs 10/14/21 cyclobenzaprine 10 mg tablet 10 mg PO Q8H PRN Muscle spasm #14 10/14/21 tabs cyclobenzaprine 10 mg tablet 10 mg PO TID PRN pain, muscle 10/26/21 spasm #15 tabs Allergies Allergy/AdvReac Type Severity Reaction Status Date / Time almond [ALMOND] Allergy Unknown SWELLING Verified 10/26/21 02:42 Review of Systems Review of Systems: Yes all other systems are reviewed and are negative [facility] Past Medical History [facility] Narrative: Social history: He denies tobacco, alcohol and drug use. Medical History Alcohol abuse Anxiety and depression Blind right eye BPH (benign prostatic hyperplasia) CAD (coronary artery disease) Degenerative disc disease, cervical GERD (gastroesophageal reflux disease) History of adenomatous polyp of colon Hypercholesterolemia Hypertension Left renal stone Lesion of bladder Lower back pain Paroxysmal atrial fibrillation Pulmonary nodule Renal cyst Sensorineural hearing loss Thoracic spondylosis Tubular adenoma of colon Surgical History History of inguinal hernia repair Hx of cataract surgery Family History Family History Father Medical history unknown Mother Medical history unknown Brother No problems noted. Son No problems noted. Son No problems noted. Social History Social History Household Members: Significant Other Household Members Other:: Housing: Apartment Do you presently have visiting nurse or other home services: No Alcohol intake: never Patient Tobacco Use Status: Former Tobacco user Years Smoked: 2015 quit e-Cigarette/Vaping Use: Never Used Second Hand Smoke Exposure: No Advance Directives: No Advance Directives Information Provided: No Advance Directives Date on File: 07/05/20 service: No Current occupational status: disabled Cognitive needs: No Hearing needs: No Vision needs: Yes Physical Exam Vital Signs: Vital Signs: Last Vital Signs Temp 98.1 F 10/26/21 02:42 Pulse 49 L 10/26/21 04:15 Resp 18 10/26/21 04:15 BP 134/63 10/26/21 04:15 Pulse Ox 96 10/26/21 04:15 O2 Del Method 10/26/21 04:15 BMI result Body Mass Index 23.8 Const: General: cooperative and no acute distress Orientation/consciousness: oriented to person and oriented to place Limitations: no limitations HEENT: Head: Yes normal to inspection, Yes normocephalic and Yes atraumatic Ears: external ears normal General nose exam: Normal external nose present Face and sinus: Yes normal facial exam Mouth: Normal oral and palatal mucosa present Throat: Yes posterior oropharynx normal Eyes: Alignment and Position: alignment normal Periorbital: periorbital findings normal Eyelids: Yes eyelids normal Conjunctivae: conjunctivae normal Sclerae: sclerae normal Corneas: corneas abnormal on the right diffuse opacification Pupils: Equal, round and reactive pupils present Neck: Other: No cervical spine tenderness, tenderness palpation of the trapezius muscles bilaterally with spasm of these muscles. Neck: Yes normal visual inspection, Yes no lymphadenopathy, Yes trachea midline and Yes supple Chest: Chest palpation & inspection: normal inspection of the chest and normal palpation of entire chest wall Resp: Effort & Inspection: normal respiratory effort and able to speak in complete sentences Auscultation: clear to auscultation bilaterally Cardio: Rate: regular rate Rhythm: regular rhythm Heart sounds: S1 normal heart sound present, S2 normal heart sound present and no murmurs GI: Inspection: Yes normal to inspection Palpation (GI): Soft to palpation, Tenderness to palpation present (GI) in the LLQ (Moderate tenderness) and no guarding Auscultation: normal bowel sounds : Other: Uncircumcised male penis, testicles are nontender, patient has tenderness with insertion of a finger into the left inguinal canal, there is a slight impulse when the patient coughs with increased pain. No pain with insertion of the finger in the right inguinal canal. General: Yes no CVA tenderness Back/Spine/Pelvis: Back: no CVA tenderness Skin: General skin exam: no rashes or lesions noted Neuro: General: oriented to person and oriented to place Cranial nerves: Yes CN's II-XII intact bilaterally and Yes Equal, round and reactive pupils present Cognition (Neuro): normal cognition Motor exam (neuro): 5/5 motor strength present throughout Extrem: General: Yes normal to inspection Psych: Appearance: grossly normal Speech and movement: Normal speech and movement present Affect: normal affect Attitude: cooperative Thought process: Normal thought process present Thought content: Normal thought content present Course Course Course Narrative: 70-year-old male who presents emergency department for evaluation of gradual onset of headache and bilateral trapezial neck pain which began yesterday at 19:00 hours and got progressively worse. Patient had brief episode of numbness in his left arm which resolved. States that he was feeling off balance but this is a symptom that he has had for several months. He also complained of palpitations. Does have history of atrial fibrillation and he is on Xarelto. Patient's vital signs revealed an elevated blood pressure otherwise were unremarkable. Patient did have tenderness palpation of his trapezius muscles by michael early. I ordered a laboratory evaluation includes CBC, CMP PT/INR, PTT,, troponin, lipase, COVID-[address] scan of the head will also be obtained. Patient treated with Toradol 30 mg IV and Zofran 4 mg IV 0454: Laboratory evaluation: Anemia with an H&H of 12 and 36. Elevated INR 2.1, elevated PTT 44.7. High sensitivity troponin I was below detectable limits. COVID-19 was negative. Radial she chest x-ray was negative. CT scan of the head was unremarkable. Twelve lead EKG revealed a sinus bradycardia with a rate of 50 for and an occasional PVC otherwise was unremarkable. 0533: The patient is feeling better after the above treatment. The patient's neck pain is most likely caused by musculoskeletal inflammation spasm. Patient started on cyclobenzaprine 5 mg 3 times a day as needed for spasm, was also advised to take Tylenol as needed for pain. The patient states he is having difficulty sleeping he was advised to take melatonin discussed dosing with his pharmacist. His palpitations are most likely caused by PVCs since he is currently in a sinus rhythm. He was given printed and verbal instructions and discharged home. MDM - Neck Pain/Injury Lab Data Result diagrams: 10/26/21 03:49 10/26/21 03:49 Labs: Lab Results 10/26/21 10/26/21 10/26/21 Range/Units 03:49 03:49 03:49 WBC 6.2 (4.8-10.8) X10*3/uL RBC 4.01 L (4.60-5.80) X10*6/uL Hgb 12.1 L (14.0-18.0) g/dl Hct 36.5 L (42.0-52.0) % MCV 91.0 (80.0-98.0) fL MCH 30.2 (27.0-33.0) pg MCHC 33.2 (31.0-36.0) g/dl RDW 13.2 (11.0-16.0) % Plt Count 169 (160-400) X10*3/uL MPV 10.3 (9.4-12.4) fL Immature Gran % (Auto) 0.2 (0.0-0.4) % Neut % (Auto) 52.5 (45-73) % Lymph % (Auto) 34.0 (20-40) % Elmore % (Auto) 7.8 (2-11) % Eos % (Auto) 4.4 H (0-4) % Baso % (Auto) 1.1 (0-2) % Lymph # (Auto) 2.1 (1.2-4.9) X10*3/uL Elmore # (Auto) 0.5 (0.1-1.2) X10*3/uL Eos # (Auto) 0.3 (0.0-0.4) X10*3/uL Baso # (Auto) 0.1 (0.0-0.2) X10*3/uL Abs Immat Gran (auto) 0.01 (0.00-0.03) X10*3/uL Absolute Neuts (auto) 3.2 (2.0-8.3) x10*3/uL Absolute Nucleated RBC 0.000 (0.0-0.012) X10*3/uL Nucleated RBC % (auto) 0.0 (0.0-0.2) /100WBC PT 25.4 H (10.0-13.1) SEC INR 2.1 H (0.9-1.1) APTT 44.7 H (26.0-36.4) SEC Sodium 144 (135-145) mmol/L Potassium 3.6 (3.3-5.1) mmol/L Chloride 109 H (96-108) mmol/L Carbon Dioxide 25 (22-29) mmol/L Anion Gap 14 (12-20) BUN 12 (9-16) mg/dL Creatinine 0.89 (0.5-1.4) mg/dL Estim Creat Clear Calc 86.0 Estimated GFR > 60 Random Glucose 103 (60-115) mg/dL Calcium 8.9 (8.4-10.2) mg/dL Total Bilirubin 0.8 (0.0-1.0) mg/dL AST 15 (5-37) U/L ALT 13 (0-40) U/L Alkaline Phosphatase 67 (39-117) U/L Troponin I High Sens (<3.5-35.0) ng/L Total Protein 6.1 L (6.5-8.0) g/dL Albumin 3.9 (3.5-5.0) g/dL Lipase 68 (8-78) U/L COVID-19 (TYRONE) (Negative) COVID-19 Clin Com 10/26/21 10/26/21 Range/Units 03:49 03:49 WBC (4.8-10.8) X10*3/uL RBC (4.60-5.80) X10*6/uL Hgb (14.0-18.0) g/dl Hct (42.0-52.0) % MCV (80.0-98.0) fL MCH (27.0-33.0) pg MCHC (31.0-36.0) g/dl RDW (11.0-16.0) % Plt Count (160-400) X10*3/uL MPV (9.4-12.4) fL Immature Gran % (Auto) (0.0-0.4) % Neut % (Auto) (45-73) % Lymph % (Auto) (20-40) % Elmore % (Auto) (2-11) % Eos % (Auto) (0-4) % Baso % (Auto) (0-2) % Lymph # (Auto) (1.2-4.9) X10*3/uL Elmore # (Auto) (0.1-1.2) X10*3/uL Eos # (Auto) (0.0-0.4) X10*3/uL Baso # (Auto) (0.0-0.2) X10*3/uL Abs Immat Gran (auto) (0.00-0.03) X10*3/uL Absolute Neuts (auto) (2.0-8.3) x10*3/uL Absolute Nucleated RBC (0.0-0.012) X10*3/uL Nucleated RBC % (auto) (0.0-0.2) /100WBC PT (10.0-13.1) SEC INR (0.9-1.1) APTT (26.0-36.4) SEC Sodium (135-145) mmol/L Potassium (3.3-5.1) mmol/L Chloride (96-108) mmol/L Carbon Dioxide (22-29) mmol/L Anion Gap (12-20) BUN (9-16) mg/dL Creatinine (0.5-1.4) mg/dL Estim Creat Clear Calc Estimated GFR Random Glucose (60-115) mg/dL Calcium (8.4-10.2) mg/dL Total Bilirubin (0.0-1.0) mg/dL AST (5-37) U/L ALT (0-40) U/L Alkaline Phosphatase (39-117) U/L Troponin I High Sens < 3.5 (<3.5-35.0) ng/L Total Protein (6.5-8.0) g/dL Albumin (3.5-5.0) g/dL Lipase (8-78) U/L COVID-19 (TYRONE) Negative (Negative) COVID-19 Clin Com See Note Discharge Plan Discharge Clinical Impression: Acute neck pain, Heart palpitations Patient Disposition: Home, Self-Care Instructions: Heart Palpitations (ED), Hypertension (ED), Acute Neck Pain (ED) Additional Instructions: Your blood work was normal. Your EKG was unremarkable except for an occasional premature ventricular contraction (PVC). PVCs can cause a sensation of a strong heartbeat in this is probably the cause of your palpitations. The CT scan of your head was normal. Take Flexeril (cyclobenzaprine) 10 mg pills, 1 pill every 6-8 hours as needed for pain or spasm. This medication will make you sleepy. Do not drive or work while taking this medication. Take Tylenol (acetaminophen) 500 mg pills, 2 pills every 4 to 6 hours as needed for pain. Take melatonin at night. Ask your pharmacist what strength of melatonin you should take. Check your blood pressures on Mondays, Wednesdays and Fridays, write these blood pressure readings down discuss them with your doctor. You discuss with your doctor what range they want to keep her blood pressure under. A normal blood pressure is usually 120/80 or last however as we get older we sometimes need a higher blood pressure P Follow-up with your doctor in 2 days. Please return to the emergency department if your symptoms get worse or if you develop any symptoms that are concerning to you. Prescriptions: New cyclobenzaprine 10 mg tablet 10 mg PO TID PRN (Reason: pain, muscle spasm) Qty: 15 0RF No Action tamsulosin 0.4 mg capsule 0.4 mg PO DAILY 90 Days Qty: 90 3RF metoprolol succinate 25 mg tablet extended release 24 hr 25 mg PO DAILY Qty: 90 3RF flecainide 50 mg tablet 50 mg PO BID Qty: 180 2RF ezetimibe [Zetia] 10 mg tablet 10 mg PO DAILY 90 Days Qty: 90 1RF omeprazole 20 mg capsule,delayed release(DR/EC) 20 mg PO DAILY Qty: 90 2RF lorazepam 0.5 mg tablet 0.5 mg PO DAILY 90 Days Qty: 90 1RF Xarelto 20 mg tablet 20 mg PO DAILY Qty: 90 3RF (DME) BATH BENCH WITH BACK See Rx Instructions .Route .MEDSUPPLY Qty: 1 0RF Rx Instructions: As directed (DME) HANDHELD SHOWER HEAD See Rx Instructions .Route .MEDSUPPLY Qty: 1 0RF Rx Instructions: As directed (DME) LOCKING RAISED TOILET SEAT with ARMS See Rx Instructions .Route .MEDSUPPLY Qty: 1 0RF Rx Instructions: As directed (DME) blood pressure monitor [Blood Pressure Kit] Kit See Rx Instructions .ROUTE .MEDSUPPLY Qty: 1 0RF Rx Instructions: As directed acetaminophen [Tylenol Extra Strength] 500 mg tablet 1,000 mg PO Q6H PRN (Reason: pain) Qty: 14 0RF meclizine 25 mg tablet 50 mg PO DAILY PRN (Reason: dizziness) Qty: 20 0RF atorvastatin 40 mg tablet 40 mg PO DAILY 90 Days Qty: 90 1RF cyclobenzaprine 10 mg tablet 10 mg PO Q8H PRN (Reason: Muscle spasm) Qty: 14 0RF Interventions: ED Discharge Assessment Last Done: 10/26/21 07:14 Discharge Date/Time: 10/26/21 07:14 Print Language: Occitan
== END 2021-10-26 07:14 | disposition home or self-care (01) ==
PROVIDERS: Emergency Provider Emergency Medicine Emergency Medical Services; PCP Internal Medicine
DX: R07.89 Other chest pain (principal); R51.9 Headache, unspecified; R20.0 Anesthesia of skin; M54.2 Cervicalgia; R00.2 Palpitations; Z79.899 Other long term (current) drug therapy; Z87.891 Personal history of nicotine dependence; Z20.822 Contact with and (suspected) exposure to COVID-19
CPT/HCPCS: 70450; 71045; 80053; 83690; 84484; 85025; 85610; 85730; 87635; 93005; 96374; 96375; 99284; J1885; J2405

== ENCOUNTER → 2021-10-28 10:06 | Outpatient (BNVA) | payer OTHER, SELFPAY | PROVIDERS: PCP Internal Medicine; Visit Provider Urology | DX: N40.1 Benign prostatic hyperplasia with lower urinary tract symptoms (principal); N13.8 Other obstructive and reflux uropathy; R35.0 Frequency of micturition | CPT/HCPCS: 51798; 99212 ==

== ENCOUNTER 2021-10-31 12:33 | Emergency (ER) | payer OTHER, SELFPAY ==
--- NOTE | 2021-10-31 12:36 | ECG_ITS ---
Test Reason : CHEST PAIN Blood Pressure : / mmHG Vent. Rate : 054 BPM Atrial Rate : 054 BPM P-R Int : 178 ms QRS Dur : 102 ms QT Int : 404 ms P-R-T Axes : 065 060 074 degrees QTc Int : 383 ms Sinus bradycardia Otherwise normal ECG When compared with ECG of 26-OCT-2021 02:49, Premature ventricular complexes are no longer Present Referred By: Generic ED Physician Electronically Signed By:DEANNE BAILEY
[2021-10-31 12:38] VITALS: BP 138/73; PULSE 53; RESP 16; TEMP 36.8; BMI 24.4
--- NOTE | 2021-10-31 12:53 | PC.NURSE ---
pt lwt after seeing blood pressure
== END 2021-10-31 12:52 | disposition left against medical advice (07) ==
PROVIDERS: Emergency Provider Emergency Medicine; PCP Internal Medicine
DX: R07.9 Chest pain, unspecified (principal); M54.2 Cervicalgia
CPT/HCPCS: 93005; 99283

== ENCOUNTER → 2021-11-21 08:19 | Outpatient (BNVA) | payer OTHER, SELFPAY | PROVIDERS: PCP Internal Medicine; Referring Provider Internal Medicine; Visit Provider Internal Medicine Cardiovascular Disease | DX: I48.0 Paroxysmal atrial fibrillation (principal); I25.10 Atherosclerotic heart disease of native coronary artery without angina pectoris; R00.1 Bradycardia, unspecified | CPT/HCPCS: 93005; 99212 ==

== ENCOUNTER 2021-12-12 06:01 | Day surgery (SDC) | payer OTHER, SELFPAY ==
[2021-12-07 13:40] VITALS: BMI 25.3
--- NOTE | 2021-12-08 13:20 | MHC.SHP ---
Pre-Procedural Eval Section A Date of Service: 12/08/21 The patient is an INPATIENT: No Changes since office visit: No Cold of Flu in the past 2 weeks, No New Medical Problems, No Changes in Medication and No Patient answered all questions The History & Physical has been completed within 30 days and I have reviewed it.: Yes Section B Chief Complaint: Age-related nuclear cataract, left eye Allergies: Allergies Allergy/AdvReac Type Severity Reaction Status Date / Time almond [ALMOND] Allergy Unknown SWELLING Verified 12/01/21 09:14 Plan Diagnosis/Plan: Unchanged I have reviewed the history and physical and performed a pertinent physical examination on my patient. No changes have occurred unless specified.
--- NOTE | 2021-12-09 08:26 | P.CONAN_ITS ---
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 (Acute) Palpitations (Acute) Neck pain (Acute) Annual physical exam (Acute) History of CVA (cerebrovascular accident) (Acute) Generalized anxiety disorder (Acute) Bradycardia (Acute) Abnormal stress echocardiogram (Acute) Neck pain (Acute) Degenerative disc disease, cervical (Acute) Right upper lobe pulmonary nodule (Acute) Weakness (Acute) Annual physical exam (Acute) Constipation (Acute) Blind right eye (Acute) CAD (coronary artery disease) (Acute) History of adenomatous polyp of colon (Acute) Paroxysmal atrial fibrillation (Acute) Lower back pain (Acute) Renal cyst (Acute) Thoracic spondylosis (Acute) Tubular adenoma of colon (Acute) Hypercholesterolemia (Acute) BPH (benign prostatic hyperplasia) (Acute) GERD (gastroesophageal reflux disease) (Acute) Hypertension (Acute) Past Medical History Medical History Alcohol abuse Anxiety and depression Blind right eye BPH (benign prostatic hyperplasia) CAD (coronary artery disease) Degenerative disc disease, cervical GERD (gastroesophageal reflux disease) History of adenomatous polyp of colon Hypercholesterolemia Hypertension Left renal stone Lesion of bladder Lower back pain Paroxysmal atrial fibrillation Renal cyst Sensorineural hearing loss Thoracic spondylosis Tinnitus Tubular adenoma of colon Family History Family History Father Medical history unknown Mother Medical history unknown Brother No problems noted. Son No problems noted. Son No problems noted. 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 If so, by whom?: No Are you DNR?: No Advance Directives: No Advance Directives Information Provided: Yes (brochure mailed) Advance Directives on File: No Advance Directives Date on File: 07/05/20 Recently lost weight without trying: No Eating poorly because of decreased appetite: No Nutrition Risks: No Nutritional Risk Poor oral hygiene: No service: No Current occupational status: disabled Cognitive needs: No Hearing needs: No Vision needs: Yes Meds Allergies Allergy/AdvReac Type Severity Reaction Status Date / Time almond [ALMOND] Allergy Unknown SWELLING Verified 12/12/21 06:28 Home Medications Medication Instructions Recorded Confirmed Last Taken Type sertraline 25 mg tablet 25 mg PO DAILY 11/08/21 12/07/21 Unknown History Exam Exam Date and Time: December 09, 2021 0826 Height,Weight and Vital Signs: Height 6 ft Weight 84.822 kg Assessment and Plan Assessment Anesthesia Assessment: Chart Reviewed Documented by User: Jeyson Edmond MD 12/12/21 07:10 [facility] Past Medical History Medical History Alcohol abuse Anxiety and depression Blind right eye BPH (benign prostatic hyperplasia) CAD (coronary artery disease) Degenerative disc disease, cervical GERD (gastroesophageal reflux disease) History of adenomatous polyp of colon Hypercholesterolemia Hypertension Left renal stone Lesion of bladder Lower back pain Paroxysmal atrial fibrillation Renal cyst Sensorineural hearing loss Thoracic spondylosis Tinnitus Tubular adenoma of colon Family History Family History Father Medical history unknown Mother Medical history unknown Brother No problems noted. Son No problems noted. Son No problems noted. 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 If so, by whom?: No Are you DNR?: No Advance Directives: No Advance Directives Information Provided: Yes (brochure mailed) Advance Directives on File: No Advance Directives Date on File: 07/05/20 Recently lost weight without trying: No Eating poorly because of decreased appetite: No Nutrition Risks: No Nutritional Risk Poor oral hygiene: No service: No Current occupational status: disabled Cognitive needs: No Hearing needs: No Vision needs: Yes Meds Allergies Allergy/AdvReac Type Severity Reaction Status Date / Time almond [ALMOND] Allergy Unknown SWELLING Verified 12/12/21 06:28 Home Medications Medication Instructions Recorded Confirmed Last Taken Type sertraline 25 mg tablet 25 mg PO DAILY 11/08/21 12/07/21 Unknown History Exam Airway Mallampati Class: II TM Dist: >3cm Neck ROM: Full Loose/Missing/Broken Teeth: Yes (missing many teeth lower and upper globally, poor dentiton) Heart: irrg irreg s1s2 Lungs: cta b/l Assessment and Plan Assessment Anesthesia Assessment: Anesthesia Plan Discussed Final Anesthetic Review Family History of Problems with Anesthesia: No History of Problems with Anesthesia: No NPO: Yes ASA Class: III Final Preanesthetic Review: No Changes in Pt Med Stat, Meds/Allgs Chart Reviewed, Consent Obtained/Reviewed and Anes Risks/Benef Reviewed Patient Risk: Intermediate Procedure Risk: Low Assessment/Block/Sedation in SS: Assess/Block/Sedation-SS Anesthetic Plan Anesthetic Plan: MAC: and Agree w/ Assess. and Plan Disposition: Standard PACU
[2021-12-12 06:35] VITALS: BP 119/70; PULSE 46; RESP 16; TEMP 36.1; O2SAT 98
[2021-12-12] MEDS: Tetracaine HCl/PF 0.5% Oph Sol 4 ML DROPS 1 DROP EYE-LEFT (06:40)
[2021-12-12] MEDS: Cyclopentolate 1 % Ophth Sol 2 ML DRPBTL 1 DROP EYE-LEFT ×3 (06:42→06:56)
[2021-12-12] MEDS: Tropicamide 1 % Ophth Sol 3 ML BTL 1 DROP EYE-LEFT ×3 (06:44→06:58)
[2021-12-12] MEDS: Ketorolac Tromethamine 0.5% Op 5 ML DROPS 1 DROP EYE-LEFT ×3 (06:45→07:00)
[2021-12-12] MEDS: Phenylephrine HCL 2.5% Oph SoL 2 ML BOTTLE 1 DROP EYE-LEFT ×3 (06:47→07:01)
[2021-12-12] MEDS: Lactated Ringers 500 ML 50 ML IV (06:57)
--- NOTE | 2021-12-12 07:55 | HO.PNOPHT ---
Ophthalmology Procedure Procedure Date of Service: 12/12/21 Ophthalmology Viscoelastic: Healon Duet Dual Pack Pro Ophthalmology Lenses: TECNIS [id number] (21.5) Procedure Notes: PREOPERATIVE DIAGNOSIS: Decreased visual acuity left eye secondary to cataract POSTOPERATIVE DIAGNOSIS: Same PROCEDURE: Left cataract extraction with intraocular lens insertion SURGEON: Patrice Esteves M.D. ANESTHESIA: Topical/MAC ESTIMATED BLOOD LOSS: None COMPLICATIONS: None After obtaining informed consent, the patient was brought to the operation room suite and placed in the supine position. After adequate sedation per anesthesia, topical drops of Tetracaine were given to the left eye. The eye was then prepped and draped in the usual sterile fashion. The operating room microscope was then positioned over the operative eye and a lid speculum placed. A paracentesis was created. Viscoelastic was then instilled into the anterior chamber. A three plane incision was then created temporally, utilizing a 2.85 mm keratome. Capsulotomy forceps were then utilized to create a circular tear capsulotomy. Hydrodissection and hydrodelineation were carried out until adequate mobilization of the nucleus occurred. Phacoemulsification was then utilized to remove the dense central nucleus followed by removal of the cortical material utilizing the automated aspiration irrigation unit. Viscoat elastic was instilled into the posterior capsular bag followed by placement of a posterior chamber intraocular lens without difficulty. The residual Viscoat elastic was then removed utilizing the automated IA machine. The wound was check and found to be watertight. The patient tolerated the procedure well and the lid speculum was removed. Intracameral injection of Vigamox 0.1 mL followed by a subtenon injection of Kenalog-40 0.2 mL were administered. The patient will be seen in the a.m.
[2021-12-12 08:20] VITALS: BP 144/67; PULSE 47; RESP 16; TEMP 36.2; O2SAT 100
== END 2021-12-12 08:31 | disposition home or self-care (01) ==
PROVIDERS: PCP Internal Medicine; Visit Provider Ophthalmology
PROC: (CPT 66985; principal; 2021-12-12 08:00)
DX: H25.12 Age-related nuclear cataract, left eye (principal); H54.7 Unspecified visual loss; H35.052 Retinal neovascularization, unspecified, left eye; H17.9 Unspecified corneal scar and opacity; Z96.1 Presence of intraocular lens; I10 Essential (primary) hypertension; E78.00 Pure hypercholesterolemia, unspecified; I48.0 Paroxysmal atrial fibrillation; I25.10 Atherosclerotic heart disease of native coronary artery without angina pectoris; K21.9 Gastro-esophageal reflux disease without esophagitis; Z79.01 Long term (current) use of anticoagulants; R00.1 Bradycardia, unspecified; F41.1 Generalized anxiety disorder; Z79.899 Other long term (current) drug therapy; Z86.73 Personal history of transient ischemic attack (TIA), and cerebral infarction without residual deficits; Z87.891 Personal history of nicotine dependence
CPT/HCPCS: 66984; J2250; J3300; V2632

== ENCOUNTER 2022-01-07 20:02 | Emergency (ER) | payer OTHER, SELFPAY ==
--- NOTE | ~2022-01-07 | XR_ITS ---
EXAMINATION: XR LUMBAR SPINE CLINICAL INFORMATION: Reason for Exam LOWER BACK PAIN COMPARISON: None TECHNIQUE: Frontal lateral and coned-down L5-S1 frontal lateral FINDINGS: Five [id number] lumbar vertebrae were identified maintaining normal height and alignments. Intervertebral disc spaces are preserved. Paravertebral soft tissues are unremarkable. There are radiolucencies, most likely superimposed bowel gas.. No radiographic evidence of osteolytic or osteoblastic lesions. XR/XR lumbar spine 2-3V IMPRESSION: 1. No fracture. 2. Bone alignments are satisfactory. Intervertebral disc spaces are preserved.
[2022-01-07 20:46] VITALS: BP 115/55; PULSE 61; RESP 16; TEMP 36.8; O2SAT 97; BMI 24.4
[2022-01-07 21:15] LABS: Appearance Urine Clear; Color Urine Yellow; Glucose Urine UA Negative (Negative); Leukocyte Esterase Urine Negative (Negative); Nitrite Urine Negative (Negative); PH 5.5 (5.0-9.0); Urine Blood Negative (Negative); Urine Ketones Negative (Negative); Urine Protein Negative (Neg-Trace)
--- NOTE | 2022-01-07 21:45 | ED_ITS ---
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 Patient also denies any shortness of breath, chest pain/palpitations, GI or symptoms. Patient states he has polyuria at baseline and he has been taking Tylenol but the Tylenol has not helped out with the pain and endorses that he does have a muscle relaxant but he was unsure whether not he can take it with the Tylenol. He denies any groin numbness or any pain into either lower extremity. Related Data Home Medications Medication Instructions Recorded Confirmed sertraline 25 mg tablet 25 mg PO DAILY 11/08/21 12/07/21 Previous Rx's Medication Instructions Recorded metoprolol succinate 25 mg 25 mg PO DAILY #90 tabs 02/07/21 tablet,extended release 24 hr omeprazole 20 mg capsule,delayed 20 mg PO DAILY #90 caps 05/30/21 release rivaroxaban 20 mg tablet (Xarelto) 20 mg PO DAILY #90 tabs 07/18/21 acetaminophen 500 mg tablet 1,000 mg PO Q6H PRN pain #14 tabs 08/05/21 (Tylenol Extra Strength) BATH BENCH WITH BACK #1 ea 08/31/21 HANDHELD SHOWER HEAD #1 ea 08/31/21 LOCKING RAISED TOILET SEAT with #1 ea 08/31/21 ARMS blood pressure monitor (Blood #1 ea 08/31/21 Pressure Kit) atorvastatin 40 mg tablet 40 mg PO DAILY 90 days #90 tabs 10/14/21 ezetimibe 10 mg tablet 10 mg PO DAILY #90 tabs 11/01/21 sennosides 8.6 mg-docusate sodium 1 tab-cap PO BEDTIME #60 tabs 11/08/21 50 mg tablet (Senna-S) flecainide 50 mg tablet 50 mg PO BID #180 caps 12/07/21 lorazepam 0.5 mg tablet 0.5 mg PO DAILY 90 days #90 tabs 01/05/22 Allergies Allergy/AdvReac Type Severity Reaction Status Date / Time almond [ALMOND] Allergy Unknown SWELLING Verified 12/12/21 06:28 Review of Systems Review of Systems: Pertinent positives and negatives as stated in HPI 10 point review of systems is otherwise negative. [facility] Past Medical History Source: nursing notes reviewed Medical History Alcohol abuse Anxiety and depression Blind right eye BPH (benign prostatic hyperplasia) CAD (coronary artery disease) Degenerative disc disease, cervical GERD (gastroesophageal reflux disease) History of adenomatous polyp of colon Hypercholesterolemia Hypertension Left renal stone Lesion of bladder Lower back pain Paroxysmal atrial fibrillation Renal cyst Sensorineural hearing loss Thoracic spondylosis Tinnitus Tubular adenoma of colon Surgical History H/O colonoscopy History of inguinal hernia repair Hx of cataract surgery Hx of transurethral resection of prostate Family History Family History Father Medical history unknown Mother Medical history unknown Brother No problems noted. Son No problems noted. Son No problems noted. Social History Social History Household Members: Significant Other Household Members Other:: Housing: Apartment Are you a primary manager critical care to a significant other at home: No Do you presently have visiting nurse or other home services: Yes ([employer]) Alcohol intake: never Patient Tobacco Use Status: Former Tobacco user Quit Date: 2014 Years Smoked: 2014 quit e-Cigarette/Vaping Use: Never Used Second Hand Smoke Exposure: No Advance Directives: No Advance Directives Information Provided: No Advance Directives Date on File: 07/05/20 service: No Current occupational status: disabled Cognitive needs: No Hearing needs: No Vision needs: Yes Physical Exam Vital Signs: Vital Signs: Last Vital Signs Temp 98.2 F 01/07/22 20:46 Pulse 61 01/07/22 20:46 Resp 16 01/07/22 20:46 BP 115/55 L 01/07/22 20:46 Pulse Ox 97 01/07/22 20:46 O2 Del Method 01/07/22 20:46 BMI result Body Mass Index 24.4 VITAL SIGNS: Reviewed. GENERAL: Well developed, well nourished, in no acute distress. HEAD: Normocephalic/atraumatic EYES: PERRLA, EOMI EARS: Ext canals without abnormality OROPHARYNX: no oral lesions noted, posterior pharynx clear LUNGS: Normal breath sounds. No adventitious sounds or accessory muscle use. SpO2<97> CARDIOVASCULAR: Regular rate and rhythm without noted murmurs, no JVD or lower extremity edema. ABDOMEN: Soft, non-tender, non-distended with bowel sounds. BACK: No midline vertebral tenderness, step-offs, there is mild pain on palpation over the approximate T4 right paraspinal area without deformity or crepitus MUSCULOSKELETAL: No tenderness, deformities, or effusions noted on gross inspection. EXTREMITIES: No cyanosis, clubbing or edema. SKIN: Inspection of the skin reveals no rashes NEUROLOGIC: Alert and oriented x 4. Strength and sensation to light touch were grossly intact x 4. Course Course Course Narrative: 71-year-old male with history and clinical presentation consistent with musculos keletal in nature, patient was reassured that he could take his muscle relaxant along with the Tylenol patient will received Tylenol here as he has not had this medication for approximately 8 hours and he will also receive a lidocaine patch. On review of imaging studies there are no acute findings. No evidence to suggest infection, cauda equina, sciatica. Discharge Plan Discharge Clinical Impression: Back pain, Muscle spasm Patient Disposition: Home, Self-Care Instructions: Muscle Spasm (ED), Back Pain (ED) Additional Instructions: 1. Tylenol 1000 mg, por v?a oral, cada 6 horas seg?n sea necesario para controlar el dolor. No exceda los 4000 mg dentro de las 24 horas. 2. Parche de lidoca?na, estos est?n disponibles sin receta, debe aplicar esto en el ?eileen de m?xima sensibilidad ramy se indica en el empaque exterior. 3. Llame a brock m?dico el por la ma?david para programar edie rosangela para edie reevaluaci?n y posible fisioterapia. Regrese a la derek de emergencias si los s?ntomas empeoran. Prescriptions: No Action metoprolol succinate 25 mg tablet extended release 24 hr 25 mg PO DAILY Qty: 90 3RF omeprazole 20 mg capsule,delayed release(DR/EC) 20 mg PO DAILY Qty: 90 2RF Xarelto 20 mg tablet 20 mg PO DAILY Qty: 90 3RF (DME) BATH BENCH WITH BACK See Rx Instructions .Route .MEDSUPPLY Qty: 1 0RF Rx Instructions: As directed (DME) HANDHELD SHOWER HEAD See Rx Instructions .Route .MEDSUPPLY Qty: 1 0RF Rx Instructions: As directed (DME) LOCKING RAISED TOILET SEAT with ARMS See Rx Instructions .Route .MEDSUPPLY Qty: 1 0RF Rx Instructions: As directed (DME) blood pressure monitor [Blood Pressure Kit] Kit See Rx Instructions .ROUTE .MEDSUPPLY Qty: 1 0RF Rx Instructions: As directed ezetimibe 10 mg tablet 10 mg PO DAILY Qty: 90 1RF flecainide 50 mg tablet 50 mg PO BID Qty: 180 2RF lorazepam 0.5 mg tablet 0.5 mg PO DAILY 90 Days Qty: 90 1RF acetaminophen [Tylenol Extra Strength] 500 mg tablet 1,000 mg PO Q6H PRN (Reason: pain) Qty: 14 0RF sertraline 25 mg tablet 25 mg PO DAILY sennosides-docusate sodium [Senna-S] 8.6-50 mg tablet 1 tab-cap PO BEDTIME Qty: 60 5RF atorvastatin 40 mg tablet 40 mg PO DAILY 90 Days Qty: 90 1RF Referrals: Po,Yvonne Gold MD [Primary Care Provider] - Print Language: Malian
[2022-01-07] MEDS: Acetaminophen 325 MG TABLET 975 MG PO (21:57)
[2022-01-07] MEDS: Lidocaine 4 % Patch ADH..PATCH 1 PATCH TRANSDERMA (21:58)
== END 2022-01-07 22:12 | disposition home or self-care (01) ==
PROVIDERS: Emergency Provider Student in an Organized Health Care Education/Training Program; PCP Internal Medicine
DX: M54.50 Low back pain, unspecified (principal); M62.830 Muscle spasm of back; I10 Essential (primary) hypertension; E78.5 Hyperlipidemia, unspecified; I48.0 Paroxysmal atrial fibrillation; Z87.891 Personal history of nicotine dependence; Z79.899 Other long term (current) drug therapy; Z79.02 Long term (current) use of antithrombotics/antiplatelets; Z79.01 Long term (current) use of anticoagulants
CPT/HCPCS: 72100; 81003; 99283

== ENCOUNTER → 2022-02-01 09:42 | Outpatient (BNVA) | payer OTHER, SELFPAY | PROVIDERS: PCP Internal Medicine; Visit Provider Surgery | DX: Z86.010 Personal history of colon polyps (principal) | CPT/HCPCS: 99212 ==

== ENCOUNTER 2022-03-06 07:38 | Outpatient (REF) | payer OTHER, SELFPAY ==
[2022-03-06 07:54] LABS: MANUAL DIFF FLAG NO
[2022-03-06 08:17] LABS: Basophils Percent Auto 0.7 % (0-2); Eosinophils Absolute Auto 0.2 X10*3/uL (0.0-0.4); Eosinophils Percent Auto 3.7 % (0-4); Hematocrit 40.2 % (42.0-52.0); Imm Gran Abs Auto 0.01 X10*3/uL (0.00-0.03); Imm Gran Pct Auto 0.2 % (0.0-0.4); Immature Retic Fraction 13.9 % (2.3-13.4); Lymphocytes Absolute Auto 2.2 X10*3/uL (1.2-4.9); Lymphocytes Percent Auto 39.1 % (20-40); Mean Corpuscular HGB Conc 32.3 g/dl (31.0-36.0); Mean Corpuscular Hemoglobin 30.7 pg (27.0-33.0); Mean Platelet Volume 10.7 fL (9.4-12.4); Monocytes Absolute Auto 0.4 X10*3/uL (0.1-1.2); Monocytes Percent Auto 7.7 % (2-11); Neutrophils Absolute Auto 2.8 x10*3/uL (2.0-8.3); Neutrophils Percent Auto 48.6 % (45-73); Platelet Count 199 X10*3/uL (160-400); Red Blood Count 4.23 X10*6/uL (4.60-5.80); Red Cell Distribution Width 13.5 % (11.0-16.0); Reticulocyte Percent 1.5 % (0.5-1.8); Reticulocytes Absolute 0.063 X10*6/uL (0.026-0.095); White Blood Count 5.7 X10*3/uL (4.8-10.8)
[2022-03-06 08:35] LABS: Alanine Aminotransferase 15 U/L (0-40); Carbon Dioxide 28 mmol/L (22-29); Chloride 108 mmol/L (96-108); Potassium 4.3 mmol/L (3.3-5.1)
[2022-03-06 08:44] LABS: Anion Gap 10 (12-20)
[2022-03-06 08:49] LABS: Alkaline Phosphatase 58 U/L (39-117); Aspartate Amino Transferase 18 U/L (5-37); Bilirubin Total 1.1 mg/dL (0.0-1.0); Blood Urea Nitrogen 13 mg/dL (9-16); Calcium 9.8 mg/dL (8.4-10.2); Estimated Glomerular Filt Rate > 60; Glucose Random 102 mg/dL (60-115); Iron 84 mcg/dL (45-160); Percent Iron Saturation 26 % (15-50); Sodium 142 mmol/L (135-145); Total Iron Binding Capacity 320 mcg/dL (228-428); Total Protein 6.2 g/dL (6.5-8.0); Unsaturated Iron Binding 236 ug/dL
[2022-03-06 09:08] LABS: Ferritin 10 ng/mL (20-250)
[2022-03-06 09:12] LABS: Folate 14.9 ng/mL (> or = 4.0); Vitamin B12 418 pg/mL (200-900)
== END 2022-03-06 07:39 | disposition home or self-care (01) ==
LOC: HO.LAB 07:38
PROVIDERS: PCP Internal Medicine; Visit Provider Internal Medicine
DX: I25.10 Atherosclerotic heart disease of native coronary artery without angina pectoris (principal)
CPT/HCPCS: 36415; 80053; 82607; 82728; 82746; 83540; 85025; 85045

== ENCOUNTER 2022-04-12 10:00 | Outpatient (RCR) | payer OTHER, SELFPAY ==
--- NOTE | 2022-03-27 15:50 | MHC.PT.EP ---
[facility] [place] Office [place] Office [place] Office [address] Liza Nieves [address] [phone] F: [phone] F: [phone] F: [phone] F: [phone] Physical Therapy Plan of Care Date of Evaluation: Date of Surgery: Diagnosis: Dorsalgia Assessment: Patient is a Ukrainian speaking 71 y.o. male who is referred to PT by Dr. Yvonne Carter MD with Dx of dorsalgia. PT diagnosis is chronic low back pain that is mechanical/musculoskeletal in nature due to muscle imbalances in hips and back, no disc involvement. Patient impairments include pain, limited AROM, weakness in hips, mild antalgic gait. 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 Patient will benefit from skilled PT to address aforementioned impairments and functional limitations to meet established goals. Frequency and Duration: The patient will be seen 1-2x/week for 4 weeks Short Term Goals: 2 weeks Patient demonstrates consistency and independence with HEP to self manage symptoms. Patient presents with increased lumbar sidebending AROM 20 degrees bilaterally to be able to bathe without difficulty. Boarder Machine Goals: 4 weeks Patient presents with increased lumbar flexion AROM 90 degrees to be able to don/doff LE dressing without difficulty. Patient presents with increased bilateral hip flexion strength 4+/5 to be able to ascend/descend stairs for community use. Treatment Plan: Modalities to reduce pain, spasms and effusion. Manual therapy to restore motion and function. Therapeutic exercise to improve strength and flexibility. Neuromuscular re-education for posture and balance. Therapeutic activities to return to functional activities of daily living. Electronically signed by: Boo Garcia, PT, DPT Please sign and return to therapist. Thank you for your referral.
--- NOTE | 2022-05-08 16:33 | MHC.PT.DC ---
[facility] [place] Office [place] Office [place] Office [address] Liza Nieves [address] [phone] F: [phone] F: [phone] F: [phone] F: [phone] Physical Therapy Discharge Report Diagnosis: Dorsalgia Date of Surgery: Date of Evaluation: 03/27/22 Date of Discharge: 05/08/22 Treatments to Date: 4 Cancellations to Date: 0 No Shows to Date: 2 Discharge Status: Independent with HEP Discharge Summary: Patient ceased attending PT on his own accord, with his last treatment session in PT was 04/12/2022. He did not show to appointments following this visit. He is therefore discharged from PT at this time. Electronically signed by: Boo Garcia, PT, DPT Please sign and return to therapist. Thank you for your referral.
== END 2022-05-08 16:33 | disposition home or self-care (01) ==
LOC: HO.PT 10:00
PROVIDERS: Visit Provider Internal Medicine
DX: M54.9 Dorsalgia, unspecified (principal)
CPT/HCPCS: 97110; 97161

== ENCOUNTER → 2022-05-23 08:59 | Outpatient (BNVA) | payer OTHER, SELFPAY | PROVIDERS: PCP Internal Medicine; Referring Provider Internal Medicine; Visit Provider Internal Medicine Cardiovascular Disease | DX: I77.810 Thoracic aortic ectasia (principal); I48.0 Paroxysmal atrial fibrillation; I25.10 Atherosclerotic heart disease of native coronary artery without angina pectoris; I10 Essential (primary) hypertension | CPT/HCPCS: 93005; 99212 ==

== ENCOUNTER 2022-06-28 09:21 | Emergency (ER) | payer OTHER, SELFPAY ==
--- NOTE | ~2022-06-28 | XR_ITS ---
EXAMINATION: XR CHEST CLINICAL INFORMATION: Chest pressure, productive cough. COMPARISON: 10/26/2021 chest radiograph. TECHNIQUE: 2 views of the chest were obtained. FINDINGS: No significant abnormality is noted involving the heart, lungs, mediastinum, bony thorax or soft tissues. A small radiopaque densities again seen overlying the right inferolateral chest tissues without interval change. XR/XR chest 2V IMPRESSION: 1. Stable chest. No acute cardiopulmonary process.
[2022-06-28 09:46] VITALS: BP 135/62; PULSE 54; RESP 18; TEMP 36.1; O2SAT 98; BMI 24.7
--- NOTE | 2022-06-28 10:27 | ED.GENADULT ---
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 He reports that his episodes of chest pressure have lasted up to 1 hour and has had concurrent palpitations at times, states he can feel the palpitations in his eyes. He describes a tightness in his chest which is present only when he feels the chest pressure. He denies any chest pain. He denies any lower extremity edema. He states he has not checked his temperature, but has had episodes of feeling hot, denies chills. He he reports a cough which is occasionally productive of yellow sputum as well as a sore throat. He denies any ear pain. He has used Tylenol for his symptoms and took half an Ativan once. He denies any recent medication changes. Related Data Home Medications Medication Instructions Recorded Confirmed sertraline 25 mg tablet 25 mg PO DAILY 11/08/21 05/23/22 Previous Rx's Medication Instructions Recorded rivaroxaban 20 mg tablet (Xarelto) 20 mg PO DAILY #90 tabs 07/18/21 acetaminophen 500 mg tablet 1,000 mg PO Q6H PRN pain #14 tabs 08/05/21 (Tylenol Extra Strength) BATH BENCH WITH BACK #1 ea 08/31/21 HANDHELD SHOWER HEAD #1 ea 08/31/21 LOCKING RAISED TOILET SEAT with #1 ea 08/31/21 ARMS blood pressure monitor (Blood #1 ea 08/31/21 Pressure Kit) sennosides 8.6 mg-docusate sodium 1 tab-cap PO BEDTIME #60 tabs 11/08/21 50 mg tablet (Senna-S) flecainide 50 mg tablet 50 mg PO BID #180 caps 12/07/21 lorazepam 0.5 mg tablet 0.5 mg PO DAILY 90 days #90 tabs 01/05/22 cyclobenzaprine 10 mg tablet 10 mg PO BEDTIME PRN muscle spasm 02/06/22 #30 tabs metoprolol succinate 25 mg 25 mg PO DAILY #90 tabs 02/22/22 tablet,extended release 24 hr omeprazole 20 mg capsule,delayed 20 mg PO DAILY #90 caps 04/23/22 release atorvastatin 40 mg tablet 40 mg PO DAILY 90 days #90 tabs 04/24/22 ezetimibe 10 mg tablet 10 mg PO DAILY #90 tabs 04/24/22 ascorbate calcium (vitamin C) 500 500 mg PO DAILY #30 tabs 05/17/22 mg tablet ferrous sulfate 325 mg (65 mg 325 mg PO DAILY #90 tabs 05/17/22 iron) tablet (Feosol) benzonatate 100 mg capsule 100 mg PO TID PRN cough #20 caps 06/28/22 Allergies Allergy/AdvReac Type Severity Reaction Status Date / Time almond [ALMOND] Allergy Unknown SWELLING Verified 06/28/22 09:46 Review of Systems Review of Systems: Yes all other systems are reviewed and are negative Constitutional: Constitutional: Reports as per [facility] Past Medical History Medical History Abnormal stress echocardiogram Alcohol abuse Anxiety and depression Blind right eye BPH (benign prostatic hyperplasia) CAD (coronary artery disease) Degenerative disc disease, cervical GERD (gastroesophageal reflux disease) History of adenomatous polyp of colon Hypercholesterolemia Hypertension Left renal stone Lesion of bladder Lower back pain Paroxysmal atrial fibrillation Renal cyst Sensorineural hearing loss Thoracic spondylosis Tinnitus Tubular adenoma of colon Surgical History H/O colonoscopy History of inguinal hernia repair Hx of cataract surgery Hx of transurethral resection of prostate Family History Family History Father Medical history unknown Mother Medical history unknown Brother No problems noted. Son No problems noted. Son No problems noted. 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) Alcohol intake: never Patient Tobacco Use Status: Former Tobacco user Quit Date: 2014 Tobacco use type: Cigarette Years Smoked: 2014 quit e-Cigarette/Vaping Use: Never Used Second Hand Smoke Exposure: No Advance Directives: No Advance Directives Information Provided: Yes Advance Directives Date on File: 07/05/20 service: No Current occupational status: disabled Cognitive needs: No Hearing needs: No Vision needs: Yes Physical Exam ED Vital Signs: Vital Signs - 24 hr 06/28/22 09:46 Temperature 97 F Pulse Rate 54 Respiratory Rate 18 Blood Pressure 135/62 Pulse Oximetry 98 Oxygen Delivery Method Room Air BMI result Body Mass Index 24.7 Const General: healthy appearing, no acute distress, alert and awake Orientation/consciousness: patient oriented x3 Limitations: language barrier HENMT Head: Yes normocephalic and Yes atraumatic Ears: external ears normal, TM's normal bilaterally and EAC's normal General nose exam: Normal external nose present and Normal nasal mucous membranes and turbinates present Face and sinus: Yes sinuses nontender Mouth: oropharynx normal and moist mucous membranes Throat: Yes tonsils normal, Yes uvula midline and Yes posterior oropharynx abnormal (erythematous) Neck Neck: Yes normal visual inspection, Yes no lymphadenopathy and Yes supple Resp Effort & Inspection: normal respiratory effort and able to speak in complete sentences Auscultation: clear to auscultation bilaterally Cardio Rate: bradycardic (baseline) Rhythm: regular rhythm Heart sounds: S1 normal heart sound present and S2 normal heart sound present GI Palpation (GI): Soft to palpation and nontender Auscultation: normoactive bowel sounds Skin General skin exam: no rashes or lesions noted, elasticity normal and turgor normal Neuro General: patient oriented x3 Cognition (Neuro): normal cognition Motor exam (neuro): 5/5 motor strength present throughout Extrem General: Yes normal to inspection, Yes full ROM, Yes no pedal edema and Yes no calf tenderness Course Course Course Narrative: 12:20 Strep, influenza, Covid all negative. CBC and BMP unremarkable. CXR without acute findings. EKG sinus bradycardia. Awaiting troponin. 12:28 Troponin negative. Discussed all results with patient and advised that symptoms are likely related to viral upper respiratory infection. Prescribed benzonatate as needed for cough. Follow up with PCP as needed. Discussed symptoms for which patient should return to the ED. Medical Decision Making Medical Decision Making MDM Narrative: Patient is a 71-year-old male with history of thoracic aortic ectasia, CVA, proximal AFib, CAD, HTN, GERD, hypercholesterolemia, iron deficiency anemia presenting with 2-3 days of intermittent chest pressure, palpitations, cough occasionally productive of yellow sputum, and sore throat likely related to viral illness. On exam patient is nontoxic appearing, afebrile, VSS, bradycardic at baseline, lungs clear throughout, heart rate regular, no lower extremity edema, mild posterior oropharynx erythema without edema or exudate. Concern for viral illness such as influenza or Covid, viral upper respiratory infection, strep pharyngitis, bronchitis, pneumonia, or GERD. Given patient's history, considering ACS, aortic dissection, pneumothorax. Low suspicion for PE, not tachycardic, not tachypneic, no hypoxia. Differential Diagnosis Differential Diagnoses: The differential diagnosis associated with the presentation includes As above. Lab Data MDM Lab Attestation statement: I reviewed the patient's lab results. 06/28/22 10:39 06/28/22 10:39 Labs: Lab Results 06/28/22 06/28/22 06/28/22 Range/Units 10:35 10:35 10:39 WBC 7.3 (4.8-10.8) X10*3/uL RBC 4.39 L (4.60-5.80) X10*6/uL Hgb 13.2 L (14.0-18.0) g/dl Hct 40.6 L (42.0-52.0) % MCV 92.5 (80.0-98.0) fL MCH 30.1 (27.0-33.0) pg MCHC 32.5 (31.0-36.0) g/dl RDW 13.1 (11.0-16.0) % Plt Count 185 (160-400) X10*3/uL MPV 10.1 (9.4-12.4) fL Immature Gran % (Auto) 0.1 (0.0-0.4) % Neut % (Auto) 66.2 (45-73) % Lymph % (Auto) 23.0 (20-40) % [place] % (Auto) 6.4 (2-11) % Eos % (Auto) 3.8 (0-4) % Baso % (Auto) 0.5 (0-2) % Lymph # (Auto) 1.7 (1.2-4.9) X10*3/uL [place] # (Auto) 0.5 (0.1-1.2) X10*3/uL Eos # (Auto) 0.3 (0.0-0.4) X10*3/uL Baso # (Auto) 0.0 (0.0-0.2) X10*3/uL Abs Immat Gran (auto) 0.01 (0.00-0.03) X10*3/uL Absolute Neuts (auto) 4.8 (2.0-8.3) x10*3/uL Absolute Nucleated RBC 0.000 (0.0-0.012) X10*3/uL Nucleated RBC % (auto) 0.0 (0.0-0.2) /100WBC Sodium (135-145) mmol/L Potassium (3.3-5.1) mmol/L Chloride (96-108) mmol/L Carbon Dioxide (22-29) mmol/L Anion Gap (12-20) BUN (9-16) mg/dL Creatinine (0.5-1.4) mg/dL Estim Creat Clear Calc Estimated GFR Random Glucose (60-115) mg/dL Calcium (8.4-10.2) mg/dL Troponin I High Sens (<3.5-35.0) ng/L TSH (0.32-4.0) uIU/mL COVID-19 (TYRONE) Negative (Negative) COVID-19 Clin Com See Note Influenza Type A (MINNIE) Negative (Negative) Influenza Type B (MINNIE) Negative (Negative) Influenza A & B Note See Note S. pyogenes GrpA MINNIE (Negative) 06/28/22 06/28/22 06/28/22 Range/Units 10:39 10:39 10:39 WBC (4.8-10.8) X10*3/uL RBC (4.60-5.80) X10*6/uL Hgb (14.0-18.0) g/dl Hct (42.0-52.0) % MCV (80.0-98.0) fL MCH (27.0-33.0) pg MCHC (31.0-36.0) g/dl RDW (11.0-16.0) % Plt Count (160-400) X10*3/uL MPV (9.4-12.4) fL Immature Gran % (Auto) (0.0-0.4) % Neut % (Auto) (45-73) % Lymph % (Auto) (20-40) % [place] % (Auto) (2-11) % Eos % (Auto) (0-4) % Baso % (Auto) (0-2) % Lymph # (Auto) (1.2-4.9) X10*3/uL [place] # (Auto) (0.1-1.2) X10*3/uL Eos # (Auto) (0.0-0.4) X10*3/uL Baso # (Auto) (0.0-0.2) X10*3/uL Abs Immat Gran (auto) (0.00-0.03) X10*3/uL Absolute Neuts (auto) (2.0-8.3) x10*3/uL Absolute Nucleated RBC (0.0-0.012) X10*3/uL Nucleated RBC % (auto) (0.0-0.2) /100WBC Sodium 141 (135-145) mmol/L Potassium 4.1 (3.3-5.1) mmol/L Chloride 107 (96-108) mmol/L Carbon Dioxide 29 (22-29) mmol/L Anion Gap 9 L (12-20) BUN 13 (9-16) mg/dL Creatinine 0.90 (0.5-1.4) mg/dL Estim Creat Clear Calc 81.4 Estimated GFR > 60 Random Glucose 80 (60-115) mg/dL Calcium 9.3 (8.4-10.2) mg/dL Troponin I High Sens < 2.7 (<3.5-35.0) ng/L TSH 0.90 (0.32-4.0) uIU/mL COVID-19 (TYRONE) (Negative) COVID-19 Clin Com Influenza Type A (MINNIE) (Negative) Influenza Type B (MINNIE) (Negative) Influenza A & B Note S. pyogenes GrpA MINNIE (Negative) 06/28/22 Range/Units 10:40 WBC (4.8-10.8) X10*3/uL RBC (4.60-5.80) X10*6/uL Hgb (14.0-18.0) g/dl Hct (42.0-52.0) % MCV (80.0-98.0) fL MCH (27.0-33.0) pg MCHC (31.0-36.0) g/dl RDW (11.0-16.0) % Plt Count (160-400) X10*3/uL MPV (9.4-12.4) fL Immature Gran % (Auto) (0.0-0.4) % Neut % (Auto) (45-73) % Lymph % (Auto) (20-40) % [place] % (Auto) (2-11) % Eos % (Auto) (0-4) % Baso % (Auto) (0-2) % Lymph # (Auto) (1.2-4.9) X10*3/uL [place] # (Auto) (0.1-1.2) X10*3/uL Eos # (Auto) (0.0-0.4) X10*3/uL Baso # (Auto) (0.0-0.2) X10*3/uL Abs Immat Gran (auto) (0.00-0.03) X10*3/uL Absolute Neuts (auto) (2.0-8.3) x10*3/uL Absolute Nucleated RBC (0.0-0.012) X10*3/uL Nucleated RBC % (auto) (0.0-0.2) /100WBC Sodium (135-145) mmol/L Potassium (3.3-5.1) mmol/L Chloride (96-108) mmol/L Carbon Dioxide (22-29) mmol/L Anion Gap (12-20) BUN (9-16) mg/dL Creatinine (0.5-1.4) mg/dL Estim Creat Clear Calc Estimated GFR Random Glucose (60-115) mg/dL Calcium (8.4-10.2) mg/dL Troponin I High Sens (<3.5-35.0) ng/L TSH (0.32-4.0) uIU/mL COVID-19 (TYRONE) (Negative) COVID-19 Clin Com Influenza Type A (MINNIE) (Negative) Influenza Type B (MINNIE) (Negative) Influenza A & B Note S. pyogenes GrpA MINNIE Negative (Negative) Independent Interpretation I performed an independent interpretation of an: EKG (Sinus bradycardia, rate of 46bpm, normal NM and QT intervals) and Plain X-Ray Interpretation: I independently reviewed the x-ray and agree with the radiologist's interpretation. Radiology Impression Discussion of test interpretation with radiology: I have reviewed the radiologist's reading. Radiologist Impression: FINDINGS: No significant abnormality is noted involving the heart, lungs, mediastinum, bony thorax or soft tissues. A small radiopaque densities again seen overlying the right inferolateral chest tissues without interval change. XR/XR chest 2V IMPRESSION: 1.? Stable chest. No acute cardiopulmonary process. External Record Review External record reviewed: Inpatient record, Office record and Outpatient record Prescription Management I considered prescription management with: Other (benzonatate) Chronic Conditions Patient?s care impacted by: Hypertension and Other Discharge Plan Discharge Clinical Impression: Upper respiratory infection, viral Patient Disposition: Home, Self-Care Instructions: Upper Respiratory Infection (DC), Viral Syndrome (ED) Additional Instructions: You were tested today for Covid, flu, and strep, all of which were negative. Your bloodwork, EKG, and chest x-ray were all reassuring. You are being prescribed benzonatate as needed for cough. You should follow up with your PCP. Return to the emergency department for any worsening symptoms. Prescriptions: New benzonatate 100 mg capsule 100 mg PO TID PRN (Reason: cough) Qty: 20 0RF No Action Xarelto 20 mg tablet 20 mg PO DAILY Qty: 90 3RF (DME) BATH BENCH WITH BACK See Rx Instructions .Route .MEDSUPPLY Qty: 1 0RF Rx Instructions: As directed (DME) HANDHELD SHOWER HEAD See Rx Instructions .Route .MEDSUPPLY Qty: 1 0RF Rx Instructions: As directed (DME) LOCKING RAISED TOILET SEAT with ARMS See Rx Instructions .Route .MEDSUPPLY Qty: 1 0RF Rx Instructions: As directed (DME) blood pressure monitor [Blood Pressure Kit] Kit See Rx Instructions .ROUTE .MEDSUPPLY Qty: 1 0RF Rx Instructions: As directed flecainide 50 mg tablet 50 mg PO BID Qty: 180 2RF lorazepam 0.5 mg tablet 0.5 mg PO DAILY 90 Days Qty: 90 1RF metoprolol succinate 25 mg tablet extended release 24 hr 25 mg PO DAILY Qty: 90 3RF omeprazole 20 mg capsule,delayed release(DR/EC) 20 mg PO DAILY Qty: 90 2RF ezetimibe 10 mg tablet 10 mg PO DAILY Qty: 90 1RF atorvastatin 40 mg tablet 40 mg PO DAILY 90 Days Qty: 90 1RF acetaminophen [Tylenol Extra Strength] 500 mg tablet 1,000 mg PO Q6H PRN (Reason: pain) Qty: 14 0RF sertraline 25 mg tablet 25 mg PO DAILY sennosides-docusate sodium [Senna-S] 8.6-50 mg tablet 1 tab-cap PO BEDTIME Qty: 60 5RF cyclobenzaprine 10 mg tablet 10 mg PO BEDTIME PRN (Reason: muscle spasm) Qty: 30 0RF ferrous sulfate [Feosol] 325 mg (65 mg iron) tablet 325 mg PO DAILY Qty: 90 0RF ascorbate calcium (vitamin C) 500 mg tablet 500 mg PO DAILY Qty: 30 4RF
[2022-06-28 10:47] LABS: MANUAL DIFF FLAG NO
[2022-06-28 10:50] LABS: Basophils Percent Auto 0.5 % (0-2); Eosinophils Absolute Auto 0.3 X10*3/uL (0.0-0.4); Eosinophils Percent Auto 3.8 % (0-4); Hematocrit 40.6 % (42.0-52.0); Hemoglobin 13.2 g/dl (14.0-18.0); Imm Gran Abs Auto 0.01 X10*3/uL (0.00-0.03); Imm Gran Pct Auto 0.1 % (0.0-0.4); Lymphocytes Absolute Auto 1.7 X10*3/uL (1.2-4.9); Mean Corpuscular HGB Conc 32.5 g/dl (31.0-36.0); Mean Corpuscular Hemoglobin 30.1 pg (27.0-33.0); Mean Corpuscular Volume 92.5 fL (80.0-98.0); Mean Platelet Volume 10.1 fL (9.4-12.4); Monocytes Absolute Auto 0.5 X10*3/uL (0.1-1.2); Monocytes Percent Auto 6.4 % (2-11); Neutrophils Absolute Auto 4.8 x10*3/uL (2.0-8.3); Neutrophils Percent Auto 66.2 % (45-73); Platelet Count 185 X10*3/uL (160-400); Red Blood Count 4.39 X10*6/uL (4.60-5.80); Red Cell Distribution Width 13.1 % (11.0-16.0); White Blood Count 7.3 X10*3/uL (4.8-10.8)
--- NOTE | 2022-06-28 10:56 | ECG_ITS ---
Test Reason : cp Blood Pressure : / mmHG Vent. Rate : 046 BPM Atrial Rate : 046 BPM P-R Int : 134 ms QRS Dur : 098 ms QT Int : 420 ms P-R-T Axes : -05 067 070 degrees QTc Int : 367 ms Sinus bradycardia Otherwise normal ECG When compared with ECG of 31-OCT-2021 12:39, No significant change was found Referred By: Shana Johnson Electronically Signed By:LAYTON NAQVI MD
[2022-06-28 11:02] LABS: Anion Gap 9 (12-20); Blood Urea Nitrogen 13 mg/dL (9-16); Calcium 9.3 mg/dL (8.4-10.2); Carbon Dioxide 29 mmol/L (22-29); Chloride 107 mmol/L (96-108); Creatinine Clr Calc Pharmacy 81.4; Estimated Glomerular Filt Rate > 60; Glucose Random 80 mg/dL (60-115); Potassium 4.1 mmol/L (3.3-5.1); Sodium 141 mmol/L (135-145)
[2022-06-28 11:12] LABS: Troponin-I High Sensitivity < 2.7 ng/L (<3.5-35.0)
[2022-06-28 11:24] LABS: IDNOW Serial# BCCEAD1C; Influenza A Negative (Negative); Influenza B2 Negative (Negative)
[2022-06-28 11:25] LABS: IDNOW Serial# 08D9AD1C; Strep A Nucleic Acid Negative (Negative)
[2022-06-28 11:26] LABS: COVID-19 Test Negative (Negative); IDNOW Serial# 9DB6401D
[2022-06-28 12:45] VITALS: BP 144/78; PULSE 55; RESP 18; O2SAT 98
== END 2022-06-28 12:46 | disposition home or self-care (01) ==
PROVIDERS: Registered Nurse Emergency; Emergency Provider Student in an Organized Health Care Education/Training Program; PCP Internal Medicine
DX: J06.9 Acute upper respiratory infection, unspecified (principal); Z20.822 Contact with and (suspected) exposure to COVID-19; I10 Essential (primary) hypertension; E78.00 Pure hypercholesterolemia, unspecified; I48.0 Paroxysmal atrial fibrillation; Z87.891 Personal history of nicotine dependence; Z79.01 Long term (current) use of anticoagulants; Z79.02 Long term (current) use of antithrombotics/antiplatelets; Z79.899 Other long term (current) drug therapy
CPT/HCPCS: 36415; 71046; 80048; 84443; 84484; 85025; 87502; 87635; 87651; 93005; 99283; 99284

== ENCOUNTER 2022-07-07 21:48 | Emergency (ER) | payer OTHER, SELFPAY ==
[2022-07-07 21:58] VITALS: BP 166/76; PULSE 71; RESP 20; TEMP 37.4; O2SAT 94; BMI 24.7
[2022-07-07 23:10] LABS: IDNOW Serial# 6674DD1D; IDNOW Serial# 9DB6401D; Influenza A Negative (Negative); Influenza B2 Negative (Negative); Strep A Nucleic Acid Negative (Negative)
[2022-07-07 23:11] LABS: COVID-19 Test Negative (Negative); IDNOW Serial# 55D5AD1C
--- NOTE | 2022-07-08 00:05 | ED.URI ---
HPI - URI/Sore Throat General Chief Complaint: Upper Respiratory Symptoms Stated Complaint: Cold symptoms, vision issues Time Seen by Provider: 07/07/22 23:27 Source: patient Mode of arrival: ambulatory Limitations: no limitations History of Present Illness HPI Narrative: Patient complaining of cold symptoms with sore throat for last 2 weeks got worse in last few days also for last few days noticed purulent discharge from the eyes . Patient legally blind on the right eye fever no chills patient does have a dry cough no significant shortness of breath no other family member sick Related Data Home Medications Medication Instructions Recorded Confirmed sertraline 25 mg tablet 25 mg PO DAILY 11/08/21 05/23/22 Previous Rx's Medication Instructions Recorded rivaroxaban 20 mg tablet (Xarelto) 20 mg PO DAILY #90 tabs 07/18/21 acetaminophen 500 mg tablet 1,000 mg PO Q6H PRN pain #14 tabs 08/05/21 (Tylenol Extra Strength) BATH BENCH WITH BACK #1 ea 08/31/21 HANDHELD SHOWER HEAD #1 ea 08/31/21 LOCKING RAISED TOILET SEAT with #1 ea 08/31/21 ARMS blood pressure monitor (Blood #1 ea 08/31/21 Pressure Kit) sennosides 8.6 mg-docusate sodium 1 tab-cap PO BEDTIME #60 tabs 11/08/21 50 mg tablet (Senna-S) flecainide 50 mg tablet 50 mg PO BID #180 caps 12/07/21 lorazepam 0.5 mg tablet 0.5 mg PO DAILY 90 days #90 tabs 01/05/22 cyclobenzaprine 10 mg tablet 10 mg PO BEDTIME PRN muscle spasm 02/06/22 #30 tabs metoprolol succinate 25 mg 25 mg PO DAILY #90 tabs 02/22/22 tablet,extended release 24 hr omeprazole 20 mg capsule,delayed 20 mg PO DAILY #90 caps 04/23/22 release atorvastatin 40 mg tablet 40 mg PO DAILY 90 days #90 tabs 04/24/22 ezetimibe 10 mg tablet 10 mg PO DAILY #90 tabs 04/24/22 ascorbate calcium (vitamin C) 500 500 mg PO DAILY #30 tabs 05/17/22 mg tablet ferrous sulfate 325 mg (65 mg 325 mg PO DAILY #90 tabs 05/17/22 iron) tablet (Feosol) benzonatate 100 mg capsule 100 mg PO TID PRN cough #20 caps 06/28/22 amoxicillin 875 mg-potassium 1 tab PO BID #20 tabs 07/08/22 clavulanate 125 mg tablet erythromycin 5 mg/gram (0.5 %) eye 0.5 inch ophthalmic (eye) QID #3.5 07/08/22 ointment grams ofloxacin 0.3 % eye drops (Ocuflox) See Rx Instructions ophthalmic 07/08/22 (eye) .COMPLEX #5 mL Allergies Allergy/AdvReac Type Severity Reaction Status Date / Time almond [ALMOND] Allergy Unknown SWELLING Verified 07/07/22 22:01 Review of Systems Review of Systems: Yes all other systems are reviewed and are negative [facility] Past Medical History Medical History Abnormal stress echocardiogram Alcohol abuse Anxiety and depression Blind right eye BPH (benign prostatic hyperplasia) CAD (coronary artery disease) Degenerative disc disease, cervical GERD (gastroesophageal reflux disease) History of adenomatous polyp of colon Hypercholesterolemia Hypertension Left renal stone Lesion of bladder Lower back pain Paroxysmal atrial fibrillation Renal cyst Sensorineural hearing loss Thoracic spondylosis Tinnitus Tubular adenoma of colon Surgical History H/O colonoscopy History of inguinal hernia repair Hx of cataract surgery Hx of transurethral resection of prostate Family History Family History Father Medical history unknown Mother Medical history unknown Brother No problems noted. Son No problems noted. Son No problems noted. 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) Alcohol intake: never Patient Tobacco Use Status: Former Tobacco user Quit Date: 2014 Tobacco use type: Cigarette Years Smoked: 2014 quit e-Cigarette/Vaping Use: Never Used Second Hand Smoke Exposure: No Advance Directives: No Advance Directives Information Provided: No Advance Directives Date on File: 07/05/20 service: No Current occupational status: disabled Cognitive needs: No Hearing needs: No Vision needs: Yes Physical Exam Vital Signs: Vital Signs: Last Vital Signs Temp 98.6 F 07/08/22 00:48 Pulse 74 07/08/22 00:48 Resp 16 07/08/22 00:48 BP 148/86 H 07/08/22 00:48 Pulse Ox 95 07/08/22 00:48 O2 Del Method Room Air 07/08/22 00:48 BMI result Body Mass Index 24.7 Appearance: Alert. Oriented X3. No acute distress. Eyes: Legally blind right eye, purulent discharge both eyes good eye painless movements anterior chamber clear left eye ENT: Pharynx normal. Oral Mucosa moist Neck: Normal inspection. Neck supple. CVS: Normal heart rate and rhythm. Pulses normal. Respiratory: No respiratory distress. Equal air entry bilateral, no wheezing/rales/rhonchi Abdomen: Soft and nontender. Bowel sounds are present, no mass palpable, no CVA tenderness Skin: Skin warm and dry. Normal skin color. Normal skin turgor. Extremities: No lower extremity edema. No calf tenderness Neuro: Oriented X 3. No motor deficit. No sensory deficit.No cerebellar signs , cranial nerves II-XII intact Medications Administered Discontinued Medications Generic Name Dose Route Start Last Admin Trade Name Freq PRN Reason Stop Dose Admin Amoxicillin/Clavulanate Potassium 875 mg 07/07/22 23:59 07/08/22 00:30 Amoxicillin/Potassium Clav 875 Mg Tablet PO 07/08/22 00:00 875 mg ONCE ONE Administration Erythromycin 1 cm 07/07/22 23:58 07/08/22 00:30 Erythromycin Base 0.5% Oph Oin 1 Gm Tube EYE-BOTH 07/07/22 23:59 1 cm ONCE ONE Administration Tobramycin Sulfate 2 drop 07/07/22 23:51 07/08/22 00:30 Tobramycin Sulfate 0.3% Jaquelin Op 5 Ml Btl EYE-BOTH 07/07/22 23:52 2 drop ONCE ONE Administration Medical Decision Making Medical Decision Making [facility] Narrative: Patient has purulent conjunctivitis with acute pharyngitis discharge patient home on ofloxacin eye drops and Augmentin follow-up with ophthalmology Lab Data [facility] Lab Attestation statement: I reviewed the patient's lab results. Labs: Lab Results 05/12/23 05/12/23 05/12/23 Range/Units 22:35 22:35 22:35 COVID-19 (TYRONE) Negative (Negative) COVID-19 Clin Com See Note Influenza Type A (MINNIE) Negative (Negative) Influenza Type B (MINNIE) Negative (Negative) Influenza A & B Note See Note S. 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 Prescriptions: New ofloxacin [Ocuflox] 0.3 % drops See Rx Instructions .ROUTE .COMPLEX Qty: 5 0RF Rx Instructions: put 1-2 drps into affected eye(s) every 2-4 h x 2 days, then 1-2 drps 4 times/day days 3-7 amoxicillin-pot clavulanate 875-125 mg tablet 1 tab PO BID Qty: 20 0RF erythromycin 5 mg/gram (0.5 %) ointment 0.5 inch ophthalmic (eye) QID Qty: 3.5 0RF No Action Xarelto 20 mg tablet 20 mg PO DAILY Qty: 90 3RF (DME) BATH BENCH WITH BACK See Rx Instructions .Route .MEDSUPPLY Qty: 1 0RF Rx Instructions: As directed (DME) HANDHELD SHOWER HEAD See Rx Instructions .Route .MEDSUPPLY Qty: 1 0RF Rx Instructions: As directed (DME) LOCKING RAISED TOILET SEAT with ARMS See Rx Instructions .Route .MEDSUPPLY Qty: 1 0RF Rx Instructions: As directed (DME) blood pressure monitor [Blood Pressure Kit] Kit See Rx Instructions .ROUTE .MEDSUPPLY Qty: 1 0RF Rx Instructions: As directed flecainide 50 mg tablet 50 mg PO BID Qty: 180 2RF lorazepam 0.5 mg tablet 0.5 mg PO DAILY 90 Days Qty: 90 1RF metoprolol succinate 25 mg tablet extended release 24 hr 25 mg PO DAILY Qty: 90 3RF omeprazole 20 mg capsule,delayed release(DR/EC) 20 mg PO DAILY Qty: 90 2RF ezetimibe 10 mg tablet 10 mg PO DAILY Qty: 90 1RF atorvastatin 40 mg tablet 40 mg PO DAILY 90 Days Qty: 90 1RF acetaminophen [Tylenol Extra Strength] 500 mg tablet 1,000 mg PO Q6H PRN (Reason: pain) Qty: 14 0RF benzonatate 100 mg capsule 100 mg PO TID PRN (Reason: cough) Qty: 20 0RF sertraline 25 mg tablet 25 mg PO DAILY sennosides-docusate sodium [Senna-S] 8.6-50 mg tablet 1 tab-cap PO BEDTIME Qty: 60 5RF cyclobenzaprine 10 mg tablet 10 mg PO BEDTIME PRN (Reason: muscle spasm) Qty: 30 0RF ferrous sulfate [Feosol] 325 mg (65 mg iron) tablet 325 mg PO DAILY Qty: 90 0RF ascorbate calcium (vitamin C) 500 mg tablet 500 mg PO DAILY Qty: 30 4RF Interventions: ED Discharge Assessment Last Done: 07/08/22 00:49 Discharge Date/Time: 07/08/22 00:49 Print Language: Maltese
[2022-07-08] MEDS: Amoxicillin/Potassium Clav 875 MG TABLET PO (00:30)
[2022-07-08] MEDS: Tobramycin Sulfate 0.3% Sol Op 5 ML BTL 2 DROP EYE-BOTH (00:30)
[2022-07-08] MEDS: Erythromycin Base 0.5% Oph Oin 1 GM TUBE 1 CM EYE-BOTH (00:30)
[2022-07-08 00:48] VITALS: BP 148/86; PULSE 74; RESP 16; TEMP 37; O2SAT 95
== END 2022-07-08 00:49 | disposition home or self-care (01) ==
PROVIDERS: Emergency Provider Internal Medicine; PCP Internal Medicine
DX: J06.9 Acute upper respiratory infection, unspecified (principal); H10.33 Unspecified acute conjunctivitis, bilateral; J02.9 Acute pharyngitis, unspecified; Z20.822 Contact with and (suspected) exposure to COVID-19; I10 Essential (primary) hypertension; E78.00 Pure hypercholesterolemia, unspecified; I48.0 Paroxysmal atrial fibrillation; H54.8 Legal blindness, as defined in USA; Z79.899 Other long term (current) drug therapy; Z79.01 Long term (current) use of anticoagulants; Z79.02 Long term (current) use of antithrombotics/antiplatelets
CPT/HCPCS: 87502; 87635; 87651; 99283

== ENCOUNTER 2022-09-20 10:12 | Outpatient (AMB) | payer OTHER, SELFPAY ==
[2022-09-20 10:14] VITALS: BP 142/78; PULSE 54; BMI 25.2
--- NOTE | 2022-09-20 10:14 | MHC.OFFVIS ---
Intake Vital Signs 09/20/22 10:14 Height 6 ft Weight 185 lb 10.067 oz BMI 25.2 BP 142/78 H Blood Pressure Location Rt brachial Position Sitting Pulse 54 Intake Visit Reasons: recall colonoscopy Intake Note: This patient presents for an assessment for recall colonoscopy screening. Patient c/o; last colonoscopy 01/25/2015, denies rectal bleeding, denies rectal pain. Implementation Coordinator Required: Yes Implementation Coordinator Language: Anti Air War[employer] Operations Officer Name: Christopher Information Interpreted: non-clinical & clinical Accompanied by: Self / Same As Patient Allergies almond [ALMOND] Allergy (Unknown, Verified 09/20/22 10:22) SWELLING Medication List - Last Reconciled 09/20/22 by Rinku Tierney MD acetaminophen (Tylenol Extra Strength) 1,000 mg (2 x 500 mg) PO Q6H PRN amoxicillin-pot clavulanate 875-125 mg 1 tab PO BID ascorbate calcium (vitamin C) 500 mg PO DAILY atorvastatin 40 mg PO DAILY 90 days [BATH BENCH WITH BACK As directed] benzonatate 100 mg PO TID PRN blood pressure monitor (Blood Pressure Kit) As directed cyclobenzaprine 10 mg PO BEDTIME PRN erythromycin 0.5 inches ophthalmic (eye) QID ezetimibe 10 mg PO DAILY ferrous sulfate (Feosol) 325 mg PO DAILY flecainide 50 mg PO BID [HANDHELD SHOWER HEAD As directed] [LOCKING RAISED TOILET SEAT with ARMS As directed] lorazepam 0.5 mg PO DAILY 90 days metoprolol succinate ER 25 mg PO DAILY ofloxacin 0.3% (Ocuflox) put 1-2 drps into affected eye(s) every 2-4 h x 2 days, then 1-2 drps 4 times/day days 3-7 omeprazole 20 mg PO DAILY rivaroxaban (Xarelto) 20 mg PO DAILY sennosides-docusate sodium 8.6-50 mg (Senna-S) 1 tab-cap PO BEDTIME sertraline 25 mg PO DAILY HPI recall colonoscopy HPI Details 71-year-old male here to schedule for his colonoscopy. He had undergone colonoscopy in 2014 and he was noted to have polyps in the splenic flexure and in the sigmoid. These were tubular adenomas. I had recommended for him to undergo another colonoscopy within 5 years because of these polyps. I had actually seen him last year for this but he had canceled this because of heart problems he says. He was unable to do his colonoscopy past 3 years because of the COVID pandemic. Otherwise he denies any GI complaints. He currently denies GI complaints. He has good bowel movements. He denies a strong family history of colon cancer. He is currently on an anticoagulant for atrial fibrillation. [facility] Medical History Abnormal stress echocardiogram Alcohol abuse Anxiety and depression Blind right eye BPH (benign prostatic hyperplasia) CAD (coronary artery disease) Degenerative disc disease, cervical GERD (gastroesophageal reflux disease) History of adenomatous polyp of colon Hypercholesterolemia Hypertension Left renal stone Lesion of bladder Lower back pain Paroxysmal atrial fibrillation Renal cyst Sensorineural hearing loss Thoracic spondylosis Tinnitus Tubular adenoma of colon Surgical History H/O colonoscopy History of inguinal hernia repair Hx of cataract surgery Hx of transurethral resection of prostate Family History Father Medical history unknown Mother Medical history unknown Brother No problems noted. Son No problems noted. Son No problems noted. Social History Household Members: Significant Other Household Members Other:: Housing: Apartment Are you a primary tree care foreman to a significant other at home: No Do you presently have visiting nurse or other home services: Yes ([employer]) Alcohol intake: never Patient Tobacco Use Status: Former Tobacco user Quit Date: 2014 Tobacco use type: Cigarette Years Smoked: 2014 quit e-Cigarette/Vaping Use: Never Used Second Hand Smoke Exposure: No Advance Directives Date on File: 07/05/20 service: No Current occupational status: disabled Cognitive needs: No Hearing needs: No Vision needs: Yes Review of Systems Const Denies chills and Denies fever(s) Card Denies chest pain, Denies dyspnea and Denies dyspnea on exertion Resp Denies cough, Denies dyspnea and Denies dyspnea on exertion GI Denies hematochezia and Denies change in bowel habits Denies hematuria and Denies difficulty urinating Musc Reports back pain, Reports arthralgias and Reports limited range of motion Neuro Denies focal weakness and Denies convulsions Psych Denies depression and Denies mood swings Physical Exam Vital Signs: Last Vital Signs Pulse 54 09/20/22 10:14 BP 142/78 H 09/20/22 10:14 BMI result Body Mass Index 25.2 Const General: comfortable and no acute distress Orientation/consciousness: patient oriented x3 Neck Neck: Yes no lymphadenopathy Resp Auscultation: clear to auscultation bilaterally Cardio Rhythm: regular rhythm GI Palpation (GI): Soft to palpation, nontender and no guarding Neuro General: patient oriented x3 Assessment & Plan Assessment & Plan (1) History of adenomatous polyp of colon: Code(s): Z86.010 - Personal history of colonic polyps Plan: He now wants to proceed with colonoscopy. I recommended repeating his colonoscopy within 5 years in 2015 because of his tubular adenomas. I explained to him the technique of this procedure. I reviewed the risks including but not limited to bleeding, infections, bowel injury, as well as the benefits and alternatives. He has given consent He is to hold his Xarelto for 2 days preoperatively. This will be discussed with his screw cutter as well. Coding Level of Care Code Est Pt Level 3 (27743) Diagnoses History of adenomatous polyp of colon Z86.010
== END 2022-09-20 10:36 | disposition home or self-care (01) ==
PROVIDERS: PCP Internal Medicine; Visit Provider Surgery
DX: Z86.010 Personal history of colon polyps (principal)
CPT/HCPCS: 99213

== ENCOUNTER → 2022-09-20 10:12 | Outpatient (BNVA) | payer OTHER, SELFPAY | PROVIDERS: PCP Internal Medicine; Visit Provider Surgery | DX: Z86.010 Personal history of colon polyps (principal) | CPT/HCPCS: 99212 ==

== ENCOUNTER 2022-11-21 08:42 | Outpatient (AMB) | payer OTHER, SELFPAY ==
[2022-11-21 08:46] VITALS: BP 140/72; PULSE 69; O2SAT 97; BMI 25.9
--- NOTE | 2022-11-21 08:46 | A.OFFPC_ITS ---
Vital Signs 11/21/22 08:46 11/21/22 09:21 Height 6 ft Weight 191 lb BMI 25.9 BP 140/72 H 130/70 Blood Pressure Location Lt brachial Lt brachial Position Sitting Sitting Pulse 69 Pulse Source Pulse Oximeter Pulse Oximetry (%) 97 Oxygen Delivery Method Room Air Intake Visit Reasons: Annual Exam Allergies almond [ALMOND] Allergy (Unknown, Verified 11/21/22 08:47) SWELLING Medication List - Last Reconciled 11/21/22 by Yvonne Carter MD acetaminophen (Tylenol Extra Strength) 1,000 mg (2 x 500 mg) PO Q6H PRN atorvastatin 40 mg PO DAILY 90 days [BATH BENCH WITH BACK As directed] blood pressure monitor (Blood Pressure Kit) As directed ezetimibe 10 mg PO DAILY ferrous sulfate (Feosol) 325 mg PO DAILY flecainide 50 mg PO BID [HANDHELD SHOWER HEAD As directed] [LOCKING RAISED TOILET SEAT with ARMS As directed] lorazepam 0.5 mg PO DAILY 90 days metoprolol succinate ER 25 mg PO DAILY omeprazole 20 mg PO DAILY rivaroxaban (Xarelto) 20 mg PO DAILY sennosides-docusate sodium 8.6-50 mg (Senna-S) 1 tab-cap PO BEDTIME sodium,potassium,mag sulfates 17.5-3.13-1.6 gram (Suprep Bowel Prep Kit) DILUTE; drink full amount early evening before AND next morning at least 2 hr before procedure; follow w 960 mL water PO Tobacco use date assessed: 07/12/22 Fall risk assessment: No Falls in past year Last assessed Fall Risk: 11/21/22 Dental Screening Dental Screen Date: 11/21/22 Did you have a dental visit in the last 12 months?: No Did you have a dental problem in the last 6 months where you did not have access to dental care?: No Was dental information given to patient?: Patient has dentist HPI Annual Exam HPI Details 71-year-old male with coronary artery di sease GERD hypertension BPH hypercholesterolemia atrial fibrillation and iron deficiency anemia last seen in April 2022. Patient is here for follow-up. Patient was supposed to be scheduled for colonoscopy but this was canceled. Patient was seen in June for an upper respiratory tract infection and bacterial conjunctivitis. Cardiology follow-up was in April. On flecainide and on oral cut anticoagulation. cancelled due to being scared and being sick at that time. [facility] Medical History (Updated 11/21/22 @ 09:47 by Yvonne Carter MD) Tinnitus CAD (coronary artery disease) Abnormal stress echocardiogram History of adenomatous polyp of colon Paroxysmal atrial fibrillation Lower back pain Renal cyst Thoracic spondylosis Lesion of bladder Left renal stone Tubular adenoma of colon Sensorineural hearing loss Alcohol abuse Blind right eye Anxiety and depression Hypercholesterolemia BPH (benign prostatic hyperplasia) Degenerative disc disease, cervical GERD (gastroesophageal reflux disease) Hypertension Surgical History Hx of transurethral resection of prostate H/O colonoscopy Hx of cataract surgery History of inguinal hernia repair Family History (Updated 11/21/22 @ 08:48 by Berkley Mason [facility]) Father Medical history unknown Mother Medical history unknown Brother No problems noted. Son No problems noted. Son No problems noted. Social History Household Members: Significant Other Household Members Other:: Housing: Apartment Are you a primary child care teacher to a significant other at home: No Do you presently have visiting nurse or other home services: Yes ([employer]) Alcohol intake: never Patient Tobacco Use Status: Former Tobacco user Quit Date: 2014 Tobacco use type: Cigarette Years Smoked: 2014 quit e-Cigarette/Vaping Use: Never Used Second Hand Smoke Exposure: No Advance Directives Date on File: 07/05/20 service: No Current occupational status: disabled Cognitive needs: No Hearing needs: No Vision needs: Yes Questionnaire PHQ-9 Over the last 2 weeks, how often have you been bothered by any of the following problems? 1. Little interest or pleasure in doing things: not at all 2. Feeling down, depressed, or hopeless: not at all 3. Trouble falling or staying asleep, or sleeping too much: not at all 4. Feeling tired or having little energy: not at all 5. Poor appetite or overeating: not at all 6. Feeling bad about yourself - or that you are a failure or have let yourself or your family down: not at all 7. Trouble concentrating on things, such as reading the newspaper or watching television: not at all 8. Moving or speaking so slowly that other people could have noticed. Or the opposite - being so fidgety or restless that you have been moving around a lot more than usual: not at all 9. Thoughts that you would be better off or of hurting yourself in some way: not at all Total score: 0 Depression Screening Interpretation: Negative Source: Developed by Drs. Almas Amaral, Roopa Anders, William Madison and colleagues, with an educational rubén from [email or web address]. Thrive Questionnaire Date Thrive assessed: 05/17/22 AUDIT C Alcohol Use Questionnaire (AUDIT-C) 1. How often do you have a drink containing alcohol?: Never 3. How often do you have six or more drinks on one occasion?: Never Total Score: 0 Score Reviewed/Action Taken: No DALIA-7 AMB Questionnaire DALIA-7 Date DALIA - 7 assessed: 05/17/22 Source: Developed by Drs. Almas Amaral, Roopa Anders, William Madison and colleagues, with an educational rubén from [email or web address]. Review of Systems Const Denies poor appetite and Denies weakness Eyes Denies no additional complaints ENT Reports Normal hearing present, Denies dizziness, Denies nasal congestion, Denies tinnitus and Denies sore throat Card Denies chest pain, Denies syncope, Denies rapid heart rate and Denies dyspnea Resp Denies cough and Denies dyspnea GI Denies change in stool character, Reports constipation, Denies diarrhea, Denies nausea and Denies vomiting Denies dysuria and Denies urinary frequency Neuro Reports Normal hearing present, Denies confusion, Denies dizziness, Denies syncope and Denies weakness Psych Denies confusion Physical exam (Primary Care) Vital Signs: Last Vital Signs Pulse 69 11/21/22 08:46 BP 130/70 11/21/22 09:21 Pulse Ox 97 11/21/22 08:46 Oxygen Delivery Method Room Air 11/21/22 08:46 BMI result Body Mass Index 25.9 Tobacco/Smoking Status: Tobacco use Status Tobacco use date assessed 07/12/22 11/21/22 08:48 Patient Tobacco Use Status Former Tobacco user 11/21/22 08:48 Tobacco use type Cigarette 11/21/22 08:48 e-Cigarette/Vaping Use Never Used 11/21/22 08:48 PHQ-9: PHQ-9 Score PHQ-9: Total score 0 09/26/23 18:29 Depression Screening Interpretation: Negative Thrive Assessment: Date of Thrive Assessment Date Thrive assessed 05/17/22 11/21/22 08:48 Const General: alert and awake; No confusion Orientation/consciousness: No confusion HENMT Head: Yes normocephalic Ears: external ears normal and TM's normal bilaterally Face and sinus: Yes normal facial exam Mouth: moist mucous membranes Throat: Yes tonsils normal Eyes Conjunctivae: conjunctivae normal Pupils: Equal, round and reactive pupils present and Pupil accommodation reflex normal Direct Ophthalmoscopy: normal light reflex Neck Neck: No lymphadenopathy Thyroid: Thyroid normal Chest Chest palpation & inspection: normal inspection of the chest Resp Effort & Inspection: normal respiratory effort and no audible wheezes Auscultation: clear to auscultation bilaterally, no crackles, no wheezes and lung sounds not diminished Cardio Rate: regular rate Rhythm: regular rhythm Peripheral pulses: radial pulses present and dorsalis pedis present GI Other: guaiac neg prostate mild enlarged Palpation (GI): no masses Auscultation: normal bowel sounds and normoactive bowel sounds Other: L inguinal bulge Skin General skin exam: no rashes or lesions noted Rashes: no rashes Neuro General: deep tendon reflexes 2+ bilaterally and No confusion Cranial nerves: Yes Equal, round and reactive pupils present, Yes Midline tongue present, Yes Normal hearing present and Yes Ability to bilaterally elevate shoulders present Cognition (Neuro): normal cognition Gait exam (Neuro): Normal gait present Motor exam (neuro): 5/5 motor strength present throughout Deep tendon reflexes (DTR's): Right brachioradialis reflex intensity grade: 2+, Left brachioradialis reflex intensity grade: 2+, Right patellar reflex intensity grade: 2+ and Left patellar reflex intensity grade: 2+ Extrem General: No edema Assessment and Plan Assessment & Plan (1) Annual physical exam: Code(s): Z00.00 - Encounter for general adult medical examination without abnormal findings (2) CAD (coronary artery disease): Comment: Diffuse nonobstructive CAD by coronary CTA March 2021-sees Dr. Aleman Code(s): I25.10 - Atherosclerotic heart disease of [place] coronary artery without angina pectoris Plan: Control the cholesterol, weight, blood pressure (3) Hypertension: Comment: stress test nuclear September 2012January 27 1016- Code(s): I10 - Essential (primary) hypertension Qualifiers: Hypertension type: essential hypertension Qualified Code(s): I10 - Essential (primary) hypertension Plan: Continue with blood pressure medication. Decrease salt intake and exercise continue with metoprolol 25 mg once a day (4) GERD (gastroesophageal reflux disease): Code(s): K21.9 - Gastro-esophageal reflux disease without esophagitis Qualifiers: Esophagitis presence: esophagitis presence not specified Qualified Code(s): K21.9 - Gastro-esophageal reflux disease without esophagitis Plan: Avoid the foods that causes that usually spicy foods, tomato products, juices, coffee, soda and foods that your sensitive to. After eating do not lie down, allow 3-4 hours before in lie down. And keep the head of bed above 30 degrees to avoid the acid from going up. (5) Hypercholesterolemia: Code(s): E78.00 - Pure hypercholesterolemia, unspecified Plan: Avoid fried foods, chicken skin, eggs, butter margarine, pastries and meat. Be it pork or beef they have a lot of cholesterol LDL goal of less than 70 and triglyceride of less than 150. Patient is on atorvastatin 40 mg once a day and Zetia 10 mg once a day (6) BPH (benign prostatic hyperplasia): Code(s): N40.0 - Benign prostatic hyperplasia without lower urinary tract symptoms Qualifiers: Lower urinary tract symptom detail: urinary frequency Lower urinary tract symptom presence: symptoms present Qualified Code(s): N40.1 - Benign prostatic hyperplasia with lower urinary tract symptoms; R35.0 - Frequency of micturition Plan: Stable (7) Tubular adenoma of colon: Comment: 2009 Dr. Tierney 2014 Code(s): D12.6 - Benign neoplasm of colon, unspecified Plan: Patient is in contact with the surgeon for colonoscopy (8) Paroxysmal atrial fibrillation: Code(s): I48.0 - Paroxysmal atrial fibrillation Plan: Continue with flecainide and anticoagulation. June 2022 last blood work (9) Iron deficiency anemia: Code(s): D50.9 - Iron deficiency anemia, unspecified Plan: Continue to monitor. Stable (10) Tinnitus: Code(s): H93.19 - Tinnitus, unspecified ear Plan: hearing test (11) Neck pain: Code(s): M54.2 - Cervicalgia (12) Lower back pain: Code(s): M54.5 - Low back pain Qualifiers: Back pain laterality: unspecified Chronicity: acute Sciatica presence: without sciatica Qualified Code(s): M54.5 - Low back pain Orders: Orders Complete Blood Count Auto Diff Today I25.10 - Atherosclerotic heart disease of [place] coronary artery without angina pectoris Comprehensive Met. Panel Today I25.10 - Atherosclerotic heart disease of [place] coronary artery without angina pectoris Free T4 (Free Thyroxine) Today I25.10 - Atherosclerotic heart disease of [place] coronary artery without angina pectoris Thyroid Stimulating Hormone Today I25.10 - Atherosclerotic heart disease of [place] coronary artery without angina pectoris B Type Natriuretic Peptide Today I25.10 - Atherosclerotic heart disease of [place] coronary artery without angina pectoris Ferritin Today I25.10 - Atherosclerotic heart disease of [place] coronary artery without angina pectoris CA echo transthoracic complete Today I25.10 - Atherosclerotic heart disease of [place] coronary artery without angina pectoris Vitamin B12 and Folate Today I25.10 - Atherosclerotic heart disease of [place] coronary artery without angina pectoris Lipid Panel Today E78.00 - Pure hypercholesterolemia, unspecified, I25.10 - Atherosclerotic heart disease of [place] coronary artery without angina pectoris IRON PROFILE Today I25.10 - Atherosclerotic heart disease of [place] coronary artery without angina pectoris Reticulocyte Count Today I25.10 - Atherosclerotic heart disease of [place] coronary artery without angina pectoris PT Evaluation and Treatment Today M54.2 - Cervicalgia, M54.5 - Low back pain Referrals Speech and Hearing Referral H93.19 - Tinnitus, unspecified ear Medications: Refilled ascorbate calcium (vitamin C) 500 mg PO DAILY 90 tabs 3RF D50.9 - Iron deficiency anemia, unspecified Coding Level of Care Code Est Pt Prev Care >65y(45944) Diagnoses Annual physical exam Z00.00 CAD (coronary artery disease) I25.10 Essential hypertension I10 Hypertension type: essential hypertension Gastroesophageal reflux disease, unspecified whether esophagitis present K21.9 Esophagitis presence: esophagitis presence not specified Hypercholesterolemia E78.00 Benign prostatic hyperplasia with urinary frequency N40.1; R35.0 Lower urinary tract symptom detail: urinary frequency Lower urinary tract symptom presence: symptoms present Tubular adenoma of colon D12.6 Paroxysmal atrial fibrillation I48.0 Iron deficiency anemia D50.9 Tinnitus H93.19 Neck pain M54.2 Acute low back pain without sciatica, unspecified back pain laterality M54.5 Back pain laterality: unspecified Chronicity: acute Sciatica presence: without sciatica Additional Codes PHQ-9 - 26878 - PHQ-9 Billing: ([id number])
[2022-11-21 09:21] VITALS: BP 130/70
== END 2022-11-21 09:56 | disposition home or self-care (01) ==
PROVIDERS: Visit Provider Internal Medicine
DX: Z00.00 Encounter for general adult medical examination without abnormal findings (principal); I10 Essential (primary) hypertension; K21.9 Gastro-esophageal reflux disease without esophagitis; I48.0 Paroxysmal atrial fibrillation
CPT/HCPCS: 99397

== ENCOUNTER 2022-11-29 08:04 | Outpatient (REF) | payer OTHER, SELFPAY ==
[2022-11-29 08:23] LABS: MANUAL DIFF FLAG NO
[2022-11-29 09:00] LABS: Basophils Absolute Auto 0.1 X10*3/uL (0.0-0.2); Eosinophils Absolute Auto 0.2 X10*3/uL (0.0-0.4); Eosinophils Percent Auto 3.8 % (0-4); Hematocrit 40.5 % (42.0-52.0); Imm Gran Abs Auto 0.01 X10*3/uL (0.00-0.03); Imm Gran Pct Auto 0.2 % (0.0-0.4); Immature Retic Fraction 13.2 % (2.3-13.4); Lymphocytes Absolute Auto 1.9 X10*3/uL (1.2-4.9); Lymphocytes Percent Auto 36.6 % (20-40); Mean Corpuscular HGB Conc 32.1 g/dl (31.0-36.0); Mean Corpuscular Hemoglobin 29.7 pg (27.0-33.0); Mean Corpuscular Volume 92.7 fL (80.0-98.0); Mean Platelet Volume 10.6 fL (9.4-12.4); Monocytes Absolute Auto 0.4 X10*3/uL (0.1-1.2); Monocytes Percent Auto 7.7 % (2-11); Neutrophils Absolute Auto 2.6 x10*3/uL (2.0-8.3); Neutrophils Percent Auto 50.7 % (45-73); Platelet Count 193 X10*3/uL (160-400); Red Blood Count 4.37 X10*6/uL (4.60-5.80); Red Cell Distribution Width 13.3 % (11.0-16.0); Retic HGB Equivalent 34.1 pg (30.0-35.0); Reticulocyte Percent 1.7 % (0.5-1.8); Reticulocytes Absolute 0.074 X10*6/uL (0.026-0.095); White Blood Count 5.1 X10*3/uL (4.8-10.8)
[2022-11-29 09:20] LABS: B Type Natriuretic Peptide 27 pg/mL (<100)
[2022-11-29 09:30] LABS: Alanine Aminotransferase 12 U/L (0-40); Albumin Level 4.2 g/dL (3.5-5.0); Alkaline Phosphatase 61 U/L (39-117); Anion Gap 9 (12-20); Aspartate Amino Transferase 16 U/L (5-37); Bilirubin Total 1.2 mg/dL (0.0-1.0); Blood Urea Nitrogen 13 mg/dL (9-16); Calcium 9.7 mg/dL (8.4-10.2); Carbon Dioxide 28 mmol/L (22-29); Chloride 108 mmol/L (96-108); Cholesterol 157 mg/dL (<200); Estimated Glomerular Filt Rate > 60; Glucose Random 96 mg/dL (60-115); HDL Cholesterol 51 mg/dL (>40); Iron 121 mcg/dL (45-160); LDL Cholesterol Calculated 84 mg/dL (<100); Percent Iron Saturation 40 % (15-50); Potassium 4.2 mmol/L (3.3-5.1); Sodium 141 mmol/L (135-145); Total Iron Binding Capacity 306 mcg/dL (228-428); Total Protein 6.6 g/dL (6.5-8.0); Triglycerides 112 mg/dL (<150); Unsaturated Iron Binding 185 ug/dL
[2022-11-29 09:56] LABS: Folate 14.2 ng/mL (> or = 4.0); Vitamin B12 496 pg/mL (200-900)
[2022-11-29 10:01] LABS: Ferritin 19 ng/mL (20-250); Free T4 (Free Thyroxine) 0.94 ng/dL (0.71-1.85); Thyroid Stimulating Hormone 1.05 uIU/mL (0.32-4.0)
== END 2022-11-29 08:05 | disposition home or self-care (01) ==
LOC: HO.LAB 08:04
PROVIDERS: PCP Internal Medicine; Visit Provider Internal Medicine
DX: I25.10 Atherosclerotic heart disease of native coronary artery without angina pectoris (principal); E78.00 Pure hypercholesterolemia, unspecified; D64.9 Anemia, unspecified
CPT/HCPCS: 36415; 80053; 80061; 82607; 82728; 82746; 83540; 83880; 84439; 84443; 85025; 85045

== ENCOUNTER 2022-12-15 13:37 | Outpatient (AMB) | payer OTHER, SELFPAY ==
--- NOTE | 2022-12-15 13:40 | MHC.OFFVIS ---
Intake Intake Visit Reasons: BPH- yearly follow up Intake Note: Patient is Present for Follow Up PVR Urology Medication: None Antibiotic Allergies: None Blood Thinners: Xarelto Pharmacy: [facility] PVR: 0 Allergies almond [ALMOND] Allergy (Unknown, Verified 12/15/22 13:43) SWELLING HPI HPI Comments History of Present Illness Details Janusz is a very pleasant male. He is a patient of Dr. Carter. He is seen for the following urologic conditions - lower urinary tract symptoms Effective emptying Off medications Follow-up p.r.n. Lower urinary tract symptoms Prior laser prostatectomy Continues to do reasonably well with emptying Waking 3 times at night Does double void PSA 10/16 1.5, 10/17 1.5 Therapeutic plan - p.r.n. follow-up [facility] Medical History Tinnitus CAD (coronary artery disease) Abnormal stress echocardiogram History of adenomatous polyp of colon Paroxysmal atrial fibrillation Lower back pain Renal cyst Thoracic spondylosis Lesion of bladder Left renal stone Tubular adenoma of colon Sensorineural hearing loss Alcohol abuse Blind right eye Anxiety and depression Hypercholesterolemia BPH (benign prostatic hyperplasia) Degenerative disc disease, cervical GERD (gastroesophageal reflux disease) Hypertension Surgical History Hx of transurethral resection of prostate H/O colonoscopy Hx of cataract surgery History of inguinal hernia repair Family History Father Medical history unknown Mother Medical history unknown Brother No problems noted. Son No problems noted. Son No problems noted. 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) Alcohol intake: never Patient Tobacco Use Status: Former Tobacco user Quit Date: 2014 Tobacco use type: Cigarette Years Smoked: 2014 quit e-Cigarette/Vaping Use: Never Used Second Hand Smoke Exposure: No Advance Directives Date on File: 07/05/20 service: No Current occupational status: disabled Cognitive needs: No Hearing needs: No Vision needs: Yes Review of Systems Const Denies chills and Denies fever(s) Card Reports no additional complaints and Denies syncope Resp Denies cough GI Denies abdominal pain and Denies heartburn Reports as per HPI and Denies change in libido Neuro Denies syncope Psych Denies change in libido Endo Denies change in libido Physical Exam Const General: cooperative, healthy appearing, comfortable and no acute distress Orientation/consciousness: patient oriented x3 HEENT Face and sinus: Yes normal facial exam Mouth: moist mucous membranes Neck Neck: Yes normal visual inspection, Yes full ROM and Yes trachea midline Chest Chest palpation & inspection: normal inspection of the chest Resp Effort & Inspection: normal respiratory effort, able to speak in complete sentences and no respiratory distress GI Inspection: Yes normal to inspection Back/Spine/Pelvis Cervical Spine: normal cervical lordosis Thoracic/Lumbar Spine: thoracic and lumbar spine normal to inspection Skin General skin exam: no rashes or lesions noted Neuro General: patient oriented x3, gait normal, tone normal and moves all extremities Extrem General: Yes normal to inspection and Yes capillary refill normal Office Procedures Post Void Residual Post Residual Void Post Void Residual (PVR): 0 [id number] Void Residual by ultrasound Assessment & Plan Assessment & Plan (1) BPH (benign prostatic hyperplasia): Code(s): N40.0 - Benign prostatic hyperplasia without lower urinary tract symptoms Qualifiers: Lower urinary tract symptom presence: symptoms present Lower urinary tract symptom detail: urinary frequency Qualified Code(s): N40.1 - Benign prostatic hyperplasia with lower urinary tract symptoms; R35.0 - Frequency of micturition Plan P.r.n. follow-up Orders: Orders AMB Urinalysis Automated Today Z13.9 - Encounter for screening, unspecified AMB Post Void Residual by ultrasound Today N40.1 - Benign prostatic hyperplasia with lower urinary tract symptoms, R35.0 - Frequency of micturition Patient Instructions: Imaging studies, laboratory and physical exam results were discussed and reviewed in detail. No major barriers to patient understanding were identified. An opportunity to ask questions regarding the treatment plan was provided. All questions were answered. The patient expressed understanding and agreement with the above treatment plan. The patient is aware they should contact our office by phone for worsening of their current condition or the appearance of new urologic symptoms. Compliance is encouraged with any medications and followup testing that is ordered. It is a privilege to participate in the urologic care of your patient. If you have any questions or concerns regarding treatment for the above conditions, or other urologic issues, please do not hesitate to contact me. The office telephone contact is [phone]. This note is constructed using voice recognition software. While every effort has been made to ensure accuracy connection worker errors may have been included. Yours sincerely, Dr Joey Hernandez MD, [facility] Providers of Expert, Compassionate Care for the Genitourinary System Coding Level of Care Code Est Pt Level 4 (02442) Diagnoses Benign prostatic hyperplasia with urinary frequency N40.1; R35.0 Lower urinary tract symptom presence: symptoms present Lower urinary tract symptom detail: urinary frequency CPT Codes Post Residual Void - PVR CPT Code: 62844-Tsic Void Residual by ultrasound ([id number])
== END 2022-12-15 13:58 | disposition home or self-care (01) ==
PROVIDERS: Visit Provider Urology
DX: N40.1 Benign prostatic hyperplasia with lower urinary tract symptoms (principal); R35.0 Frequency of micturition
CPT/HCPCS: 99213

== ENCOUNTER → 2022-12-15 13:37 | Outpatient (BNVA) | payer OTHER, SELFPAY | PROVIDERS: Visit Provider Urology | DX: N40.1 Benign prostatic hyperplasia with lower urinary tract symptoms (principal); N13.8 Other obstructive and reflux uropathy; R35.0 Frequency of micturition; Z79.01 Long term (current) use of anticoagulants; Z90.79 Acquired absence of other genital organ(s) | CPT/HCPCS: 51798; 99212 ==

== ENCOUNTER → 2022-12-21 07:41 | Outpatient (REF) | payer OTHER, SELFPAY ==
--- NOTE | 2022-12-21 07:44 | CA_ITS ---
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 Study Quality: Adequate ECG Rhythm: Sinus Bradycardia Conclusions: - 1. Normal LV ejection fraction of 60 65% 2. Mildly dilated left atrium 3. Trace aortic regurgitation 4. Mildly dilated ascending aorta at 4 cm 5. No gross pericardial effusion 6. Normal RV systolic pressure Findings Left Ventricle Normal left ventricular size, thickness, and systolic function. The visually estimated ejection fraction is between 60-65%. Spectral Doppler is indicative of a normal filling pattern. Right Ventricle Normal right ventricular cavity size and systolic function. Atria The left atrium is mildly dilated. There is no evidence of interatrial shunt. The right atrium is normal in size. Aortic Valve Normal aortic valve structure and function. There is no aortic valve stenosis. There is trace (trivial) aortic valve regurgitation. Mitral Valve There is mild anterior and posterior mitral leaflet thickening. There is trace mitral valve regurgitation. There is no mitral valve stenosis. Pulmonic Valve The pulmonic valve is likely normal. There is trace pulmonic valve regurgitation. Tricuspid Valve Normal tricuspid valve structure. There is trace tricuspid valve regurgitation. The right ventricular systolic pressure is normal. The right ventricular systolic pressure is 20 mmHg. Normal right atrial pressure. There is no evidence of pulmonary hypertension. Great Vessels The pulmonary artery was not well visualized. There is mild dilatation of the ascending aorta measuring 4.00 cm. Venous The inferior vena cava is normal in size and collapses greater than 50% with inspiration. Pericardium/Pleural There is no evidence of pericardial effusion. Prior Study Comparison No significant change compared to prior study dated: 07/06/2020. Measurements 2D Linear Measurements IVSd: 1.40 0.6-0.9/0.6-1.0 cm LVIDd: 5.00 3.9-5.3/4.2-5.9 cm LVIDd Index: 2.43 2.4-3.2/2.2-3.1 cm/m2 LVIDs: 3.70 2.0-3.6 cm LVPWd: 1.10 0.7-1.1 cm LA Diam: 4.20 2.7-3.8/3.0-4.0 cm LAIDs Index: 2.04 1.5-2.3 cm/m2 LV Mass: 308.75 67-162/88-224 g LV Mass Index: 149.88 43-95/49-115 g/m2 LVOT Diam: 2.10 3.0+(-)1.3 cm 2D Systolic Function EF 4C: 55.30 >55% EF 2C: 65.20 >55% EF BiP: 61.20 >55% Mitral Valve MV Pk E: 0.62 MV PK A: 0.59 MV Decel Time: 169.00 E/A: 1.10 E'Lateral: 8.70 E'Medial: 8.05 E/E' Med: 7.70 E/E' Lat: 7.10 PHT: 49.00 MVA PHT: 4.49 Decel Attala: 3.68 Aortic Valve AoV Pk [place]: 1.10 AoV Mn [place]: 0.84 AoV VTI: 0.31 AoV Pk Grad: 5.00 Aov Mn Grad: 3.00 ELZBIETA Cont.VTI: 2.80 LVOT LVOT Pk [place]: 1.08 LVOT Mn [place]: 0.72 LVOT VTI: 0.25 LVOT Pk Grad: 5.00 LVOT Mn Grad: 2.00 LVOT Diam: 2.10 LVOT Area: 3.46 Diastolic Function MV Pk E: 0.62 MV Pk A: 0.59 E/A: 1.10 E'Medial: 8.05 E/E' Med: 7.70 E' Laterial: 8.70 E/E' Lat: 7.10 Right Ventricle TAPSE (mm): 30.30 TVS' [place]: 11.50 Tricuspid Valve TR Pk [place]: 2.09 TR Pk Grad: 17.00 RA Press: 3.00 RVSP: 20.00 Great Vessels Aorta Sinus of Valsalva: 4.00 2.0-3.5 cm Ao Asc: 4.00 2.1-3.4 cm Pulmonary Valve PV Pk C[place]: 0.96 Peak PV Grad: 4.00 Updated in Other Vendor System with Status of Final Wilfred Aleman MD electronically signed on 12/22/2022 8:11:25 AM with status of Final
== END ==
LOC: HO.CARD 07:41
PROVIDERS: PCP Internal Medicine; Visit Provider Internal Medicine
DX: I25.10 Atherosclerotic heart disease of native coronary artery without angina pectoris (principal)
CPT/HCPCS: 93306

== ENCOUNTER → 2022-12-21 07:44 | Outpatient (BNV) | payer OTHER, SELFPAY | PROVIDERS: PCP Internal Medicine; Visit Provider Internal Medicine Cardiovascular Disease | DX: I25.10 Atherosclerotic heart disease of native coronary artery without angina pectoris (principal) | CPT/HCPCS: 93306 ==

== ENCOUNTER 2022-12-28 14:15 | Outpatient (AMB) | payer OTHER, SELFPAY ==
--- NOTE | 2022-12-28 14:18 | A.OFFVIS_ITS ---
Intake Vital Signs 12/28/22 14:19 Height 6 ft Weight 194 lb 0.108 oz BMI 26.3 BP 122/72 Blood Pressure Location Lt brachial Position Sitting Pulse 62 Intake Visit Reasons: 6 month follow up Intake Note: 6 month follow-up Gastroenterology Nurse Required: Yes Gastroenterology Nurse Name: Milli rader Allergies almond [ALMOND] Allergy (Unknown, Verified 12/15/22 13:43) SWELLING Medication List - Last Reconciled 12/28/22 by Wilfred Aleman MD acetaminophen (Tylenol Extra Strength) 1,000 mg (2 x 500 mg) PO Q6H PRN ascorbate calcium (vitamin C) 500 mg PO DAILY atorvastatin 40 mg PO DAILY 90 days [BATH BENCH WITH BACK As directed] blood pressure monitor (Blood Pressure Kit) As directed ezetimibe 10 mg PO DAILY ferrous sulfate (Feosol) 325 mg PO DAILY flecainide 50 mg PO BID [HANDHELD SHOWER HEAD As directed] [LOCKING RAISED TOILET SEAT with ARMS As directed] lorazepam 0.5 mg PO DAILY 90 days metoprolol succinate ER 25 mg PO DAILY omeprazole 20 mg PO DAILY rivaroxaban (Xarelto) 20 mg PO DAILY sennosides-docusate sodium 8.6-50 mg (Senna-S) 1 tab-cap PO BEDTIME sodium,potassium,mag sulfates 17.5-3.13-1.6 gram (Suprep Bowel Prep Kit) DILUTE; drink full amount early evening before AND next morning at least 2 hr before procedure; follow w 960 mL water PO HPI HPI Comments History of Present Illness Details Janusz comes for follow-up. History was obtained with help of automotive parts interpreter. Patient has had no significant cardiac complaints. Recent echocardiogram shows stable mild thoracic aortic enlargement at 4 cm. He denies any significant prolonged palpitation irregular heartbeat. Denies any exertional chest pain or shortness of breath. No lightheadedness, syncope. Generally the blood pressure is well controlled and less than systolic 130. Denies any heart failure symptoms. No bleeding issues or neurologic events. [facility] Medical History Tinnitus CAD (coronary artery disease) Abnormal stress echocardiogram History of adenomatous polyp of colon Paroxysmal atrial fibrillation Lower back pain Renal cyst Thoracic spondylosis Lesion of bladder Left renal stone Tubular adenoma of colon Sensorineural hearing loss Alcohol abuse Blind right eye Anxiety and depression Hypercholesterolemia BPH (benign prostatic hyperplasia) Degenerative disc disease, cervical GERD (gastroesophageal reflux disease) Hypertension Surgical History Hx of transurethral resection of prostate H/O colonoscopy Hx of cataract surgery History of inguinal hernia repair Family History Father Medical history unknown Mother Medical history unknown Brother No problems noted. Son No problems noted. Son No problems noted. 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) Alcohol intake: never Patient Tobacco Use Status: Former Tobacco user Quit Date: 2014 Tobacco use type: Cigarette Years Smoked: 2014 quit e-Cigarette/Vaping Use: Never Used Second Hand Smoke Exposure: No Advance Directives Date on File: 07/05/20 service: No Current occupational status: disabled Cognitive needs: No Hearing needs: No Vision needs: Yes Review of Systems Const Denies chills, Denies fatigue, Denies fever(s), Denies frequent falls, Denies weakness, Denies weight gain and Denies weight loss ENT Denies dizziness Card Denies chest pain, Denies leg edema, Denies lightheadedness, Denies palpitations, Denies dyspnea, Denies dyspnea on exertion, Denies orthopnea and Denies other (loss of consciousness) Resp Denies cough, Denies dyspnea and Denies dyspnea on exertion GI Denies hematochezia and Denies change in stool character Musc Denies abnormal gait, Denies muscle weakness, Denies numbness, Denies radiating pain into limb and Denies tingling Neuro Denies abnormal gait, Denies dizziness, Denies frequent falls, Denies numbness, Denies tingling and Denies weakness Endo Denies fatigue and Denies palpitations Physical Exam Vital Signs: Last Vital Signs Pulse 62 12/28/22 14:19 BP 122/72 12/28/22 14:19 BMI result Body Mass Index 26.3 Last Vital Signs Temp 97.9 F 12/28/20 09:13 Pulse 50 12/28/20 09:13 Resp 12 12/28/20 09:13 BP 136/67 12/28/20 09:13 Pulse Ox 98 12/28/20 09:13 Body Mass Index 26.6 Const General: cooperative, comfortable, no acute distress, well developed, alert and awake Nutritional Appearance: average body habitus Orientation/consciousness: patient oriented x3 Limitations: no limitations HEENT Head: Yes normocephalic and Yes atraumatic Neck Neck: Yes trachea midline, Yes supple and Yes no JVD Resp Effort & Inspection: normal respiratory effort Auscultation: clear to auscultation bilaterally Cardio Jugular venous distension: no JVD Palpation: normal PMI Rate: regular rate Rhythm: regular rhythm Heart sounds: S1 normal heart sound present, S2 normal heart sound present, no click, no gallops, no murmurs and no rubs GI Auscultation: normal bowel sounds Skin General skin exam: no rashes or lesions noted Neuro General: patient oriented x3 and no focal motor deficits Extrem General: Yes no clubbing, cyanosis or edema Psych Appearance: grossly normal Office Procedures EKG Details: EKG shows normal sinus rhythm with nonspecific T-wave changes at 62 beats per minute [id number], Complete Assessment & Plan Assessment & Plan (1) Paroxysmal atrial fibrillation: Code(s): I48.0 - Paroxysmal atrial fibrillation Plan: Highly symptomatic paroxysmal atrial fibrillation suppressed on flecainide therapy. He is tolerating this therapy well. Continue the same in concomitant use with metoprolol therapy. Continue full oral anticoagulation, currently on Xarelto 20 mg daily. Semi annual renal function test should be pursued. Continue monitor EKGs every 6 months. Follow up in the clinic in 1 year's time. (2) Thoracic aortic ectasia: Code(s): I77.810 - Thoracic aortic ectasia Plan: Thoracic aortic enlargement at 4 cm. This has remained more or less stable. Continue follow-up annually by echocardiogram. No interventions required. Management of this was discussed continue aggressive risk factor modification, see below. Continue aggressive blood pressure control which is currently well optimized advised to avoid sudden strenuous isometric exercise. (3) CAD (coronary artery disease): Comment: Diffuse nonobstructive CAD by coronary CTA March 2021-sees Dr. Aleman Code(s): I25.10 - Atherosclerotic heart disease of [place] coronary artery without angina pectoris Plan: Diffuse nonobstructive coronary artery disease. Continue aggressive risk factor modification. Currently on full oral anticoagulation Xarelto and therefore would avoid antiplatelet therapy. Blood pressure is currently well optimized. Continue high-intensity statin therapy with target goal LDL less than 70 mg/dL. Will follow up in the clinic in 6 months for EKG in 1 year with me. Orders: Orders CA echo transthoracic complete 50 Weeks I77.810 - Thoracic aortic ectasia Coding Level of Care Code Est Pt Level 4 (47875) Diagnoses Paroxysmal atrial fibrillation I48.0 Thoracic aortic ectasia I77.810 CAD (coronary artery disease) I25.10 CPT Codes EKG - CPT: 59707-[id number], Complete ([id number])
[2022-12-28 14:19] VITALS: BP 122/72; PULSE 62; BMI 26.3
== END 2022-12-28 14:47 | disposition home or self-care (01) ==
PROVIDERS: PCP Internal Medicine; Visit Provider Internal Medicine Cardiovascular Disease
DX: I48.0 Paroxysmal atrial fibrillation (principal); I77.810 Thoracic aortic ectasia; I25.10 Atherosclerotic heart disease of native coronary artery without angina pectoris
CPT/HCPCS: 93010; 99214

== ENCOUNTER → 2022-12-28 14:15 | Outpatient (BNVA) | payer OTHER, SELFPAY | PROVIDERS: PCP Internal Medicine; Visit Provider Internal Medicine Cardiovascular Disease | DX: I48.0 Paroxysmal atrial fibrillation (principal); I77.810 Thoracic aortic ectasia; I25.10 Atherosclerotic heart disease of native coronary artery without angina pectoris; Z79.01 Long term (current) use of anticoagulants; Z79.899 Other long term (current) drug therapy | CPT/HCPCS: 93005; 99212 ==

== ENCOUNTER 2023-01-11 13:40 | Outpatient (AMB) | payer OTHER, SELFPAY ==
--- NOTE | 2023-01-11 13:48 | MHC.OFFVIS ---
Intake Vital Signs 01/11/23 13:53 Height 6 ft Weight 191 lb BMI 25.9 BP 118/56 L Blood Pressure Location Lt brachial Position Sitting Pulse 69 Intake Visit Reasons: left inguinal hernia Intake Note: This patient presents for an assessment for a left inguinal hernia. Patient c/o; reports previous repair, reports having persistent discomfort ever since he had the left inguinal hernia repair. Collaborating Supervising Physician Required: Yes Collaborating Supervising Physician Language: Barrel And Receiver Aligner Name: Christopher Information Interpreted: non-clinical & clinical Accompanied by: Self / Same As Patient Allergies almond [ALMOND] Allergy (Unknown, Verified 01/11/23 13:56) SWELLING Medication List - Last Reconciled 01/11/23 by Rinku Tierney MD acetaminophen (Tylenol Extra Strength) 1,000 mg (2 x 500 mg) PO Q6H PRN ascorbate calcium (vitamin C) 500 mg PO DAILY atorvastatin 40 mg PO DAILY 90 days [BATH BENCH WITH BACK As directed] blood pressure monitor (Blood Pressure Kit) As directed ezetimibe 10 mg PO DAILY ferrous sulfate (Feosol) 325 mg PO DAILY flecainide 50 mg PO BID [HANDHELD SHOWER HEAD As directed] [LOCKING RAISED TOILET SEAT with ARMS As directed] lorazepam 0.5 mg PO DAILY 90 days metoprolol succinate ER 25 mg PO DAILY omeprazole 20 mg PO DAILY rivaroxaban (Xarelto) 20 mg PO DAILY sennosides-docusate sodium 8.6-50 mg (Senna-S) 1 tab-cap PO BEDTIME sodium,potassium,mag sulfates 17.5-3.13-1.6 gram (Suprep Bowel Prep Kit) DILUTE; drink full amount early evening before AND next morning at least 2 hr before procedure; follow w 960 mL water PO HPI left inguinal hernia HPI Details He was referred because of pain on his old repair site on the left groin. The patient says his pain is actually on the pubic area mostly. He says that this does happen all the time. He denies any palpable mass or any reducible mass on the area or on the left groin. He denies significant urinary complaints. [facility] Medical History (Updated 01/11/23 @ 14:18 by Rinku Tierney MD) Chronic suprapubic pain Tinnitus CAD (coronary artery disease) Abnormal stress echocardiogram History of adenomatous polyp of colon Paroxysmal atrial fibrillation Lower back pain Renal cyst Thoracic spondylosis Lesion of bladder Left renal stone Tubular adenoma of colon Sensorineural hearing loss Alcohol abuse Blind right eye Anxiety and depression Hypercholesterolemia BPH (benign prostatic hyperplasia) Degenerative disc disease, cervical GERD (gastroesophageal reflux disease) Hypertension Surgical History Hx of transurethral resection of prostate H/O colonoscopy Hx of cataract surgery History of inguinal hernia repair Family History Father Medical history unknown Mother Medical history unknown Brother No problems noted. Son No problems noted. Son No problems noted. Social History Household Members: Significant Other Household Members Other:: Housing: Apartment Are you a primary director career to a significant other at home: No Do you presently have visiting nurse or other home services: Yes ([employer]) Alcohol intake: never Patient Tobacco Use Status: Former Tobacco user Quit Date: 2014 Tobacco use type: Cigarette Years Smoked: 2014 quit e-Cigarette/Vaping Use: Never Used Second Hand Smoke Exposure: No Advance Directives Date on File: 07/05/20 service: No Current occupational status: disabled Cognitive needs: No Hearing needs: No Vision needs: Yes Review of Systems Const Denies chills and Denies fever(s) Card Denies chest pain, Denies dyspnea and Denies dyspnea on exertion Resp Denies cough, Denies dyspnea and Denies dyspnea on exertion GI Denies hematochezia and Denies change in bowel habits Denies hematuria and Denies difficulty urinating Musc Denies back pain and Denies limited range of motion Neuro Denies focal weakness and Denies convulsions Psych Denies depression and Denies mood swings Physical Exam Vital Signs: Last Vital Signs Pulse 69 01/11/23 13:53 BP 118/56 L 01/11/23 13:53 BMI result Body Mass Index 25.9 Const General: comfortable and no acute distress Orientation/consciousness: patient oriented x3 Neck Neck: Yes no lymphadenopathy Resp Auscultation: clear to auscultation bilaterally Cardio Rhythm: regular rhythm GI Other: No palpable mass on pubic area, no reducible mass on the left groin, despite Valsalva maneuvers Palpation (GI): Soft to palpation, nontender and no guarding Neuro General: patient oriented x3 Assessment & Plan Assessment & Plan (1) Chronic suprapubic pain: Code(s): R10.2 - Pelvic and perineal pain; G89.29 - Other chronic pain Plan: He points to the area of the pubic region where he feels sharp pains periodically. He says he is not often. He denies any palpable mass. I examined the area of the left inguinal region as well where he had previous repair of a hernia in 2011. This hernia repair site appears intact. There is no palpable mass on Valsalva maneuvers . At this time, I told him that I do not feel an recurrent hernia or any hernia on the suprapubic region. He does state that this episodes once in a while. I did tell him that if he feels that this is worsening or becoming more frequent, he should come back to the office to be evaluated. He is comfortable with this plan He also says that he is due for a colonoscopy. He had been scheduled earlier this year but he had to cancel the colonoscopy because he was sick at that time. Coding Level of Care Code Est Pt Level 3 (66816) Diagnoses Chronic suprapubic pain R10.2; G89.29
[2023-01-11 13:53] VITALS: BP 118/56; PULSE 69; BMI 25.9
== END 2023-01-11 14:15 | disposition home or self-care (01) ==
PROVIDERS: PCP Internal Medicine; Visit Provider Surgery
DX: R10.2 Pelvic and perineal pain (principal); G89.29 Other chronic pain
CPT/HCPCS: 99213

== ENCOUNTER → 2023-01-11 13:40 | Outpatient (BNVA) | payer OTHER, SELFPAY | PROVIDERS: PCP Internal Medicine; Visit Provider Surgery | DX: R10.2 Pelvic and perineal pain (principal); G89.29 Other chronic pain | CPT/HCPCS: 99212 ==

== ENCOUNTER 2023-03-14 09:26 | Outpatient (REF) | payer OTHER, SELFPAY | END 2023-03-14 09:27 | disposition home or self-care (01) | LOC: HO.SH 09:26 | PROVIDERS: Visit Provider Internal Medicine | DX: Z01.118 Encounter for examination of ears and hearing with other abnormal findings (principal); H90.3 Sensorineural hearing loss, bilateral; H93.13 Tinnitus, bilateral | CPT/HCPCS: 92557; 92567 ==

== ENCOUNTER 2023-05-11 22:39 | Emergency (ER) | payer OTHER, SELFPAY ==
--- NOTE | ~2023-05-11 | CT_ITS ---
EXAMINATION: CT ANGIOGRAM HEAD/NECK CT HEAD WITHOUT CONTRAST CLINICAL INFORMATION: Left-sided numbness and neck pain. COMPARISON: None available. TECHNIQUE: Noncontrast CT scan images of the head obtained. Axial CT angiography of the head and neck also obtained after the intravenous administration of 70 mL Omnipaque 350. Sagittal and coronal reformatted images also obtained. The degree of stenosis determined by NASCET criteria. This CT examination was performed using dose optimization techniques as appropriate, variously including the following: *Automated exposure control *Adjustment of mA and/or kV according to patient size (this includes techniques or standardized protocols for targeted exams where dose is matched to indication/reason for exam; i.e. extremities or head) *Use of iterative reconstruction technique DLP: 2428 mGy-cm FINDINGS: There is mild cerebral volume loss with prominence of the lateral and the third ventricles. The cortical sulci are widened appropriately. The fourth ventricle and basal cisterns are normally outlined. There is mild bilateral periventricular and central white matter diminished attenuation. There is no acute territorial defect, hemorrhage or midline shift. The extra-axial spaces are unremarkable. Calvarium: Intact. Maxillofacial sinuses and mastoids: Clear as visualized. CTA of the neck: There is mild atherosclerotic plaque of the aortic arch. A three-vessel branching pattern of the aortic arch is noted with calcification at the origin of the aortic arch vessels without significant narrowing. The common carotid artery is patent throughout. There is atherosclerotic plaque of the carotid bifurcation without significant stenosis. The internal carotid arteries are patent. The left vertebral artery is dominant. Both vertebral arteries are patent throughout. CT of the head: There is mild calcific plaque of the intracranial internal carotid arteries bilaterally without significant narrowing. The bilateral middle cerebral and anterior cerebral arteries are patent. The distal vertebral arteries, basilar artery and branches as well as posterior cerebral arteries are also patent. No aneurysm is identified. CT/CT angio head neck IMPRESSION: 1. No acute territorial defect, hemorrhage or midline shift. 2. Mild cerebral volume loss with prominence of the lateral and third ventricles. Mild diminished attenuation in the periventricular and central white matter most likely representing chronic microvascular ischemic changes. 3. No large vessel occlusion or hemodynamically significant stenosis of the arteries of the head and neck.
[2023-05-11 22:46] VITALS: BP 144/62; PULSE 59; RESP 18; TEMP 37; O2SAT 100; BMI 25.2
[2023-05-11 23:47] VITALS: BP 156/72; PULSE 60; RESP 12; TEMP 36.8; O2SAT 99
--- NOTE | 2023-05-11 23:54 | ED.EXTPRO ---
HPI - Extremity Problem General Chief complaint: Extremity Problem Stated complaint: Leg numbness Time Seen by Provider: 05/11/23 23:52 Source: patient, old records reviewed and prime broker Mode of arrival: ambulatory Limitations: no limitations History of Present Illness HPI Narrative: 72 yo male with PMH of CAD, chronic neck pain, anxiety, CVA, PAF on xarelto, HTN, GERD, HLD, BPH here with c/o resolved L sided numbness at 11pm after Faith with associated L sided neck pain he is compliant with his xarelto denies neck trauma or jerking movements. He denies headache. He notes the symptoms only lasted 30 minutes. MD Complaint: other (numbness L side) Onset (ago): hour(s) (11pm) Pain Consistency: now resolved Location: left and other (neck) Radiation: none Relieving factors: nothing Exacerbating factors: nothing Associated symptoms: other (numbness L side) Related Data Previous Rx's Medication Instructions Recorded acetaminophen 500 mg tablet 1,000 mg (2 x 500 mg) PO Q6H PRN 08/05/21 (Tylenol Extra Strength) pain #14 tabs BATH BENCH WITH BACK #1 ea 08/31/21 HANDHELD SHOWER HEAD #1 ea 08/31/21 LOCKING RAISED TOILET SEAT with #1 ea 08/31/21 ARMS blood pressure monitor (Blood #1 ea 08/31/21 Pressure Kit) sennosides 8.6 mg-docusate sodium 1 tab-cap PO BEDTIME #60 tabs 11/08/21 50 mg tablet (Senna-S) ferrous sulfate 325 mg (65 mg 325 mg PO DAILY #90 tabs 05/17/22 iron) tablet (Feosol) rivaroxaban 20 mg tablet (Xarelto) 20 mg PO DAILY #90 tabs 07/13/22 flecainide 50 mg tablet 50 mg PO BID #180 caps 09/08/22 sodium,potassium,mag sulfates 17.5 See Rx Instructions PO .COMPLEX 09/20/22 gram-3.13 gram-1.6 gram oral soln #354 mL (Suprep Bowel Prep Kit) ezetimibe 10 mg tablet 10 mg PO DAILY #90 tabs 10/13/22 atorvastatin 40 mg tablet 40 mg PO DAILY 90 days #90 tabs 11/07/22 ascorbate calcium (vitamin C) 500 500 mg PO DAILY #90 tabs 11/21/22 mg tablet omeprazole 20 mg capsule,delayed 20 mg PO DAILY #90 caps 02/15/23 release metoprolol succinate 25 mg 25 mg PO DAILY #90 tabs 03/02/23 tablet,extended release 24 hr lorazepam 0.5 mg tablet 0.5 mg PO DAILY 90 days #90 tabs 03/16/23 Allergies Allergy/AdvReac Type Severity Reaction Status Date / Time almond [ALMOND] Allergy Unknown SWELLING Verified 05/11/23 22:46 Review of Systems Review of Systems: Constitutional : No Fever, No Chills, No Fatigue ENT/Mouth : No sore throat, No Rhinorrhea Eyes: No Eye Pain, No Swelling, No Redness Cardiovascular : No Chest Pain, No SOB, No Dyspnea on Exertion Respiratory : No Cough, No Sputum Gastrointestinal : No Nausea, No Vomiting, No Diarrhea, No abdominal Pain Genitourinary : No Dysuria, No Urinary Frequency, No Hematuria, Musculoskeletal : No joint pain, No Myalgias, No Joint Swelling, pos neck pain Skin : No Skin Lesions, No rash Neuro : No Weakness, pos Numbness, No Dizziness, no Headache All other systems reviewed and are negative [facility] Past Medical History Attestation statement: The following information was validated with the patient. Source: old records reviewed Medical History Chronic suprapubic pain Tinnitus CAD (coronary artery disease) Abnormal stress echocardiogram History of adenomatous polyp of colon Paroxysmal atrial fibrillation Lower back pain Renal cyst Thoracic spondylosis Lesion of bladder Left renal stone Tubular adenoma of colon Sensorineural hearing loss Alcohol abuse Blind right eye Anxiety and depression Hypercholesterolemia BPH (benign prostatic hyperplasia) Degenerative disc disease, cervical GERD (gastroesophageal reflux disease) Hypertension Surgical History Hx of transurethral resection of prostate H/O colonoscopy Hx of cataract surgery History of inguinal hernia repair Family History Family History Father Medical history unknown Mother Medical history unknown Brother No problems noted. Son No problems noted. Son No problems noted. 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) Alcohol intake: never Patient Tobacco Use Status: Former Tobacco user Quit Date: 2014 Tobacco use type: Cigarette Years Smoked: 2014 quit e-Cigarette/Vaping Use: Never Used Second Hand Smoke Exposure: No Advance Directives: No Advance Directives Information Provided: No Advance Directives Date on File: 07/05/20 service: No Current occupational status: disabled Cognitive needs: No Hearing needs: No Vision needs: Yes Physical Exam Vital Signs: Vital Signs: Last Vital Signs Temp 98.2 F 05/11/23 23:47 Pulse 60 05/11/23 23:47 Resp 12 05/11/23 23:47 BP 156/72 H 05/11/23 23:47 Pulse Ox 99 05/11/23 23:47 O2 Del Method Room Air 05/11/23 23:47 BMI result Body Mass Index 25.2 Appearance: Alert. Oriented X3. No acute distress. Eyes: L pupils ERRL, R eye chronically opacified ENT: Pharynx normal. Neck: Normal inspection. Neck supple. CVS: Normal heart rate and rhythm. Pulses normal. Respiratory: No respiratory distress. Breath sounds normal. Abdomen: Soft and nontender. Skin: Skin warm and dry. Normal skin color. Normal skin turgor. Extremities: No lower extremity edema. No calf ttp Neuro: Oriented X 3. No motor deficit. No sensory deficit. NIH Stroke Scale Internal: Initial- Upon Arrival Level of Consciousness: Alert Level of Consciousness Questions: Answers both questions correctly Level of Consciousness Commands: Performs both tasks correctly Best Gaze: Normal Visual: No visual loss Facial Palsy: Normal Motor Arm (Right): No drift Motor Arm (Left): No drift Motor Leg (Right): No drift Motor Leg (Left): No drift Limb Ataxia: Absent Sensory: Normal Best Language: No aphasia Dysarthia: Normal Extinction and Inattention: No abnormality Score: 0 Course Course Course Narrative: went over instructions with prime broker Medications Administered Discontinued Medications Generic Name Dose Route Start Last Admin Trade Name Freq PRN Reason Stop Dose Admin Iohexol 70 ml 05/12/23 01:35 05/12/23 01:35 Iohexol 350 Mg/Ml 100 Ml Infus..Btl IV 05/12/23 01:36 70 ml ONCE ONE Administration Medical Decision Making Medical Decision Making MDM Narrative: 72 yo male with PMH of CAD, chronic neck pain, anxiety, CVA, PAF on xarelto, HTN, GERD, HLD, BPH here with resolved L sided numbness that started at 11pm he has normal neuro exam at his baseline now with neck pain at this time will need basic labs, CTA of head and neck already on xarelto symptoms resolved no need for TNK is already anticoagulated so if TIA on appropriate therapy. He had no other associated symptoms. Differential Diagnosis Differential Diagnoses: The differential diagnosis associated with the presentation includes TIA parasthesias anxiety Admission/Observation Consideration of admission/observation: Escalation of care including admission/observation considered CTA negative symptoms resolved vessels opened not in afib already on xarelto Lab Data [facility] Lab Attestation statement: I reviewed the patient's lab results. 05/12/23 00:40 05/12/23 00:40 Labs: Lab Results 05/12/23 Range/Units 00:40 WBC 6.4 (4.8-10.8) X10*3/uL RBC 4.17 L (4.60-5.80) X10*6/uL Hgb 12.6 L (14.0-18.0) g/dl Hct 38.6 L (42.0-52.0) % MCV 92.6 (80.0-98.0) fL MCH 30.2 (27.0-33.0) pg MCHC 32.6 (31.0-36.0) g/dl RDW 13.2 (11.0-16.0) % Plt Count 188 (160-400) X10*3/uL MPV 10.6 (9.4-12.4) fL Immature Gran % (Auto) 0.2 (0.0-0.4) % Neut % (Auto) 50.8 (45-73) % Lymph % (Auto) 36.1 (20-40) % [place] % (Auto) 8.6 (2-11) % Eos % (Auto) 3.4 (0-4) % Baso % (Auto) 0.9 (0-2) % Lymph # (Auto) 2.3 (1.2-4.9) X10*3/uL [place] # (Auto) 0.6 (0.1-1.2) X10*3/uL Eos # (Auto) 0.2 (0.0-0.4) X10*3/uL Baso # (Auto) 0.1 (0.0-0.2) X10*3/uL Abs Immat Gran (auto) 0.01 (0.00-0.03) X10*3/uL Absolute Neuts (auto) 3.2 (2.0-8.3) x10*3/uL Absolute Nucleated RBC 0.000 (0.0-0.012) X10*3/uL Nucleated RBC % (auto) 0.0 (0.0-0.2) /100WBC Sodium 144 (135-145) mmol/L Potassium 4.0 (3.3-5.1) mmol/L Chloride 111 H (96-108) mmol/L Carbon Dioxide 27 (22-29) mmol/L Anion Gap 10 L (12-20) BUN 15 (9-16) mg/dL Creatinine 0.86 (0.5-1.4) mg/dL Estim Creat Clear Calc 83.9 Estimated GFR > 60 Random Glucose 110 (60-115) mg/dL Calcium 9.1 D (8.4-10.2) mg/dL Independent Interpretation I performed an independent interpretation of an: EKG and CT Scan (no LVO vessels open) Interpretation: Rate: 49 Rhythm: sinus bradycardia [place]: normal Normal P waves. Normal CESIA. Normal QRS complex. ST T wave : normal no MARIELA, flat t wave aVL qTC: 384 prior studies: no acute ischemia The study has been interpreted contemporaneously by me. . Radiology Impression Discussion of test interpretation with radiology: I have reviewed the radiologist's reading. External Record Review External record reviewed: Inpatient record Discharge Plan Discharge Clinical Impression: Paresthesia Patient Disposition: Home, Self-Care Instructions: Paresthesia (ED) Additional Instructions: labs reassuring CTA normal no signs of stroke on CT scan at this time follow up with doctor next week Prescriptions: No Action (DME) BATH BENCH WITH BACK See Rx Instructions .Route .MEDSUPPLY Qty: 1 0RF Rx Instructions: As directed (DME) HANDHELD SHOWER HEAD See Rx Instructions .Route .MEDSUPPLY Qty: 1 0RF Rx Instructions: As directed (DME) LOCKING RAISED TOILET SEAT with ARMS See Rx Instructions .Route .MEDSUPPLY Qty: 1 0RF Rx Instructions: As directed (DME) blood pressure monitor [Blood Pressure Kit] Kit See Rx Instructions .ROUTE .MEDSUPPLY Qty: 1 0RF Rx Instructions: As directed Xarelto 20 mg tablet 20 mg PO DAILY Qty: 90 3RF flecainide 50 mg tablet 50 mg PO BID Qty: 180 2RF ezetimibe 10 mg tablet 10 mg PO DAILY Qty: 90 3RF atorvastatin 40 mg tablet 40 mg PO DAILY 90 Days Qty: 90 3RF omeprazole 20 mg capsule,delayed release(DR/EC) 20 mg PO DAILY Qty: 90 2RF metoprolol succinate 25 mg tablet extended release 24 hr 25 mg PO DAILY Qty: 90 3RF lorazepam 0.5 mg tablet 0.5 mg PO DAILY 90 Days Qty: 90 1RF acetaminophen [Tylenol Extra Strength] 500 mg tablet 1,000 mg PO Q6H PRN (Reason: pain) Qty: 14 0RF sennosides-docusate sodium [Senna-S] 8.6-50 mg tablet 1 tab-cap PO BEDTIME Qty: 60 5RF ascorbate calcium (vitamin C) 500 mg tablet 500 mg PO DAILY Qty: 90 3RF ferrous sulfate [Feosol] 325 mg (65 mg iron) tablet 325 mg PO DAILY Qty: 90 0RF sodium,potassium,mag sulfates [Suprep Bowel Prep Kit] 17.5-3.13-1.6 gram recon soln See Rx Instructions PO .COMPLEX Qty: 354 0RF Rx Instructions: DILUTE; drink full amount early evening before AND next morning at least 2 hr before procedure; follow w 960 mL water PO Referrals: Po,Yvonne Gold MD [Primary Care Provider] - (next week) Print Language: Guyanese
--- NOTE | 2023-05-12 00:21 | ECG_ITS ---
Test Reason : MATFESR Blood Pressure : / mmHG Vent. Rate : 049 BPM Atrial Rate : 049 BPM P-R Int : 206 ms QRS Dur : 114 ms QT Int : 426 ms P-R-T Axes : 035 046 057 degrees QTc Int : 384 ms Sinus bradycardia Otherwise normal ECG When compared with ECG of 28-JUN-2022 11:06, No significant change was found Referred By: Deonna Bowman Electronically Signed By:LAYTON NAQVI MD
[2023-05-12 00:45] LABS: MANUAL DIFF FLAG NO
[2023-05-12 00:46] LABS: Basophils Absolute Auto 0.1 X10*3/uL (0.0-0.2); Basophils Percent Auto 0.9 % (0-2); Eosinophils Absolute Auto 0.2 X10*3/uL (0.0-0.4); Eosinophils Percent Auto 3.4 % (0-4); Hematocrit 38.6 % (42.0-52.0); Hemoglobin 12.6 g/dl (14.0-18.0); Imm Gran Abs Auto 0.01 X10*3/uL (0.00-0.03); Imm Gran Pct Auto 0.2 % (0.0-0.4); Lymphocytes Absolute Auto 2.3 X10*3/uL (1.2-4.9); Lymphocytes Percent Auto 36.1 % (20-40); Mean Corpuscular HGB Conc 32.6 g/dl (31.0-36.0); Mean Corpuscular Hemoglobin 30.2 pg (27.0-33.0); Mean Corpuscular Volume 92.6 fL (80.0-98.0); Mean Platelet Volume 10.6 fL (9.4-12.4); Monocytes Absolute Auto 0.6 X10*3/uL (0.1-1.2); Monocytes Percent Auto 8.6 % (2-11); Neutrophils Absolute Auto 3.2 x10*3/uL (2.0-8.3); Neutrophils Percent Auto 50.8 % (45-73); Platelet Count 188 X10*3/uL (160-400); Red Blood Count 4.17 X10*6/uL (4.60-5.80); Red Cell Distribution Width 13.2 % (11.0-16.0); White Blood Count 6.4 X10*3/uL (4.8-10.8)
[2023-05-12 00:59] LABS: Anion Gap 10 (12-20); Blood Urea Nitrogen 15 mg/dL (9-16); Calcium 9.1 mg/dL (8.4-10.2); Carbon Dioxide 27 mmol/L (22-29); Chloride 111 mmol/L (96-108); Creatinine Clr Calc Pharmacy 83.9; Estimated Glomerular Filt Rate > 60; Glucose Random 110 mg/dL (60-115); Sodium 144 mmol/L (135-145)
[2023-05-12] MEDS: iohexoL 350 MG/ML 100 ML INFUS..BTL 70 ML IV (01:35)
[2023-05-12 05:00] VITALS: BP 147/73; PULSE 54; RESP 14; TEMP 36.8; O2SAT 98
== END 2023-05-12 05:01 | disposition home or self-care (01) ==
PROVIDERS: Emergency Provider Emergency Medicine; PCP Internal Medicine
DX: R20.2 Paresthesia of skin (principal); M54.2 Cervicalgia; I48.0 Paroxysmal atrial fibrillation; Z79.01 Long term (current) use of anticoagulants; I10 Essential (primary) hypertension
CPT/HCPCS: 36415; 70496; 70498; 80048; 85025; 93005; 99284; Q9967

== ENCOUNTER → 2023-05-12 00:21 | Outpatient (BNV) | payer OTHER, SELFPAY | PROVIDERS: Emergency Provider Emergency Medicine; PCP Internal Medicine; Visit Provider Internal Medicine Cardiovascular Disease | DX: R00.1 Bradycardia, unspecified (principal) | CPT/HCPCS: 93010 ==

== ENCOUNTER 2023-05-29 15:13 | Outpatient (AMB) | payer OTHER, SELFPAY ==
[2023-05-29 15:28] VITALS: BP 142/86; PULSE 60; O2SAT 97; BMI 27.3
--- NOTE | 2023-05-29 15:28 | MHC.PC.OV ---
Vital Signs 05/29/23 15:28 Height 6 ft Weight 201 lb 0.6 oz BMI 27.3 BP 142/86 H Blood Pressure Location Lt brachial Position Sitting Pulse 60 Pulse Source Pulse Oximeter Pulse Oximetry (%) 97 Oxygen Delivery Method Room Air Intake Visit Reasons: a fib Taper Printed Circuit Layout Required: Yes Taper Printed Circuit Layout Language: [place] Allergies almond [ALMOND] Allergy (Unknown, Verified 05/29/23 15:31) SWELLING Tobacco use date assessed: 05/29/23 Fall risk assessment: No Falls in past year Last assessed Fall Risk: 05/29/23 Dental Screening Dental Screen Date: 11/21/22 HPI a fib HPI Details 72-year-old overweight male with a history of coronary artery disease hypertension GERD hypercholesterolemia atrial fibrillation iron deficiency anemia coming in for follow-up. Last seen in October 2022. Patient's colon test was done in 2014 with a history of tubular adenoma. ER visit recently for leg numbness then left-sided neck pain discharged with diagnosis of paresthesia. December 2022 was seen by the surgeon for the left inguinal hernia history of previous repair repair site remains intact examination and reassurance was given. Patient also follows up with Cardiology seen in December 2022 highly symptomatic AFib on flecainide on metoprolol on anticoagulation advised to get renal function twice a day year has a thoracic aortic enlargement at 4 cm followed up by echocardiogram. Diffuse nonobstructive CAD by CTA March 2021 aggressive risk factor management on anticoagulation. The echocardiogram had November 2022 for left ejection fraction of 66 5% mildly dilated left atrium trace aortic regurg. Patient also has seen Urology in November 2022 prior history of prostatectomy laser. present leg numbness is better ? Left arm numbness. advised to check the BP at home [facility] Medical History Chronic suprapubic pain Tinnitus CAD (coronary artery disease) Abnormal stress echocardiogram History of adenomatous polyp of colon Paroxysmal atrial fibrillation Lower back pain Renal cyst Thoracic spondylosis Lesion of bladder Left renal stone Tubular adenoma of colon Sensorineural hearing loss Alcohol abuse Blind right eye Anxiety and depression Hypercholesterolemia BPH (benign prostatic hyperplasia) Degenerative disc disease, cervical GERD (gastroesophageal reflux disease) Hypertension Surgical History Hx of transurethral resection of prostate H/O colonoscopy Hx of cataract surgery History of inguinal hernia repair Family History Father Medical history unknown Mother Medical history unknown Brother No problems noted. Son No problems noted. Son No problems noted. 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 How often do you have a drink containing alcohol?: Never 3. How often do you have six or more drinks on one occasion?: Never Total Score: 0 Score Reviewed/Action Taken: No DALIA-7 AMB Questionnaire DALIA-7 Date DALIA - 7 assessed: 05/17/22 Source: Developed by Drs. Almas Amaral, Roopa Anders, William Madison and colleagues, with an educational rubén from [employer]. Physical exam (Primary Care) Vital Signs: Last Vital Signs Pulse 60 05/29/23 15:28 BP 142/86 H 05/29/23 15:28 Pulse Ox 97 05/29/23 15:28 Oxygen Delivery Method Room Air 05/29/23 15:28 BMI result Body Mass Index 27.3 Tobacco/Smoking Status: Tobacco use Status Tobacco use date assessed 05/29/23 05/29/23 15:33 Patient Tobacco Use Status Former Tobacco user 05/29/23 15:33 Tobacco use type Cigarette 05/29/23 15:33 e-Cigarette/Vaping Use Never Used 05/29/23 15:33 Thrive Assessment: Date of Thrive Assessment Date Thrive assessed 05/29/23 05/29/23 15:33 Const General: alert; No acute distress Eyes Conjunctivae: conjunctivae normal Resp Auscultation: clear to auscultation bilaterally Cardio Rate: regular rate Rhythm: regular rhythm GI Inspection: Yes normal to inspection Extrem General: Yes normal to inspection and No edema Assessment and Plan Assessment & Plan (1) Hypertension: Comment: stress test nuclear September 2012, January 27 1016- Code(s): I10 - Essential (primary) hypertension Qualifiers: Hypertension type: essential hypertension Qualified Code(s): I10 - Essential (primary) hypertension Plan: Continue with blood pressure medication. Decrease salt intake and exercise patient is on metoprolol 25 mg once a day. concern about elevated BP - check BP at [facility] and record (2) GERD (gastroesophageal reflux disease): Code(s): K21.9 - Gastro-esophageal reflux disease without esophagitis Qualifiers: Esophagitis presence: esophagitis presence not specified Qualified Code(s): K21.9 - Gastro-esophageal reflux disease without esophagitis Plan: Avoid the foods that causes that usually spicy foods, tomato products, juices, coffee, soda and foods that your sensitive to. After eating do not lie down, allow 3-4 hours before in lie down. And keep the head of bed above 30 degrees to avoid the acid from going up. (3) BPH (benign prostatic hyperplasia): Comment: Status post laser prostatectomy Code(s): N40.0 - Benign prostatic hyperplasia without lower urinary tract symptoms Qualifiers: Lower urinary tract symptom presence: symptoms present Lower urinary tract symptom detail: urinary frequency Qualified Code(s): N40.1 - Benign prostatic hyperplasia with lower urinary tract symptoms; R35.0 - Frequency of micturition Plan: Stable continue to follow-up with urology (4) Hypercholesterolemia: Code(s): E78.00 - Pure hypercholesterolemia, unspecified Plan: Avoid fried foods, chicken skin, eggs, butter margarine, pastries and meat. Be it pork or beef they have a lot of cholesterol LDL goal of less than 70 and triglyceride of less than 150. Patient on atorvastatin 40 mg once a day and Zetia 10 mg once a day (5) Tubular adenoma of colon: Comment: 2008 Dr. Tierney 2014 Code(s): D12.6 - Benign neoplasm of colon, unspecified Plan: Surgeon is aware that colon test is due for this year. (6) Paroxysmal atrial fibrillation: Code(s): I48.0 - Paroxysmal atrial fibrillation Plan: Continue with anticoagulation with Xarelto flecainide 50 mg twice a day and metoprolol 25 mg once a day (7) CAD (coronary artery disease): Comment: Diffuse nonobstructive CAD by coronary CTA March 2021-sees Dr. Aleman Code(s): I25.10 - Atherosclerotic heart disease of [place] coronary artery without angina pectoris Plan: Control the cholesterol, weight, blood pressure, on anticoagulation (8) Generalized anxiety disorder: Code(s): F41.1 - Generalized anxiety disorder Plan: Continue with medication as needed (9) Iron deficiency anemia: Code(s): D50.9 - Iron deficiency anemia, unspecified Plan: Stable Medications: Refilled cyclobenzaprine 10 mg PO BEDTIME PRN 30 tabs 0RF muscle spasm M54.9 - Dorsalgia, unspecified Coding Level of Care Code Est Pt Level 4 (26798) Diagnoses Essential hypertension I10 Hypertension type: essential hypertension Gastroesophageal reflux disease, unspecified whether esophagitis present K21.9 Esophagitis presence: esophagitis presence not specified Benign prostatic hyperplasia with urinary frequency N40.1; R35.0 Lower urinary tract symptom presence: symptoms present Lower urinary tract symptom detail: urinary frequency Hypercholesterolemia E78.00 Tubular adenoma of colon D12.6 Paroxysmal atrial fibrillation I48.0 CAD (coronary artery disease) I25.10 Generalized anxiety disorder F41.1 Iron deficiency anemia D50.9
== END 2023-05-29 16:16 | disposition home or self-care (01) ==
PROVIDERS: PCP Internal Medicine; Visit Provider Internal Medicine
DX: I10 Essential (primary) hypertension (principal); I48.0 Paroxysmal atrial fibrillation; K21.9 Gastro-esophageal reflux disease without esophagitis; N40.1 Benign prostatic hyperplasia with lower urinary tract symptoms; R35.0 Frequency of micturition; E78.00 Pure hypercholesterolemia, unspecified; D12.6 Benign neoplasm of colon, unspecified; I25.10 Atherosclerotic heart disease of native coronary artery without angina pectoris; F41.1 Generalized anxiety disorder; D50.9 Iron deficiency anemia, unspecified
CPT/HCPCS: 99214

== ENCOUNTER 2023-05-30 07:51 | Outpatient (REF) | payer OTHER, SELFPAY ==
[2023-05-30 08:01] LABS: MANUAL DIFF FLAG NO
[2023-05-30 08:15] LABS: Basophils Absolute Auto 0.1 X10*3/uL (0.0-0.2); Basophils Percent Auto 0.9 % (0-2); Eosinophils Absolute Auto 0.2 X10*3/uL (0.0-0.4); Eosinophils Percent Auto 3.6 % (0-4); Hematocrit 41.3 % (42.0-52.0); Hemoglobin 13.4 g/dl (14.0-18.0); Imm Gran Abs Auto 0.01 X10*3/uL (0.00-0.03); Imm Gran Pct Auto 0.2 % (0.0-0.4); Lymphocytes Absolute Auto 1.9 X10*3/uL (1.2-4.9); Lymphocytes Percent Auto 33.8 % (20-40); Mean Corpuscular HGB Conc 32.4 g/dl (31.0-36.0); Mean Corpuscular Hemoglobin 30.5 pg (27.0-33.0); Mean Corpuscular Volume 94.1 fL (80.0-98.0); Mean Platelet Volume 10.4 fL (9.4-12.4); Monocytes Absolute Auto 0.4 X10*3/uL (0.1-1.2); Neutrophils Absolute Auto 2.9 x10*3/uL (2.0-8.3); Neutrophils Percent Auto 53.5 % (45-73); Platelet Count 180 X10*3/uL (160-400); Red Blood Count 4.39 X10*6/uL (4.60-5.80); Red Cell Distribution Width 13.2 % (11.0-16.0); White Blood Count 5.5 X10*3/uL (4.8-10.8)
[2023-05-30 09:23] LABS: Alanine Aminotransferase 18 U/L (0-40); Alkaline Phosphatase 73 U/L (39-117); Anion Gap 8 (12-20); Aspartate Amino Transferase 17 U/L (5-37); Bilirubin Total 0.7 mg/dL (0.0-1.0); Blood Urea Nitrogen 13 mg/dL (9-16); Calcium 9.4 mg/dL (8.4-10.2); Carbon Dioxide 29 mmol/L (22-29); Chloride 109 mmol/L (96-108); Cholesterol 125 mg/dL (<200); Estimated Glomerular Filt Rate > 60; Glucose Random 102 mg/dL (60-115); HDL Cholesterol 49 mg/dL (>40); LDL Cholesterol Calculated 57 mg/dL (<100); Potassium 4.1 mmol/L (3.3-5.1); Sodium 142 mmol/L (135-145); Total Protein 6.6 g/dL (6.5-8.0); Triglycerides 97 mg/dL (<150)
[2023-05-30 09:38] LABS: Free T4 (Free Thyroxine) 1.05 ng/dL (0.71-1.85); Thyroid Stimulating Hormone 0.88 uIU/mL (0.32-4.0)
[2023-05-30 12:12] LABS: Folate 13.9 ng/mL (> or = 4.0); Vitamin B12 428 pg/mL (200-900)
== END 2023-05-30 07:52 | disposition home or self-care (01) ==
LOC: HO.LAB 07:51
PROVIDERS: PCP Internal Medicine; Visit Provider Internal Medicine
DX: I25.10 Atherosclerotic heart disease of native coronary artery without angina pectoris (principal); E78.00 Pure hypercholesterolemia, unspecified
CPT/HCPCS: 36415; 80053; 80061; 82607; 82746; 84439; 84443; 85025

== ENCOUNTER 2023-06-25 13:08 | Emergency (ER) | payer MEDICARE, SELFPAY ==
[2023-06-25 13:26] VITALS: BP 158/60; PULSE 63; RESP 18; TEMP 36.1; O2SAT 97; BMI 27.1
--- NOTE | 2023-06-25 13:26 | ED.GENADULT ---
HPI - General Adult General Chief complaint: Chest Pain Stated complaint: Chest pain/HBP Time Seen by Provider: 06/25/23 14:54 Related Data Previous Rx's ?Medication ?Instructions ?Recorded acetaminophen 500 mg tablet 1,000 mg (2 x 500 mg) PO Q6H PRN 08/05/21 (Tylenol Extra Strength) pain #14 tabs BATH BENCH WITH BACK #1 ea 08/31/21 HANDHELD SHOWER HEAD #1 ea 08/31/21 LOCKING RAISED TOILET SEAT with #1 ea 08/31/21 ARMS blood pressure monitor (Blood #1 ea 08/31/21 Pressure Kit) sennosides 8.6 mg-docusate sodium 1 tab-cap PO BEDTIME #60 tabs 11/08/21 50 mg tablet (Senna-S) ferrous sulfate 325 mg (65 mg 325 mg PO DAILY #90 tabs 05/17/22 iron) tablet (Feosol) sodium,potassium,mag sulfates 17.5 See Rx Instructions PO .COMPLEX 09/20/22 gram-3.13 gram-1.6 gram oral soln #354 mL (Suprep Bowel Prep Kit) ezetimibe 10 mg tablet 10 mg PO DAILY #90 tabs 10/13/22 atorvastatin 40 mg tablet 40 mg PO DAILY 90 days #90 tabs 11/07/22 ascorbate calcium (vitamin C) 500 500 mg PO DAILY #90 tabs 11/21/22 mg tablet omeprazole 20 mg capsule,delayed 20 mg PO DAILY #90 caps 02/15/23 release metoprolol succinate 25 mg 25 mg PO DAILY #90 tabs 03/02/23 tablet,extended release 24 hr lorazepam 0.5 mg tablet 0.5 mg PO DAILY 90 days #90 tabs 03/16/23 cyclobenzaprine 10 mg tablet 10 mg PO BEDTIME PRN muscle spasm 05/29/23 #30 tabs XL cuff for the BP machine #1 ea 05/31/23 flecainide 50 mg tablet 50 mg PO BID #180 caps 06/16/23 rivaroxaban 20 mg tablet (Xarelto) 20 mg PO DAILY #90 tabs 07/14/23 Allergies Allergy/AdvReac Type Severity Reaction Status Date / Time almond [ALMOND] Allergy Unknown SWELLING Verified 06/25/23 13:29 [facility] Past Medical History Medical History Chronic suprapubic pain Tinnitus CAD (coronary artery disease) Abnormal stress echocardiogram History of adenomatous polyp of colon Paroxysmal atrial fibrillation Lower back pain Renal cyst Thoracic spondylosis Lesion of bladder Left renal stone Tubular adenoma of colon Sensorineural hearing loss Alcohol abuse Blind right eye Anxiety and depression Hypercholesterolemia BPH (benign prostatic hyperplasia) Degenerative disc disease, cervical GERD (gastroesophageal reflux disease) Hypertension Surgical History Hx of transurethral resection of prostate H/O colonoscopy Hx of cataract surgery History of inguinal hernia repair Family History Family History Father Medical history unknown Mother Medical history unknown Brother No problems noted. Son No problems noted. Son No problems noted. 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 72 yo m with pmhx of palpitations, HTN presents with low blood pressure and chest pain since yesterday. States he is on blood pressure medications. States pain and discomfort in chest. Pt is on a blood thinner. Denies sob, nausea, vomiting. Discharge Plan Discharge Clinical Impression: Eloped from emergency department Patient Disposition: Left W/O Completing Treatment Prescriptions: No Action (DME) BATH BENCH WITH BACK See Rx Instructions .Route .MEDSUPPLY Qty: 1 0RF Rx Instructions: As directed (DME) HANDHELD SHOWER HEAD See Rx Instructions .Route .MEDSUPPLY Qty: 1 0RF Rx Instructions: As directed (DME) LOCKING RAISED TOILET SEAT with ARMS See Rx Instructions .Route .MEDSUPPLY Qty: 1 0RF Rx Instructions: As directed (DME) blood pressure monitor [Blood Pressure Kit] Kit See Rx Instructions .ROUTE .MEDSUPPLY Qty: 1 0RF Rx Instructions: As directed ezetimibe 10 mg tablet 10 mg PO DAILY Qty: 90 3RF atorvastatin 40 mg tablet 40 mg PO DAILY 90 Days Qty: 90 3RF omeprazole 20 mg capsule,delayed release(DR/EC) 20 mg PO DAILY Qty: 90 2RF metoprolol succinate 25 mg tablet extended release 24 hr 25 mg PO DAILY Qty: 90 3RF lorazepam 0.5 mg tablet 0.5 mg PO DAILY 90 Days Qty: 90 1RF (DME) XL cuff for the BP machine See Rx Instructions .Route .MEDSUPPLY Qty: 1 0RF Rx Instructions: As directed flecainide 50 mg tablet 50 mg PO BID Qty: 180 2RF Xarelto 20 mg tablet 20 mg PO DAILY Qty: 90 3RF acetaminophen [Tylenol Extra Strength] 500 mg tablet 1,000 mg PO Q6H PRN (Reason: pain) Qty: 14 0RF sennosides-docusate sodium [Senna-S] 8.6-50 mg tablet 1 tab-cap PO BEDTIME Qty: 60 5RF cyclobenzaprine 10 mg tablet 10 mg PO BEDTIME PRN (Reason: muscle spasm) Qty: 30 0RF ascorbate calcium (vitamin C) 500 mg tablet 500 mg PO DAILY Qty: 90 3RF ferrous sulfate [Feosol] 325 mg (65 mg iron) tablet 325 mg PO DAILY Qty: 90 0RF sodium,potassium,mag sulfates [Suprep Bowel Prep Kit] 17.5-3.13-1.6 gram recon soln See Rx Instructions PO .COMPLEX Qty: 354 0RF Rx Instructions: DILUTE; drink full amount early evening before AND next morning at least 2 hr before procedure; follow w 960 mL water PO Discharge Date/Time: 06/25/23 20:00
== END 2023-06-25 20:00 | disposition left against medical advice (07) ==
PROVIDERS: Emergency Provider Emergency Medicine; PCP Internal Medicine
DX: R07.89 Other chest pain (principal); I10 Essential (primary) hypertension; Z79.899 Other long term (current) drug therapy; Z79.01 Long term (current) use of anticoagulants
CPT/HCPCS: 99281

== ENCOUNTER → 2023-06-28 08:44 | Outpatient (BNVA) | payer OTHER, SELFPAY | PROVIDERS: PCP Internal Medicine; Visit Provider Internal Medicine Cardiovascular Disease ==

== ENCOUNTER 2023-10-12 08:29 | Outpatient (AMB) | payer OTHER, SELFPAY ==
[2023-10-12 08:38] VITALS: BP 126/68; PULSE 56; O2SAT 98; BMI 25.9
--- NOTE | 2023-10-12 08:38 | MHC.PC.OV ---
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 Last seen in 06/16/2023. Patient's last colonoscopy was in December 2014 patient had tubular adenoma. Review sudden ER visit for pain but left against medical advice. Jonny Walker [id number].interpret chest pain occurs till and ff up with cardiology- patient complains of having occ palpitations. explained to patient that he has Atrial fibrillation. patient does get dizzy/ reminded about colon test also.PAtient also complains of sob this am [facility] Medical History Chronic suprapubic pain Tinnitus CAD (coronary artery disease) Abnormal stress echocardiogram History of adenomatous polyp of colon Paroxysmal atrial fibrillation Lower back pain Renal cyst Thoracic spondylosis Lesion of bladder Left renal stone Tubular adenoma of colon Sensorineural hearing loss Alcohol abuse Blind right eye Anxiety and depression Hypercholesterolemia BPH (benign prostatic hyperplasia) Degenerative disc disease, cervical GERD (gastroesophageal reflux disease) Hypertension Surgical History Hx of transurethral resection of prostate H/O colonoscopy Hx of cataract surgery History of inguinal hernia repair Family History Father Medical history unknown Mother Medical history unknown Brother No problems noted. Son No problems noted. Son No problems noted. 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 Almas Amaral, Roopa Anders, William Madison and colleagues, with an educational rubén from [employer]. Physical exam (Primary Care) Vital Signs: Last Vital Signs Pulse 56 10/12/23 08:38 BP 126/68 10/12/23 08:38 Pulse Ox 98 10/12/23 08:38 Oxygen Delivery Method Room Air 10/12/23 08:38 BMI result Body Mass Index 25.9 Tobacco/Smoking Status: Tobacco use Status Tobacco use date assessed 05/29/23 10/12/23 08:41 Patient Tobacco Use Status Former Tobacco user 10/12/23 08:41 Tobacco use type Cigarette 10/12/23 08:41 e-Cigarette/Vaping Use Never Used 10/12/23 08:41 Thrive Assessment: Date of Thrive Assessment Date Thrive assessed 05/29/23 10/12/23 08:41 Const General: alert; No acute distress Eyes Conjunctivae: conjunctivae normal Resp Auscultation: clear to auscultation bilaterally Cardio Rate: regular rate Rhythm: regular rhythm GI Inspection: Yes normal to inspection Extrem General: Yes normal to inspection and No edema Assessment and Plan Assessment & Plan (1) Iron deficiency anemia: Code(s): D50.9 - Iron deficiency anemia, unspecified Plan: Continue to monitor and on iron and vitamin-C (2) History of CVA (cerebrovascular accident): Code(s): Z86.73 - Personal history of transient ischemic attack (TIA), and cerebral infarction without residual deficits Plan: Control the cholesterol, weight, blood pressure, continue with anticoagulation with Xarelto (3) Generalized anxiety disorder: Code(s): F41.1 - Generalized anxiety disorder Plan: Continue with therapy as needed (4) CAD (coronary artery disease): Comment: Diffuse nonobstructive CAD by coronary CTA March 2021-sees Dr. Aleman Code(s): I25.10 - Atherosclerotic heart disease of [place] coronary artery without angina pectoris Plan: Control the cholesterol, weight, blood pressure, continue with anticoagulation (5) Paroxysmal atrial fibrillation: Code(s): I48.0 - Paroxysmal atrial fibrillation Plan: Continue with anticoagulation with Xarelto and flecainide monitor renal function.. with the palpitions still ocurring - advised to see CArdiology sooner. he does have a schedule later this year. (6) Tubular adenoma of colon: Comment: 2008 Dr. Tierney 2014 Code(s): D12.6 - Benign neoplasm of colon, unspecified Plan: Patient is reminded about colonoscopy patient did have tubular adenoma (7) Hypercholesterolemia: Code(s): E78.00 - Pure hypercholesterolemia, unspecified Plan: Avoid fried foods, chicken skin, eggs, butter margarine, pastries and meat. Be it pork or beef they have a lot of cholesterol LDL goal of below 70 and triglyceride of less than 150 on Zetia and atorvastatin 40 mg once a day (8) BPH (benign prostatic hyperplasia): Comment: Status post laser prostatectomy Code(s): N40.0 - Benign prostatic hyperplasia without lower urinary tract symptoms Qualifiers: Lower urinary tract symptom presence: symptoms present Lower urinary tract symptom detail: urinary frequency Qualified Code(s): N40.1 - Benign prostatic hyperplasia with lower urinary tract symptoms; R35.0 - Frequency of micturition Plan: Stable (9) GERD (gastroesophageal reflux disease): Code(s): K21.9 - Gastro-esophageal reflux disease without esophagitis Qualifiers: Esophagitis presence: esophagitis presence not specified Qualified Code(s): K21.9 - Gastro-esophageal reflux disease without esophagitis Plan: Avoid the foods that causes that usually spicy foods, tomato products, juices, coffee, soda and foods that your sensitive to. After eating do not lie down, allow 3-4 hours before in lie down. And keep the head of bed above 30 degrees to avoid the acid from going up. (10) Hypertension: Comment: stress test nuclear September 2012, January 27 1016- Code(s): I10 - Essential (primary) hypertension Qualifiers: Hypertension type: essential hypertension Qualified Code(s): I10 - Essential (primary) hypertension Plan: Continue with blood pressure medication metoprolol 25 mg once a day (11) Thoracic aortic ectasia: Comment: 11/2022 echo 4 cm Code(s): I77.810 - Thoracic aortic ectasia Orders: Orders Complete Blood Count Auto Diff Today I25.10 - Atherosclerotic heart disease of [place] coronary artery without angina pectoris Comprehensive Met. Panel Today I25.10 - Atherosclerotic heart disease of [place] coronary artery without angina pectoris Free T4 (Free Thyroxine) Today I25.10 - Atherosclerotic heart disease of [place] coronary artery without angina pectoris Thyroid Stimulating Hormone Today I25.10 - Atherosclerotic heart disease of [place] coronary artery without angina pectoris XR chest 2V Today I25.10 - Atherosclerotic heart disease of [place] coronary artery without angina pectoris ECG 12 lead EKG Today I25.10 - Atherosclerotic heart disease of [place] coronary artery without angina pectoris Coding Level of Care Code Est Pt Level 4 (13724) Diagnoses Iron deficiency anemia D50.9 History of CVA (cerebrovascular accident) Z86.73 Generalized anxiety disorder F41.1 CAD (coronary artery disease) I25.10 Paroxysmal atrial fibrillation I48.0 Tubular adenoma of colon D12.6 Hypercholesterolemia E78.00 Benign prostatic hyperplasia with urinary frequency N40.1; R35.0 Lower urinary tract symptom presence: symptoms present Lower urinary tract symptom detail: urinary frequency Gastroesophageal reflux disease, unspecified whether esophagitis present K21.9 Esophagitis presence: esophagitis presence not specified Essential hypertension I10 Hypertension type: essential hypertension Thoracic aortic ectasia I77.810
== END 2023-10-12 09:56 | disposition home or self-care (01) ==
PROVIDERS: PCP Internal Medicine; Visit Provider Internal Medicine
DX: D50.9 Iron deficiency anemia, unspecified (principal); Z86.73 Personal history of transient ischemic attack (TIA), and cerebral infarction without residual deficits; I48.0 Paroxysmal atrial fibrillation; I77.810 Thoracic aortic ectasia; F41.1 Generalized anxiety disorder; I25.10 Atherosclerotic heart disease of native coronary artery without angina pectoris; D12.6 Benign neoplasm of colon, unspecified; E78.00 Pure hypercholesterolemia, unspecified; N40.1 Benign prostatic hyperplasia with lower urinary tract symptoms; R35.0 Frequency of micturition; K21.9 Gastro-esophageal reflux disease without esophagitis; I10 Essential (primary) hypertension
CPT/HCPCS: 99214

== ENCOUNTER 2023-10-15 08:26 | Outpatient (REF) | payer OTHER, SELFPAY ==
--- NOTE | ~2023-10-15 | XR_ITS ---
EXAMINATION: XR CHEST CLINICAL INFORMATION: Chest pain. COMPARISON: Chest radiograph 06/28/2022. TECHNIQUE: 2 views of the chest were obtained. FINDINGS: Increased interstitial markings compared to most recent prior. No dense consolidation, pleural effusion or pneumothorax. Normal heart size. No acute osseous findings. Redemonstration of calcific density overlying the right lower lung field. XR/XR chest 2V IMPRESSION: Increased interstitial markings compared to most recent prior raising the possibility of an infectious/inflammatory process of the small airways. No dense consolidation or pleural effusion. Recommend clinical correlation and short-term follow-up radiograph to ensure resolution. Electronically signed by: Sole Rhoades MD 11/08/2023 12:06 PM EDT
[2023-10-15 08:39] LABS: MANUAL DIFF FLAG NO
[2023-10-15 08:48] LABS: Basophils Percent Auto 0.7 % (0-2); Eosinophils Absolute Auto 0.2 X10*3/uL (0.0-0.4); Eosinophils Percent Auto 3.1 % (0-4); Hematocrit 38.8 % (42.0-52.0); Imm Gran Abs Auto 0.02 X10*3/uL (0.00-0.03); Imm Gran Pct Auto 0.3 % (0.0-0.4); Lymphocytes Absolute Auto 1.7 X10*3/uL (1.2-4.9); Lymphocytes Percent Auto 27.8 % (20-40); Mean Corpuscular HGB Conc 33.5 g/dl (31.0-36.0); Mean Corpuscular Volume 92.4 fL (80.0-98.0); Mean Platelet Volume 10.6 fL (9.4-12.4); Monocytes Absolute Auto 0.4 X10*3/uL (0.1-1.2); Monocytes Percent Auto 6.8 % (2-11); Neutrophils Absolute Auto 3.8 x10*3/uL (2.0-8.3); Neutrophils Percent Auto 61.3 % (45-73); Platelet Count 181 X10*3/uL (160-400); Red Cell Distribution Width 13.2 % (11.0-16.0); White Blood Count 6.2 X10*3/uL (4.8-10.8)
[2023-10-15 09:17] LABS: Alanine Aminotransferase 13 U/L (0-40); Albumin Level 4.1 g/dL (3.5-5.0); Alkaline Phosphatase 72 U/L (39-117); Anion Gap 10 (12-20); Aspartate Amino Transferase 17 U/L (5-37); Bilirubin Total 0.8 mg/dL (0.0-1.0); Blood Urea Nitrogen 12 mg/dL (9-16); Calcium 9.7 mg/dL (8.4-10.2); Carbon Dioxide 26 mmol/L (22-29); Chloride 109 mmol/L (96-108); Estimated Glomerular Filt Rate > 60; Glucose Random 110 mg/dL (60-115); Potassium 3.9 mmol/L (3.3-5.1); Sodium 141 mmol/L (135-145); Total Protein 6.6 g/dL (6.5-8.0)
[2023-10-15 09:34] LABS: Free T4 (Free Thyroxine) 0.97 ng/dL (0.71-1.85); Thyroid Stimulating Hormone 1.01 uIU/mL (0.32-4.0)
== END 2023-10-15 08:27 | disposition home or self-care (01) ==
LOC: HO.LAB 08:26
PROVIDERS: PCP Internal Medicine; Visit Provider Internal Medicine
DX: I25.10 Atherosclerotic heart disease of native coronary artery without angina pectoris (principal); R07.9 Chest pain, unspecified; R91.8 Other nonspecific abnormal finding of lung field
CPT/HCPCS: 36415; 71046; 80053; 84439; 84443; 85025

== ENCOUNTER → 2023-12-06 08:40 | Outpatient (REF) | payer OTHER, SELFPAY ==
--- NOTE | 2023-12-06 09:03 | CA_ITS ---
Transthoracic Echocardiogram Patient (Last, First, Middle): Janusz Hartman A Gender: Male Date of : 1950 Age: 73 Procedure Date: 12/06/2023 Procedure Type: Transthoracic Echocardiogram Location: OP Height: 182.88 cm Weight: 81.65 kg BSA: 2.04 m2 Heart Rate: bpm BP: 120 / 70 mmHg Manager Operational: BARBI Referring MD: Wilfred Aleman MD Patient Admitting Representative: Wilfred Aleman MD Symptoms: I77.810 - Thoracic aortic ectasia Study Quality: Adequate ECG Rhythm: Sinus Conclusions: - 1. Normal LV ejection fraction of 60 65% with impaired relaxation filling pattern 2. Mildly dilated left atrium 3. Trivial aortic regurgitation 4. Mildly dilated ascending aorta at 4 cm 5. Normal RV systolic pressure 6. No gross pericardial effusion Findings Left Ventricle Normal left ventricular size, thickness, and systolic function. The visually estimated ejection fraction is between 60-65%. Spectral Doppler is indicative of an impaired relaxation filling pattern. E/E prime ratio is between 8 and 15 consistent with indeterminate filling pressures. Right Ventricle Normal right ventricular cavity size and systolic function. Atria The left atrium is mildly dilated. There is no evidence of interatrial shunt. The right atrium is normal in size. Aortic Valve Normal aortic valve structure and function. There is no aortic valve stenosis. There is trace (trivial) aortic valve regurgitation. Mitral Valve Normal mitral valve structure and function. There is mild mitral annular calcification. There is trace mitral valve regurgitation. There is no mitral valve stenosis. Pulmonic Valve The pulmonic valve is likely normal. There is trace pulmonic valve regurgitation. Tricuspid Valve Normal tricuspid valve structure. There is mild tricuspid valve regurgitation. The right ventricular systolic pressure is normal. The right ventricular systolic pressure is 25 mmHg. Normal right atrial pressure. There is no evidence of pulmonary hypertension. Great Vessels The pulmonary artery was not well visualized. There is mild dilatation of the ascending aorta measuring 4.00 cm. Venous The inferior vena cava is normal in size and collapses greater than 50% with inspiration. Pericardium/Pleural There is no evidence of pericardial effusion. Prior Study Comparison No significant change compared to prior study dated: 12/21/2022. Measurements 2D Linear Measurements IVSd: 0.99 0.6-0.9/0.6-1.0 cm LVIDd: 4.71 3.9-5.3/4.2-5.9 cm LVIDd Index: 2.31 2.4-3.2/2.2-3.1 cm/m2 LVIDs: 3.06 2.0-3.6 cm LVPWd: 1.02 0.7-1.1 cm LA Diam: 4.10 2.7-3.8/3.0-4.0 cm LAIDs Index: 2.01 1.5-2.3 cm/m2 LV Mass: 237.46 67-162/88-224 g LV Mass Index: 116.40 43-95/49-115 g/m2 LVOT Diam: 2.10 3.0+(-)1.3 cm 2D Systolic Function EF 4C: 59.80 >55% EF 2C: 64.60 >55% EF BiP: 60.30 >55% Mitral Valve MV Pk E: 0.57 MV PK A: 0.49 MV Decel Time: 243.00 E/A: 1.20 E'Lateral: 9.03 E'Medial: 5.87 E/E' Med: 9.80 E/E' Lat: 6.40 PHT: 71.00 MVA PHT: 3.10 Decel Tucker: 2.36 Aortic Valve AoV Pk [place]: 1.35 AoV Mn [place]: 0.94 AoV VTI: 0.31 AoV Pk Grad: 7.00 Aov Mn Grad: 4.00 ELZBIETA Cont.VTI: 2.68 LVOT LVOT Pk [place]: 1.14 LVOT Mn [place]: 0.82 LVOT VTI: 0.24 LVOT Pk Grad: 5.00 LVOT Mn Grad: 3.00 LVOT Diam: 2.10 LVOT Area: 3.46 Diastolic Function MV Pk E: 0.57 MV Pk A: 0.49 E/A: 1.20 E'Medial: 5.87 E/E' Med: 9.80 E' Laterial: 9.03 E/E' Lat: 6.40 Right Ventricle TAPSE (mm): 19.90 TVS' [place]: 11.00 Tricuspid Valve TR Pk [place]: 2.35 TR Pk Grad: 22.00 RA Press: 3.00 RVSP: 25.00 Great Vessels Aorta Sinus of Valsalva: 4.00 2.0-3.[address] [place]: 2.92 1.7-3.4 cm Ao Asc: 4.00 2.1-3.4 cm Updated in Other Vendor System with Status of Final Wilfred Aleman MD electronically signed on 12/07/2023 8:46:30 AM with status of Final
== END ==
LOC: HO.CARD 08:40
PROVIDERS: PCP Internal Medicine; Visit Provider Internal Medicine
DX: I77.810 Thoracic aortic ectasia (principal)
CPT/HCPCS: 93306

== ENCOUNTER → 2023-12-06 09:03 | Outpatient (BNV) | payer OTHER, SELFPAY | PROVIDERS: PCP Internal Medicine; Visit Provider Internal Medicine Cardiovascular Disease | DX: I35.1 Nonrheumatic aortic (valve) insufficiency (principal); I34.81 Nonrheumatic mitral (valve) annulus calcification; I36.1 Nonrheumatic tricuspid (valve) insufficiency | CPT/HCPCS: 93306 ==

== ENCOUNTER 2024-01-07 12:20 | Outpatient (AMB) | payer OTHER, SELFPAY ==
[2024-01-07 12:30] VITALS: BP 120/60; PULSE 61; BMI 26.0
--- NOTE | 2024-01-07 12:30 | A.OFFVIS_ITS ---
Vital Signs 01/07/24 12:30 Height 6 ft Weight 191 lb 12.835 oz BMI 26.0 BP 120/60 Blood Pressure Location Lt brachial Position Sitting Pulse 61 Pulse Source Monitor Intake Visit Reasons: 1 yr fu w/ ekg Sander Machine Required: Yes Sander Machine Name: [id number] Allergies almond [ALMOND] Allergy (Unknown, Verified 06/25/23 13:29) SWELLING Medication List - Last Reconciled 01/07/24 by Wilfred Aleman MD acetaminophen (Tylenol Extra Strength) 1,000 mg (2 x 500 mg) PO Q6H PRN ascorbate calcium (vitamin C) 500 mg PO DAILY atorvastatin 40 mg PO DAILY 90 days [BATH BENCH WITH BACK As directed] blood pressure monitor (Blood Pressure Kit) As directed cyclobenzaprine 10 mg PO BEDTIME PRN ezetimibe 10 mg PO DAILY ferrous sulfate (Feosol) 325 mg PO DAILY flecainide 50 mg PO BID [HANDHELD SHOWER HEAD As directed] [LOCKING RAISED TOILET SEAT with ARMS As directed] lorazepam 0.5 mg PO DAILY 90 days metoprolol succinate ER 25 mg PO DAILY omeprazole 20 mg PO DAILY rivaroxaban (Xarelto) 20 mg PO DAILY sennosides-docusate sodium 8.6-50 mg (Senna-S) 1 tab-cap PO BEDTIME sodium,potassium,mag sulfates 17.5-3.13-1.6 gram (Suprep Bowel Prep Kit) DILUTE; drink full amount early evening before AND next morning at least 2 hr before procedure; follow w 960 mL water PO [XL cuff for the BP machine As directed] HPI Comments Details: Janusz comes for follow-up. History was obtained with help of for counselor at law. Patient presented and said he had 1 episode of very transient pressure-like feeling in his chest. The symptoms have been present in the past. He has come to the emergency room multiple times for it and has had negative workup. He had coronary CTA which had shown nonobstructive CAD. He has EKG shows no significant changes today. He has not had any prolonged palpitation irregular heartbeat. No lightheadedness, syncope. No bleeding issues or neurologic events. Denies any exertional chest pain. No shortness of breath, orthopnea, PND, leg edema. Recent echo shows mild ascending aortic enlargement with normal LV ejection fraction. [facility] Medical History Chronic suprapubic pain Tinnitus CAD (coronary artery disease) Abnormal stress echocardiogram History of adenomatous polyp of colon Paroxysmal atrial fibrillation Lower back pain Renal cyst Thoracic spondylosis Lesion of bladder Left renal stone Tubular adenoma of colon Sensorineural hearing loss Alcohol abuse Blind right eye Anxiety and depression Hypercholesterolemia BPH (benign prostatic hyperplasia) Degenerative disc disease, cervical GERD (gastroesophageal reflux disease) Hypertension Surgical History Hx of transurethral resection of prostate H/O colonoscopy Hx of cataract surgery History of inguinal hernia repair Family History Father Medical history unknown Mother Medical history unknown Brother No problems noted. Son No problems noted. Son No problems noted. 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) Alcohol intake: never Patient Tobacco Use Status: Former Tobacco user Tobacco use type: Cigarette Years Smoked: 2014 quit e-Cigarette/Vaping Use: Never Used Second Hand Smoke Exposure: No Advance Directives Date on File: 07/05/20 service: No Current occupational status: disabled Cognitive needs: No Hearing needs: No Vision needs: Yes Review of Systems Const Denies weakness ENT Denies dizziness Card Reports chest pain, Denies chest pain with activity, Denies syncope, Denies rapid heart rate, Denies pedal edema, Denies edema, Denies leg edema, Denies lightheadedness, Denies palpitations, Denies dyspnea, Denies dyspnea on exertion and Denies orthopnea Resp Denies cough, Denies dyspnea and Denies dyspnea on exertion GI Denies hematochezia and Denies change in stool character Musc Denies abnormal gait, Denies muscle cramps, Denies muscle weakness, Denies numbness, Denies radiating pain into limb and Denies tingling Neuro Denies abnormal gait, Denies dizziness, Denies syncope, Denies numbness, Denies tingling and Denies weakness Endo Denies palpitations Physical Exam Vital Signs: Last Vital Signs Pulse 61 01/07/24 12:30 BP 120/60 01/07/24 12:30 BMI result Body Mass Index 26.0 Last Vital Signs Temp 97.9 F 12/28/20 09:13 Pulse 50 12/28/20 09:13 Resp 12 12/28/20 09:13 BP 136/67 12/28/20 09:13 Pulse Ox 98 12/28/20 09:13 Body Mass Index 26.6 Const General: cooperative, comfortable, no acute distress, well developed, alert and awake Nutritional Appearance: average body habitus Orientation/consciousness: patient oriented x3 Limitations: no limitations HEENT Head: Yes normocephalic and Yes atraumatic Neck Neck: Yes trachea midline, Yes supple and Yes no JVD Resp Effort & Inspection: normal respiratory effort Auscultation: clear to auscultation bilaterally Cardio Jugular venous distension: no JVD Palpation: normal PMI Rate: regular rate Rhythm: regular rhythm Heart sounds: S1 normal heart sound present, S2 normal heart sound present, no click, no gallops, no murmurs and no rubs GI Auscultation: normal bowel sounds Skin General skin exam: no rashes or lesions noted Neuro General: patient oriented x3 and no focal motor deficits Extrem General: Yes no clubbing, cyanosis or edema Psych Appearance: grossly normal Office Procedures EKG Details: EKG shows normal sinus rhythm normal EKG with normal axis and normal intervals [id number], Complete Assessment & Plan Assessment & Plan (1) Paroxysmal atrial fibrillation: Code(s): I48.0 - Paroxysmal atrial fibrillation Category: Medical Plan: Symptomatic paroxysmal atrial fibrillation without any obvious clinical recurrence. Has done well with rhythm control approach with flecainide. Continue the same. Continue concomitant metoprolol therapy. Avoidance of stimulants was discussed advised to call me with any new symptoms. Continue full oral anticoagulation given his high thromboembolic risk. Continue Xarelto 20 mg daily. Semi annual renal function test should be pursued. (2) CAD (coronary artery disease): Comment: Diffuse nonobstructive CAD by coronary CTA March 2021-sees Dr. Aleman Code(s): I25.10 - Atherosclerotic heart disease of [place] coronary artery without angina pectoris Category: Medical Plan: Nonobstructive CAD by coronary CTA. No symptoms that are suggestive of myocardial ischemia. Continue aggressive risk factor modification. Currently on Xarelto will continue the same. Avoid aspirin therapy. Continue high- intensity statin therapy. Target goal LDL less than 70 mg/dL. Blood pressure is currently well optimized. (3) Thoracic aortic ectasia: Comment: 11/2022 echo 4 cm Code(s): I77.810 - Thoracic aortic ectasia Category: Medical Plan: Mild thoracic aortic ectasia. Continue to monitor by echocardiogram on annual basis. Continue aggressive vascular risk factor modification above. No other interventions required. Will follow up in the clinic in 6 months time for EKG in 1 year with me. Orders: Orders CA echo transthoracic complete 1 Year I77.810 - Thoracic aortic ectasia Coding Level of Care Code Est Pt Level 4 (90282) Complex EM visit Add On G2211 Diagnoses Paroxysmal atrial fibrillation I48.0 CAD (coronary artery disease) I25.10 Thoracic aortic ectasia I77.810 CPT Codes EKG - CPT: 78493-[id number], Complete ([id number])
== END 2024-01-07 12:55 | disposition home or self-care (01) ==
PROVIDERS: PCP Internal Medicine; Visit Provider Internal Medicine Cardiovascular Disease
DX: I48.0 Paroxysmal atrial fibrillation (principal); I25.10 Atherosclerotic heart disease of native coronary artery without angina pectoris; I77.810 Thoracic aortic ectasia
CPT/HCPCS: 93010; 99214; G2211

== ENCOUNTER → 2024-01-07 12:20 | Outpatient (BNVA) | payer OTHER, SELFPAY | PROVIDERS: PCP Internal Medicine; Visit Provider Internal Medicine Cardiovascular Disease | DX: I25.10 Atherosclerotic heart disease of native coronary artery without angina pectoris (principal); I10 Essential (primary) hypertension; I48.0 Paroxysmal atrial fibrillation; I77.810 Thoracic aortic ectasia | CPT/HCPCS: 93005; 99212 ==

== ENCOUNTER 2024-01-14 08:17 | Outpatient (AMB) | payer OTHER, SELFPAY ==
[2024-01-14 08:19] VITALS: BP 124/68; PULSE 52; O2SAT 98; BMI 26.3
--- NOTE | 2024-01-14 08:19 | MHC.PC.OV ---
Vital Signs 01/14/24 08:19 Height 6 ft Weight 194 lb BMI 26.3 BP 124/68 Blood Pressure Location Lt brachial Position Sitting Pulse 52 Pulse Source Pulse Oximeter Pulse Oximetry (%) 98 Oxygen Delivery Method Room Air Intake Visit Reasons: AFib Warehouse Receiver Required: Yes Warehouse Receiver Language: Ukrainian Allergies almond [ALMOND] Allergy (Unknown, Verified 01/14/24 08:22) SWELLING Medication List - Last Reconciled 01/14/24 by Kyra Garcia PA-C acetaminophen (Tylenol Extra Strength) 1,000 mg (2 x 500 mg) PO Q6H PRN ascorbate calcium (vitamin C) 500 mg PO DAILY atorvastatin 40 mg PO DAILY 90 days [BATH BENCH WITH BACK As directed] blood pressure monitor (Blood Pressure Kit) As directed cyclobenzaprine 10 mg PO BEDTIME PRN ezetimibe 10 mg PO DAILY ferrous sulfate (Feosol) 325 mg PO DAILY flecainide 50 mg PO BID [HANDHELD SHOWER HEAD As directed] [LOCKING RAISED TOILET SEAT with ARMS As directed] lorazepam 0.5 mg PO DAILY 90 days metoprolol succinate ER 25 mg PO DAILY omeprazole 20 mg PO DAILY rivaroxaban (Xarelto) 20 mg PO DAILY sennosides-docusate sodium 8.6-50 mg (Senna-S) 1 tab-cap PO BEDTIME sodium,potassium,mag sulfates 17.5-3.13-1.6 gram (Suprep Bowel Prep Kit) DILUTE; drink full amount early evening before AND next morning at least 2 hr before procedure; follow w 960 mL water PO [XL cuff for the BP machine As directed] Tobacco use date assessed: 05/29/23 Fall risk assessment: No Falls in past year Last assessed Fall Risk: 01/14/24 Dental Screening Dental Screen Date: 01/14/24 Did you have a dental visit in the last 12 months?: Yes Did you have a dental problem in the last 6 months where you did not have access to dental care?: No Was dental information given to patient?: Patient has dentist HPI AFib HPI Details 73-year-old male with past medical history of hypertension, GERD, BPH, hypercholesterolemia, atrial fibrillation, coronary artery disease, generalized anxiety disorder last seen by Dr. Carter September 2023 coming in for follow up.? In review of the notes, patient was seen by Cardiology 01/07/2024 advised to continue on flecainide, metoprolol and Xarelto advised to follow up in 6 months. Patient states he is feeling generally well he has been having chronic low back pain which began about a year ago and uses Tylenol as needed for pain. He underwent physical therapy several years ago for similar concern and found it difficult to participate due to language barrier. Denies any numbness or tingling in his legs or feet and pain does not radiate to the bilateral lower extremities. He has no other concerns today. [facility] Medical History Chronic suprapubic pain Tinnitus CAD (coronary artery disease) Abnormal stress echocardiogram History of adenomatous polyp of colon Paroxysmal atrial fibrillation Lower back pain Renal cyst Thoracic spondylosis Lesion of bladder Left renal stone Tubular adenoma of colon Sensorineural hearing loss Alcohol abuse Blind right eye Anxiety and depression Hypercholesterolemia BPH (benign prostatic hyperplasia) Degenerative disc disease, cervical GERD (gastroesophageal reflux disease) Hypertension Surgical History Hx of transurethral resection of prostate H/O colonoscopy Hx of cataract surgery History of inguinal hernia repair Family History Father Medical history unknown Mother Medical history unknown Brother No problems noted. Son No problems noted. Son No problems noted. 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 How often do you have a drink containing alcohol?: Never 3. How often do you have six or more drinks on one occasion?: Never Total Score: 0 Score Reviewed/Action Taken: No DALIA-7 AMB Questionnaire DALIA-7 Date DALIA - 7 assessed: 05/17/22 Source: Developed by Drs. Almas Amaral, Roopa Anders, William Madison and colleagues, with an educational rubén from [employer]. Review of Systems Const Denies body aches, Denies chills, Denies fever(s), Denies headache(s) and Denies poor appetite Eyes Reports no additional complaints ENT Denies dizziness and Denies headache(s) Card Denies chest pain, Denies syncope, Denies edema, Denies irregular heart rhythm, Denies lightheadedness and Denies dyspnea Resp Denies cough and Denies dyspnea GI Denies constipation, Denies diarrhea, Denies nausea and Denies vomiting Reports no additional complaints Musc Reports no additional complaints, Denies abnormal gait and Reports back pain Skin/Breast Reports system reviewed and no additional complaints, except as documented Neuro Denies abnormal gait, Denies dizziness, Denies syncope and Denies headache(s) Psych Reports no additional complaints Physical exam (Primary Care) Vital Signs: Last Vital Signs Pulse 52 01/14/24 08:19 BP 124/68 01/14/24 08:19 Pulse Ox 98 01/14/24 08:19 Oxygen Delivery Method Room Air 01/14/24 08:19 BMI result Body Mass Index 26.3 Tobacco/Smoking Status: Tobacco use Status Tobacco use date assessed 05/29/23 01/14/24 08:19 Patient Tobacco Use Status Former Tobacco user 01/14/24 08:19 Tobacco use type Cigarette 01/14/24 08:19 e-Cigarette/Vaping Use Never Used 01/14/24 08:19 Thrive Assessment: Date of Thrive Assessment Date Thrive assessed 05/29/23 01/14/24 08:19 Const General: cooperative, healthy appearing, comfortable and no acute distress Orientation/consciousness: patient oriented x3 HENMT Head: Yes normocephalic Ears: hearing grossly normal bilaterally General nose exam: Normal external nose present Eyes General: appearance normal, both eyes and all related structures Conjunctivae: conjunctivae normal Neck Neck: Yes full ROM and Yes no lymphadenopathy Resp Effort & Inspection: normal respiratory effort Auscultation: clear to auscultation bilaterally, no crackles, no rales, no rhonchi and no wheezes Cardio Rate: regular rate Rhythm: regular rhythm Skin General skin exam: no rashes or lesions noted Neuro General: patient oriented x3 Gait exam (Neuro): Normal gait present Extrem General: Yes normal to inspection, Yes full ROM and No edema Psych Affect: normal affect Attitude: cooperative Insight: Good insight present (Psych) Judgement: Good judgement present (Psych) Coding Level of Care Code Est Pt Level 3 (98801) Diagnoses Paroxysmal atrial fibrillation I48.0 CAD (coronary artery disease) I25.10 Hypercholesterolemia E78.00 Gastroesophageal reflux disease, unspecified whether esophagitis present K21.9 Esophagitis presence: esophagitis presence not specified Essential hypertension I10 Hypertension type: essential hypertension Back pain M54.9 Assessment & Plan Assessment & Plan (1) Paroxysmal atrial fibrillation: Code(s): I48.0 - Paroxysmal atrial fibrillation Category: Medical Plan: Continue on current medication regimen and continue to follow up with Cardiology. Doing well on current medication denies any symptoms of the time (2) CAD (coronary artery disease): Comment: Diffuse nonobstructive CAD by coronary CTA March 2021-sees Dr. Aleman Code(s): I25.10 - Atherosclerotic heart disease of [place] coronary artery without angina pectoris Category: Medical Plan: Continue with good control of cholesterol, blood pressure and blood sugar. (3) Hypercholesterolemia: Code(s): E78.00 - Pure hypercholesterolemia, unspecified Category: Medical Plan: Avoid foods that are high in cholesterol such as red meat, fried foods, eggs and baked goods. Triglyceride goal of less than 150 and LDL goal of less than 70. Continue on atorvastatin 40 and ezetimibe (4) GERD (gastroesophageal reflux disease): Code(s): K21.9 - Gastro-esophageal reflux disease without esophagitis Category: Medical Qualifiers: Esophagitis presence: esophagitis presence not specified Qualified Code(s): K21.9 - Gastro-esophageal reflux disease without esophagitis Plan: Avoid trigger foods such as citrus, tomato products, soda, caffeine, spicy foods and other foods that may be irritating to your stomach. Avoid laying flat 3-4 hours after eating and elevate the head of the bed 30 degrees to prevent acid from moving into the esophagus. (5) Hypertension: Comment: stress test nuclear September 2012, January 27 1016- Code(s): I10 - Essential (primary) hypertension Category: Medical Qualifiers: Hypertension type: essential hypertension Qualified Code(s): I10 - Essential (primary) hypertension Plan: Continue on current blood pressure medication. Avoid salt intake and encourage healthy diet and regular exercise. Blood pressure at goal today 124/68 (6) Back pain: Code(s): M54.9 - Dorsalgia, unspecified Category: Medical Plan: Patient complaining of chronic low back pain that comes and goes but is very bothersome. Has not had x-ray in over 2 years we will order for repeat lumbar spine x-ray for further evaluation. Currently taking Tylenol as needed for pain. Referral placed to physical therapy Plan This note was constructed using voice recognition software. While every effort has been made to ensure accuracy and director new product, still areas may have been included sometimes these areas may affect the content or meeting of the given symptoms. Total time spent caring for the patient today was 20 minutes. This includes time spent before the visit reviewing the chart, time spent during the visit, and time spent after the visit and documentation. Orders: Orders XR lumbar spine 2-3V Today M54.9 - Dorsalgia, unspecified PT Evaluation and Treatment Today M54.9 - Dorsalgia, unspecified Medications: Refilled rivaroxaban (Xarelto) 20 mg PO DAILY 90 tabs 3RF
== END 2024-01-14 08:48 | disposition home or self-care (01) ==
PROVIDERS: PCP Internal Medicine
DX: I48.0 Paroxysmal atrial fibrillation (principal); I25.10 Atherosclerotic heart disease of native coronary artery without angina pectoris; E78.00 Pure hypercholesterolemia, unspecified; K21.9 Gastro-esophageal reflux disease without esophagitis; I10 Essential (primary) hypertension; M54.9 Dorsalgia, unspecified

== ENCOUNTER → 2024-01-14 08:17 | Outpatient (BNVA) | payer OTHER, SELFPAY | PROVIDERS: PCP Internal Medicine | DX: I48.0 Paroxysmal atrial fibrillation (principal); I25.10 Atherosclerotic heart disease of native coronary artery without angina pectoris; K21.9 Gastro-esophageal reflux disease without esophagitis; M54.9 Dorsalgia, unspecified; I10 Essential (primary) hypertension | CPT/HCPCS: 99212 ==

== ENCOUNTER 2024-04-16 08:04 | Outpatient (AMB) | payer OTHER, SELFPAY ==
--- OUTSIDE RECORDS SUMMARY | 2024-04-16 08:10 | XMS_ITS | Clinical Summary ---
Author Organization [facility] ity Address [address] [place] [address] Care Team Providers Care Furnace Process Supervisor Name Role Phone Unavailable Primary Care Provider Unavailabl e Social History Tobacco Use Types Packs/Day Years Used Date Smoking Tobacco: Never Assessed Sex and Gender Information Value Date Recorded Sex Assigned at Not on file Legal Sex Male 12:40 PM EST Gender Identity Not on file Sexual Orientation Not on file Plan of Treatment Health Maintenance Due Date Last Done Comments DTaP,Tdap,and Td Vaccines (1 - Tdap) 1969 Pneumococcal Vaccine: 50+ Ye ars (1 of 1 - PCV) 12/06/1999 Zoster Vaccines (1 of 2) 12/06/1999 COVID-19 Vaccine (1 - 2023-2 5 season) 2023 Influenza Vaccine (#1) 2023 RSV Immunization Patients 60 + Years Old (1 - 1-dose 75+ series) 2024 HIB Vaccines Aged Out No longer eligi ble based on patient's age to complete this topic HPV Vaccines Aged Out No longer eligi ble based on patient's age to complete this topic Hepatitis A Vaccines Aged Out No long er eligible based on patient's age to complete this topic Hepatitis B Vaccines Aged Out No long er eligible based on patient's age to complete this topic IPV Vaccines Aged Out No longer eligi ble based on patient's age to complete this topic MMR Vaccines Aged Out No longer eligi ble based on patient's age to complete this topic Meningococcal ACWY Vaccine Aged Out N o longer eligible based on patient's age to complete this topic Meningococcal B Vacine Aged Out No lo nger eligible based on patient's age to complete this topic RSV Immunization Patients Un cari 20 months Aged Out No longer eligible b ased on patient's age to complete this topic Varicella Vaccines Aged Out No longer eligible based on patient's age to complete this topic
--- OUTSIDE RECORDS SUMMARY | 2024-04-16 08:10 | XMS_ITS ---
Author Name MS. 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 Name Role Phone Kaley Dunlap Unavailable [phone] RupertMoshe burgos Unavailable [phone] Unavailable Unavailable Unavailable Reason for Referral Not Available Allergies, adverse reactions, alerts No known allergies History of medication use Medication Class Instructions Start Date End Date Sertraline 25 mg Tab TAKE ONE TABLET BY MOUTH EVERY DAY 2021-11-08 No Data Available Senna Plus 8.6/50 mg Tab TAKE ONE TABLET BY MOUTH AT BEDTIME 2021-11-08 No Data Available Metoprolol Succinate ER 25 m g Tab ER 24hr TAKE ONE TABLET BY MOUTH EVERY DAY 2021-02-07 No Data Available Flecainide Acetate 50 mg Tab TAKE ONE TA BLET BY MOUTH TWICE A DAY 2021-12-07 No Data Available LORazepam 0.5 mg Tab TAKE ONE TABLET BY MOUTH EVERY DAY 2022-01-05 No Data Available Omeprazole 20 mg Cap delayed rel TAKE ONE CAPSULE BY MOUTH EVERY DAY 2021-05-30 No Data Available Ezetimibe 10 mg Tab TOME EDIE TABLETA VIA ORAL CADA TERESA 2021-11-01 No Data Available Xarelto 20 mg Tab TAKE ONE TABLET BY M OUTH EVERY DAY 2021-07-18 No Data Available Atorvastatin Calcium 40 mg Tab TOME EDIE TABLETA VIA ORAL CADA TERESA 2021-10-14 No Data Available Suprep Bowel Prep Kit 17.5-3.13-1.6 GM/177ML Solution DILUTE; DRINK FULL AMOUNT EARLY EVENING BEFORE AND NEXT MORNING AT LEAST 2 HOURS BEFORE PROCEDURE. FOLLOW WITH 32 [employer] OF WATER 2022-02-01 2022-05-02 Cyclobenzaprine 10 mg Tab TAKE ONE TABLE T BY MOUTH AT BEDTIME NEEDED FOR MUSCLE SPASM 2022-02-06 No Data Available Tylenol Extra Strength 500 m g Tab 2 tablet orally BID PRN pain 2022-05-02 No Data Available Meclizine 12.5 mg Tab 1 tablet orally BID 2022-05-02 2023-09-05 Calcium Carbonate 600 mg Tab 1 tablet daily 2022-05-19 2023-09-05 Tessalon Perles 100 mg Cap 1 capsule ora lly 3 times per day as needed 2022-07-19 2022-08-16 Coricidin HBP Congestion/Cou gh 10/200 mg Cap as per package instructions 2022-09-27 2023-09-05 Flonase Allergy Relief 50 MCG/ACT Suspension Nasal 1-2 sprays each nostril daily as needed 2022-09-27 2023-09-05 Atropine Sulfate 1 % Solution INSTILL 1 DROP INTO THE RIGHT EYE DAILY 2022-07-11 No Data Available Vitamin C 500 mg Tab TOME EDIE TABLETA A ORAL CADA TERESA 2022-11-21 No Data Available Problem List Problem Status Onset Date Resolved Date Vertigo Resolved 2022-05-02 2022-08-16 URI (upper respiratory infection) Resolved 2022-092023-01-08 Loss of hearing Active 2022-05-02 N/A Hyperlipidemia Active 2022-05-02 N/A MDD (major depressive disord er), recurrent episode, mild; Anxiety Active 2022-05-02 N/A Other problems related to [facility] facilities and other health care Active 2023-09-05 N/A Memory deficits Active 2022-05-19 N/A Hemiplegia and hemiparesis f ollowing cerebral infarction affecting left non-dominant side Active 2023-09-05 N/A Chronic bilateral low back p ain, unspecified whether sciatica present Active 2023-09-05 N/A Paroxysmal atrial fibrillation/thrombophilia Active 2022-05-02 N/A Thoracic aortic ectasia Active 2023-09-05 N/A Encounters Encounters Type Facility Date of Service Diagnosis/Co mplaint No Data Available [facility] ([place] 05/02/2022 Paroxysmal atrial fibrillationSedative, hypnotic or anxiolytic dependence, uncomplicatedMajor depressive disorder, recurrent, mildAnxiety disorder, unspecifiedHyperlipidemia, unspecifiedDizziness and giddinessUnspecified hearing loss, unspecified ear No Data [facility] No Data Available [facility] [place] 05/[place]2022 No Data Available [facility] [place]20[place] No Data Available [facility] [place]20[place] No Data Available [facility] [place] 05[place]2022 No Data Available [facility] [place] 05[place]19[place]2022 Paroxysmal atrial fibrillationOther thrombophiliaSedative, hypnotic or anxiolytic dependence, uncomplicatedMajor depressive disorder, recurrent, mildAnxiety disorder, unspecifiedHyperlipidemia, unspecifiedDizziness and giddinessUnspecified hearing loss, unspecified ear No Data Available [facility] [place] 05[place]19[place]2022 No Data Available [facility] [place] 05[place]2022 No Data Available [facility] [place] 07[place]19[place]2022 Hyperlipidemia, unspecifiedM ajor depressive disorder, recurrent, mildAnxiety disorder, unspecifiedOther thrombophiliaParoxysmal atrial fibrillation No Data Available [facility] [place] 07[place]19[place]2022 No Data Available [facility] [place]20[place] No Data Available [facility] [place] 08[place]16[place]2022 Paroxysmal atrial fibrillationOther thrombophiliaAnxiety disorder, unspecifiedMajor depressive disorder, recurrent, mild No Data Available [facility] [place] 08[place]16[place]2022 No Data Available [facility] [place] 08[place]2022 No Data Available [facility] [place] 09[place]27/2022 Paroxysmal atrial fibrillationOther thrombophiliaAcute upper respiratory infection, unspecified No Data Available [facility] [place] 09[place]2022 No Data Available [facility] [place] 09[place]2022 No Data Available [facility] [place] 09[place]28/2022 Acute upper respiratory infection, unspecified No Data Available [facility] [place] 09[place]/2022 No Data Available [facility] [place]2022 No Data Available [facility] [place] 01/08/2023 Paroxysmal atrial fibrillationOther thrombophiliaSedative, hypnotic or anxiolytic dependence, uncomplicatedMajor depressive disorder, recurrent, mildAnxiety disorder, unspecifiedHyperlipidemia, unspecifiedUnspecified hearing loss, unspecified earOther amnesia No Data Available [facility] [place]/2023 No Data Available [facility] [place] Estab. patient 30-39min; chronic exacerbation, 2 stable chronic or 1 acute illness add add modifier 95 for video, (do not use for phone, instead use [id number]) [facility] [place]2023 Paroxysmal atrial fibrillationOther thrombophiliaOther problems related to medical facilities and other health careMajor depressive disorder, recurrent, mildAnxiety disorder, unspecifiedHemiplga following cerebral infrc affecting left nondom sideLow back pain, unspecifiedOther chronic painHyperlipidemia, unspecifiedUnspecified hearing loss, unspecified earOther amnesiaThoracic aortic ectasia Estab. patient 30-39min; chronic exacerbation, 2 stable chronic or 1 acute illness add add modifier 95 for video, (do not use for phone, instead use [id number]) [facility] [place] 09/[place]/20[place] Estab. patient 30-39min; chronic exacerbation, 2 stable chronic or 1 acute illness add add modifier 95 for video, (do not use for phone, instead use [id number]) [facility] [place] 09/[place]/20[place] Estab. patient 30-39min; chronic exacerbation, 2 stable chronic or 1 acute illness add add modifier 95 for video, (do not use for phone, instead use [id number]) [facility] [place]/20[place] Estab. patient 30-39min; chronic exacerbation, 2 stable chronic or 1 acute illness add add modifier 95 for video, (do not use for phone, instead use [id number]) [facility] [place] 09/[place]/2023 Estab. patient 30-39min; chronic exacerbation, 2 stable chronic or 1 acute illness add add modifier 95 for video, (do not use for phone, instead use [id number]) [facility] ([place] 09/05/20[place] Estab. patient 30-39min; chronic exacerbation, 2 stable chronic or 1 acute illness add add modifier 95 for video, (do not use for phone, instead use [id number]) [facility] ([place]20[place] Estab. patient 30-39min; chronic exacerbation, 2 stable chronic or 1 acute illness add add modifier 95 for video, (do not use for phone, instead use [id number]) [facility] ([place] 09/05/2023 Estab. patient 30-39min; chronic exacerbation, 2 stable chronic or 1 acute illness add add modifier 95 for video, (do not use for phone, instead use [id number]) [facility] ([place] 09/05/2023 Estab. patient 30-39min; chronic exacerbation, 2 stable chronic or 1 acute illness add add modifier 95 for video, (do not use for phone, instead use [id number]) [facility] ([place] 09/05/2023 Vital Signs Date of Collection Vitals 2022-05-02 08:16:41 Height - 185.42 cmWe ight - 81.65 kgBody Mass Index (BMI) - 23.75 kg/m2 2022-05-19 07:38:33 Pain Scale - 0.0 {sc ore} 2022-09-27 13:38:28 Pain Scale - 0.0 {sc ore} 2023-01-08 08:55:11 Pain Scale - 0.0 {sc ore} 2023-09-05 14:07:04 Height - 182.88 cmWe ight - 90.72 kgBody Mass Index (BMI) - 27.12 kg/m2BP Diastolic - 77.0 mm[Hg]BP Systolic - 126.0 mm[Hg]Pain Scale - 9.0 {score} Social History Social History Social History Observation Description Effec tive Time Current Smoking Status Former smoker 2024-03-29 9 Sex Male Gender identity Man History of Procedures Procedures Service Procedure code Service date Servicing provider Phone# No Data Available [id number] 2022-05-02 No Data Available No Data Available Medication List Documented (1159F) 1159F 2022-05-02 No Data Available No Data Shavon ilable Medication Review by prescribing provider or pharmacist documented (1160F) 1160F 2022-05-02 No Data Available No Data Shavon ilable Pain Assessment - Pain Documented on a Pain Scale (1125F) 1125F 2022-05-02 No Data Available No Data Shavon ilable Advance Care Directive Advance care planning discussion documented in the medical record (1158F) 1158F 2022-05-02 No Data Available No Data Availa ble BMI obtained (3008F) 3008F 2022-05-02 No Data Availab le No Data Available No Data Available 2022-05-19 No Data Available No Data Available Pain Assessment - NO pain present (1126F) 1126F 2022-05-19 No Data Available No Data A vailable Medication List Documented (1159F) 1159F 2022-05-19 No Data Available No Data Shavon ilable No Data Available 2022-07-19 No Data Available No Data Available Medication List Documented (1159F) 1159F 2022-07-19 No Data Available No Data Shavon ilable Pain Assessment - NO pain present (1126F) 1126F 2022-07-19 No Data Available No Data A vailable No Data Available 2022-08-16 No Data Available No Data Available Medication List Documented (1159F) 1159F 2022-08-16 No Data Available No Data Shavon ilable Pain Assessment - NO pain present (1126F) 1126F 2022-08-16 No Data Available No Data A vailable No Data Available 2022-09-27 No Data Available No Data Available Pain Assessment - NO pain present (1126F) 1126F 2022-09-27 No Data Available No Data A vailable Medication List Documented (1159F) 1159F 2022-09-27 No Data Available No Data Shavon ilable No Data Available 2022-09-28 No Data Available No Data Available Medication List Documented (1159F) 1159F 2022-09-28 No Data Available No Data Shavon ilable Pain Assessment - NO pain present (1126F) 1126F 2022-09-28 No Data Available No Data A vailable No Data Available 2023-01-08 No Data Available No Data Available Pain Assessment - NO pain present (1126F) 1126F 2023-01-08 No Data Available No Data A vailable Medication List Documented (1159F) 1159F 2023-01-08 No Data Available No Data Shavon ilable Estab. patient 30-39min; chronic exacerbation, 2 stable chronic or 1 acute illness add add modifier 95 for video, (do not use for phone, instead use [id number]) 30497 2023-09-05 No Data Available No Data Availa ble Medication List Documented (1159F) 1159F 2023-09-05 No Data Available No Data Shavon ilable Medication Review by prescribing provider or pharmacist documented (1160F) 1160F 2023-09-05 No Data Available No Data Shavon ilable Pain Assessment - Pain Documented on a Pain Scale (1125F) 1125F 2023-09-05 No Data Available No Data Shavon ilable BMI obtained (3008F) 3008F 2023-09-05 No Data Availab le No Data Available Advance Care Directive Advance care planning discussion documented in the medical record (1158F) 1158F 2023-09-05 No Data Available No Data Availa ble Advance care planning discussed and documented ? advance care plan or surrogate decision-maker was documented in the medical record. 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 2022-05-02 Cognition Status: Oriented to Person, Pl swetha and Time 2022-05-02 IADL: Medication Independent , Medication Needs Assistance , Meal Prep Independent , Meal Prep Needs Assistance , Shopping Independent , Shopping Needs Assistance , Driving or Public Transport Independent , Driving or Public Transport Needs Assistance , Housework Independent , Housework Needs Assistance , Finances Independent and Finances Needs Assistance 2022-05-02 ADL: Bathing Independent , D ressing Independent , Eating Independent , Ambulation Independent , Transferring Independent and Toileting Independent 2022-05-02 Falls in last 6 Months: No 2022-05-02 Social Supports - # of Interactions with Friends/Family in a typical week: 2022-05-02 ambulates with walker 2022-05-02 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 2023-09-05 Shower chair 2023-09-05 Assessments Date of Service Assessments 2022-05-02 08:16:41 Paroxysmal atrial fi brillationBenzodiazepine dependenceMDD (major depressive disorder), recurrent episode, mildHyperlipidemiaVertigoLoss of hearing 2022-05-19 07:38:33 Paroxysmal atrial fi brillation/thrombophiliaBenzodiazepine dependenceMDD (major depressive disorder), recurrent episode, mildHyperlipidemiaVertigoLoss of hearing 2022-07-19 06:18:25 HyperlipidemiaMDD (m ajor depressive disorder), recurrent episode, mildParoxysmal atrial fibrillation/thrombophilia 2022-08-16 08:11:31 Paroxysmal atrial fi brillation/thrombophiliaMDD (major depressive disorder), recurrent episode, mild 2022-09-27 13:38:28 URI (upper respirato ry infection)Paroxysmal atrial fibrillation/thrombophilia 2022-09-28 11:35:33 URI (upper respirato ry infection) 2023-01-08 08:55:11 Paroxysmal atrial fi brillation/thrombophiliaBenzodiazepine dependenceMDD (major depressive disorder), recurrent episode, mildHyperlipidemiaLoss of hearingMemory deficits 2023-09-05 14:07:04 Paroxysmal atrial fi brillation/thrombophiliaOther problems related to medical facilities and other health careMDD (major depressive disorder), recurrent episode, mild; AnxietyHemiplegia and hemiparesis following cerebral infarction affecting left non-dominant sideChronic bilateral low back pain, unspecified whether sciatica presentHyperlipidemiaLoss of hearingMemory deficitsThoracic aortic ectasia Plan of Care Date of Service Plans 2022-05-02 08:16:41 Medication Review by prescribing provider or pharmacist documented (1160F)Medication List Documented (1159F)Functional Status Assessed (1170F)Advance Care Directive Advance care planning discussion documented in the medical record (1158F)BMI obtained (3008F)Phone (patient, parent, or guardian); 21-30 minutes of medical discussion (no modifier 95)Pain Assessment - Pain Documented (1125F)Pain Assessment - Pain Documented (1125F)Continue to see PCP. Follow-up with [facility] as needed for any acute or disease education needs that may arise.on xarelto, metoprolol, flecainide followed by cardiologyon lorazepam for greater than 6 months abrupt cessation would cause withdrawalaware of risk vs benefitson sertralinestable no recent episodesfollowed by pcp has appt in 1 monthon atorvastatin, ezetimibe dietary modificationscomplains of bilateral ear ringing and ear painseen by ENT was sent meclizine but has not had any for a whilestates he has loss hearing in left ear and had testing done a year ago but does not use hearing aides, advised to call ENT for a follow up 2022-05-19 07:38:33 Phone (patient, pare nt, or guardian); 5-10 minutes of medical discussion (no modifier 95)Continue to see PCP. Follow-up with [facility] as needed for any acute or disease education needs that may arise 18/09.on xarelto, metoprolol, flecainide followed by cardiology [id number] score-2 (HTN, vascular disease)on lorazepam for greater than 6 months abrupt cessation would cause withdrawalaware of risk vs benefitson sertralinestable no recent episodesfollowed by pcp has appt in 1 month 05/19/2022- had PCP appt 05/18on atorvastatin, ezetimibe dietary modificationscomplains of bilateral ear ringing and ear painseen by ENT was sent meclizine but has not had any for a whilestates he has loss hearing in left ear and had testing done a year ago but does not use hearing aides states they have sent them to him before but he states he does not like them, advised to call ENT for a follow up does have tinnitus to left ear 2022-07-19 06:18:25 Phone (patient, pare nt, or guardian); 5-10 minutes of medical discussion (no modifier 95)Continue to see PCP. Follow-up with [facility] as needed for any acute or disease education needs that may arise 18/09.on atorvastatin, ezetimibe dietary modificationson sertralinestable no recent episodesfollowed by pcp has appt in 1 month 05/19/2022- had PCP appt xarelto, metoprolol, flecainide followed by cardiology [id number] score-2 (HTN, vascular disease) 2022-08-16 08:11:31 Phone (patient, pare nt, or guardian); 5-10 minutes of medical discussion (no modifier 95)Continue to see PCP. Follow-up with [facility] as needed for any acute or disease education needs that may arise 18/09.on xarelto, metoprolol, flecainide followed by cardiology [id number] score-2 (HTN, vascular disease)08/16- currently stableon sertralinestable no recent episodesfollowed by pcp has appt in 1 month 05/19/2022- had PCP appt currently stable 2022-09-27 13:38:28 Phone (patient, pare nt, or guardian); 5-10 minutes of medical discussion (no modifier 95)Continue to see PCP. Follow-up with [facility] as needed for any acute or disease education needs that may arise 18/09.has congestion, cough, fever x 2 daysaware to take to OTC tylenol increase hydration, rest use flonase states he has post nasal drip denies any wheezing or SOB aware if symptoms worsen to go to pcp for Covid or flu swabon xarelto, metoprolol, flecainide followed by cardiology [id number] score-2 (HTN, vascular disease)08/16- currently stable 09/27 currently stable 2022-09-28 11:35:33 Phone (patient, pare nt, or guardian); 5-10 minutes of medical discussion (no modifier 95)Continue to see PCP. Follow-up with [facility] as needed for any acute or disease education needs that may arise 18/09.has congestion, cough, fever x 2 daysaware to take to OTC tylenol increase hydration, rest use flonase states he has post nasal drip denies any wheezing or SOB aware if symptoms worsen to go to pcp for Covid or flu swab 09/28 feeling better, denies any more fever 2023-01-08 08:55:11 Phone (patient, pare nt, or guardian); 5-10 minutes of medical discussion (no modifier 95)Continue to see PCP. Follow-up with [facility] as needed for any acute or disease education needs that may arise 18/09.on xarelto, metoprolol, flecainide followed by cardiology [id number] score-2 (HTN, vascular disease)08/16- currently stable 09/27 currently stable 01/08 currently stableon lorazepam for greater than 6 months abrupt cessation would cause withdrawalaware of risk vs benefitson sertralinestable no recent episodesfollowed by pcp has appt in 1 month 05/19/2022- had PCP appt currently stable 01/09 currently stableon atorvastatin, ezetimibe dietary modificationsstates he has loss hearing in left ear and had testing done a year ago but does not use hearing aides states they have sent them to him before but he states he does not like them, advised to call ENT for a follow up does have tinnitus to left earstates he is forgetful at times advised to call pcp to see if candidate for namenda or like medication has pcp f/u next month 01/08 ao x 3 2023-09-05 14:07:04 Medication Review by prescribing provider or pharmacist documented (1160F)Medication List Documented (1159F)Functional Status Assessed (1170F)Advance Care Directive Advance care planning discussion documented in the medical record (1158F)BMI obtained (3008F)SBP < 130 (3074F)DBP <80 (3078F)Televideo 30-39min; chronic exacerbation, 2 stable chronic or 1 acute illness add modifier 95Advance care planning discussed and documented ? advance care plan or surrogate decision-maker was documented in the medical record. (1123F)Pain Assessment - Pain Documented (1125F)Continue to see PCP. Follow-up with [facility] as needed for any acute or disease education needs that may arise.on xarelto, metoprolol, flecainide followed by cardiology [id number] score-2 (HTN, vascular disease)If you ever take your blood pressure and it is consistently over 170/90 or low 90/50s, have chest pain, shortness of breath, wheezing, fever, or leg swelling call us at [phone]. We are here to help.on sertraline, Lorazepamstable no recent episodesfollowed by pcpOccurring in 2021Hemiplegia left side, minimal and at times has tremors in that sideUses assistive devices- cane StatinFollow up pcpChronic low back pain Has been assessed by PCP Tylenol PRN, Member states Lidoderm does not workon atorvastatin, ezetimibe dietary modificationsstates he has loss hearing in left ear and had testing done; does have tinnitus to left ear. Follows with ENT.states he is forgetful at times, follows with pcpdx 3PCP follow up Goals Date Goal 2022-05-02 continue medications as prescribed 2022-05-02 call if you feel ill , have any questions or concerns 2022-05-02 advised to follow up again with ENT states it has been a year ago 2022-05-19 continue medications as prescribed 2022-05-19 call if you feel ill , have any questions or concerns 2022-07-19 conitnue medications as prescribed 2022-07-19 call if you feel ill , have any questions or concerns 2022-08-16 continue medications as indicated 2022-08-16 call if you feel ill , have any questions or concerns 2022-09-27 continue medications as indicated 2022-09-27 ensure adequate hydr ation and diet 2022-09-27 monitor temperature and call back if fever persist 2022-09-27 tylenol OTC for feve r 2022-09-27 go to pcp sherine of mindi meena test if not improvement 2022-09-28 continue plan of car e 2022-09-28 call if you feel ill , have any questions or concerns 2022-09-28 no new concerns at t his time 2023-01-08 continue medications as prescribed 2023-01-08 has general surgery appt 01/11 for hernia repair that he had in the past 2023-01-08 no new concerns at t his time Health Concerns Date Concern 2023-09-05 Visit completed pratik lauren audio/video with BRIONNA. Patient/Guardian agreed to visit via telehealth. Today, patient has chief complaint of: follow up care and comprehensive review.Reviewed Allergies, Medications, Active Medical conditions, past medical/surgical history, Social history. 2023-09-05 Most recent hospital stay(s) or ER visit(s) and precipitating factors: 06/19 CP 2023-09-05 Open HEDIS Measure donato montiel: Completed 2023-09-05 [facility] completed
--- NOTE | 2024-04-16 08:41 | A.OFFPC_ITS ---
Vital Signs 04/16/24 08:44 Height 6 ft Weight 192 lb 6 oz BMI 26.1 BP 120/60 Blood Pressure Location Lt brachial Position Sitting Pulse 56 Pulse Source Pulse Oximeter Temp 97.3 F Temp Source Temporal Artery Scan Pulse Oximetry (%) 98 Oxygen Delivery Method Room Air Intake Visit Reasons: f/u Afib Intake Note: Patient is here to follow up on Afib. 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 Accompanied by: Spouse Allergies almond [ALMOND] Allergy (Unknown, Verified 04/16/24 08:44) SWELLING Medication List - Last Reconciled 04/16/24 by Kyra Garcia PA-C acetaminophen (Tylenol Extra Strength) 1,000 mg (2 x 500 mg) PO Q6H PRN ascorbate calcium (vitamin C) 500 mg PO DAILY atorvastatin 40 mg PO DAILY 90 days [BATH BENCH WITH BACK As directed] blood pressure monitor (Blood Pressure Kit) As directed cyclobenzaprine 10 mg PO BEDTIME PRN ezetimibe 10 mg PO DAILY ferrous sulfate (Feosol) 325 mg PO DAILY flecainide 50 mg PO BID [HANDHELD SHOWER HEAD As directed] [LOCKING RAISED TOILET SEAT with ARMS As directed] lorazepam 0.5 mg PO DAILY 90 days metoprolol succinate ER 25 mg PO DAILY omeprazole 20 mg PO DAILY rivaroxaban (Xarelto) 20 mg PO DAILY sennosides-docusate sodium 8.6-50 mg (Senna-S) 1 tab-cap PO BEDTIME [XL cuff for the BP machine As directed] Tobacco use date assessed: 04/16/24 Fall risk assessment: No Falls in past year Last assessed Fall Risk: 04/16/24 Dental Screening Dental Screen Date: 04/16/24 Did you have a dental visit in the last 12 months?: Yes Did you have a dental problem in the last 6 months where you did not have access to dental care?: No Was dental information given to patient?: Patient has dentist HPI f/u Afib HPI Details 73-year-old male with past medical histo ry of hypertension, GERD, BPH, hypercholesterolemia, atrial fibrillation, coronary artery disease, generalized anxiety disorder last seen 12/2023 coming in for follow up on AFib.? In review of the notes, patient was seen in [facility] 01/25/2024 4 chest pain admitted for observation and discharged 01/26/2024. Patient's spouse translates for the duration of this visit. Formal translation was offered but declined. Patient is a 73-year-old male presenting with follow-up concerns for elbow pain and chronic low back pain. 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 No accompanying symptoms of tingling, though hand weakness is present. Pain likely secondary to the shoulder, as noted by radiation from the shoulder to the elbow. Chronic Low Back Pain particularly felt near the waistline described as a knot, which varies in intensity but does not have pressure tenderness over the spine. Previously prescribed cyclobenzaprine but is unsure if he has been using this medication. He can not use NSAIDs due to use of Xarelto PFSH Medical History Chronic suprapubic pain Tinnitus CAD (coronary artery disease) Abnormal stress echocardiogram History of adenomatous polyp of colon Paroxysmal atrial fibrillation Lower back pain Renal cyst Thoracic spondylosis Lesion of bladder Left renal stone Tubular adenoma of colon Sensorineural hearing loss Alcohol abuse Blind right eye Anxiety and depression Hypercholesterolemia BPH (benign prostatic hyperplasia) Degenerative disc disease, cervical GERD (gastroesophageal reflux disease) Hypertension Surgical History Hx of transurethral resection of prostate H/O colonoscopy Hx of cataract surgery History of inguinal hernia repair Family History Father Medical history unknown Mother Medical history unknown Brother No problems noted. Son No problems noted. Son No problems noted. 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 1. Little interest or pleasure in doing things: not at all 2. Feeling down, depressed, or hopeless: not at all 3. Trouble falling or staying asleep, or sleeping too much: not at all 4. Feeling tired or having little energy: not at all 5. Poor appetite or overeating: not at all 6. Feeling bad about yourself - or that you are a failure or have let yourself or your family down: not at all 7. Trouble concentrating on things, such as reading the newspaper or watching television: not at all 8. Moving or speaking so slowly that other people could have noticed. Or the opposite - being so fidgety or restless that you have been moving around a lot more than usual: not at all 9. Thoughts that you would be better off or of hurting yourself in some way: not at all Total score: 0 Depression Screening Interpretation: Negative Depression Screening Done: Yes Source: Developed by Drs. Almas Amaral, Roopa Anders, William Madison and colleagues, with an educational rubén from [employer]. Thrive Questionnaire Date Thrive assessed: 04/16/24 I am a: Patient What is your living situation today?: I have a steady place to live Within the past 12 months, did the food you bought not last and you didn't have the money to get more?: Never true Within the past 12 months, did you worry whether your food would run out before you got money to buy more?: Never true Do you have trouble paying for medicines?: No Do you have trouble getting transportation to medical appointments?: No Do you have trouble paying your heating and electricity bill?: No Do you have trouble taking care of your child, family member or friend?: No Do you have trouble with day-to-day activities such as bathing, preparing meals, shopping, managing finances, etc.?: No Are you currently unemployed and looking for a job?: No Are you interested in more education?: No Please select the resources that you would like help with: None Currently or been in a relationship where the following occur: No concerns reported THRIVE Score: 0 AUDIT C Alcohol Use Questionnaire (AUDIT-C) 1. How often do you have a drink containing alcohol?: Never Total Score: 0 DALIA-7 AMB Questionnaire DALIA-7 Date DALIA - 7 assessed: 04/16/24 Feeling nervous, anxious, or on edge: 0 = Not at all Not being able to stop or control worryin = Not at all Worrying too much about different things: 0 = Not at all Trouble relaxin = Not at all Being so restless that it is hard to sit still: 0 = Not at all Becoming easily annoyed or irritable: 0 = Not at all Feeling afraid as if something awful might happen: 0 = Not at all Total DALIA-7 score (0-4 normal; 5-9 mild; 10-14 moderate; 15-21 severe): 0 Source: Developed by Drs. Almas Amaral, Roopa Anders, William Madison and colleagues, with an educational rubén from [employer]. Review of Systems Const Denies body aches, Denies chills, Denies fever(s), Denies headache(s) and Denies poor appetite Eyes Reports no additional complaints ENT Denies dysphagia, Denies dizziness, Denies headache(s) and Denies odynophagia Card Denies chest pain, Denies syncope, Denies edema, Denies irregular heart rhythm, Denies lightheadedness and Denies dyspnea Resp Denies cough and Denies dyspnea GI Denies abdominal pain, Denies constipation, Denies dysphagia, Denies diarrhea, Denies nausea, Denies odynophagia and Denies vomiting Reports no additional complaints Musc Details: Right elbow pain, right shoulder pain and neck pain Denies abnormal gait and Reports back pain Skin/Breast Reports system reviewed and no additional complaints, except as documented Neuro Denies abnormal gait, Denies dizziness, Denies syncope and Denies headache(s) Psych Reports no additional complaints Physical exam (Primary Care) Vital Signs: Last Vital Signs Temp 97.3 F 04/16/24 08:44 Pulse 56 04/16/24 08:44 BP 120/60 04/16/24 08:44 Pulse Ox 98 04/16/24 08:44 Oxygen Delivery Method Room Air 04/16/24 08:44 BMI result Body Mass Index 26.1 Tobacco/Smoking Status: Tobacco use Status Tobacco use date assessed 04/16/24 04/16/24 08:44 Patient Tobacco Use Status Former Tobacco user 04/16/24 08:42 Tobacco use type Cigarette 04/16/24 08:42 e-Cigarette/Vaping Use Never Used 04/16/24 08:42 PHQ-9: PHQ-9 Score PHQ-9: Total score 0 04/16/24 09:02 Depression Screening Interpretation: Negative Thrive Assessment: Date of Thrive Assessment Date Thrive assessed 04/16/24 04/16/24 08:42 Currently or been in a relationship where the following occur: No concerns reported Const General: cooperative, healthy appearing, comfortable and no acute distress Orientation/consciousness: patient oriented x3 HENMT Head: Yes normocephalic Ears: hearing grossly normal bilaterally General nose exam: Normal external nose present Eyes General: appearance normal, both eyes and all related structures Conjunctivae: conjunctivae normal Neck Neck: Yes full ROM and Yes no lymphadenopathy Resp Effort & Inspection: normal respiratory effort Auscultation: clear to auscultation bilaterally, no crackles, no rales, no rhonchi and no wheezes Cardio Rate: regular rate Rhythm: regular rhythm Back/Spine/Pelvis Other: Tenderness to palpation over right paraspinal muscles Skin General skin exam: no rashes or lesions noted Neuro General: patient oriented x3 Gait exam (Neuro): Normal gait present Extrem Other: No tenderness to palpation over entirety of right elbow. Does have tenderness to palpation over right shoulder and trapezius distribution. Upper extremity strength, sensation and pulses intact bilaterally General: Yes normal to inspection, Yes full ROM and No edema Psych Affect: normal affect Attitude: cooperative Insight: Good insight present (Psych) Judgement: Good judgement present (Psych) Coding Level of Care Code Est Pt Level 4 (40890) Diagnoses Neck pain M54.2 Numbness of right hand R20.0 Right shoulder pain M25.511 Right elbow pain M25.521 CAD (coronary artery disease) I25.10 Hypercholesterolemia E78.00 Gastroesophageal reflux disease, unspecified whether esophagitis present K21.9 Esophagitis presence: esophagitis presence not specified Essential hypertension I10 Hypertension type: essential hypertension Assessment & Plan Assessment & Plan (1) Neck pain: Code(s): M54.2 - Cervicalgia Category: Medical Plan: Patient complaining of neck pain that radiates to the shoulder mild tenderness to palpation over right paraspinal muscles and right trapezius. Ordered for cervical x-ray for further evaluation. Recommend gentle stretching at this time (2) Numbness of right hand: Code(s): R20.0 - Anesthesia of skin Category: Medical Plan: Patient complaining of numbness and weakness of right hand that began about a month ago no other neurological deficits noted. Ordered for upper extremity EMG for further evaluation. Given the weakness and numbness has been going on for over a month low concern for acute CVA at this time. And no other neurological deficits noted on exam. (3) Right shoulder pain: Code(s): M25.511 - Pain in right shoulder Category: Medical Plan: During the visit, we addressed elbow pain potentially related to shoulder issues and chronic low back pain. We will obtain shoulder and elbow x-rays, and a nerve conduction study for the upper extremity will be done to assess nerve involvement. Mild right shoulder weakness likely the cause of the right arm pain. (4) Right elbow pain: Code(s): M25.521 - Pain in right elbow Category: Medical Plan: During the visit, we addressed elbow pain potentially related to shoulder issues and chronic low back pain. We will obtain shoulder and elbow x-rays, and a nerve conduction study for the upper extremity will be done to assess nerve involvement. (5) CAD (coronary artery disease): Comment: Diffuse nonobstructive CAD by coronary CTA March 2021-sees Dr. Aleman Code(s): I25.10 - Atherosclerotic heart disease of [place] coronary artery without angina pectoris Category: Medical Plan: Advised good control of blood pressure, cholesterol and blood sugars. (6) Hypercholesterolemia: Code(s): E78.00 - Pure hypercholesterolemia, unspecified Category: Medical Plan: Avoid foods that are high in cholesterol such as red meat, fried foods, eggs and baked goods. Triglyceride goal of less than 150 and LDL goal of less than 70. (7) GERD (gastroesophageal reflux disease): Code(s): K21.9 - Gastro-esophageal reflux disease without esophagitis Category: Medical Qualifiers: Esophagitis presence: esophagitis presence not specified Qualified Code(s): K21.9 - Gastro-esophageal reflux disease without esophagitis Plan: Avoid trigger foods such as citrus, tomato products, soda, caffeine, spicy foods and other foods that may be irritating to your stomach. Avoid laying flat 3-4 hours after eating and elevate the head of the bed 30 degrees to prevent acid from moving into the esophagus. (8) Hypertension: Comment: stress test nuclear September 2012, January 27 1016- Code(s): I10 - Essential (primary) hypertension Category: Medical Qualifiers: Hypertension type: essential hypertension Qualified Code(s): I10 - Essential (primary) hypertension Plan: Continue on current blood pressure medication. Avoid salt intake and encourage healthy diet and regular exercise. Plan This note was constructed using voice recognition software. While every effort has been made to ensure accuracy and intern product marketing manager, still areas may have been included sometimes these areas may affect the content or meeting of the given symptoms. Total time spent caring for the patient today was 20 minutes. This includes time spent before the visit reviewing the chart, time spent during the visit, and time spent after the visit and documentation. Orders: Orders XR elbow RT 2V Today M25.521 - Pain in right elbow NE electromyogram (EMG) Today R20.0 - Anesthesia of skin Lipid Panel Today E78.00 - Pure hypercholesterolemia, unspecified, I25.10 - Atherosclerotic heart disease of [place] coronary artery without angina pectoris XR cervical spine 2V Today M54.2 - Cervicalgia XR shoulder RT min 2V Today M25.511 - Pain in right shoulder Comprehensive Met. Panel Today I25.10 - Atherosclerotic heart disease of [place] coronary artery without angina pectoris, Z00.00 - Encounter for general adult medical examination without abnormal findings Medications: Refilled cyclobenzaprine 10 mg PO BEDTIME PRN 30 tabs 0RF muscle spasm M54.9 - Dorsalgia, unspecified
[2024-04-16 08:44] VITALS: BP 120/60; PULSE 56; TEMP 36.3; O2SAT 98; BMI 26.1
== END 2024-04-16 09:16 | disposition home or self-care (01) ==
PROVIDERS: PCP Internal Medicine
DX: M54.2 Cervicalgia (principal); R20.0 Anesthesia of skin; M25.511 Pain in right shoulder; M25.521 Pain in right elbow; I25.10 Atherosclerotic heart disease of native coronary artery without angina pectoris; E78.00 Pure hypercholesterolemia, unspecified; K21.9 Gastro-esophageal reflux disease without esophagitis; I10 Essential (primary) hypertension

== ENCOUNTER → 2024-04-16 08:04 | Outpatient (BNVA) | payer OTHER, SELFPAY | PROVIDERS: PCP Internal Medicine | DX: M54.2 Cervicalgia (principal); R20.0 Anesthesia of skin; M25.511 Pain in right shoulder; M25.521 Pain in right elbow; I25.10 Atherosclerotic heart disease of native coronary artery without angina pectoris; E78.00 Pure hypercholesterolemia, unspecified; K21.9 Gastro-esophageal reflux disease without esophagitis; I10 Essential (primary) hypertension | CPT/HCPCS: 99212 ==

== ENCOUNTER 2024-04-18 07:31 | Outpatient (REF) | payer OTHER, SELFPAY ==
--- NOTE | ~2024-04-18 | XR_ITS ---
CLINICAL HISTORY: M25.521 - Pain in right elbow 3 view right elbow Comparison: None Findings: Mild displacement of the articular fat pads suggesting small nonspecific effusion. Normal bone density and alignment. No fracture or dislocation. Joints intact. Soft tissues unremarkable. Impression: Nonspecific joint effusion. Otherwise negative. This document has been electronically signed by: Jeff Kim MD on 04/18/2024 11:23:16
--- NOTE | ~2024-04-18 | XR_ITS ---
CLINICAL HISTORY: M54.2 - Cervicalgia 3 views cervical spine Comparison: CR - XR CERVICAL SPINE MIN 6V - 10/08/20 07:53 EDT Findings: No acute fracture or traumatic subluxation. Similarly straightened cervical lordosis. Minute spondylolisthesis of C4 on C5 and retrolisthesis of C5 on C6. Otherwise normal alignment. Normal vertebral body height and precervical soft tissue thickness. Similar vasi-hg-yysmbxgt disc space narrowing with mild endplate spurring C5-6 and C6-7. Normal intervertebral disc height and vertebral endplates remaining levels. Facet joints intact. No acute process evident in the included apical lungs, paracervical soft tissues or included skull. Impression: Stable xsil-cw-fjjdmsyq degenerative changes C5-6 and C6-7. This document has been electronically signed by: Jeff Kim MD on 04/18/2024 11:42:45
--- NOTE | ~2024-04-18 | XR_ITS ---
CLINICAL HISTORY: M25.511 - Pain in right shoulder 4 view right shoulder Comparison: None Findings: No acute fracture or dislocation. Hadf-it-ajhocfjk degenerative arthritis AC joint with small inferior projecting osteophytes distal clavicle and acromion. Intact glenohumeral joint. Regional soft tissues unremarkable. No acute process evident in the included right lung. 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 This document has been electronically signed by: Jeff Kim MD on 04/18/2024 11:30:06
--- OUTSIDE RECORDS SUMMARY | 2024-04-18 07:33 | XMS_ITS ---
Author Name MS. Darlyn Dunlap APRN Address [address] [place] [address] Phone [phone] [facility] Care Team Providers Care Wireless Internet Installer Name Role Phone Kaley Dunlap Unavailable [phone] RupertMoshe burgos Unavailable [phone] Unavailable Unavailable Unavailable Reason for Referral Not [...] Active 2022-05-02 N/A Other problems related to [facility] facilities and other health care Active 2023-09-05 [...] of Service Diagnosis/Co mplaint No Data Available [facility] ([place]) 05/02/2022 Paroxysmal atrial fibrillationSedative, hypnotic or anxiolytic dependence, uncomplicatedMajor depressive disorder, recurrent, mildAnxiety disorder, unspecifiedHyperlipidemia, unspecifiedDizziness and giddinessUnspecified hearing loss, unspecified ear No [facility] 05/02/2022 No Data [...] loss, unspecified earOther amnesia No Data Available [facility], ([place]) 01/08/2023 No Data Available [facility] [place] 01/08/2023 Estab. patient 30-39min; chronic exacerbation, 2 stable chronic or 1 acute illness add add modifier 95 for video, (do not use for phone, instead use 80809-75) [facility] [place] 09/05/2023 Paroxysmal atrial fibrillationOther thrombophiliaOther problems related [...] (do not use for phone, instead use 80501-00) [facility] [place] 09/05/2023 Estab. patient 30-39min; chronic exacerbation, 2 stable chronic or 1 acute illness add add modifier 95 for video, (do not use for phone, instead use 43684-34) [facility] ([place] 09/05/2023 Estab. patient 30-39min; chronic exacerbation, 2 stable chronic or 1 acute illness add add modifier 95 for video, (do not use for phone, instead use 22759-60) [facility] ([place] 09/05/2023 Estab. patient 30-39min; chronic exacerbation, 2 stable chronic or 1 acute illness add add modifier 95 for video, (do not use for phone, instead use 85627-33) [facility] ([place] 09/05/2023 Estab. patient 30-39min; chronic exacerbation, 2 stable chronic or 1 acute illness add add modifier 95 for video, (do not use for phone, instead use 56646-97) [facility] ([place]) 09/05/2023 Estab. patient 30-39min; chronic exacerbation, 2 stable chronic or 1 acute illness add add modifier 95 for video, (do not use for phone, instead use 44085-11) [facility] ([place]) 09/05/2023 Estab. patient 30-39min; chronic exacerbation, 2 stable chronic or 1 acute illness add add modifier 95 for video, (do not use for phone, instead use 99372-52) [facility] ([place] 09/05/2023 Estab. patient 30-39min; chronic exacerbation, 2 stable chronic or 1 acute illness add add modifier 95 for video, (do not use for phone, instead use 33657-55) [facility] ([place] 09/05/2023 Estab. patient 30-39min; chronic exacerbation, 2 stable chronic or 1 acute illness add add modifier 95 for video, (do not use for phone, instead use 70141-69) [facility] ([place]) 09/05/2023 Vital Signs Date of Collection Vitals [...] tive Time Current Smoking Status Former smoker 2024-03-30 1 Sex Male Gender identity Man History of Procedures Procedures Service Procedure code Service date Servicing provider Phone# No Data Available [id number] 2022-05-02 No Data Available No Data Available [...] (do not use for phone, instead use 51796-41) [id number] 2023-09-05 No Data Available No Data Availa [...] Mental Status Status Date lives alone 2022-05-02 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 Follow-up with [facility] as needed for any acute or disease education needs that may arise 18/09.on xarelto, metoprolol, flecainide followed by cardiology [id number] score-2 (HTN, vascular disease)08/16- currently stableon sertralinestable [...] swabon xarelto, metoprolol, flecainide followed by cardiology [id number] score-2 (HTN, vascular disease)08/16- currently stable 09/27 [...] 18/09.on xarelto, metoprolol, flecainide followed by cardiology [id number] score-2 (HTN, vascular disease)08/16- currently stable 09/27 [...] arise.on xarelto, metoprolol, flecainide followed by cardiology [id number] score-2 (HTN, vascular disease)If you ever take your blood pressure and it is consistently over 170/90 or low 90/50s, have chest pain, shortness of breath, wheezing, fever, or leg swelling call us at [phone]. We are here to help.on sertraline, Lorazepamstable [...]
--- OUTSIDE RECORDS SUMMARY | 2024-04-18 07:33 | XMS_ITS | Clinical Summary ---
Author Organization [facility] ity Address [address] [place] [address] Care Team Providers Care Nursing Student Name Role Phone Unavailable Primary Care Provider [...]
[2024-04-18 08:31] LABS: Alanine Aminotransferase 16 U/L (0-40); Alkaline Phosphatase 68 U/L (39-117); Anion Gap 9 (12-20); Aspartate Amino Transferase 20 U/L (5-37); Blood Urea Nitrogen 13 mg/dL (9-16); Calcium 9.6 mg/dL (8.4-10.2); Carbon Dioxide 28 mmol/L (22-29); Chloride 110 mmol/L (96-108); Cholesterol 134 mg/dL (<200); Estimated Glomerular Filt Rate > 60; Glucose Random 102 mg/dL (60-115); HDL Cholesterol 51 mg/dL (>40); LDL Cholesterol Calculated 58 mg/dL (<100); Potassium 3.9 mmol/L (3.3-5.1); Sodium 143 mmol/L (135-145); Total Protein 6.9 g/dL (6.5-8.0); Triglycerides 129 mg/dL (<150)
== END 2024-04-18 07:32 | disposition home or self-care (01) ==
LOC: HO.LAB 07:31
PROVIDERS: PCP Internal Medicine
DX: Z00.00 Encounter for general adult medical examination without abnormal findings (principal); I25.10 Atherosclerotic heart disease of native coronary artery without angina pectoris; E78.00 Pure hypercholesterolemia, unspecified; M54.2 Cervicalgia; M25.511 Pain in right shoulder; M25.521 Pain in right elbow
CPT/HCPCS: 36415; 72040; 73030; 73070; 80053; 80061

== ENCOUNTER → 2024-04-18 07:40 | Outpatient (BNV) | payer OTHER, SELFPAY | PROVIDERS: PCP Internal Medicine; Visit Provider Radiology Diagnostic Radiology | DX: M50.30 Other cervical disc degeneration, unspecified cervical region (principal); M25.511 Pain in right shoulder; M19.011 Primary osteoarthritis, right shoulder; M25.521 Pain in right elbow; M25.421 Effusion, right elbow | CPT/HCPCS: 72040; 73030; 73070 ==

== ENCOUNTER 2024-05-06 07:45 | Outpatient (REF) | payer OTHER, SELFPAY ==
--- OUTSIDE RECORDS SUMMARY | 2024-05-06 07:48 | XMS_ITS ---
Author Name MS. Darlyn Dunlap APRN Address [address] [place] [address] Phone [phone] [facility] Care Team Providers Care Transfer Station Operator Name Role Phone Kaley Dunlap Unavailable [phone] RupertMoshe cancino Unavailable [phone] Reason for Referral Not Available Allergies, adverse [...] Active 2022-05-02 N/A Other problems related to [facility] facilities and other health care [...] of Service Diagnosis/Co mplaint No Data Available [facility] [place]2022 Paroxysmal atrial fibrillationSedative, hypnotic or anxiolytic dependence, uncomplicatedMajor depressive disorder, recurrent, mildAnxiety disorder, unspecifiedHyperlipidemia, unspecifiedDizziness and giddinessUnspecified hearing loss, unspecified ear No Data Available [facility] [place] 05[place]02[place]2022 No Data Available [facility] [place]20[place] No Data Available [facility] [place]20[place] No Data Available [facility] [place]20[place] No Data Available [facility] [place]20[place] No Data Available [facility] [place] 05[place]19[place]2022 Paroxysmal atrial fibrillationOther thrombophiliaSedative, hypnotic [...] depressive disorder, recurrent, mild No Data [facility] [place] [facility] No Data Available [facility] [place] 08/16[place]2022 No Data Available [facility] [place] 09[place]2022 Paroxysmal atrial fibrillationOther thrombophiliaAcute upper respiratory infection, unspecified No Data Available [facility] [place] 09[place]2022 No Data Available [facility] [place] 09[place]2022 No Data Available [facility] [place] 09/28/2022 Acute upper respiratory infection, unspecified No Data Available [facility] [place] 09/[place]/2022 No Data Available [facility] [place] 09/[place]/2022 No Data Available [facility] [place] 01/08/2023 Paroxysmal atrial fibrillationOther thrombophiliaSedative, hypnotic or anxiolytic dependence, uncomplicatedMajor depressive disorder, recurrent, mildAnxiety disorder, unspecifiedHyperlipidemia, unspecifiedUnspecified hearing loss, unspecified earOther amnesia No Data Available [facility], ([place] 01/08/2023 No Data Available [facility]20[place] Estab. patient 30-39min; chronic exacerbation, 2 stable chronic or 1 acute illness add add modifier 95 for video, (do not use for phone, instead use [id number]) [facility]/05/2023 Paroxysmal atrial fibrillationOther thrombophiliaOther problems related [...] (do not use for phone, instead use 47016-73) [facility]20[place] Estab. patient 30-39min; chronic exacerbation, 2 stable chronic or 1 acute illness add add modifier 95 for video, (do not use for phone, instead use 29425-75) [facility] [place]05/20[place] Estab. patient 30-39min; chronic exacerbation, 2 stable chronic or 1 acute illness add add modifier 95 for video, (do not use for phone, instead use 17126-03) [facility] [place] 09[place]05/2023 Estab. patient 30-39min; chronic exacerbation, 2 stable chronic or 1 acute illness add add modifier 95 for video, (do not use for phone, instead use 06053-65) [facility] [place]05/2023 Estab. patient 30-39min; chronic exacerbation, 2 stable chronic or 1 acute illness add add modifier 95 for video, (do not use for phone, instead use 72697-08) [facility], [place]/20[place] Estab. patient 30-39min; chronic exacerbation, 2 stable chronic or 1 acute illness add add modifier 95 for video, (do not use for phone, instead use 28540-17) [facility] [place] Estab. patient 30-39min; chronic exacerbation, 2 stable chronic or 1 acute illness add add modifier 95 for video, (do not use for phone, instead use 84067-41) [facility] ([place] 09[place]/2023 Estab. patient 30-39min; chronic exacerbation, 2 stable chronic or 1 acute illness add add modifier 95 for video, (do not use for phone, instead use 84279-99) [facility] [place] 09[place]/2023 Estab. patient 30-39min; chronic exacerbation, 2 stable chronic or 1 acute illness add add modifier 95 for video, (do not use for phone, instead use 57037-08) [facility] ([place] 09/05/2023 Vital Signs Date of Collection Vitals [...] tive Time Current Smoking Status Former smoker 2024-04-26 1 Sex Male Gender identity Man History of Procedures Procedures Service Procedure code Service date Servicing provider Phone# No Data Available [id number] 2022-05-02 No Data Available No Data Available [...] (do not use for phone, instead use [id number]) [id number] 2023-09-05 No Data Available No Data Availa [...] Mental Status Status Date lives alone 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 Follow-up with [facility] as needed for any acute or disease education needs that may arise 18/09.on xarelto, metoprolol, flecainide followed by cardiology [id number] score-2 (HTN, vascular disease)08/16- currently stableon sertralinestable [...] swabon xarelto, metoprolol, flecainide followed by cardiology [id number] score-2 (HTN, vascular disease)08/16- currently stable 09/27 [...] 18/09.on xarelto, metoprolol, flecainide followed by cardiology [id number] score-2 (HTN, vascular disease)08/16- currently stable 09/27 [...] Documented (1125F)Continue to see PCP. Follow-up with [facility] as needed for any acute or disease education needs that may arise.on xarelto, metoprolol, flecainide followed by cardiology [id number] score-2 (HTN, vascular disease)If you ever take your blood pressure and it is consistently over 170/90 or low 90/50s, have chest pain, shortness of breath, wheezing, fever, or leg swelling call us at [phone]. We are here to help.on sertraline, Lorazepamstable [...] for feve r 2022-09-27 go to pcp pavel meena test if not improvement 2022-09-28 continue [...]
--- OUTSIDE RECORDS SUMMARY | 2024-05-06 07:48 | XMS_ITS | Clinical Summary ---
Author Organization [facility] Address [address] [place] [address] Care Team Providers Care Senior Software Project Manager Name Role Phone Unavailable Primary Care Provider [...]
--- NOTE | 2024-05-06 08:03 | EMG_ITS ---
Right median and ulnar motor and sensory studies were performed. Right radial sensory and median and lateral antecubital brachial sensory studies were performed and paraspinal muscles were tested with a needle. IMPRESSION: 1. Mild right median neuropathy across carpal tunnel. 2. Mild right ulnar neuropathy across cubital tunnel. MD VALARIE Fairbanks/GILSON / [phone]
== END 2024-05-06 07:46 | disposition home or self-care (01) ==
LOC: HO.NEURO 07:45
PROVIDERS: PCP Internal Medicine
DX: R20.0 Anesthesia of skin (principal)
CPT/HCPCS: 95886; 95910

== ENCOUNTER 2024-05-23 08:04 | Emergency (ER) | payer OTHER, SELFPAY ==
--- NOTE | ~2024-05-23 | XR_ITS ---
EXAMINATION: XR CHEST 1 VIEW HISTORY: sob, cp COMPARISON: Comparison is made with the prior examination dated 06/15/2023. FINDINGS: A single PA view of the chest is submitted. The lungs are expanded and clear. There is no pleural effusion, pneumothorax, or pulmonary vascular congestion. The heart is normal in size. The bones are intact. Again seen is a metallic foreign body overlying the right lower lung zone. XR/XR chest 1V IMPRESSION: No acute cardiopulmonary abnormality. Electronically signed by: Almas Askew MD 05/23/2024 08:35 AM EDT
--- NOTE | 2024-05-23 08:05 | ECG_ITS ---
Test Reason : chest pain Blood Pressure : */* mmHG Vent. Rate : 60 BPM Atrial Rate : 60 BPM P-R Int : 192 ms QRS Dur : 112 ms QT Int : 402 ms P-R-T Axes : 118 126 116 degrees QTcB Int : 402 ms Suspect limb lead reversal, interpretation assumes no reversal Normal sinus rhythm Biventricular hypertrophy Lateral infarct , age undetermined Abnormal ECG When compared with ECG of 12-May-2023 00:34, QRS axis Shifted right Referred By: Karen Davis Electronically Signed By:
[2024-05-23 08:16] VITALS: BP 168/80; PULSE 59; RESP 19; TEMP 36.7; O2SAT 98; BMI 25.5
--- NOTE | 2024-05-23 08:42 | ED.CHESTPAIN ---
HPI - Chest Pain General Chief Complaint: Chest Pain Stated Complaint: chest pain Time Seen by Provider: 05/23/24 08:42 Source: patient Mode of arrival: ambulatory Limitations: no limitations History of Present Illness ED Provider: KIANA Davis HPI narrative: This is a 73-year-old male past medical history significant for hypertension, GERD, BPH, hyperlipidemia, paroxysmal atrial fibrillation on chronic anticoagulation, CAD, anxiety, iron deficiency anemia who presents to the emergency department with complaints of left-sided chest pressure that radiates down left upper extremity. This started at approximately 10:30 last night and has been constant ever since. Unable to tell me what makes pain better or worse. He reports he has had pain like this in the past and multiple negative workups. Denies trauma. Denies fevers, chills, nausea, vomiting, abdominal pain, headache, vision changes, dizziness and weakness. Related Data Previous Rx's ?Medication ?Instructions ?Recorded acetaminophen 500 mg tablet 1,000 mg (2 x 500 mg) PO Q6H PRN 08/05/21 (Tylenol Extra Strength) pain #14 tabs BATH BENCH WITH BACK #1 ea 08/31/21 HANDHELD SHOWER HEAD #1 ea 08/31/21 LOCKING RAISED TOILET SEAT with #1 ea 08/31/21 ARMS blood pressure monitor (Blood #1 ea 08/31/21 Pressure Kit) sennosides 8.6 mg-docusate sodium 1 tab-cap PO BEDTIME #60 tabs 11/08/21 50 mg tablet (Senna-S) ferrous sulfate 325 mg (65 mg 325 mg PO DAILY #90 tabs 05/17/22 iron) tablet (Feosol) XL cuff for the BP machine #1 ea 05/31/23 lorazepam 0.5 mg tablet 0.5 mg PO DAILY 90 days #90 tabs 10/23/23 ezetimibe 10 mg tablet 10 mg PO DAILY #90 tabs 11/01/23 omeprazole 20 mg capsule,delayed 20 mg PO DAILY #90 caps 11/18/23 release atorvastatin 40 mg tablet 40 mg PO DAILY 90 days #90 tabs 11/28/23 rivaroxaban 20 mg tablet (Xarelto) 20 mg PO DAILY #90 tabs 01/14/24 metoprolol succinate 25 mg 25 mg PO DAILY #90 tabs 03/12/24 tablet,extended release 24 hr flecainide 50 mg tablet 50 mg PO BID #180 caps 03/24/24 ascorbate calcium (vitamin C) 500 500 mg PO DAILY #90 tabs 04/13/24 mg tablet cyclobenzaprine 10 mg tablet 10 mg PO BEDTIME PRN muscle spasm 04/16/24 #30 tabs acetaminophen 325 mg tablet 650 mg (2 x 325 mg) PO Q6H PRN 05/23/24 (Athenol) pain #30 tabs lidocaine 5 % topical patch 1 patch topical DAILY PRN pain #15 05/23/24 ea Allergies Allergy/AdvReac Type Severity Reaction Status Date / Time almond [ALMOND] Allergy Unknown SWELLING Verified 05/23/24 08:17 Review of Systems Review of Systems: Yes all other systems are reviewed and are negative PMFSH Past Medical History Attestation statement: The following information was validated with the patient. Source: old records reviewed and nursing notes reviewed Medical History Chronic suprapubic pain Tinnitus CAD (coronary artery disease) Abnormal stress echocardiogram History of adenomatous polyp of colon Paroxysmal atrial fibrillation Lower back pain Renal cyst Thoracic spondylosis Lesion of bladder Left renal stone Tubular adenoma of colon Sensorineural hearing loss Alcohol abuse Blind right eye Anxiety and depression Hypercholesterolemia BPH (benign prostatic hyperplasia) Degenerative disc disease, cervical GERD (gastroesophageal reflux disease) Hypertension Surgical History Hx of transurethral resection of prostate H/O colonoscopy Hx of cataract surgery History of inguinal hernia repair Family History Family History Father Medical history unknown Mother Medical history unknown Brother No problems noted. Son No problems noted. Son No problems noted. 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 ESTIMATOR) Alcohol intake: former Patient Tobacco Use Status: Former Tobacco user Tobacco use type: Cigarette Years Smoked: 2015 quit Smoked in Last 30 Days: No e-Cigarette/Vaping Use: Never Used Second Hand Smoke Exposure: Yes Use of substances other than those prescribed or required for medical reasons: No Advance Directives: No Advance Directives Information Provided: Yes Advance Directives Date on File: 07/05/20 service: No Current occupational status: disabled Cognitive needs: No Hearing needs: No Vision needs: Yes (Glasses) Physical Exam Vital Signs: Vital Signs: Last Vital Signs Temp 97.2 F 05/23/24 10:56 Pulse 51 05/23/24 10:56 Resp 14 05/23/24 10:56 BP 151/76 H 05/23/24 10:56 Pulse Ox 100 05/23/24 10:56 O2 Del Method Room Air 05/23/24 10:56 BMI result Body Mass Index 25.5 vss Appearance: Alert.? Oriented X3.? No acute distress.? Head: Normocephalic, atraumatic, no step-offs or deformities Eyes: Pupils equal, round and reactive to light.? ENT: Pharynx normal.? Neck: Normal inspection.? Neck supple.? CVS: Normal heart rate and rhythm.? Pulses normal.? Respiratory: No respiratory distress.? Breath sounds normal.? Abdomen: Soft and nontender.? Skin: Skin warm and dry.? Normal skin color.? Normal skin turgor.? Extremities: No lower extremity edema.? No calf ttp. 5/5 strength to bilateral upper and lower extremities Neuro: Oriented X 3.? No motor deficit.? No sensory deficit. CN 2-12 intact Course Reevaluation(s) Reevaluation #1: CBC unremarkable. Chemistry with no acute findings needing intervention. Troponin negative, EKG nonischemic. Coags unremarkable. Time: 10:09 Reevaluation #2: Patient now tells me that he thinks it is not chest pain but it is neck pain he says he woke up this way in his neck is tight. He says this happens to him often when he does not sleep well. On re-evaluation he does have tenderness to palpation cervical paraspinous muscles. No midline tenderness. No meningeal signs. Negative Spurling's bilaterally. Time: 10:46 Reevaluation #3: Educated patient on diagnosis and treatment plan, answered all question, patient verbalizes understanding. At this time patient will be discharged home, advised to return with new or worsening symptoms. Educated on worrisome signs and symptoms and when to return. At this time I feel comfortable discharge home. Time: 11:40 Medications Administered Discontinued Medications Generic Name Dose Route Start Last Admin Trade Name Nikunj PRN Reason Stop Dose Admin Acetaminophen 650 mg 05/23/24 10:46 05/23/24 10:51 Acetaminophen 325 Mg Tablet PO 05/23/24 10:47 650 mg ONCE ONE Administration Lidocaine 1 patch 05/23/24 10:46 05/23/24 10:52 Lidocaine 4 % Patch Adh..Patch TRANSDERMA 05/23/24 10:47 1 patch ONCE ONE Administration Protocol Medical Decision Making Medical Decision Making [facility] Narrative: This is a 73-year-old male who presents with chest pain with radiation down left upper extremity started last night at approximately 22:30. Physical exam benign History and physical exam concerning for dysrhythmia versus ACS versus noncardiac related chest pain. Unlikely PE patient anticoagulated unlikely dissection no signs of acute respiratory distress. No focal neurological deficits. No weakness. Unlikely stroke, posterior stroke. Plan labs, imaging, troponin, EKG Differential Diagnosis Differential Diagnoses: The differential diagnosis associated with the presentation includes (History and physical exam concerning for dysrhythmia versus ACS versus noncardiac related chest pain. Unlikely PE patient anticoagulated unlikely dissection no signs of acute respiratory distress) Admission/Observation Consideration of admission/observation: Escalation of care including admission/observation considered Lab Data [facility] Lab Attestation statement: I reviewed the patient's lab results. 05/23/24 08:38 05/23/24 08:38 Labs: Lab Results 05/23/24 05/23/24 05/23/24 Range/Units 08:37 08:38 10:48 WBC 5.4 (4.8-10.8) X10*3/uL RBC 4.30 L (4.60-5.80) X10*6/uL Hgb 13.1 L (14.0-18.0) g/dl Hct 39.4 L (42.0-52.0) % MCV 91.6 (80.0-98.0) fL MCH 30.5 (27.0-33.0) pg MCHC 33.2 (31.0-36.0) g/dl RDW 13.2 (11.0-16.0) % Plt Count 183 (160-400) X10*3/uL MPV 10.2 (9.4-12.4) fL Immature Gran % (Auto) 0.2 (0.0-0.4) % Neut % (Auto) 57.7 (45-73) % Lymph % (Auto) 30.4 (20-40) % [facility] % (Auto) 7.9 (2-11) % Eos % (Auto) 3.1 (0-4) % Baso % (Auto) 0.7 (0-2) % Lymph # (Auto) 1.7 (1.2-4.9) X10*3/uL [facility] # (Auto) 0.4 (0.1-1.2) X10*3/uL Eos # (Auto) 0.2 (0.0-0.4) X10*3/uL Baso # (Auto) 0.0 (0.0-0.2) X10*3/uL Abs Immat Gran (auto) 0.01 (0.00-0.03) X10*3/uL Absolute Neuts (auto) 3.1 (2.0-8.3) x10*3/uL Absolute Nucleated RBC 0.000 (0.0-0.012) X10*3/uL Nucleated RBC % (auto) 0.0 (0.0-0.2) /100WBC PT 15.7 H (10.9-12.4) SEC INR 1.3 H (0.9-1.1) Sodium 141 (135-145) mmol/L Potassium 4.0 (3.3-5.1) mmol/L Chloride 109 H (96-108) mmol/L Carbon Dioxide 27 (22-29) mmol/L Anion Gap 9 L (12-20) BUN 13 (9-16) mg/dL Creatinine 0.85 (0.5-1.4) mg/dL Estim Creat Clear Calc 83.6 Estimated GFR > 60 Random Glucose 95 (60-115) mg/dL Calcium 9.2 (8.4-10.2) mg/dL Magnesium 2.3 (1.6-2.6) mg/dL Total Bilirubin 0.9 (0.0-1.0) mg/dL AST 20 (5-37) U/L ALT 14 (0-40) U/L Alkaline Phosphatase 72 (39-117) U/L Troponin I High Sens < 2.7 < 2.7 (<3.5-35.0) ng/L B-Natriuretic Peptide 61 (<100) pg/mL Total Protein 6.5 (6.5-8.0) g/dL Albumin 4.1 (3.5-5.0) g/dL Independent Interpretation I performed an independent interpretation of an: EKG (Sinus bradycardia, minimal voltage criteria for LVH, borderline ECG no ST elevations or inversions concerning for acute ischemia.) and Plain X-Ray (XR/XR chest 1V IMPRESSION: No acute cardiopulmonary abnormality.) Radiology Impression Discussion of test interpretation with radiology: I have reviewed the radiologist's reading. External Record Review External record reviewed: Inpatient record, Office record, Outpatient record, Prior outpatient labs, Prior outpatient radiology, Primary care record and Outside ED record Chronic Conditions Patient?s care impacted by: Other (see hpi ) Critical Care Time Critical Care Time Critical Care Time: No Discharge Plan Discharge Clinical Impression: Chest pain, Cervical paraspinal muscle spasm Patient Disposition: Still a Patient Instructions: Chest Pain (DC), Muscle Spasm (ED) Additional Instructions: Take your medications as prescribed. If you were prescribed antibiotics today, it is important that you take your medication to their entirety, do not skip any doses, do not finish them early. Follow-up with your primary care provider this week. Return to the emergency department with new or worsening symptoms. Such as fevers, chills, chest pain, shortness of breath, nausea, vomiting, dizziness, headache, vision changes, lethargy In case of emergency call 911 Prescriptions: New acetaminophen [Athenol] 325 mg tablet 650 mg PO Q6H PRN (Reason: pain) Qty: 30 0RF lidocaine 5 % adhesive patch,medicated 1 patch topical DAILY PRN (Reason: pain) Qty: 15 0RF Rx Instructions: leave on most painful area for up to 12 hrs No Action (DME) BATH BENCH WITH BACK See Rx Instructions .Route .MEDSUPPLY Qty: 1 0RF Rx Instructions: As directed (DME) HANDHELD SHOWER HEAD See Rx Instructions .Route .MEDSUPPLY Qty: 1 0RF Rx Instructions: As directed (DME) LOCKING RAISED TOILET SEAT with ARMS See Rx Instructions .Route .MEDSUPPLY Qty: 1 0RF Rx Instructions: As directed (DME) blood pressure monitor [Blood Pressure Kit] Kit See Rx Instructions .ROUTE .MEDSUPPLY Qty: 1 0RF Rx Instructions: As directed (DME) XL cuff for the BP machine See Rx Instructions .Route .MEDSUPPLY Qty: 1 0RF Rx Instructions: As directed lorazepam 0.5 mg tablet 0.5 mg PO DAILY 90 Days Qty: 90 1RF ezetimibe 10 mg tablet 10 mg PO DAILY Qty: 90 3RF omeprazole 20 mg capsule,delayed release(DR/EC) 20 mg PO DAILY Qty: 90 2RF atorvastatin 40 mg tablet 40 mg PO DAILY 90 Days Qty: 90 3RF metoprolol succinate 25 mg tablet extended release 24 hr 25 mg PO DAILY Qty: 90 3RF flecainide 50 mg tablet 50 mg PO BID Qty: 180 2RF ascorbate calcium (vitamin C) 500 mg tablet 500 mg PO DAILY Qty: 90 3RF acetaminophen [Tylenol Extra Strength] 500 mg tablet 1,000 mg PO Q6H PRN (Reason: pain) Qty: 14 0RF sennosides-docusate sodium [Senna-S] 8.6-50 mg tablet 1 tab-cap PO BEDTIME Qty: 60 5RF ferrous sulfate [Feosol] 325 mg (65 mg iron) tablet 325 mg PO DAILY Qty: 90 0RF Xarelto 20 mg tablet 20 mg PO DAILY Qty: 90 3RF cyclobenzaprine 10 mg tablet 10 mg PO BEDTIME PRN (Reason: muscle spasm) Qty: 30 0RF Referrals: Po,Yvonne Gold MD [Primary Care Provider] - 2 days Stand Alone Forms: Work/School Release Print Language: Greenlandic
[2024-05-23 08:45] LABS: MANUAL DIFF FLAG NO
[2024-05-23 08:48] LABS: Basophils Percent Auto 0.7 % (0-2); Eosinophils Absolute Auto 0.2 X10*3/uL (0.0-0.4); Eosinophils Percent Auto 3.1 % (0-4); Hematocrit 39.4 % (42.0-52.0); Hemoglobin 13.1 g/dl (14.0-18.0); Imm Gran Abs Auto 0.01 X10*3/uL (0.00-0.03); Imm Gran Pct Auto 0.2 % (0.0-0.4); Lymphocytes Absolute Auto 1.7 X10*3/uL (1.2-4.9); Lymphocytes Percent Auto 30.4 % (20-40); Mean Corpuscular HGB Conc 33.2 g/dl (31.0-36.0); Mean Corpuscular Hemoglobin 30.5 pg (27.0-33.0); Mean Corpuscular Volume 91.6 fL (80.0-98.0); Mean Platelet Volume 10.2 fL (9.4-12.4); Monocytes Absolute Auto 0.4 X10*3/uL (0.1-1.2); Monocytes Percent Auto 7.9 % (2-11); Neutrophils Absolute Auto 3.1 x10*3/uL (2.0-8.3); Neutrophils Percent Auto 57.7 % (45-73); Platelet Count 183 X10*3/uL (160-400); Red Cell Distribution Width 13.2 % (11.0-16.0); White Blood Count 5.4 X10*3/uL (4.8-10.8)
[2024-05-23 08:52] LABS: INTERNATIONAL NORM RATIO 1.3 (0.9-1.1); Prothrombin Time 15.7 SEC (10.9-12.4)
[2024-05-23 09:02] LABS: Alanine Aminotransferase 14 U/L (0-40); Albumin Level 4.1 g/dL (3.5-5.0); Alkaline Phosphatase 72 U/L (39-117); Anion Gap 9 (12-20); Aspartate Amino Transferase 20 U/L (5-37); Bilirubin Total 0.9 mg/dL (0.0-1.0); Blood Urea Nitrogen 13 mg/dL (9-16); Calcium 9.2 mg/dL (8.4-10.2); Carbon Dioxide 27 mmol/L (22-29); Chloride 109 mmol/L (96-108); Creatinine Clr Calc Pharmacy 83.6; Estimated Glomerular Filt Rate > 60; Glucose Random 95 mg/dL (60-115); Magnesium 2.3 mg/dL (1.6-2.6); Sodium 141 mmol/L (135-145); Total Protein 6.5 g/dL (6.5-8.0)
[2024-05-23 09:07] LABS: B Type Natriuretic Peptide 61 pg/mL (<100)
[2024-05-23 09:10] LABS: Troponin-I High Sensitivity < 2.7 ng/L (<3.5-35.0)
--- NOTE | 2024-05-23 10:47 | PC.NURSE ---
patient a&ox3, rr equal/non labored, lungs diminished, labs being drawn by tech, outpatient facility physical therapist intact sinus chaparrita 50s, call angulo within reach, plan of care ongoing
[2024-05-23] MEDS: Acetaminophen 325 MG TABLET 650 MG PO (10:51)
[2024-05-23] MEDS: Lidocaine 4 % Patch ADH..PATCH 1 PATCH TRANSDERMA (10:52)
[2024-05-23 10:56] VITALS: BP 151/76; PULSE 51; RESP 14; TEMP 36.2; O2SAT 100
[2024-05-23 11:13] LABS: Troponin-I High Sensitivity < 2.7 ng/L (<3.5-35.0)
[2024-05-23 11:51] VITALS: BP 146/75; PULSE 55; RESP 20; TEMP 36.7
[2024-05-23 12:40] VITALS: BP 146/75; PULSE 55; RESP 20; TEMP 36.7; O2SAT 98
== END 2024-05-23 12:41 | disposition home or self-care (01) ==
PROVIDERS: Physician Assistant; Emergency Provider Emergency Medicine; PCP Internal Medicine
DX: R07.9 Chest pain, unspecified (principal); M62.838 Other muscle spasm; I10 Essential (primary) hypertension; E78.5 Hyperlipidemia, unspecified; I48.0 Paroxysmal atrial fibrillation; Z79.01 Long term (current) use of anticoagulants; Z79.02 Long term (current) use of antithrombotics/antiplatelets; Z79.899 Other long term (current) drug therapy; Z87.891 Personal history of nicotine dependence
CPT/HCPCS: 36415; 71045; 80053; 83735; 83880; 84484; 85025; 85610; 93005; 99283; 99285

== ENCOUNTER → 2024-05-23 08:05 | Outpatient (BNV) | payer OTHER, SELFPAY | PROVIDERS: PCP Internal Medicine; Visit Provider Radiology Diagnostic Radiology | DX: R06.02 Shortness of breath (principal); R07.9 Chest pain, unspecified | CPT/HCPCS: 71045 ==

== ENCOUNTER 2024-07-10 10:51 | Outpatient (AMB) | payer OTHER, SELFPAY ==
--- NOTE | 2024-07-10 11:06 | AM.OFFVISNUR ---
Intake Visit Reasons: ekg Allergies almond [ALMOND] Allergy (Unknown, Verified 05/23/24 08:17) SWELLING Nursing Note pt is here for nurse visit with ekg pt is on flecainide 50 mg PO BID pt complains of chest pain during resting ekg left on Dr MARCELINO woodard for review Office Procedures EKG [id number], Complete Coding CPT Codes EKG - CPT: 86062-[id number], Complete ([id number])
--- OUTSIDE RECORDS SUMMARY | 2024-07-10 11:59 | XMS_ITS ---
Author Name MS. Darlyn Dunlap APRN Address [address] [place] [address] Phone [phone] [facility] Care Team Providers Care Senior Consumer Insights Consultant Name Role Phone Kaley Dunlap Unavailable [phone] RupertMoshe cancino Unavailable [phone] Reason for Referral Not Available Allergies, adverse [...] Active 2022-05-02 N/A Other problems related to [facility] facilities and other health care [...] of Service Diagnosis/Co mplaint No Data Available [facility] ([place]) 05/[place]/2022 Paroxysmal atrial fibrillationSedative, hypnotic or anxiolytic dependence, uncomplicatedMajor depressive disorder, recurrent, mildAnxiety disorder, unspecifiedHyperlipidemia, unspecifiedDizziness and giddinessUnspecified hearing loss, unspecified ear No Data Available [facility] ([place]) 05/02/2022 No Data Available [facility] [...] depressive disorder, recurrent, mild No Data Available [facility] 08/16/2022 No Data [...] loss, unspecified earOther amnesia No Data Available [facility] [place] 01/08/2023 No Data Available [facility] [place] Estab. patient 30-39min; chronic exacerbation, 2 stable chronic or 1 acute illness add add modifier 95 for video, (do not use for phone, instead use 85249-37) [facility] [place] 09[place]2023 Paroxysmal atrial fibrillationOther thrombophiliaOther problems related [...] (do not use for phone, instead use 86394-51) [facility] [place] Estab. patient 30-39min; chronic exacerbation, 2 stable chronic or 1 acute illness add add modifier 95 for video, (do not use for phone, instead use 97738-78) [facility] [place] 09[place] Estab. patient 30-39min; chronic exacerbation, 2 stable chronic or 1 acute illness add add modifier 95 for video, (do not use for phone, instead use 00071-37) [facility] [place] 09[place]20[place] Estab. patient 30-39min; chronic exacerbation, 2 stable chronic or 1 acute illness add add modifier 95 for video, (do not use for phone, instead use 29788-70) [facility] [place] 09[place]20[place] Estab. patient 30-39min; chronic exacerbation, 2 stable chronic or 1 acute illness add add modifier 95 for video, (do not use for phone, instead use 42473-06) [facility] [place] Estab. patient 30-39min; chronic exacerbation, 2 stable chronic or 1 acute illness add add modifier 95 for video, (do not use for phone, instead use 02426-44) [facility] [place] Estab. patient 30-39min; chronic exacerbation, 2 stable chronic or 1 acute illness add add modifier 95 for video, (do not use for phone, instead use 43854-95) [facility] [place] 09[place]05/2023 Estab. patient 30-39min; chronic exacerbation, 2 stable chronic or 1 acute illness add add modifier 95 for video, (do not use for phone, instead use 06093-11) [facility] [place] 09/05/2023 Estab. patient 30-39min; chronic exacerbation, 2 stable chronic or 1 acute illness add add modifier 95 for video, (do not use for phone, instead use 10084-20) [facility] [place] 09/05/2023 Vital Signs Date of Collection Vitals [...] tive Time Current Smoking Status Former smoker 2024-06-26 5 Sex Male Gender identity Man History of Procedures Procedures Service Procedure code Service date Servicing provider Phone# No Data Available [id number] 2022-05-02 No Data Available No Data Available [...] (do not use for phone, instead use 47650-72) 21051 2023-09-05 No Data Available No Data Availa [...] Mental Status Status Date lives alone 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 Follow-up with [facility] as needed for any acute or disease education needs that may arise 18/09.on xarelto, metoprolol, flecainide followed by cardiology [id number] score-2 (HTN, vascular disease)08/16- currently stableon sertralinestable [...] swabon xarelto, metoprolol, flecainide followed by cardiology [id number] score-2 (HTN, vascular disease)08/16- currently stable 09/27 [...] 18/09.on xarelto, metoprolol, flecainide followed by cardiology [id number] score-2 (HTN, vascular disease)08/16- currently stable 09/27 [...] arise.on xarelto, metoprolol, flecainide followed by cardiology [id number] score-2 (HTN, vascular disease)If you ever take your blood pressure and it is consistently over 170/90 or low 90/50s, have chest pain, shortness of breath, wheezing, fever, or leg swelling call us at [phone]. We are here to help.on sertraline, Lorazepamstable [...]
--- OUTSIDE RECORDS SUMMARY | 2024-07-10 11:59 | XMS_ITS | Clinical Summary ---
Author Organization [facility] ity Address [address] [place] [address] Care Team Providers Care Senior Enlisted Advisor Name Role Phone Unavailable Primary Care Provider [...] Vaccines (1 of 2) 12/06/1999 COVID-19 Vaccine ( - 2023-2 5 season) 2023 Influenza Vaccine (Season Ended) 2024 RSV Immunization Adult Patie nts (1 - 1-dose 75+ series) 2024 HIB [...] age to complete this topic Meningococcal B Vaccine Aged Out No l onger eligible based on patient's age to complete this topic RSV Immunization Patients Un cari 20 months Aged Out No longer eligible b ased on patient's age to complete this topic Varicella Vaccines Aged Out No longer eligible based on patient's age to complete this topic
== END 2024-07-10 11:18 | disposition home or self-care (01) ==
PROVIDERS: PCP Internal Medicine; Visit Provider Internal Medicine Cardiovascular Disease
DX: R00.1 Bradycardia, unspecified (principal)
CPT/HCPCS: 93010

== ENCOUNTER → 2024-07-10 10:51 | Outpatient (BNVA) | payer OTHER, SELFPAY | PROVIDERS: PCP Internal Medicine; Visit Provider Internal Medicine Cardiovascular Disease | DX: R07.89 Other chest pain (principal); R00.1 Bradycardia, unspecified | CPT/HCPCS: 93005 ==

== ENCOUNTER 2024-07-18 10:53 | Outpatient (AMB) | payer OTHER, SELFPAY ==
--- NOTE | 2024-07-18 10:57 | A.OFFPC_ITS ---
Vital Signs 07/18/24 10:58 Height 6 ft Weight 193 lb 6 oz BMI 26.2 BP 130/64 Blood Pressure Location Lt brachial Position Sitting Pulse 59 Pulse Source Pulse Oximeter Temp 97.1 F Temp Source Temporal Artery Scan Pulse Oximetry (%) 97 Oxygen Delivery Method Room Air Intake Visit Reasons: annual exam Explosives Worker Required: Yes Explosives Worker Language: Research Director Name: used tablet- Accompanied by: Self / Same As Patient Allergies almond [ALMOND] Allergy (Unknown, Verified 07/18/24 11:04) SWELLING Tobacco use date assessed: 04/16/24 Fall risk assessment: No Falls in past year Last assessed Fall Risk: 07/18/24 Dental Screening Dental Screen Date: 04/16/24 HPI annual exam HPI Details on coming to the [facility] , patient states declined Physical. Sari [id number] haitian 3 days ate belarusian taco diarrhea. ate hector. no n no v DIPESH within an hour [facility] Medical History Chronic suprapubic pain Tinnitus CAD (coronary artery disease) Abnormal stress echocardiogram History of adenomatous polyp of colon Paroxysmal atrial fibrillation Lower back pain Renal cyst Thoracic spondylosis Lesion of bladder Left renal stone Tubular adenoma of colon Sensorineural hearing loss Alcohol abuse Blind right eye Anxiety and depression Hypercholesterolemia BPH (benign prostatic hyperplasia) Degenerative disc disease, cervical GERD (gastroesophageal reflux disease) Hypertension Surgical History Hx of transurethral resection of prostate H/O colonoscopy Hx of cataract surgery History of inguinal hernia repair Family History Father Medical history unknown Mother Medical history unknown Brother No problems noted. Son No problems noted. Son No problems noted. Social History Household Members: Significant Other Household Members Other:: Housing: Apartment Are you a primary post anesthesia care unit nurse to a significant other at home: No Do you presently have visiting nurse or other home services: Yes ([employer]) Alcohol intake: former Patient Tobacco Use Status: Former Tobacco user Tobacco use type: Cigarette Years Smoked: 2014 quit e-Cigarette/Vaping Use: Never Used Second Hand Smoke Exposure: Yes Advance Directives Date on File: 07/05/20 service: No Current occupational status: disabled Cognitive needs: No Hearing needs: No Vision needs: Yes (Glasses) Questionnaire PHQ-9 Over the last 2 weeks, how often have you been bothered by any of the following problems? 1. Little interest or pleasure in doing things: several days 2. Feeling down, depressed, or hopeless: several days 3. Trouble falling or staying asleep, or sleeping too much: not at all 4. Feeling tired or having little energy: several days 5. Poor appetite or overeating: not at all 6. Feeling bad about yourself - or that you are a failure or have let yourself or your family down: not at all 7. Trouble concentrating on things, such as reading the newspaper or watching television: several days 8. Moving or speaking so slowly that other people could have noticed. Or the opposite - being so fidgety or restless that you have been moving around a lot more than usual: several days 9. Thoughts that you would be better off or of hurting yourself in some way: not at all Total score: 5 23019 - PHQ-9 Billing: Yes Source: Developed by Drs. Almas Amaral, Roopa Anders, William Madison and colleagues, with an educational rubén from [employer]. Thrive Questionnaire Date Thrive assessed: 07/18/24 I am a: Patient What is your living situation today?: I have a steady place to live Within the past 12 months, did the food you bought not last and you didn't have the money to get more?: Never true Within the past 12 months, did you worry whether your food would run out before you got money to buy more?: Never true Do you have trouble paying for medicines?: No Do you have trouble getting transportation to medical appointments?: No Do you have trouble paying your heating and electricity bill?: No Do you have trouble taking care of your child, family member or friend?: No Do you have trouble with day-to-day activities such as bathing, preparing meals, shopping, managing finances, etc.?: Yes Are you currently unemployed and looking for a job?: Yes Are you interested in more education?: No Please select the resources that you would like help with: None Currently or been in a relationship where the following occur: I choose not to answer THRIVE Score: 0 AUDIT C Alcohol Use Questionnaire (AUDIT-C) 1. How often do you have a drink containing alcohol?: Never 3. How often do you have six or more drinks on one occasion?: Never Total Score: 0 DALIA-7 AMB Questionnaire DALIA-7 Date DALIA - 7 assessed: 07/18/24 Feeling nervous, anxious, or on edge: 0 = Not at all Not being able to stop or control worryin = Not at all Worrying too much about different things: 0 = Not at all Trouble relaxin = Not at all Being so restless that it is hard to sit still: 0 = Not at all Becoming easily annoyed or irritable: 0 = Not at all Feeling afraid as if something awful might happen: 0 = Not at all Total DALIA-7 score (0-4 normal; 5-9 mild; 10-14 moderate; 15-21 severe): 0 Source: Developed by Drs. Almas Amaral, Roopa Anders, William Madison and colleagues, with an educational rubén from [employer]. DALIA-7 Assessment Billing DALIA-7 Assessment Tool: DALIA-7 Assessment 02075 Review of Systems Const Denies poor appetite and Denies weakness Eyes Denies no additional complaints ENT Reports Normal hearing present, Denies dizziness, Denies nasal congestion, Denies tinnitus and Denies sore throat Card Denies chest pain, Denies syncope, Denies rapid heart rate and Denies dyspnea Resp Denies cough and Denies dyspnea GI Denies change in stool character, Reports constipation, Denies diarrhea, Denies nausea and Denies vomiting Denies dysuria and Denies urinary frequency Neuro Reports Normal hearing present, Denies confusion, Denies dizziness, Denies syncope and Denies weakness Psych Denies confusion Physical exam (Primary Care) Vital Signs: Last Vital Signs Temp 97.1 F 07/18/24 10:58 Pulse 59 07/18/24 10:58 BP 130/64 07/18/24 10:58 Pulse Ox 97 07/18/24 10:58 Oxygen Delivery Method Room Air 07/18/24 10:58 BMI result Body Mass Index 26.2 Tobacco/Smoking Status: Tobacco use Status Tobacco use date assessed 04/16/24 07/18/24 10:57 Patient Tobacco Use Status Former Tobacco user 07/18/24 10:57 Tobacco use type Cigarette 07/18/24 10:57 e-Cigarette/Vaping Use Never Used 07/18/24 10:57 PHQ-9: PHQ-9 Score PHQ-9: Total score 5 07/18/24 11:03 Thrive Assessment: Date of Thrive Assessment Date Thrive assessed 07/18/24 07/18/24 11:03 Currently or been in a relationship where the following occur: I choose not to answer Const General: No confusion Orientation/consciousness: No confusion HENMT Head: Yes normocephalic Ears: external ears normal and TM's normal bilaterally Face and sinus: Yes normal facial exam Mouth: moist mucous membranes Throat: Yes tonsils normal Eyes Conjunctivae: conjunctivae normal Pupils: Equal, round and reactive pupils present and Pupil accommodation reflex normal Direct Ophthalmoscopy: normal light reflex Neck Neck: No lymphadenopathy Thyroid: Thyroid normal Chest Chest palpation & inspection: normal inspection of the chest Resp Effort & Inspection: normal respiratory effort and no audible wheezes Auscultation: clear to auscultation bilaterally, no crackles, no wheezes and lung sounds not diminished Cardio Rate: regular rate Rhythm: regular rhythm Peripheral pulses: radial pulses present and dorsalis pedis present GI Palpation (GI): no masses Auscultation: normal bowel sounds and normoactive bowel sounds Rectal Exam - Male: Yes deferred Skin General skin exam: no rashes or lesions noted Rashes: no rashes Neuro General: No confusion Cranial nerves: Yes Equal, round and reactive pupils present and Yes Normal hearing present Cognition (Neuro): normal cognition Gait exam (Neuro): Normal gait present Motor exam (neuro): 5/5 motor strength present throughout Deep tendon reflexes (DTR's): Right brachioradialis reflex intensity grade: 2+, Left brachioradialis reflex intensity grade: 2+, Right patellar reflex intensity grade: 2+ and Left patellar reflex intensity grade: 2+ Extrem General: No edema Coding Level of Care Code Est Pt Level 4 (83083) Est Pt Prev Care >65y(73465) Diagnoses CAD (coronary artery disease) I25.10 Paroxysmal atrial fibrillation I48.0 Hypercholesterolemia E78.00 Essential hypertension I10 Hypertension type: essential hypertension Benign prostatic hyperplasia with urinary frequency N40.1; R35.0 Lower urinary tract symptom presence: symptoms present Lower urinary tract symptom detail: urinary frequency Tubular adenoma of colon D12.6 Thoracic aortic ectasia I77.810 Mild carpal tunnel syndrome of right wrist G56.01 Neuropathy of right ulnar nerve at wrist G56.21 Additional Codes DALIA-7 Assessment Billing - DALIA-7 Assessment Tool: DALIA-7 Assessment 93430 ([id number]) PHQ-9 - 52130 - PHQ-9 Billing: Yes ([id number]) Assessment & Plan Assessment & Plan (1) CAD (coronary artery disease): Comment: Diffuse nonobstructive CAD by coronary CTA March 2021-sees Dr. Aleman Code(s): I25.10 - Atherosclerotic heart disease of [place] coronary artery without angina pectoris Category: Medical Plan: Control the cholesterol, weight, blood pressure, patient on anticoagulation with Xarelto (2) Paroxysmal atrial fibrillation: Code(s): I48.0 - Paroxysmal atrial fibrillation Category: Medical Plan: Continue with anticoagulation with Xarelto continue with flecainide 50 mg twice a day (3) Hypercholesterolemia: Code(s): E78.00 - Pure hypercholesterolemia, unspecified Category: Medical Plan: Avoid fried foods, chicken skin, eggs, butter margarine, pastries and meat. Be it pork or beef they have a lot of cholesterol LDL goal of less than 70 and triglyceride of less than 150 on Zetia and atorvastatin 40 mg once a day. (4) Hypertension: Comment: stress test nuclear September 2012, January 27 1016- Code(s): I10 - Essential (primary) hypertension Category: Medical Qualifiers: Hypertension type: essential hypertension Qualified Code(s): I10 - Essential (primary) hypertension Plan: Continue with blood pressure medication. Decrease salt intake and exercise on metoprolol 25 mg once a day (5) BPH (benign prostatic hyperplasia): Comment: Status post laser prostatectomy Code(s): N40.0 - Benign prostatic hyperplasia without lower urinary tract symptoms Category: Medical Qualifiers: Lower urinary tract symptom presence: symptoms present Lower urinary tract symptom detail: urinary frequency Qualified Code(s): N40.1 - Benign prostatic hyperplasia with lower urinary tract symptoms; R35.0 - Frequency of micturition Plan: Stable (6) Tubular adenoma of colon: Comment: 2008 Dr. Tierney 2014 Code(s): D12.6 - Benign neoplasm of colon, unspecified Category: Medical Plan: Patient is reminded about colonoscopy (7) Thoracic aortic ectasia: Comment: 11/2022 echo 4 cm Code(s): I77.810 - Thoracic aortic ectasia Category: Medical Plan: Continue to monitor advised to have an echocardiogram in December 2024 (8) Mild carpal tunnel syndrome of right wrist: Comment: April 2024 Code(s): G56.01 - Carpal tunnel syndrome, right upper limb Category: Medical Plan: Advised wearing wrist splint/brace (9) Neuropathy of right ulnar nerve at wrist: Comment: April 2024 Code(s): G56.21 - Lesion of ulnar nerve, right upper limb Category: Medical Plan: Discussed about the problem Plan History of Present Illness The patient is a 73-year-old male presenting with neck pain and diarrhea. The neck pain is accompanied by numbness in the right hand, with diagnostic tests revealing mild right carpal tunnel syndrome and mild right ulnar neuropathy. Cervical spine X-rays showed degenerative changes at C5-C6 and C6-C7, with degenerative arthritis noted in the right shoulder. The patient's gastrointestinal symptoms began three days after consuming a Belarusian taco, and the diarrhea is watery with no nausea or vomiting. He has a significant history of coronary artery disease, controlled with flecainide, metoprolol, and Xarelto. His prior lab work from April 2024 indicated chronic anemia but no electrolyte, renal, blood sugar, or liver abnormalities. He is overdue for a colonoscopy, with the last performed in 2014. His chest pain episodes in April and December 2024 yielded negative findings. Health Maintenance - Regular colonoscopy was discussed; last performed in 2014, current screening overdue. - Recent blood work on May 23, 2024, indicated chronic anemia. - Cardiovascular risk management addressing LDL cholesterol goal less than 70, managed with atorvastatin 40 mg daily. - Blood pressure control with metoprolol. - Maintenance of medication regimens, including flecainide and Xarelto for atrial fibrillation. - Recommendations to increase fluid intake to prevent dehydration due to diarrhea. Social History - Consumed Belarusian taco three days prior reported onsets of diarrhea. Review of Systems - Gastrointestinal: Reports diarrhea. Denies nausea and vomiting. - Musculoskeletal: Reports neck pain with right hand numbness. - Genitourinary: Denies abnormal urination issues, urination frequency of three times today. - Neurological: Reports numbness in the right hand. Physical Exam General: Cooperative, healthy appearing, comfortable, no acute distress and well developed Orientation: Patient oriented x3 Limitations: No limitations Head: Normal to inspection Ears: Hearing grossly normal bilaterally Nose: Normal external nose present Face and sinus: Normal facial exam Eyes: Appearance normal, both eyes and all related structures Neck: Normal visual inspection and Yes full ROM Respiratory: Normal respiratory effort and able to speak in complete sentences. Clear to auscultation bilaterally Cardiovascular: Regular rate and rhythm. Normal S1 and S2 GI: Abdomen examined, not a surgical type. Did not hear a lot of sounds in the abdomen, indicating slowing down. Patient experiencing diarrhea for three days. Skin: No rashes or lesions noted Neuro: Patient oriented x3 Extremities: Normal to inspection, mild right carpal tunnel syndrome, mild right ulnar neuropathy. Recommended wearing a wrist brace at night. Results - Nerve conduction test in April 2024 indicated mild right carpal tunnel syndrome and mild right ulnar neuropathy. - Cervical spine X-ray: Mild to moderate degenerative changes at C5-C6 and C6- C7. - Right shoulder X-ray: Degenerative arthritis. Plan The patient's cardiovascular management will continue with flecainide, metoprolol, and Xarelto therapy. Hypercholesterolemia is addressed with atorvastatin to achieve LDL targets. Recommendations include proper hydration for diarrhea and potential probiotic use. Wrist bracing is advised for carpal tunnel syndrome. The need for colonoscopy and future echocardiogram in December is confirmed. Patient was informed and verbally consented to the use of an ambient scribe for clinic note documentation during this visit. Discussion Notes During the consultation, I explained the connection between his neck pain and the mild right carpal tunnel and ulnar neuropathy, reviewing the need for wrist braces and elbow support. We discussed his cardiovascular regimen, emphasizing the importance of maintaining Xarelto for anticoagulation alongside flecainide and metoprolol. The patient was informed about the significance of managing his hypercholesterolemia with atorvastatin, and the rationale for his LDL target. Diarrhea management strategies included hydration and temporarily withholding anti-diarrheal medications unless absolutely necessary. We elaborated on the need for a repeat colonoscopy and discussed plans for an echocardiogram clearance in December. Patient Instructions - Drink plenty of fluids to stay hydrated. - Consider taking probiotics for gut health. - Use a wrist brace at night for wrist support. - Avoid leaning on your elbow to reduce nerve irritation. - Schedule a colonoscopy soon with Dr. Tierney. - Follow your current medication regimen as prescribed. - Return for an echocardiogram in December.
[2024-07-18 10:58] VITALS: BP 130/64; PULSE 59; TEMP 36.2; O2SAT 97; BMI 26.2
--- OUTSIDE RECORDS SUMMARY | 2024-07-18 10:58 | XMS_ITS | Clinical Summary ---
Author Organization [facility] ity Address [address] [place] [address] Care Team Providers Care Accounting Officer Name Role Phone Unavailable Primary Care Provider [...]
== END 2024-07-18 11:44 | disposition home or self-care (01) ==
PROVIDERS: PCP Internal Medicine; Visit Provider Internal Medicine
DX: I25.10 Atherosclerotic heart disease of native coronary artery without angina pectoris (principal); I48.0 Paroxysmal atrial fibrillation; E78.00 Pure hypercholesterolemia, unspecified; I10 Essential (primary) hypertension; N40.1 Benign prostatic hyperplasia with lower urinary tract symptoms; R35.0 Frequency of micturition; D12.6 Benign neoplasm of colon, unspecified; I77.810 Thoracic aortic ectasia; G56.01 Carpal tunnel syndrome, right upper limb; G56.21 Lesion of ulnar nerve, right upper limb

== ENCOUNTER → 2024-07-18 10:53 | Outpatient (BNVA) | payer OTHER, SELFPAY | PROVIDERS: PCP Internal Medicine; Visit Provider Internal Medicine | DX: I25.10 Atherosclerotic heart disease of native coronary artery without angina pectoris (principal); I48.0 Paroxysmal atrial fibrillation; I10 Essential (primary) hypertension; E78.00 Pure hypercholesterolemia, unspecified; N40.1 Benign prostatic hyperplasia with lower urinary tract symptoms; R35.0 Frequency of micturition; D12.6 Benign neoplasm of colon, unspecified; I77.810 Thoracic aortic ectasia; G56.01 Carpal tunnel syndrome, right upper limb; G56.21 Lesion of ulnar nerve, right upper limb | CPT/HCPCS: 96127; 99212 ==

== ENCOUNTER 2024-07-19 02:09 | Emergency (ER) | payer OTHER, SELFPAY ==
--- NOTE | ~2024-07-19 | XR_ITS ---
CLINICAL HISTORY: Chest pain 1 view chest x-ray Comparison: 05/23/2024 Findings: Portions of the exam are obscured by overlying material. The lungs are clear. Heart size is normal. No acute fracture. IMPRESSION: 1. No acute findings. This document has been electronically signed by: Jeff Collins MD on 07/19/2024 04:41:35
[2024-07-19 02:18] VITALS: BP 116/76; BP 133/69; PULSE 52; PULSE 54; RESP 14; TEMP 36.7; O2SAT 98; BMI 27.1
--- OUTSIDE RECORDS SUMMARY | 2024-07-19 02:38 | XMS_ITS | Clinical Summary ---
Author Organization [employer] [facility] ity Address [address] [place] [address] Care Team Providers Care Certification And Selection Specialist Name Role Phone Unavailable Primary Care Provider [...]
[2024-07-19 02:39] LABS: MANUAL DIFF FLAG NO
[2024-07-19 02:42] LABS: Basophils Absolute Auto 0.1 X10*3/uL (0.0-0.2); Basophils Percent Auto 0.8 % (0-2); Eosinophils Absolute Auto 0.2 X10*3/uL (0.0-0.4); Eosinophils Percent Auto 3.6 % (0-4); Hematocrit 36.3 % (42.0-52.0); Hemoglobin 12.1 g/dl (14.0-18.0); Imm Gran Abs Auto 0.01 X10*3/uL (0.00-0.03); Imm Gran Pct Auto 0.2 % (0.0-0.4); Lymphocytes Percent Auto 31.9 % (20-40); Mean Corpuscular HGB Conc 33.3 g/dl (31.0-36.0); Mean Corpuscular Hemoglobin 30.3 pg (27.0-33.0); Mean Corpuscular Volume 90.8 fL (80.0-98.0); Mean Platelet Volume 10.2 fL (9.4-12.4); Monocytes Absolute Auto 0.6 X10*3/uL (0.1-1.2); Monocytes Percent Auto 9.4 % (2-11); Neutrophils Absolute Auto 3.4 x10*3/uL (2.0-8.3); Neutrophils Percent Auto 54.1 % (45-73); Platelet Count 166 X10*3/uL (160-400); Red Cell Distribution Width 13.2 % (11.0-16.0); White Blood Count 6.3 X10*3/uL (4.8-10.8)
[2024-07-19 03:08] LABS: Alanine Aminotransferase 14 U/L (0-40); Albumin Level 3.9 g/dL (3.5-5.0); Alkaline Phosphatase 66 U/L (39-117); Anion Gap 11 (12-20); Aspartate Amino Transferase 23 U/L (5-37); Bilirubin Total 0.8 mg/dL (0.0-1.0); Blood Urea Nitrogen 9 mg/dL (9-16); Calcium 8.9 mg/dL (8.4-10.2); Carbon Dioxide 25 mmol/L (22-29); Chloride 112 mmol/L (96-108); Creatinine Clr Calc Pharmacy 96.1; Estimated Glomerular Filt Rate > 60; Glucose Random 86 mg/dL (60-115); Potassium 3.8 mmol/L (3.3-5.1); Sodium 144 mmol/L (135-145); Total Protein 6.1 g/dL (6.5-8.0); Troponin-I High Sensitivity < 2.7 ng/L (<3.5-35.0)
[2024-07-19 04:43] VITALS: BP 125/74; PULSE 51; RESP 16; TEMP 36.7; O2SAT 97
[2024-07-19 05:31] LABS: Troponin-I High Sensitivity < 2.7 ng/L (<3.5-35.0)
[2024-07-19 06:00] VITALS: BP 133/67; PULSE 52; RESP 13; TEMP 36.5; O2SAT 96
--- NOTE | 2024-07-19 09:31 | ED.CHESTPAIN ---
HPI - Chest Pain General Chief Complaint: Chest Pain Stated Complaint: CP x1HR PER EMS Time Seen by Provider: 07/19/24 08:07 Source: patient, EMS, RN notes reviewed and old records reviewed Mode of arrival: EMS History of Present Illness ED Provider: Rowena Herrera PA-C HPI narrative: 73-year-old Macedonian-speaking male with a past medical history of CAD, proximal AFib, anxiety, depression, HLD, BPH, GERD, HTN, presenting to the ED via EMS complaining of intermittent nonradiating chest pain since yesterday morning s/p leaving mandaeism. Also reports dyspnea associated with chest pain. Denies chest pain or SOB at present. Also reports nonbloody or melanotic diarrhea x4 days. Denies fever, chills, cough, abdominal pain, nausea/vomiting, dysuria /hematuria, lightheadedness/dizziness. ASA administered via EMS Related Data Previous Rx's ?Medication ?Instructions ?Recorded acetaminophen 500 mg tablet 1,000 mg (2 x 500 mg) PO Q6H PRN 08/05/21 (Tylenol Extra Strength) pain #14 tabs BATH BENCH WITH BACK #1 ea 08/31/21 HANDHELD SHOWER HEAD #1 ea 08/31/21 LOCKING RAISED TOILET SEAT with #1 ea 08/31/21 ARMS blood pressure monitor (Blood #1 ea 08/31/21 Pressure Kit) sennosides 8.6 mg-docusate sodium 1 tab-cap PO BEDTIME #60 tabs 11/08/21 50 mg tablet (Senna-S) ferrous sulfate 325 mg (65 mg 325 mg PO DAILY #90 tabs 05/17/22 iron) tablet (Feosol) XL cuff for the BP machine #1 ea 05/31/23 lorazepam 0.5 mg tablet 0.5 mg PO DAILY 90 days #90 tabs 10/23/23 ezetimibe 10 mg tablet 10 mg PO DAILY #90 tabs 11/01/23 omeprazole 20 mg capsule,delayed 20 mg PO DAILY #90 caps 11/18/23 release atorvastatin 40 mg tablet 40 mg PO DAILY 90 days #90 tabs 11/28/23 rivaroxaban 20 mg tablet (Xarelto) 20 mg PO DAILY #90 tabs 01/14/24 metoprolol succinate 25 mg 25 mg PO DAILY #90 tabs 03/12/24 tablet,extended release 24 hr flecainide 50 mg tablet 50 mg PO BID #180 caps 03/24/24 ascorbate calcium (vitamin C) 500 500 mg PO DAILY #90 tabs 04/13/24 mg tablet cyclobenzaprine 10 mg tablet 10 mg PO BEDTIME PRN muscle spasm 04/16/24 #30 tabs acetaminophen 325 mg tablet 650 mg (2 x 325 mg) PO Q6H PRN 05/23/24 (Athenol) pain #30 tabs lidocaine 5 % topical patch 1 patch topical DAILY PRN pain #15 05/23/24 ea Allergies Allergy/AdvReac Type Severity Reaction Status Date / Time almond [ALMOND] Allergy Unknown SWELLING Verified 07/19/24 02:26 Review of Systems Review of Systems: Yes all other systems are reviewed and are negative Constitutional: Constitutional: Reports as per [facility] Past Medical History Attestation statement: The following information was validated with the patient. Source: old records reviewed Medical History Chronic suprapubic pain Tinnitus CAD (coronary artery disease) Abnormal stress echocardiogram History of adenomatous polyp of colon Paroxysmal atrial fibrillation Lower back pain Renal cyst Thoracic spondylosis Lesion of bladder Left renal stone Tubular adenoma of colon Sensorineural hearing loss Alcohol abuse Blind right eye Anxiety and depression Hypercholesterolemia BPH (benign prostatic hyperplasia) Degenerative disc disease, cervical GERD (gastroesophageal reflux disease) Hypertension Surgical History Hx of transurethral resection of prostate H/O colonoscopy Hx of cataract surgery History of inguinal hernia repair Family History Family History Father Medical history unknown Mother Medical history unknown Brother No problems noted. Son No problems noted. Son No problems noted. 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) Alcohol intake: former Patient Tobacco Use Status: Former Tobacco user Tobacco use type: Cigarette Years Smoked: 2014 quit e-Cigarette/Vaping Use: Never Used Second Hand Smoke Exposure: Yes Advance Directives Date on File: 07/05/20 service: No Current occupational status: disabled Cognitive needs: No Hearing needs: No Vision needs: Yes (Glasses) Physical Exam Vital Signs: Vital Signs: Last Vital Signs Temp 98.0 F 07/19/24 12:27 Pulse 53 07/19/24 12:27 Resp 16 07/19/24 12:27 BP 143/74 H 07/19/24 12:27 Pulse Ox 100 07/19/24 12:27 O2 Del Method Room Air 07/19/24 12:27 BMI result Body Mass Index 27.1 Const: General: cooperative, healthy appearing and no acute distress Orientation/consciousness: patient oriented x3 Limitations: no limitations HEENT: Head: Yes normal to inspection and Yes atraumatic Ears: hearing grossly normal bilaterally General nose exam: Normal external nose present Face and sinus: Yes normal facial exam Eyes: General: appearance normal, both eyes and all related structures EOM: EOMs intact bilaterally Neck: Neck: Yes normal visual inspection and Yes no meningeal signs Resp: Effort & Inspection: normal respiratory effort and no respiratory distress Auscultation: clear to auscultation bilaterally, no crackles, no rhonchi and no wheezes Cardio: Rate: regular rate Heart sounds: S1 normal heart sound present and S2 normal heart sound present GI: Inspection: Yes normal to inspection Palpation (GI): Soft to palpation, nontender, no guarding and not rigid Skin: Rashes: no rashes Wounds: no wounds Neuro: General: patient oriented x3, tone normal and no meningeal signs Cranial nerves: Yes CN's II-XII intact bilaterally Gait exam (Neuro): Normal gait present Extrem: General: Yes normal to inspection and Yes no pedal edema Course Course Course Narrative: -- labs reassuring. Troponin x2 negative, NE unlikely -CXR unremarkbale -1131-- UA negative Results discussed with patient including worrisome signs and symptoms and strict return precautions, and when to return to the emergency department. They verbalized understanding and feel safe for discharge at this time. Medical Decision Making Medical Decision Making MDM Narrative: 73-year-old Macedonian-speaking male with a past medical history of CAD, proximal AFib, anxiety, depression, HLD, BPH, GERD, HTN, presenting to the ED via EMS complaining of intermittent nonradiating chest pain since yesterday morning s/p leaving mandaeism. Also reports dyspnea associated with chest pain. Also reports nonbloody or melanotic diarrhea x4 days. On exam vital signs stable, NAD, nontoxic appearing, lungs CTA, abdomen is soft and nontender, ambulating with steady gait. Concern for atypical ACS vs viral syndrome vs anxiety vs gastroenteritis. Lower suspicion for PNA/dissection, PE, CHF, appendicitis/diverticulitis Plan: EKG, labs, CXR, UA, viral testing Please refer to course for remaining clinical decision making, interpretation of labs/imaging results, and discussions with consultants and/or family members. Differential Diagnosis Differential Diagnoses: The differential diagnosis associated with the presentation includes As above Admission/Observation Consideration of admission/observation: Escalation of care including admission/observation considered Lab Data MDM Lab Attestation statement: I reviewed the patient's lab results. 07/19/24 02:35 07/19/24 02:35 Labs: Lab Results 07/19/24 07/19/24 07/19/24 Range/Units 02:35 04:50 11:18 WBC 6.3 (4.8-10.8) X10*3/uL RBC 4.00 L (4.60-5.80) X10*6/uL Hgb 12.1 L (14.0-18.0) g/dl Hct 36.3 L (42.0-52.0) % MCV 90.8 (80.0-98.0) fL MCH 30.3 (27.0-33.0) pg MCHC 33.3 (31.0-36.0) g/dl RDW 13.2 (11.0-16.0) % Plt Count 166 (160-400) X10*3/uL MPV 10.2 (9.4-12.4) fL Immature Gran % (Auto) 0.2 (0.0-0.4) % Neut % (Auto) 54.1 (45-73) % Lymph % (Auto) 31.9 (20-40) % [place] % (Auto) 9.4 (2-11) % Eos % (Auto) 3.6 (0-4) % Baso % (Auto) 0.8 (0-2) % Lymph # (Auto) 2.0 (1.2-4.9) X10*3/uL [place] # (Auto) 0.6 (0.1-1.2) X10*3/uL Eos # (Auto) 0.2 (0.0-0.4) X10*3/uL Baso # (Auto) 0.1 (0.0-0.2) X10*3/uL Abs Immat Gran (auto) 0.01 (0.00-0.03) X10*3/uL Absolute Neuts (auto) 3.4 (2.0-8.3) x10*3/uL Absolute Nucleated RBC 0.000 (0.0-0.012) X10*3/uL Nucleated RBC % (auto) 0.0 (0.0-0.2) /100WBC Sodium 144 (135-145) mmol/L Potassium 3.8 (3.3-5.1) mmol/L Chloride 112 H (96-108) mmol/L Carbon Dioxide 25 (22-29) mmol/L Anion Gap 11 L (12-20) BUN 9 (9-16) mg/dL Creatinine 0.74 (0.5-1.4) mg/dL Estim Creat Clear Calc 96.1 Estimated GFR > 60 Random Glucose 86 (60-115) mg/dL Calcium 8.9 (8.4-10.2) mg/dL Magnesium 2.5 (1.6-2.6) mg/dL Total Bilirubin 0.8 (0.0-1.0) mg/dL AST 23 (5-37) U/L ALT 14 (0-40) U/L Alkaline Phosphatase 66 (39-117) U/L Troponin I High Sens < 2.7 < 2.7 (<3.5-35.0) ng/L Total Protein 6.1 L (6.5-8.0) g/dL Albumin 3.9 (3.5-5.0) g/dL Urine Color Yellow Urine Appearance Clear Urine pH 7.0 (5.0-9.0) Ur Specific [place] 1.015 (1.005-1.025) Urine Protein Negative (Neg-Trace) mg/dL Urine Glucose (UA) Negative (Negative) mg/dL Urine Ketones Negative (Negative) mg/dL Urine Blood Negative (Negative) Urine Nitrite Negative (Negative) Ur Leukocyte Esterase Negative (Negative) Independent Interpretation I performed an independent interpretation of an: EKG (My interpretation EKG sinus bradycardia rate of 51. [place] interval 192. QTC 394. No STEMI. Artifact present. ) and Plain X-Ray Radiology Impression Discussion of test interpretation with radiology: I have reviewed the radiologist's reading. External Record Review External record reviewed: Inpatient record, Office record, Outpatient record, Prior outpatient labs, Prior outpatient radiology, Primary care record and Outside ED record Tests considered The following testing was considered but not selected: As above Prescription Management I considered prescription management with: Other Chronic Conditions Patient?s care impacted by: Other Social Determinants Patient?s care significantly limited by Social Determinants of Health including: Other Social Determinant of Health Discharge Plan Discharge Clinical Impression: Atypical chest pain Patient Disposition: Home, Self-Care Instructions: Noncardiac Chest Pain (ED) Additional Instructions: your blood work and chest x-ray are reassuring Please have close follow up with your primary care doctor if her symptoms persist or worsen you have constant worsening chest pain, shortness breath, fever return to the ED Prescriptions: No Action (DME) BATH BENCH WITH BACK See Rx Instructions .Route .MEDSUPPLY Qty: 1 0RF Rx Instructions: As directed (DME) HANDHELD SHOWER HEAD See Rx Instructions .Route .MEDSUPPLY Qty: 1 0RF Rx Instructions: As directed (DME) LOCKING RAISED TOILET SEAT with ARMS See Rx Instructions .Route .MEDSUPPLY Qty: 1 0RF Rx Instructions: As directed (DME) blood pressure monitor [Blood Pressure Kit] Kit See Rx Instructions .ROUTE .MEDSUPPLY Qty: 1 0RF Rx Instructions: As directed (DME) XL cuff for the BP machine See Rx Instructions .Route .MEDSUPPLY Qty: 1 0RF Rx Instructions: As directed lorazepam 0.5 mg tablet 0.5 mg PO DAILY 90 Days Qty: 90 1RF ezetimibe 10 mg tablet 10 mg PO DAILY Qty: 90 3RF omeprazole 20 mg capsule,delayed release(DR/EC) 20 mg PO DAILY Qty: 90 2RF atorvastatin 40 mg tablet 40 mg PO DAILY 90 Days Qty: 90 3RF metoprolol succinate 25 mg tablet extended release 24 hr 25 mg PO DAILY Qty: 90 3RF flecainide 50 mg tablet 50 mg PO BID Qty: 180 2RF ascorbate calcium (vitamin C) 500 mg tablet 500 mg PO DAILY Qty: 90 3RF acetaminophen [Tylenol Extra Strength] 500 mg tablet 1,000 mg PO Q6H PRN (Reason: pain) Qty: 14 0RF acetaminophen [Athenol] 325 mg tablet 650 mg PO Q6H PRN (Reason: pain) Qty: 30 0RF lidocaine 5 % adhesive patch,medicated 1 patch topical DAILY PRN (Reason: pain) Qty: 15 0RF Rx Instructions: leave on most painful area for up to 12 hrs sennosides-docusate sodium [Senna-S] 8.6-50 mg tablet 1 tab-cap PO BEDTIME Qty: 60 5RF ferrous sulfate [Feosol] 325 mg (65 mg iron) tablet 325 mg PO DAILY Qty: 90 0RF Xarelto 20 mg tablet 20 mg PO DAILY Qty: 90 3RF cyclobenzaprine 10 mg tablet 10 mg PO BEDTIME PRN (Reason: muscle spasm) Qty: 30 0RF Referrals: [facility] [Provider Group] Yvonne Carter MD [Primary Care Provider] - 1 week Interventions: ED Discharge Assessment Last Done: 07/19/24 12:27 Discharge Date/Time: 07/19/24 12:29 Print Language: Macedonian
[2024-07-19 09:35] LABS: Magnesium 2.5 mg/dL (1.6-2.6)
--- NOTE | 2024-07-19 10:08 | ECG_ITS ---
Test Reason : cp Blood Pressure : */* mmHG Vent. Rate : 51 BPM Atrial Rate : 51 BPM P-R Int : 192 ms QRS Dur : 104 ms QT Int : 428 ms P-R-T Axes : 51 54 77 degrees QTcB Int : 394 ms Sinus bradycardia Otherwise normal ECG When compared with ECG of 23-May-2024 08:28, No significant change was found Referred By: Rowena Herrera Electronically Signed By: Efe Mcrae
[2024-07-19 11:18] VITALS: BP 143/74; PULSE 53; RESP 16; TEMP 36.7; O2SAT 100
[2024-07-19 11:25] LABS: Appearance Urine Clear; Color Urine Yellow; Glucose Urine UA Negative (Negative); Leukocyte Esterase Urine Negative (Negative); Nitrite Urine Negative (Negative); Specific Gravity - Urine 1.015 (1.005-1.025); Urine Blood Negative (Negative); Urine Ketones Negative (Negative); Urine Protein Negative (Neg-Trace)
[2024-07-19 12:27] VITALS: BP 143/74; PULSE 53; RESP 16; TEMP 36.7; O2SAT 100
== END 2024-07-19 12:29 | disposition home or self-care (01) ==
PROVIDERS: Physician Assistant; Emergency Provider Emergency Medicine; PCP Internal Medicine
DX: R07.89 Other chest pain (principal); I25.10 Atherosclerotic heart disease of native coronary artery without angina pectoris; Z79.899 Other long term (current) drug therapy
CPT/HCPCS: 36415; 71045; 80053; 81003; 83735; 84484; 85025; 93005; 99283; 99285

== ENCOUNTER → 2024-07-19 02:44 | Outpatient (BNV) | payer OTHER, SELFPAY | PROVIDERS: PCP Internal Medicine; Visit Provider Specialist | DX: R07.9 Chest pain, unspecified (principal) | CPT/HCPCS: 71045 ==

== ENCOUNTER → 2024-07-19 10:08 | Outpatient (BNV) | payer OTHER, SELFPAY | PROVIDERS: Emergency Provider Emergency Medicine; PCP Internal Medicine; Visit Provider Internal Medicine Cardiovascular Disease | DX: R00.1 Bradycardia, unspecified (principal) | CPT/HCPCS: 93010 ==

== ENCOUNTER 2024-10-22 23:07 | Emergency (ER) | payer OTHER, SELFPAY ==
--- NOTE | 2024-10-22 | ECG_ITS ---
Test Reason : CP Blood Pressure : */* mmHG Vent. Rate : 55 BPM Atrial Rate : 55 BPM P-R Int : 152 ms QRS Dur : 102 ms QT Int : 418 ms P-R-T Axes : 28 49 55 degrees QTcB Int : 399 ms Sinus bradycardia Minimal voltage criteria for LVH, may be normal variant ( Sokolow-Vital ) Borderline ECG When compared with ECG of 19-Jul-2024 02:25, No significant change was found Referred By: Generic ED Physician Electronically Signed By: GIL RAMIREZ
--- NOTE | ~2024-10-22 | XR_ITS ---
CLINICAL HISTORY: chest pain 1 view chest x-ray Comparison: 07/19/2024 Findings: Lungs are clear without acute infiltrates. No pneumothorax. Heart size normal. No acute bony abnormalities. Impression: No acute processes This document has been electronically signed by: Corey Fitch MD on 10/23/2024 00:22:01
[2024-10-22 23:17] VITALS: BP 175/80; PULSE 60; RESP 20; TEMP 36.1; O2SAT 99; BMI 25.8
[2024-10-22 23:26] LABS: MANUAL DIFF FLAG NO
[2024-10-22 23:27] LABS: Hematocrit 38.3 % (42.0-52.0); Hemoglobin 12.7 g/dl (14.0-18.0); Imm Gran Abs Auto 0.01 X10*3/uL (0.00-0.03); Imm Gran Pct Auto 0.1 % (0.0-0.4); Lymphocytes Absolute Auto 3.0 X10*3/uL (1.2-4.9); Mean Corpuscular HGB Conc 33.2 g/dl (31.0-36.0); Mean Corpuscular Hemoglobin 30.3 pg (27.0-33.0); Mean Corpuscular Volume 91.4 fL (80.0-98.0); NRBC Abs Auto 0.000 X10*3/uL (0.0-0.012); NRBC Pct Auto 0.0 /100WBC (0.0-0.2); Platelet Count 184 X10*3/uL (160-400); Red Blood Count 4.19 X10*6/uL (4.60-5.80); White Blood Count 7.4 X10*3/uL (4.8-10.8)
[2024-10-22 23:41] LABS: Anion Gap 10 (12-20); Blood Urea Nitrogen 13 mg/dL (9-16); Calcium 9.2 mg/dL (8.4-10.2); Carbon Dioxide 25 mmol/L (22-29); Chloride 109 mmol/L (96-108); Creatinine Clr Calc Pharmacy 84.6; Estimated Glomerular Filt Rate > 60; Potassium 3.6 mmol/L (3.3-5.1); Sodium 140 mmol/L (135-145)
[2024-10-22 23:41] LABS: INTERNATIONAL NORM RATIO 2.2 (0.9-1.1); Prothrombin Time 24.9 SEC (10.9-12.4)
[2024-10-22 23:48] LABS: Troponin-I High Sensitivity 2.7 ng/L (<3.5-35.0)
--- OUTSIDE RECORDS SUMMARY | 2024-10-22 23:49 | XMS_ITS | Clinical Summary ---
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
--- OUTSIDE RECORDS SUMMARY | 2024-10-22 23:49 | XMS_ITS ---
Author Name Sandra Kaufman NP Address [address] [place] [address] Phone [phone] [facility] Care Team Providers Care Gear Nicker Name Role Phone Sandra Kaufman Unavailable [phone] Moshe Emery Unavailable [phone] Reason for Referral Not Available Allergies, adverse [...] List Problem Status Onset Date Resolved Date Synopsis Vertigo Resolved 2022-05-02 2022-08-16 complains of b ilateral ear ringing and ear painseen by ENT was sent meclizine but has not had any for a while 08/16 states has improved he is no longer having episodes URI (upper respiratory infection) Resolved 2022-09-27 2023-01-08 has congestion, cough, fever x 2 daysaware to take to OTC tylenol increase hydration, rest use flonase states he has post nasal drip denies any wheezing or SOB aware if symptoms worsen to go to pcp for Covid or flu swab 09/28 feeling better, denies any more fever Loss of hearing Active 2022-05-02 N/A states he has loss hearing in left ear and had testing done; does have tinnitus to left ear. Follows with ENT. Hyperlipidemia Active 2022-05-02 N/A on atorvas tatin, ezetimibe dietary modifications MDD (major depressive disorder), recurrent episode, mild; Anxiety Active 2022-05-02 N/A on sertra line, Lorazepamstable no recent episodesfollowed by pcp Other problems related to medical facilities and other health care Active 2023-09-05 N/A If you ever ta ke your blood pressure and it is consistently over 170/90 or low 90/50s, have chest pain, shortness of breath, wheezing, fever, or leg swelling call us at [phone]. We are here to help. Memory deficits Active 2022-05-19 N/A states he is forgetful at times, follows with pcp Hemiplegia and hemiparesis following cerebral infarction affecting left non-dominant side Active 2023-09-05 N/A Occurring in 2021Hemiplegia left side, minimal and at times has tremors in that sideUses assistive devices- cane StatinFollow up pcp Chronic bilateral low back pain, unspecified whether sciatica present Active 2023-09-05 N/A Chronic low back pain Has been assessed by PCP Tylenol PRN, Member states Lidoderm does not work Paroxysmal atrial fibrillation/thrombophili a Active 2022-05-02 N/A on xarelto, meto prolol, flecainide followed by cardiology [id number] score-2 (HTN, vascular disease) Thoracic aortic ectasia Active 2023-09-05 N/A d x 3PCP follow up Encounters Encounters Type Facility Date of Service Diagnosis/Co mplaint No Data Available [facility], ([place]) 05/02/2022 Paroxysmal atrial fibrillationSedative, hypnotic or anxiolytic dependence, uncomplicatedMajor depressive disorder, recurrent, mildAnxiety disorder, unspecifiedHyperlipidemia, unspecifiedDizziness and giddinessUnspecified hearing loss, unspecified ear No Data Available [facility] ([place] 05[place]02[place]2022 [place] Data Available [facility] No Data Available [facility] No Data Available [facility] No Data Available [facility] No Data Available [facility]19[place]20[place] Paroxysmal atrial fibrillationOther thrombophiliaSedative, hypnotic or anxiolytic dependence, uncomplicatedMajor depressive disorder, recurrent, mildAnxiety disorder, unspecifiedHyperlipidemia, unspecifiedDizziness and giddinessUnspecified hearing loss, unspecified ear No Data Available [facility] 05[place]19/2022 No Data Available [facility] 05[place]19/2022 No Data Available [facility] 07[place]19[place]2022 Hyperlipidemia, unspecifiedM ajor depressive disorder, recurrent, mildAnxiety disorder, unspecifiedOther thrombophiliaParoxysmal atrial fibrillation No Data Available [facility] 07[place]19[place]2022 No Data Available [facility] No Data Available [facility] 08[place]16[place]2022 Paroxysmal atrial fibrillationOther thrombophiliaAnxiety disorder, unspecifiedMajor depressive disorder, recurrent, mild No Data Available [facility] 08[place]16[place]2022 No Data Available [facility]20[place] No Data Available [facility] 09[place]/2022 Paroxysmal atrial fibrillationOther thrombophiliaAcute upper respiratory infection, unspecified No Data Available [facility] 09[place]2022 No Data Available [facility]2022 No Data Available [facility] 09[place]28/2022 Acute upper respiratory infection, unspecified No Data Available [facility] 09[place]/2022 No Data Available [facility]2022 No Data Available [facility] 01/08/2023 Paroxysmal atrial fibrillationOther thrombophiliaSedative, hypnotic or anxiolytic dependence, uncomplicatedMajor depressive disorder, recurrent, mildAnxiety disorder, unspecifiedHyperlipidemia, unspecifiedUnspecified hearing loss, unspecified earOther amnesia No Data Available [facility] 01[place]08/2023 No Data Available [facility]08[place]2023 Estab. patient 30-39min; chronic exacerbation, 2 stable chronic or 1 acute illness add add modifier 95 for video, (do not use for phone, instead use [id number]) [facility]2023 Paroxysmal atrial fibrillationOther thrombophiliaOther problems related [...] (do not use for phone, instead use 59865-63) [facility]05/20[place] Estab. patient 30-39min; chronic exacerbation, 2 stable chronic or 1 acute illness add add modifier 95 for video, (do not use for phone, instead use 17754-79) [facility]05/2023 Estab. patient 30-39min; chronic exacerbation, 2 stable chronic or 1 acute illness add add modifier 95 for video, (do not use for phone, instead use 81530-71) [facility] 09[place]05/2023 Estab. patient 30-39min; chronic exacerbation, 2 stable chronic or 1 acute illness add add modifier 95 for video, (do not use for phone, instead use 13146-69) [facility]05/2023 Estab. patient 30-39min; chronic exacerbation, 2 stable chronic or 1 acute illness add add modifier 95 for video, (do not use for phone, instead use 77958-76) [facility]/2023 Estab. patient 30-39min; chronic exacerbation, 2 stable chronic or 1 acute illness add add modifier 95 for video, (do not use for phone, instead use 86945-63) [facility]/2023 Estab. patient 30-39min; chronic exacerbation, 2 stable chronic or 1 acute illness add add modifier 95 for video, (do not use for phone, instead use 14492-44) [facility]05/2023 Estab. patient 30-39min; chronic exacerbation, 2 stable chronic or 1 acute illness add add modifier 95 for video, (do not use for phone, instead use 31240-93) [facility]20[place] Estab. patient 30-39min; chronic exacerbation, 2 stable chronic or 1 acute illness add add modifier 95 for video, (do not use for phone, instead use 48564-04) [facility] ([place] 09/05/2023 Vital Signs Date of Collection Vitals [...] tive Time Current Smoking Status Former smoker 2024-09-27 8 Sex Male Gender identity Man History of Procedures Procedures Service Procedure code Service date Servicing provider Phone# No Data Available [id number] 2022-05-02 No Data Available No Data Available [...] le No Data Available No Data Available [id number] 2022-05-19 No Data Available No Data Available Pain Assessment - NO pain present (1126F) 1126F 2022-05-19 No Data Available No Data A vailable Medication List Documented (1159F) 1159F 2022-05-19 No Data Available No Data Shavon ilable No Data Available [id number] 2022-07-19 No Data Available No Data Available Medication List Documented (1159F) 1159F 2022-07-19 No Data Available No Data Shavon ilable Pain Assessment - NO pain present (1126F) 1126F 2022-07-19 No Data Available No Data A vailable No Data Available [id number] 2022-08-16 No Data Available No Data Available Medication List Documented (1159F) 1159F 2022-08-16 No Data Available No Data Shavon ilable Pain Assessment - NO pain present (1126F) 1126F 2022-08-16 No Data Available No Data A vailable No Data Available [id number] 2022-09-27 No Data Available No Data Available [...] (do not use for phone, instead use 78846-47) [id number] 2023-09-05 No Data Available No Data Availa [...] ble Advance care planning discussed and documented advance care plan or surrogate decision-maker was [...] Mental Status Status Date lives alone 2022-05-02 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 Follow-up with [facility] as needed for any acute or disease [...] 18/09.on xarelto, metoprolol, flecainide followed by cardiology [id number] score-2 (HTN, vascular disease)on lorazepam for greater than 6 months abrupt cessation would cause withdrawalaware of risk vs benefitson sertralinestable no recent episodesfollowed by pcp has appt in 1 month 05/19/2022- had PCP appt atorvastatin, ezetimibe dietary modificationscomplains of bilateral ear [...] appt xarelto, metoprolol, flecainide followed by cardiology [id number] score-2 (HTN, vascular disease) 2022-08-16 08:11:31 Phone (patient, pare nt, or guardian); 5-10 minutes of medical discussion (no modifier 95)Continue to see PCP. Follow-up with [facility] as needed for any acute or disease education needs that may arise 18/09.on xarelto, metoprolol, flecainide followed by cardiology [id number] score-2 (HTN, vascular disease)08/16- currently stableon sertralinestable [...] swabon xarelto, metoprolol, flecainide followed by cardiology [id number] score-2 (HTN, vascular disease)08/16- currently stable 09/27 [...] 18/09.on xarelto, metoprolol, flecainide followed by cardiology [id number] score-2 (HTN, vascular disease)08/16- currently stable 09/27 [...] modifier 95Advance care planning discussed and documented advance care plan or surrogate decision-maker was documented in the medical record. (1123F)Pain Assessment - Pain Documented (1125F)Continue to see PCP. Follow-up with [facility] as needed for any acute or disease education needs that may arise.on xarelto, metoprolol, flecainide followed by cardiology [id number] score-2 (HTN, vascular disease)If you ever take your blood pressure and it is consistently over 170/90 or low 90/50s, have chest pain, shortness of breath, wheezing, fever, or leg swelling call us at [phone]. We are here to help.on sertraline, Lorazepamstable [...] for feve r 2022-09-27 go to pcp covid of f meena test if not improvement 2022-09-28 continue [...]
[2024-10-23 00:06] VITALS: BP 158/79; PULSE 54; RESP 13; TEMP 36.6; O2SAT 97
--- NOTE | 2024-10-23 00:24 | ED.CHESTPAIN ---
HPI - Chest Pain General Chief Complaint: Chest Pain Stated Complaint: Chest Pain Time Seen by Provider: 10/22/24 23:53 Source: patient Mode of arrival: ambulatory Limitations: no limitations History of Present Illness ED Provider: DR. Hidalgo HPI narrative: 73-year-old male PMHx CVA, PAF, HLD, HTN, paroxysmal AFib on Eliquis, CAD presented with left-sided chest pain associated with shortness of breath that is localized to the left side chest with no radiation, started questions at 22:00 2 hours before presented to the hospital, patient was going to bed when the pain started with no exertion, no clear aggravating or clearing factors, patient took anxiety medication before coming to the hospital because he thought could be anxiety related symptoms. Related Data Previous Rx's ?Medication ?Instructions ?Recorded acetaminophen 500 mg tablet 1,000 mg (2 x 500 mg) PO Q6H PRN 08/05/21 (Tylenol Extra Strength) pain #14 tabs BATH BENCH WITH BACK #1 ea 08/31/21 HANDHELD SHOWER HEAD #1 ea 08/31/21 LOCKING RAISED TOILET SEAT with #1 ea 08/31/21 ARMS blood pressure monitor (Blood #1 ea 08/31/21 Pressure Kit) sennosides 8.6 mg-docusate sodium 1 tab-cap PO BEDTIME #60 tabs 11/08/21 50 mg tablet (Senna-S) ferrous sulfate 325 mg (65 mg 325 mg PO DAILY #90 tabs 05/17/22 iron) tablet (Feosol) XL cuff for the BP machine #1 ea 05/31/23 ezetimibe 10 mg tablet 10 mg PO DAILY #90 tabs 11/01/23 atorvastatin 40 mg tablet 40 mg PO DAILY 90 days #90 tabs 11/28/23 rivaroxaban 20 mg tablet (Xarelto) 20 mg PO DAILY #90 tabs 01/14/24 metoprolol succinate 25 mg 25 mg PO DAILY #90 tabs 03/12/24 tablet,extended release 24 hr flecainide 50 mg tablet 50 mg PO BID #180 caps 03/24/24 ascorbate calcium (vitamin C) 500 500 mg PO DAILY #90 tabs 04/13/24 mg tablet cyclobenzaprine 10 mg tablet 10 mg PO BEDTIME PRN muscle spasm 04/16/24 #30 tabs acetaminophen 325 mg tablet 650 mg (2 x 325 mg) PO Q6H PRN 05/23/24 (Athenol) pain #30 tabs lidocaine 5 % topical patch 1 patch topical DAILY PRN pain #15 05/23/24 ea lorazepam 0.5 mg tablet 0.5 mg PO DAILY 90 days #90 tabs 09/01/24 omeprazole 20 mg capsule,delayed 20 mg PO DAILY #90 caps 09/16/24 release Allergies Allergy/AdvReac Type Severity Reaction Status Date / Time almond (ALMOND) Allergy Unknown SWELLING Verified 10/22/24 23:18 Review of Systems Review of Systems: All other systems are reviewed and are negative Constitutional: Reports as per HPI and Reports no additional constitutional complaints Eyes: Reports as per HPI and Reports no additional eye complaints Reports system reviewed and no additional complaints, except as documented Cardiovascular: Reports as per HPI and Reports no additional cardiovascular complaints Respiratory: Reports as per HPI and Reports no additional respiratory complaints Gastrointestinal: Reports as per HPI and Reports no additional gastrointestinal complaints Genitourinary: Reports no additional female genitourinary complaints Musculoskeletal: Reports no additional musculoskeletal complaints Skin/Breast: Reports system reviewed and no additional complaints, except as docu Psychiatric: Reports no additional psychiatric complaints Endocrine: Reports no additional endocrine complaints Hematologic/Lymphatic: Reports no additional hematologic/lymphatic complaints Allergic/Immunologic: Reports no additional allergic/immunologic complaints Reports system reviewed and no additional complaints, except as documented and Reports Abnormal speech present FOR[facility] Past Medical History Medical History Chronic suprapubic pain Tinnitus CAD (coronary artery disease) Abnormal stress echocardiogram History of adenomatous polyp of colon Paroxysmal atrial fibrillation Lower back pain Renal cyst Thoracic spondylosis Lesion of bladder Left renal stone Tubular adenoma of colon Sensorineural hearing loss Alcohol abuse Blind right eye Anxiety and depression Hypercholesterolemia BPH (benign prostatic hyperplasia) Degenerative disc disease, cervical GERD (gastroesophageal reflux disease) Hypertension Surgical History Hx of transurethral resection of prostate H/O colonoscopy Hx of cataract surgery History of inguinal hernia repair Family History Family History Father Medical history unknown Mother Medical history unknown Brother No problems noted. Son No problems noted. Son No problems noted. 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) Unable to assess alcohol history related to: Unknown Alcohol intake: former Patient Tobacco Use Status: Former Tobacco user Tobacco use type: Cigarette Years Smoked: 2014 quit e-Cigarette/Vaping Use: Never Used Second Hand Smoke Exposure: Yes Use of substances other than those prescribed or required for medical reasons: Unknown Advance Directives: No Advance Directives Information Provided: Yes Advance Directives Date on File: 07/05/20 Do you have a plan to hurt others: No Plan service: No Current occupational status: disabled Cognitive needs: No Hearing needs: No Vision needs: Yes (Glasses) Physical Exam Vital Signs: Vital Signs: Last Vital Signs Temp 97.9 F 10/23/24 00:06 Pulse 54 10/23/24 00:06 Resp 13 10/23/24 00:06 BP 158/79 H 10/23/24 00:06 Pulse Ox 97 10/23/24 00:06 O2 Del Method Room Air 10/23/24 00:06 BMI result Body Mass Index 25.8 Vital signs have been reviewed and appear to be correct. Blood pressure elevated. Heart rate normal. Respiratory rate normal. Temperature normal. Oxygen saturation normal. Appearance: Alert. Oriented X3. No acute distress. Head: Normal external exam. Normocephalic. Atraumatic. No Smith signs noted. No raccoon eyes noted Eyes: PERRLA. EOMI. Conjunctiva and sclera normal. Eyelids normal. ENT: TM's Normal. Pharynx normal. Uvula midline. Moist mucous membranes. No trismus noted. No drooling noted. No muffled voice noted. Neck: Normal inspection. Neck supple. FROM. No adenopathy. Thyroid Normal. No meningeal signs. No neck mass noted. CVS: Normal heart rate and rhythm. Heart sound normal. No murmurs noted. Pulses normal throughout. Respiratory: No respiratory distress. Painless inspiration. Breath sounds normal. No wheezes/rales/rhonchi noted. Chest nontender. No accessory muscle usage noted or decreased air movement noted. Abdomen: Soft and nontender. Bowel sounds normal in all 4 quadrants. No distention noted. No organomegaly noted. No visible injury noted. Back: No CVA tenderness. Full range of motion noted. Skin: Skin warm and dry. Normal skin color. Normal skin turgor. No rashes/lesions/lacerations noted. Extremities: No lower extremity edema. Extremities exhibit normal range of motion. Extremities nontender. Neuro: Oriented X 3. Cranial nerve exam: II-XII are grossly intact No motor deficit. No sensory deficit. Reflexes normal. Course Reevaluation(s) Reevaluation #1: 73-year-old male came in for evaluation of chest pain that is started at 22:00 last night, unremarkable EKG unchanged from prior, troponin x2 negative, no risk for pulmonary embolism patient is already anticoagulated with therapeutic INR and negative D-dimer. Time: 02:50 Medical Decision Making Differential Diagnosis Differential Diagnoses: The differential diagnosis associated with the presentation includes (ACS, pulmonary embolism, pneumonia, pneumothorax, pleural effusion, electrolyte derangement, muscular pain, costochondritis.) Admission/Observation Consideration of admission/observation: Escalation of care including admission/observation considered Lab Data MDM Lab Attestation statement: I reviewed the patient's lab results. 10/22/24 23:16 10/22/24 23:16 Labs: Lab Results 10/22/24 10/22/24 10/23/24 Range/Units 23:16 23:30 02:19 WBC 7.4 (4.8-10.8) X10*3/uL RBC 4.19 L (4.60-5.80) X10*6/uL Hgb 12.7 L (14.0-18.0) g/dl Hct 38.3 L (42.0-52.0) % MCV 91.4 (80.0-98.0) fL MCH 30.3 (27.0-33.0) pg MCHC 33.2 (31.0-36.0) g/dl RDW 13.3 (11.0-16.0) % Plt Count 184 (160-400) X10*3/uL MPV 10.5 (9.4-12.4) fL Immature Gran % (Auto) 0.1 (0.0-0.4) % Neut % (Auto) 47.9 (45-73) % Lymph % (Auto) 40.3 H (20-40) % Keith % (Auto) 7.5 (2-11) % Eos % (Auto) 3.4 (0-4) % Baso % (Auto) 0.8 (0-2) % Lymph # (Auto) 3.0 (1.2-4.9) X10*3/uL Keith # (Auto) 0.6 (0.1-1.2) X10*3/uL Eos # (Auto) 0.3 (0.0-0.4) X10*3/uL Baso # (Auto) 0.1 (0.0-0.2) X10*3/uL Abs Immat Gran (auto) 0.01 (0.00-0.03) X10*3/uL Absolute Neuts (auto) 3.5 (2.0-8.3) x10*3/uL Absolute Nucleated RBC 0.000 (0.0-0.012) X10*3/uL Nucleated RBC % (auto) 0.0 (0.0-0.2) /100WBC PT 24.9 H D (10.9-12.4) SEC INR 2.2 H (0.9-1.1) D-Dimer High Sensitivty < 150 NG/ML Sodium 140 (135-145) mmol/L Potassium 3.6 (3.3-5.1) mmol/L Chloride 109 H (96-108) mmol/L Carbon Dioxide 25 (22-29) mmol/L Anion Gap 10 L (12-20) BUN 13 (9-16) mg/dL Creatinine 0.84 (0.5-1.4) mg/dL Estim Creat Clear Calc 84.6 Estimated GFR > 60 Random Glucose 89 (60-115) mg/dL Calcium 9.2 (8.4-10.2) mg/dL Troponin I High Sens 2.7 < 2.7 (<3.5-35.0) ng/L Independent Interpretation I performed an independent interpretation of an: Plain X-Ray (Chest: No acute intrathoracic pathology.) Radiology Impression Discussion of test interpretation with radiology: I have reviewed the radiologist's reading. Discharge Plan Discharge Clinical Impression: Atypical chest pain Patient Disposition: Home, Self-Care Instructions: Chest Pain (ED) Prescriptions: No Action (DME) BATH BENCH WITH BACK See Rx Instructions .Route .MEDSUPPLY Qty: 1 0RF Rx Instructions: As directed (DME) HANDHELD SHOWER HEAD See Rx Instructions .Route .MEDSUPPLY Qty: 1 0RF Rx Instructions: As directed (DME) LOCKING RAISED TOILET SEAT with ARMS See Rx Instructions .Route .MEDSUPPLY Qty: 1 0RF Rx Instructions: As directed (DME) blood pressure monitor [Blood Pressure Kit] Kit See Rx Instructions .ROUTE .MEDSUPPLY Qty: 1 0RF Rx Instructions: As directed (DME) XL cuff for the BP machine See Rx Instructions .Route .MEDSUPPLY Qty: 1 0RF Rx Instructions: As directed ezetimibe 10 mg tablet 10 mg PO DAILY Qty: 90 3RF atorvastatin 40 mg tablet 40 mg PO DAILY 90 Days Qty: 90 3RF metoprolol succinate 25 mg tablet extended release 24 hr 25 mg PO DAILY Qty: 90 3RF flecainide 50 mg tablet 50 mg PO BID Qty: 180 2RF ascorbate calcium (vitamin C) 500 mg tablet 500 mg PO DAILY Qty: 90 3RF lorazepam 0.5 mg tablet 0.5 mg PO DAILY 90 Days Qty: 90 1RF omeprazole 20 mg capsule,delayed release(DR/EC) 20 mg PO DAILY Qty: 90 2RF acetaminophen [Tylenol Extra Strength] 500 mg tablet 1,000 mg PO Q6H PRN (Reason: pain) Qty: 14 0RF acetaminophen [Athenol] 325 mg tablet 650 mg PO Q6H PRN (Reason: pain) Qty: 30 0RF lidocaine 5 % adhesive patch,medicated 1 patch topical DAILY PRN (Reason: pain) Qty: 15 0RF Rx Instructions: leave on most painful area for up to 12 hrs sennosides-docusate sodium [Senna-S] 8.6-50 mg tablet 1 tab-cap PO BEDTIME Qty: 60 5RF ferrous sulfate [Feosol] 325 mg (65 mg iron) tablet 325 mg PO DAILY Qty: 90 0RF Xarelto 20 mg tablet 20 mg PO DAILY Qty: 90 3RF cyclobenzaprine 10 mg tablet 10 mg PO BEDTIME PRN (Reason: muscle spasm) Qty: 30 0RF Referrals: Po,Yvonne Gold MD [Primary Care Provider, Internal Medicine] Print Language: English
[2024-10-23 00:25] LABS: D Dimer High Sensitivity < 150 NG/ML
[2024-10-23 02:45] LABS: Troponin-I High Sensitivity < 2.7 ng/L (<3.5-35.0)
[2024-10-23 03:48] VITALS: BP 136/70; PULSE 51; RESP 13; TEMP 36.6; O2SAT 97
== END 2024-10-23 03:40 | disposition home or self-care (01) ==
PROVIDERS: Emergency Provider Emergency Medicine; PCP Internal Medicine
DX: R07.89 Other chest pain (principal); R00.1 Bradycardia, unspecified; I10 Essential (primary) hypertension; I25.10 Atherosclerotic heart disease of native coronary artery without angina pectoris; R94.31 Abnormal electrocardiogram [ECG] [EKG]
CPT/HCPCS: 36415; 71045; 80048; 84484; 85025; 85379; 85610; 93005; 99284; 99285

== ENCOUNTER → 2024-10-22 23:11 | Outpatient (BNV) | payer OTHER, SELFPAY | PROVIDERS: Emergency Provider Emergency Medicine; PCP Internal Medicine; Visit Provider Internal Medicine | DX: R00.1 Bradycardia, unspecified (principal) | CPT/HCPCS: 93010 ==

== ENCOUNTER → 2024-10-22 23:25 | Outpatient (BNV) | payer OTHER, SELFPAY | PROVIDERS: Emergency Provider Emergency Medicine; PCP Internal Medicine; Visit Provider Radiology Diagnostic Radiology | DX: R07.89 Other chest pain (principal) | CPT/HCPCS: 71045 ==

== ENCOUNTER 2024-12-19 09:16 | Emergency (ER) | payer OTHER, SELFPAY ==
--- NOTE | ~2024-12-19 | XR_ITS ---
EXAMINATION: XR LUMBOSACRAL SPINE CLINICAL INFORMATION: lumbar back pain COMPARISON: None available. TECHNIQUE: Three views of the lumbosacral spine. FINDINGS: Multifocal atherosclerotic ossification is visible in the aorta. There are 5 nonrib-bearing lumbar sequence. There are small endplate osteophytes throughout the lumbar spine. Vertebral body height and alignment is preserved. Disc spaces are preserved. XR/XR lumbar spine 2-3V IMPRESSION: Mild degenerative changes. Electronically signed by: Juan M Goddard MD 12/19/2024 11:43 AM EDT
[2024-12-19 09:23] VITALS: BP 148/69; PULSE 65; RESP 18; TEMP 36.7; O2SAT 99; BMI 26.5
--- NOTE | 2024-12-19 09:46 | ED_ITS ---
HPI - General Adult General Chief complaint: Extremity Problem Stated complaint: leg pain Time Seen by Provider: 12/19/24 09:44 Source: patient, RN notes reviewed, old records reviewed and language interpreter Mode of arrival: ambulatory Limitations: language barrier (German-speaking) History of Present Illness ED Provider: ANASTASIIA Monaco HPI narrative: 74-year-old male with medical history of CVA, PAF, HLD, HTN, paroxysmal AFib on Eliquis, CAD presents to ED due to acute on chronic lumbar back pain, LLE pain, and bilateral lower extremity weakness, and an episode of palpitations. Patient states yesterday he had noticed pain of the LLE, with ?a swollen vein? and numbness and tingling over the left saldana. Patient states pain, swelling and numbness/tingling has resolved at this time. Patient reports this morning he was experiencing some chest discomfort with sensation of palpitations that lasted for approximately 30 minutes before resolving. Patient states he has had 2 falls over the last 2 months due to weakness of B/L legs. Additionally, patient states he has been experiencing increased urination over the past 5 years after inguinal hernia repair, and prostate surgery. Patient states he was seen in the department 2 months ago with chest discomfort and has cardiology follow up on 12/29/24. Denies chest pain, SOB, difficulty breathing, nausea, vomiting, abd pain, diarrhea, saddle paresthesias, bowel/bladder incontinence. MD complaint: LLE pain, lumbar back pain, LE weakness Related Data Previous Rx's ?Medication ?Instructions ?Recorded acetaminophen 500 mg tablet 1,000 mg (2 x 500 mg) PO Q 6H PRN 08/05/21 (Tylenol Extra Strength) pain #14 tabs BATH BENCH WITH BACK #1 ea 08/31/21 HANDHELD SHOWER HEAD #1 ea 08/31/21 LOCKING RAISED TOILET SEAT with #1 ea 08/31/21 ARMS blood pressure monitor (Blood #1 ea 08/31/21 Pressure Kit) sennosides 8.6 mg-docusate sodium 1 tab-cap PO BEDTIME #60 tabs 11/08/21 50 mg tablet (Senna-S) ferrous sulfate 325 mg (65 mg 325 mg PO DAILY #90 tabs 05/17/22 iron) tablet (Feosol) XL cuff for the BP machine #1 ea 05/31/23 rivaroxaban 20 mg tablet (Xarelto) 20 mg PO DAILY #90 tabs 01/14/24 metoprolol succinate 25 mg 25 mg PO DAILY #90 tabs tablet,extended release 24 hr flecainide 50 mg tablet 50 mg PO BID #180 caps 03/24 ascorbate calcium (vitamin C) 500 500 mg PO DAILY #90 tabs 04/13/24 mg tablet cyclobenzaprine 10 mg tablet 10 mg PO BEDTIME PRN musc le spasm 04/16/24 #30 tabs acetaminophen 325 mg tablet 650 mg (2 x 325 mg) PO Q6H PRN 05/23/24 (Athenol) pain #30 tabs lidocaine 5 % topical patch 1 patch topical DAILY PRN pain #15 05/23/24 ea lorazepam 0.5 mg tablet 0.5 mg PO DAILY 90 days #90 tabs 09/01/24 omeprazole 20 mg capsule,delayed 20 mg PO DAILY #90 ca ps 09/16/24 release ezetimibe 10 mg tablet 10 mg PO DAILY #90 tabs 10/27 08/20 atorvastatin 40 mg tablet 40 mg PO DAILY #90 tabs 11/20 Allergies Allergy/AdvReac Type Severity Reaction Status Date / Time almond (ALMOND) Allergy Unknown SWELLING Verified 12/19/24 09:26 Review of Systems 2 Review of Systems: CONST: Negative for fever, body aches and chills. HENT: Negative for neck pain/stiffness, headache, congestion, sore throat, swelling. EYES: Negative for discharge/pain or vision changes. RESP: Negative for cough/hemoptysis and shortness of breath. CV: Negative chest pain, difficulty breathing, palpitations. ABD: Negative pain, nausea, vomiting. : Negative, dysuria, blood in urine or stool. POS increased urinary frequency MUSC: Negative for muscle aches, edema. SKIN: Negative rash, lesions/sores. NEURO: Negative headache, dizziness, weakness. POS B/L LE weakness [facility] Past Medical History Attestation statement: The following information was validated with the patient. Source: old records reviewed and nursing notes reviewed Medical History Chronic suprapubic pain Tinnitus CAD (coronary artery disease) Abnormal stress echocardiogram History of adenomatous polyp of colon Paroxysmal atrial fibrillation Lower back pain Renal cyst Thoracic spondylosis Lesion of bladder Left renal stone Tubular adenoma of colon Sensorineural hearing loss Alcohol abuse Blind right eye Anxiety and depression Hypercholesterolemia BPH (benign prostatic hyperplasia) Degenerative disc disease, cervical GERD (gastroesophageal reflux disease) Hypertension Surgical History Hx of transurethral resection of prostate H/O colonoscopy Hx of cataract surgery History of inguinal hernia repair Family History Family History Father Medical history unknown Mother Medical history unknown Brother No problems noted. Son No problems noted. Son No problems noted. 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) Alcohol intake: former Patient Tobacco Use Status: Former Tobacco user Tobacco use type: Cigarette Years Smoked: 2014 quit e-Cigarette/Vaping Use: Never Used Second Hand Smoke Exposure: Yes Advance Directives: No Advance Directives Information Provided: Yes Advance Directives Date on File: 07/05/20 service: No Current occupational status: disabled Cognitive needs: No Hearing needs: No Vision needs: Yes (Glasses) Physical Exam ED Vital Signs: Vital Signs - 24 hr 12/19/24 09:23 Temperature 98.0 F Pulse Rate 65 Respiratory Rate 18 Blood Pressure 148/69 H Pulse Oximetry 99 Oxygen Delivery Method Room Air BMI result Body Mass Index 26.5 GENERAL APPEARANCE: ?AxOx4, generally well-appearing, no acute distress. HEENT: ?NC, AT. MMM. EOMI, clear conjunctiva, oropharynx clear. NECK: ?Supple without lymphadenopathy.? No stiffness or restricted ROM. HEART:? Normal rate and regular rhythm, normal S1/S2, no m/r/g LUNGS:? CTAB, moving air well. No crackles or wheezes are heard. ABDOMEN: ?Soft, nontender, nondistended with good bowel sounds heard. BACK: No CVAT, no obvious deformity. EXTREMITIES: ?Without cyanosis, clubbing or edema. Lower extremities without edema, Left lower extremity without evidence of tortuous veins, no edema present, SILT, popliteal and DP pulses 2+, strength 3/5 bilaterally, patient able to ambulate without ataxia/antalgic gait NEUROLOGICAL: ?Grossly nonfocal. Alert and oriented, moving all 4 extremities. Observed to ambulate with normal gait. Skin: ?Warm and dry without any rash. Medical Decision Making Medical Decision Making MDM Narrative: 74-year-old male with medical history of CVA, PAF, HLD, HTN, paroxysmal AFib on xarelto, CAD presents to ED due to acute on chronic lumbar back pain, LLE pain, and bilateral lower extremity weakness, and an episode of palpitations. Patient states yesterday he had noticed pain of the LLE, with ?a swollen vein? and numbness and tingling over the left saldana. Patient states pain, swelling and numbness/tingling has resolved at this time. Patient reports this morning he was experiencing some chest discomfort with sensation of palpitations that lasted for approximately 30 minutes before resolving. Patient states he has had 2 falls over the last 2 months due to weakness of B/L legs but endorses weakness over the past several years . Additionally, patient states he has been experiencing increased urinary frequency over the past 5 years after inguinal hernia repair, and prostate surgery. Patient states he was seen in the department 2 months ago with chest discomfort and has cardiology follow up on 12/29/24. Patient states he is unsure if he has follow up Patient took tylenol this morning which relieved pain of the LLE. Denies saddle parasthesia, bowel/bladder incontinence VS on initial observation-BP 148/69, pulse rate of 65, respiratory rate of 18, afebrile with oral temp of 98?, O2 saturation 99% on room air. On physical exam lungs clear to auscultation bilaterally, cardiac exam reveals a bradycardic rate, with a normal rhythm without murmurs/rubs/gallops, abdomen is soft, nondistended, without rigidity, nontender, lower extremities without edema, no warmth, erythema, no tortuous veins visualized, patient has full ROM from the knee and hip, popliteal pulses 2+ bilaterally, DP pulses 2+ bilaterally, patient is able to ambulate without ataxic or antalgic gait, strength is 3/5 bilaterally, SILT. No focal neurological deficits noted. Plan: labs, UA, EKG, Labs without leukocytosis/leukopenia, normocytic anemia with a hemoglobin of 12.5, and hematocrit of 38.1, no electrolyte abnormality. UA without evidence of blood or infection. EKG reveals sinus bradycardia, without significant ST-elevation/depression, troponins x2 undetectable at <2.7 XR lumbar spine reveals degenerative changes within the lumbar spine, with multifocal atherosclerotic ossification of the aorta. Patient is without symptoms today, afebrile, no leukocytosis, no saddle paresthesias, bladder or bowel incontinence, no history of IVDU- less likely cauda equina, discitis, or SEA. Patient had an episode of palpitations that lasted approximately 30 minutes prior to arrival. Patient endorsing some swelling of veins of the left leg with pain yesterday however swelling and pain has resolved today. Patient has been seen in the department for atypical chest pain 10/23/24 and has follow up with [facility] on 12/29. Patient has history of seeing [facility] 2 years ago. Patient states he has not sure if he has follow up with Urology, I will provide referral today. I discussed potential physical therapy evaluation today with placement in short-term rehab due to bilateral lower extremity weakness, however patient does not feel like his weakness is that bad and does not want placement in a STR, instead he would like to follow up with his primary care to get outpatient physical therapy referral. I counseled patient on strict return precautions. Patient is in agreement with the plan. Differential Diagnosis Differential Diagnoses: The differential diagnosis associated with the presentation includes Cauda equina Discitis SEA lumbar back strain physical deconditioning UTI Admission/Observation Consideration of admission/observation: Escalation of care including admission/observation considered Lab Data MDM Lab Attestation statement: I reviewed the patient's lab results. 12/19/24 10:33 12/19/24 10:33 Labs: Lab Results 12/19/24 12/19/24 12/19/24 Range/Units 10:33 11:32 12:12 WBC 4.8 (4.8-10.8) X10*3/uL RBC 4.15 L (4.60-5.80) X10*6/uL Hgb 12.5 L (14.0-18.0) g/dl Hct 38.1 L (42.0-52.0) % MCV 91.8 (80.0-98.0) fL MCH 30.1 (27.0-33.0) pg MCHC 32.8 (31.0-36.0) g/dl RDW 13.5 (11.0-16.0) % Plt Count 183 (160-400) X10*3/uL MPV 10.7 (9.4-12.4) fL Immature Gran % (Auto) 0.2 (0.0-0.4) % Neut % (Auto) 62.8 (45-73) % Lymph % (Auto) 24.0 (20-40) % Weber % (Auto) 8.7 (2-11) % Eos % (Auto) 3.1 (0-4) % Baso % (Auto) 1.2 (0-2) % Lymph # (Auto) 1.2 (1.2-4.9) X10*3/uL Weber # (Auto) 0.4 (0.1-1.2) X10*3/uL Eos # (Auto) 0.2 (0.0-0.4) X10*3/uL Baso # (Auto) 0.1 (0.0-0.2) X10*3/uL Abs Immat Gran (auto) 0.01 (0.00-0.03) X10*3/uL Absolute Neuts (auto) 3.0 (2.0-8.3) x10*3/uL Absolute Nucleated RBC 0.000 (0.0-0.012) X10*3/uL Nucleated RBC % (auto) 0.0 (0.0-0.2) /100WBC D-Dimer High Sensitivty < 150 NG/ML Sodium 143 (135-145) mmol/L Potassium 4.0 (3.3-5.1) mmol/L Chloride 111 H (96-108) mmol/L Carbon Dioxide 26 (22-29) mmol/L Anion Gap 10 L (12-20) BUN 10 (9-16) mg/dL Creatinine 0.79 (0.5-1.4) mg/dL Estim Creat Clear Calc 86.0 Estimated GFR > 60 Random Glucose 99 (60-115) mg/dL Calcium 9.1 (8.4-10.2) mg/dL Magnesium 2.4 (1.6-2.6) mg/dL Total Bilirubin 0.9 (0.0-1.0) mg/dL AST 23 (5-37) U/L ALT 15 (0-40) U/L Alkaline Phosphatase 67 (39-117) U/L Troponin I High Sens < 2.7 < 2.7 (<3.5-35.0) ng/L Total Protein 6.5 (6.5-8.0) g/dL Albumin 4.3 (3.5-5.0) g/dL Urine Color Yellow Urine Appearance Clear Urine pH 7.0 (5.0-9.0) Ur Specific [place] 1.010 (1.005-1.025) Urine Protein Negative (Neg-Trace) mg/dL Urine Glucose (UA) Negative (Negative) mg/dL Urine Ketones Negative (Negative) mg/dL Urine Blood Negative (Negative) Urine Nitrite Negative (Negative) Ur Leukocyte Esterase Negative (Negative) Independent Interpretation I performed an independent interpretation of an: Plain X-Ray Interpretation: I personally interpreted the XR lumbar spine which revealed degenerative changes however negative for fracture, dislocation, I agree with the radiologists interpretation Radiology Impression Discussion of test interpretation with radiology: I have reviewed the radiologist's reading. Radiologist Impression: XR lumbar spine FINDINGS: Multifocal atherosclerotic ossification is visible in the aorta. There are 5 nonrib-bearing lumbar sequence. There are small endplate osteophytes throughout the lumbar spine. Vertebral body height and alignment is preserved. Disc spaces are preserved. XR/XR lumbar spine 2-3V IMPRESSION: Mild degenerative changes. Electronically signed by: Juan M Goddard MD 12/19/2024 11:43 AM EDT Dictated By: Juan M Goddard MD Signed By: <Electronically signed by Juan M Goddard MD in OV> 12/19/24 1143 External Record Review External record reviewed: Inpatient record, Office record and Outpatient record Chronic Conditions Patient?s care impacted by: Hypertension and Other (CVA, PAF, HLD, paroxysmal AFib on xarelto) Social Determinants Patient?s care significantly limited by Social Determinants of Health including: Other Social Determinant of Health Discharge Plan Discharge Clinical Impression: Lumbar back pain, Weakness of both lower extremities Patient Disposition: Home, Self-Care Additional Instructions: You were evaluated in the ED due to pain of your left lower extremity, and weakness of both legs. Your lab work was reassuring as there was no significant increase in your white blood cell count indicative of infection, you have stable anemia on your labs today, please follow up with your primary care doctor on these findings. Your EKG revealed a slow heart rate without any emergent findings, your troponin which is a protein that the heart gives off when under stress or damage were both undetectable The xray of your lumbar spine showed osteoarthritic changes. We discussed possible evaluation by physical therapists today, however they may recommend short term rehab placement. You preferred to follow up with your primary care. I believe you may need referral to physical therapy. Please follow up with your primary care doctor. I have provided referral to urology for further evaluation of increased urinary frequency. [facility] will be contacting you within 2 business?days after being discharged from the Emergency?Department.? During this?phone call, they will inform you when your follow up appointment will be scheduled. If you have not received a call from [facility] after 2 business?days, please call the?office at [phone]. Please return to the emergency department if you experience numbness and tingling of your inner thighs or genital region, urine/bowel incontinence, shortness of breath, chest pain, headaches, worsening weakness of your lower extremities, or any new/worsening/concerning symptoms. Prescriptions: No Action (DME) BATH BENCH WITH BACK See Rx Instructions .Route .MEDSUPPLY Qty: 1 0RF Rx Instructions: As directed (DME) HANDHELD SHOWER HEAD See Rx Instructions .Route .MEDSUPPLY Qty: 1 0RF Rx Instructions: As directed (DME) LOCKING RAISED TOILET SEAT with ARMS See Rx Instructions .Route .MEDSUPPLY Qty: 1 0RF Rx Instructions: As directed (DME) blood pressure monitor [Blood Pressure Kit] Kit See Rx Instructions .ROUTE .MEDSUPPLY Qty: 1 0RF Rx Instructions: As directed (DME) XL cuff for the BP machine See Rx Instructions .Route .MEDSUPPLY Qty: 1 0RF Rx Instructions: As directed metoprolol succinate 25 mg tablet extended release 24 hr 25 mg PO DAILY Qty: 90 3RF flecainide 50 mg tablet 50 mg PO BID Qty: 180 2RF ascorbate calcium (vitamin C) 500 mg tablet 500 mg PO DAILY Qty: 90 3RF lorazepam 0.5 mg tablet 0.5 mg PO DAILY 90 Days Qty: 90 1RF omeprazole 20 mg capsule,delayed release(DR/EC) 20 mg PO DAILY Qty: 90 2RF ezetimibe 10 mg tablet 10 mg PO DAILY Qty: 90 3RF atorvastatin 40 mg tablet 40 mg PO DAILY Qty: 90 3RF acetaminophen [Tylenol Extra Strength] 500 mg tablet 1,000 mg PO Q6H PRN (Reason: pain) Qty: 14 0RF acetaminophen [Athenol] 325 mg tablet 650 mg PO Q6H PRN (Reason: pain) Qty: 30 0RF lidocaine 5 % adhesive patch,medicated 1 patch topical DAILY PRN (Reason: pain) Qty: 15 0RF Rx Instructions: leave on most painful area for up to 12 hrs sennosides-docusate sodium [Senna-S] 8.6-50 mg tablet 1 tab-cap PO BEDTIME Qty: 60 5RF ferrous sulfate [Feosol] 325 mg (65 mg iron) tablet 325 mg PO DAILY Qty: 90 0RF Xarelto 20 mg tablet 20 mg PO DAILY Qty: 90 3RF cyclobenzaprine 10 mg tablet 10 mg PO BEDTIME PRN (Reason: muscle spasm) Qty: 30 0RF Referrals: [facility] [Provider Group, Urology] Print Language: German
--- NOTE | 2024-12-19 10:06 | ECG_ITS ---
Test Reason : BACK PAIN Blood Pressure : */* mmHG Vent. Rate : 53 BPM Atrial Rate : 53 BPM P-R Int : 194 ms QRS Dur : 106 ms QT Int : 418 ms P-R-T Axes : 49 58 70 degrees QTcB Int : 392 ms Sinus bradycardia Minimal voltage criteria for LVH, may be normal variant ( Sokolow-Vital ) Nonspecific T wave abnormality Abnormal ECG When compared with ECG of 22-Oct-2024 23:11, No significant change was found Referred By: Luis Enrique Monaco Electronically Signed By: LAYTON NAQVI MD
[2024-12-19 10:47] LABS: MANUAL DIFF FLAG NO
--- OUTSIDE RECORDS SUMMARY | 2024-12-19 10:51 | XMS_ITS | Clinical Summary ---
Author Organization [facility] [employer] [facility] ity Address [address] [place] [address] Care Team Providers Care Food Service Agent Name Role Phone Unavailable Primary Care Provider [...] 12/06/1999 Zoster Vaccines (1 of 2) 12/06/1999 Depression Screening 02/27/2024 COVID-19 Vaccine (1 - 2023-2 5 season) 2024 Influenza Vaccine (#1) 2024 RSV Immunization Adult [...]
[2024-12-19 10:52] LABS: Hematocrit 38.1 % (42.0-52.0); Hemoglobin 12.5 g/dl (14.0-18.0); Imm Gran Abs Auto 0.01 X10*3/uL (0.00-0.03); Imm Gran Pct Auto 0.2 % (0.0-0.4); Lymphocytes Absolute Auto 1.2 X10*3/uL (1.2-4.9); Mean Corpuscular HGB Conc 32.8 g/dl (31.0-36.0); Mean Corpuscular Hemoglobin 30.1 pg (27.0-33.0); Mean Corpuscular Volume 91.8 fL (80.0-98.0); NRBC Abs Auto 0.000 X10*3/uL (0.0-0.012); NRBC Pct Auto 0.0 /100WBC (0.0-0.2); Platelet Count 183 X10*3/uL (160-400); Red Blood Count 4.15 X10*6/uL (4.60-5.80); White Blood Count 4.8 X10*3/uL (4.8-10.8)
[2024-12-19 11:00] LABS: D Dimer High Sensitivity < 150 NG/ML
[2024-12-19 11:04] LABS: Alanine Aminotransferase 15 U/L (0-40); Albumin Level 4.3 g/dL (3.5-5.0); Alkaline Phosphatase 67 U/L (39-117); Anion Gap 10 (12-20); Aspartate Amino Transferase 23 U/L (5-37); Blood Urea Nitrogen 10 mg/dL (9-16); Calcium 9.1 mg/dL (8.4-10.2); Carbon Dioxide 26 mmol/L (22-29); Chloride 111 mmol/L (96-108); Creatinine Clr Calc Pharmacy 86.0; Estimated Glomerular Filt Rate > 60; Magnesium 2.4 mg/dL (1.6-2.6); Potassium 4.0 mmol/L (3.3-5.1); Sodium 143 mmol/L (135-145); Total Protein 6.5 g/dL (6.5-8.0)
[2024-12-19 11:13] LABS: Troponin-I High Sensitivity < 2.7 ng/L (<3.5-35.0)
[2024-12-19 11:41] LABS: Appearance Urine Clear; Glucose Urine UA Negative (Negative); PH 7.0 (5.0-9.0); Specific Gravity - Urine 1.010 (1.005-1.025)
[2024-12-19 12:41] LABS: Troponin-I High Sensitivity < 2.7 ng/L (<3.5-35.0)
[2024-12-19 14:30] VITALS: BP 148/69; PULSE 65; RESP 18; TEMP 36.7; O2SAT 99
== END 2024-12-19 14:30 | disposition home or self-care (01) ==
PROVIDERS: Emergency Provider Emergency Medicine; PCP Internal Medicine
DX: M54.50 Low back pain, unspecified (principal); R53.1 Weakness; M79.604 Pain in right leg; M79.605 Pain in left leg; R00.1 Bradycardia, unspecified; I10 Essential (primary) hypertension; E78.5 Hyperlipidemia, unspecified; I48.0 Paroxysmal atrial fibrillation; Z86.73 Personal history of transient ischemic attack (TIA), and cerebral infarction without residual deficits; Z79.01 Long term (current) use of anticoagulants; Z79.899 Other long term (current) drug therapy
CPT/HCPCS: 36415; 72100; 80053; 81003; 83735; 84484; 85025; 85379; 93005; 99284

== ENCOUNTER → 2024-12-19 10:06 | Outpatient (BNV) | payer OTHER, SELFPAY | PROVIDERS: Emergency Provider Emergency Medicine; PCP Internal Medicine; Visit Provider Internal Medicine Cardiovascular Disease | DX: R00.1 Bradycardia, unspecified (principal) | CPT/HCPCS: 93010 ==

== ENCOUNTER → 2024-12-19 10:12 | Outpatient (BNV) | payer OTHER, SELFPAY | PROVIDERS: Emergency Provider Emergency Medicine; PCP Internal Medicine; Visit Provider Radiology Diagnostic Radiology | DX: M54.50 Low back pain, unspecified (principal) | CPT/HCPCS: 72100 ==

== ENCOUNTER → 2024-12-29 08:41 | Outpatient (REF) | payer OTHER, SELFPAY ==
--- NOTE | 2024-12-29 08:48 | CA_ITS ---
Transthoracic Echocardiogram Patient (Last, First, Middle): Janusz Hartman A Gender: M Date of : 1950 Age: 74 Procedure Date: 12/29/2024 Procedure Type: Transthoracic Echocardiogram Location: OP Height: 182. cm Weight: 81.65 kg BSA: 2.03 m2 Heart Rate: 54 bpm BP: 120 / 60 mmHg Cloth Winder: MARY Referring MD: Wilfred Aleman MD Symptoms: I77.810 - Thoracic aortic ectasia Study Quality: Adequate ECG Rhythm: Bradycardia Conclusions: - The left ventricular systolic function is normal. The calculated ejection fraction is 58% by biplane method. - No obvious valvular pathology seen on this study. - There is mild dilatation of the ascending aorta measuring 4.10 cm. Findings Left Ventricle Normal left ventricular cavity size. There is mildly increased left ventricular wall thickness. The left ventricular systolic function is normal. The calculated ejection fraction is 58% by biplane method. There is no evidence of regional wall motion abnormalities. Diastolic function is normal for age. Right Ventricle Normal right ventricular cavity size and systolic function. Atria Both atria are normal in size. Aortic Valve There is a normal trileaflet aortic valve. There is no aortic valve stenosis. There is trace (trivial) aortic valve regurgitation. Mitral Valve The mitral valve appears normal. There is no mitral valve regurgitation. There is no mitral valve stenosis. Pulmonic Valve The pulmonic valve is likely normal. Tricuspid Valve There is trace tricuspid valve regurgitation. There is no evidence of pulmonary hypertension. Great Vessels The aortic arch is normal in size. There is mild dilatation of the ascending aorta measuring 4.10 cm. Venous The inferior vena cava is normal in size and collapses greater than 50% with inspiration. Pericardium/Pleural There is no evidence of pericardial effusion. Prior Study Comparison No significant change compared to prior study dated: 12/06/2023. Recommendations, Care & Conclusions No obvious valvular pathology seen on this study. Measurements 2D Linear Measurements IVSd: 1.18 0.6-0.9/0.6-1.0 cm LVIDd: 4.69 3.9-5.3/4.2-5.9 cm LVIDd Index: 2.31 2.4-3.2/2.2-3.1 cm/m2 LVIDs: 2.60 2.0-3.6 cm LVPWd: 1.19 0.7-1.1 cm LA Diam: 3.90 2.7-3.8/3.0-4.0 cm LAIDs Index: 1.92 1.5-2.3 cm/m2 LV Mass: 258.68 67-162/88-224 g LV Mass Index: 127.43 43-95/49-115 g/m2 LVOT Diam: 2.10 3.0+(-)1.3 cm 2D Systolic Function EF 4C: 61.70 >55% EF 2C: 56.30 >55% EF BiP: 57.50 >55% Mitral Valve MV Pk E: 0.52 MV PK A: 0.67 MV Decel Time: 328.00 E/A: 0.80 E'Lateral: 6.75 E'Medial: 5.96 E/E' Med: 8.80 E/E' Lat: 7.70 PHT: 96.00 MVA PHT: 2.29 Decel [place]: 1.59 Aortic Valve AoV Pk [place]: 1.29 AoV Mn [place]: 0.94 AoV VTI: 0.30 AoV Pk Grad: 7.00 Aov Mn Grad: 4.00 ELZBIETA Cont.VTI: 3.05 LVOT LVOT Pk [place]: 1.23 LVOT Mn [place]: 0.80 LVOT VTI: 0.27 LVOT Pk Grad: 6.00 LVOT Mn Grad: 3.00 LVOT Diam: 2.10 LVOT Area: 3.46 Diastolic Function MV Pk E: 0.52 MV Pk A: 0.67 E/A: 0.80 E'Medial: 5.96 E/E' Med: 8.80 E' Laterial: 6.75 E/E' Lat: 7.70 Right Ventricle TAPSE (mm): 24.80 TVS' [place]: 11.80 Tricuspid Valve TR Pk [place]: 2.11 TR Pk Grad: 18.00 RA Press: 3.00 RVSP: 21.00 Great Vessels Aorta Sinus of Valsalva: 3.80 2.0-3.5 cm Ao Asc: 4.10 2.1-3.4 cm Ao Arch: 3.00 Pulmonary Veins Pulm Vein S/D 1.60 Pulmonary Valve PV Pk [place]: 1.05 Peak PV Grad: 4.00 Updated in Other Vendor System with Status of Final Dylan Arango MD electronically signed on 12/29/2024 3:40:03 PM with status of Final
--- OUTSIDE RECORDS SUMMARY | 2024-12-29 09:13 | XMS_ITS | Clinical Summary ---
Author Organization [facility] ity Address [address] [place] [address] Care Team Providers Care Equipment Coordinator Name Role Phone Unavailable Primary Care Provider [...]
== END ==
LOC: HO.CARD 08:41
PROVIDERS: PCP Internal Medicine; Visit Provider Internal Medicine Cardiovascular Disease
DX: I77.810 Thoracic aortic ectasia (principal)
CPT/HCPCS: 93306

== ENCOUNTER → 2024-12-29 08:48 | Outpatient (BNV) | payer OTHER, SELFPAY | PROVIDERS: PCP Internal Medicine; Visit Provider Internal Medicine | DX: I77.810 Thoracic aortic ectasia (principal) | CPT/HCPCS: 93306 ==

== ENCOUNTER 2025-01-13 09:11 | Outpatient (AMB) | payer OTHER, SELFPAY ==
--- NOTE | 2025-01-13 09:26 | MHC.OFFVIS ---
Vital Signs 01/13/25 09:28 Height 5 ft 11 in Weight 189 lb 9.561 oz BMI 26.4 BP 114/70 Blood Pressure Location Lt brachial Position Sitting Pulse 63 Intake Visit Reasons: 1 yr f/up w/ ekg Intake Note: 1 year follow-up with ekg feeling good Patient Account Representative Required: Yes Patient Account Representative Services: Patient Account Representative Present Patient Account Representative Name: elsy Han Allergies almond (ALMOND) Allergy (Unknown, Verified 12/19/24 09:26) SWELLING Medication List - Last Reconciled 01/13/25 by Wilfred Aleman MD acetaminophen (Tylenol Extra Strength) 1,000 mg (2 x 500 mg) PO Q6H PRN acetaminophen (Athenol) 650 mg (2 x 325 mg) PO Q6H PRN ascorbate calcium (vitamin C) 500 mg PO DAILY atorvastatin 40 mg PO DAILY [BATH BENCH WITH BACK As directed] blood pressure monitor (Blood Pressure Kit) As directed cyclobenzaprine 10 mg PO BEDTIME PRN ezetimibe 10 mg PO DAILY ferrous sulfate (Feosol) 325 mg PO DAILY flecainide 50 mg PO BID [HANDHELD SHOWER HEAD As directed] lidocaine 5% 1 patch topical DAILY PRN [LOCKING RAISED TOILET SEAT with ARMS As directed] lorazepam 0.5 mg PO DAILY 90 days metoprolol succinate ER 25 mg PO DAILY omeprazole 20 mg PO DAILY rivaroxaban (Xarelto) 20 mg PO DAILY sennosides-docusate sodium 8.6-50 mg (Senna-S) 1 tab-cap PO BEDTIME [XL cuff for the BP machine As directed] HPI Comments Details: Janusz comes for follow-up. History was obtained with help of freelance interpreter/translator in the room. Patient has no active cardiac symptoms. Denies any exertional chest pain or shortness of breath. Denies any prolonged palpitation irregular heartbeat. No lightheadedness, syncope. However he says he has had multiple falls in the last 1 year about 4 related to his arthritis in his knees. He said he has gone physical therapy but he seems to worsen in his problem. He has not doctor. He has not had any major bleeding issues or neurologic events. His most recent echocardiogram shows normal LV ejection fraction with mildly dilated ascending aorta. [facility] Medical History Chronic suprapubic pain Tinnitus CAD (coronary artery disease) Abnormal stress echocardiogram History of adenomatous polyp of colon Paroxysmal atrial fibrillation Lower back pain Renal cyst Thoracic spondylosis Lesion of bladder Left renal stone Tubular adenoma of colon Sensorineural hearing loss Alcohol abuse Blind right eye Anxiety and depression Hypercholesterolemia BPH (benign prostatic hyperplasia) Degenerative disc disease, cervical GERD (gastroesophageal reflux disease) Hypertension Surgical History Hx of transurethral resection of prostate H/O colonoscopy Hx of cataract surgery History of inguinal hernia repair Family History Father Medical history unknown Mother Medical history unknown Brother No problems noted. Son No problems noted. Son No problems noted. Social History Household Members: Significant Other Household Members Other:: Housing: Apartment Are you a primary nurse behavioral health care to a significant other at home: No Do you presently have visiting nurse or other home services: Yes ([employer]) Alcohol intake: former Patient Tobacco Use Status: Former Tobacco user Tobacco use type: Cigarette Years Smoked: 2014 quit e-Cigarette/Vaping Use: Never Used Second Hand Smoke Exposure: Yes Advance Directives Date on File: 07/05/20 service: No Current occupational status: disabled Cognitive needs: No Hearing needs: No Vision needs: Yes (Glasses) Review of Systems Const Denies chills, Denies fatigue, Denies fever(s), Denies frequent falls, Denies weakness, Denies weight gain and Denies weight loss ENT Denies dizziness Card Denies chest pain, Denies leg edema, Denies lightheadedness, Denies palpitations, Denies dyspnea, Denies dyspnea on exertion, Denies orthopnea and Denies other (loss of consciousness) Resp Denies cough, Denies dyspnea and Denies dyspnea on exertion GI Denies hematochezia and Denies change in stool character Musc Denies abnormal gait, Denies muscle weakness, Denies numbness, Denies radiating pain into limb and Denies tingling Neuro Denies abnormal gait, Denies dizziness, Denies frequent falls, Denies numbness, Denies tingling and Denies weakness Endo Denies fatigue and Denies palpitations Physical Exam Vital Signs: Last Vital Signs Pulse 63 01/13/25 09:28 BP 114/70 01/13/25 09:28 BMI result Body Mass Index 26.4 Last Vital Signs Temp 97.9 F 12/28/20 09:13 Pulse 50 12/28/20 09:13 Resp 12 12/28/20 09:13 BP 136/67 12/28/20 09:13 Pulse Ox 98 12/28/20 09:13 Body Mass Index 26.6 Const General: cooperative, comfortable, no acute distress, well developed, alert and awake Nutritional Appearance: average body habitus Orientation/consciousness: patient oriented x3 Limitations: no limitations HEENT Head: Yes normocephalic and Yes atraumatic Neck Neck: Yes trachea midline, Yes supple and Yes no JVD Resp Effort & Inspection: normal respiratory effort Auscultation: clear to auscultation bilaterally Cardio Jugular venous distension: no JVD Palpation: normal PMI Rate: regular rate Rhythm: regular rhythm Heart sounds: S1 normal heart sound present, S2 normal heart sound present, no click, no gallops, no murmurs and no rubs GI Auscultation: normal bowel sounds Skin General skin exam: no rashes or lesions noted Neuro General: patient oriented x3 and no focal motor deficits Extrem General: Yes no clubbing, cyanosis or edema Psych Appearance: grossly normal Office Procedures EKG Details: EKGs shows normal sinus rhythm normal EKG [id number], Complete Assessment & Plan Assessment & Plan (1) Paroxysmal atrial fibrillation: Code(s): I48.0 - Paroxysmal atrial fibrillation Category: Medical Plan: Highly symptomatic paroxysmal atrial fibrillation this elderly gentleman has remained controlled on low-dose flecainide therapy. I have advised to continue the same. Continue pursue rhythm control approach. He has not had any hospitalization related to AFib. Will need concomitant low-dose metoprolol therapy along with flecainide therapy and this was discussed with him. Continue full oral anticoagulation, currently on Xarelto 20 mg daily. Semi annual renal function test should be pursued. (2) CAD (coronary artery disease): Comment: Diffuse nonobstructive CAD by coronary CTA March 2021-sees Dr. Aleman Code(s): I25.10 - Atherosclerotic heart disease of [place] coronary artery without angina pectoris Category: Medical Plan: Diffuse nonobstructive coronary artery disease in his elderly gentleman. This does not contraindicate flecainide therapy at this point time. Continue aggressive risk factor modification. Currently on full oral anticoagulation with Xarelto and therefore would avoid aspirin therapy. Should be on statin therapy with target goal LDL less than 70 mg/dL. Blood pressure is currently well optimized. Continue current therapy for the same. Encouraged to maintain activity level as tolerated. Also advised to possibly consider orthopedic consultation given his limitations and falls. (3) Thoracic aortic ectasia: Comment: 11/2022 echo 4 cm Code(s): I77.810 - Thoracic aortic ectasia Category: Medical Plan: Mild thoracic aortic ectasia which has remained stable. Continue aggressive risk factor modification above. Follow-up echocardiogram in a year's time. Will follow up in the clinic in 6 months for EKG in 1 year with me. Thank you for allowing me to partake in his care Orders: Orders CA echo transthoracic complete 1 Year I77.810 - Thoracic aortic ectasia Coding Level of Care Code Est Pt Level 4 (49093) Complex EM visit Add On G2211 Diagnoses Paroxysmal atrial fibrillation I48.0 CAD (coronary artery disease) I25.10 Thoracic aortic ectasia I77.810 CPT Codes EKG - CPT: 98845-[id number], Complete ([id number])
[2025-01-13 09:28] VITALS: BP 114/70; PULSE 63; BMI 26.4
== END 2025-01-13 09:54 | disposition home or self-care (01) ==
LOC: HO.HCS 09:12
PROVIDERS: PCP Internal Medicine; Visit Provider Internal Medicine Cardiovascular Disease
DX: I48.0 Paroxysmal atrial fibrillation (principal); I25.10 Atherosclerotic heart disease of native coronary artery without angina pectoris; I77.810 Thoracic aortic ectasia
CPT/HCPCS: 93010; 99214; G2211

== ENCOUNTER → 2025-01-13 09:11 | Outpatient (BNVA) | payer OTHER, SELFPAY | PROVIDERS: PCP Internal Medicine; Visit Provider Internal Medicine Cardiovascular Disease | DX: I48.0 Paroxysmal atrial fibrillation (principal); I25.10 Atherosclerotic heart disease of native coronary artery without angina pectoris; I77.810 Thoracic aortic ectasia; Z87.891 Personal history of nicotine dependence | CPT/HCPCS: 93005; 99212 ==